=== PATIENT | female | born 1940 | race Caucasian/White ===

== ENCOUNTER → 2020-09-21 06:42 | Outpatient (CLI) | payer MEDICARE, SELFPAY ==
[2020-09-21 17:52] LABS: SARS-CoV-2 RNA PCR Negative
== END ==
PROVIDERS: PCP Family Medicine; Visit Provider Family Medicine
DX: Z20.822 Contact with and (suspected) exposure to COVID-19 (principal); R05 Cough; R50.9 Fever, unspecified
CPT/HCPCS: C9803; U0003; U0005

== ENCOUNTER 2020-10-12 09:11 | Outpatient (CLI) | payer MEDICARE, SELFPAY ==
--- NOTE | ~2020-10-12 | CT_ITS ---
EXAMINATION: CT sinus wo con DATE: 10/12/2020 09:31 INDICATION: Chronic sinusitis TECHNIQUE: Computed tomography (CT) of the paranasal sinuses was performed without contrast. Iterativ e reconstruction technique was employed. Exam dose: 276.23 mGy-cm total exam DLP. COMPARISON: None FINDINGS: There is rightward deviation of the nasal septum. There is prominent interlamellar cell of the middle nasal turbinates, left greater than right. The ostiomeatal units are patent bilaterally. There is mild diffuse mucoperiosteal thickening of the left maxillary sinus. The right maxillary sinu s is clear. The ethmoid air cells are unremarkable. The right frontal sinus is normal. Is mild mucope riosteal thickening of the left frontal sinus. There is mild mucoperiosteal thickening of the right sphenoid sinus and minimal posterior soft tissue thickening of the left sphenoid sinus. The mastoid air cells are normally developed and aerated bilaterally. Middle and inner ear apparatus appear normal bilaterally. IMPRESSION: Rightward deviation of nasal septum Bilateral interlamellar cell of the middle nasal turbinates, particularly prominent on the left Patent ostiomeatal units. Diffuse mild mucosal periosteal thickening of the left maxillary sinus Mild mucosal periosteal thickening of left frontal and right sphenoid sinus, minimal posterior mucope riosteal thickening of the left sphenoid sinus Reviewed, dictated and finalized at [facility]. Reviewed, dictated and finalized at location A. IMPRESSION: Rightward deviation of nasal septum Bilateral interlamellar cell of the middle nasal turbinates, particularly promi nent on the left Patent ostiomeatal units. Diffuse mild mucosal periosteal thickening of the left maxillary sinus Mild mucosal periosteal thickening of left frontal and right sphenoid sinus, mi nimal posterior mucoperiosteal thickening of the left sphenoid sinus
== END 2020-10-12 09:12 | disposition home or self-care (01) ==
PROVIDERS: PCP Family Medicine; Visit Provider Family Medicine
DX: J32.9 Chronic sinusitis, unspecified (principal); J34.2 Deviated nasal septum
CPT/HCPCS: 70486

== ENCOUNTER 2020-12-03 09:47 | Observation (INO) | payer MEDICARE, SELFPAY ==
[2020-12-03] VITALS (16 sets, daily range): BP systolic 117–149; BP diastolic 64–86; PULSE 72–87; RESP 18–27; TEMP 36.3–36.9; O2SAT 95–100; BMI 24.8
--- NOTE | ~2020-12-03 | CT_ITS ---
EXAMINATION: CT brain wo con EXAM DATE: 12/04/2020 18:34 INDICATION: Syncope. TECHNIQUE: Spiral CT of the head was performed without contrast. Axial, coronal and sagittal images were reviewed. The dose-length product (DLP) for this examination was 605.33 mGy-cm. The exposure w as tailored according to patient size, and iterative reconstruction (ASIR) was used as additional dos e reduction technique. There is no prior study for comparison. FINDINGS: There is no acute intraparenchymal hemorrhage. No evidence of intraparenchymal brain mass lesion. No evidence of acute infarction. Please note that initial head CT has limited sensitivity f or small or acute infarctions. There is mild periventricular and subcortical hypodensity, nonspecific but probably related to small vessel ischemic disease. There is mild prominence of the sulci and v entricles related to cerebral atrophy. There is intracranial carotid arteriosclerosis. There are n o extra-axial collections. There is no mass effect or midline shift. Patient has had bilateral ocul ar lens surgery. Soft tissue is unremarkable. Mild to moderate left maxillary sinus and left ethmoi d mucoperiosteal thickening. IMPRESSION: 1. No acute intracranial findings. 2. Chronic age related findings. Reviewed, dictated and finalized at location A.
--- NOTE | ~2020-12-03 | XR_ITS ---
XR chest 2V DATE: 12/03/2020 11:01 INDICATION: Shortness of breath, weakness, lightheadedness. History of asthma. TECHNIQUE: AP and lateral views COMPARISON: 08/18/2018 PA and lateral chest FINDINGS: Normal heart size. There is aortic calcification and mild tortuosity. No hilar or mediastin al enlargement. There is bilateral moderate hyperinflation. No pulmonary infiltrate or consolidation, pleural effusio n or pulmonary vascular congestion or pneumothorax is detected. Diffuse osteopenia. IMPRESSION: Moderate bilateral hyperinflation; no active cardiopulmonary disease Reviewed, dictated and finalized at location A. IMPRESSION: Moderate bilateral hyperinflation; no active cardiopulmonary diseas e
--- NOTE | ~2020-12-03 | CT_ITS ---
EXAMINATION: CTA chest PE protocol DATE: 12/03/2020 13:14 INDICATION: Shortness of breath. TECHNIQUE: Computed tomography angiography (CTA) of the chest was performed with 100 mL Omnipaque-350 intravenous contrast timed to evaluate the pulmonary arteries. Coronal maximum intensity projection 3D-reconstructions were created by the technologist. Automated exposure control and iterative reconst ruction technique were employed. The dose-length product was 260.10 mGy-cm. COMPARISON: Chest CT 02/10/2018 FINDINGS: There is mild scarring at the lung apices. There is mild atelectasis bilaterally. There are bilateral small posterior diaphragmatic hernias containing fat. No pleural effusion. There are acute pulmonary emboli in right lung upper, middle, and lower lobes. The heart size is normal. No pericard ial effusion. There are changes of cholecystectomy. There is a 10 mm cyst in left kidney. Calcificati ons in the spleen are consistent with old granulomatous disease. There is severe thoracic spondylosis . IMPRESSION: 1. Acute right-sided pulmonary emboli. I called this result to Dr. Suárez. Reviewed, dictated and finalized at location A.
--- NOTE | ~2020-12-03 | US_ITS ---
EXAMINATION: US venous doppler [facility] DATE: 12/03/2020 15:59 INDICATION: Acute pulmonary emboli. TECHNIQUE: Grayscale ultrasound images without and with compression and Doppler ultrasound images of the bilateral lower extremity veins were obtained. COMPARISON: None. FINDINGS: The visualized portions of right common femoral vein, profunda (deep) femoral vein, femoral vein, pop liteal vein, peroneal veins, posterior tibial veins, and greater saphenous vein outflow are patent. T here is thrombus in right soleus vein. The visualized portions of left common femoral vein, profunda femoral vein, femoral vein, popliteal v ein, peroneal veins, posterior tibial veins, and greater saphenous vein outflow are patent. IMPRESSION: 1. Acute deep vein thrombosis involving right soleus vein. Reviewed, dictated and finalized at location A.
--- NOTE | ~2020-12-03 | US_ITS ---
EXAMINATION: US carotid duplex BI EXAM DATE: 12/04/2020 18:10 INDICATION: Syncope. TECHNIQUE: Grayscale, color and pulsed Doppler images of the cervical carotid arteries were obtained . The degree of vessel stenosis is placed in one of the following categories: normal, <50% stenosis, 50-69% stenosis, >=70% stenosis but less than near-occlusion, near-occlusion, or occlusion. Note that percent stenosis relative to normal distal artery lumen diameter is indirectly measured from velocit y measurements as described by Ramone, et al. Radiology 2003; 229:340-346. There is no prior study fo r comparison. FINDINGS: RIGHT SIDE: Right common carotid artery peak systolic velocity (PSV in cm/s): 48 Right bulb/internal carotid artery peak systolic velocity (PSV in cm/s): 73 Right internal carotid artery end diastolic velocity (EDV in cm/s): 29 Right ICA/CCA peak systolic ratio: 1.5 Right external carotid artery peak systolic velocity (PSV in cm/s): 47 Right vertebral artery antegrade flow: yes There is minimal carotid bulb plaque. Velocity and Doppler waveforms in the common and internal carotid arteries is normal. LEFT SIDE: Left common carotid artery peak systolic velocity (PSV in cm/s): 74 Left bulb/internal carotid artery peak systolic velocity (PSV in cm/s): 79 Left internal carotid artery end diastolic velocity (EDV in cm/s): 34 Left ICA/CCA peak systolic ratio: 1.1 Left external carotid artery peak systolic velocity (PSV in cm/s): 48 Left vertebral artery antegrade flow: yes There is minimal carotid bulb plaque. Velocity and Doppler waveforms in the common and internal carotid arteries is normal. IMPRESSION: 1. Less than 50 percent stenosis in the right internal carotid artery. 2. Less than 50 percent stenosis in the left internal carotid artery. Reviewed, dictated and finalized at location A.
--- NOTE | 2020-12-03 09:53 | ECG_ITS ---
Measurements Intervals [place] Rate: 81 P: 56 GA: 165 QRS: -9 QRSD: 85 T: 21 QT: 378 QTc: 439 Interpretive Statements SINUS RHYTHM INCOMPLETE RIGHT BUNDLE BRANCH BLOCK BORDERLINE T WAVE ABNORMALITY- INFERIOR LEADS BASELINE ARTIFACT- I, II, III, AVR, AVL, AVF, V5-V6 BORDERLINE ECG Electronically Signed On 12-03-2020 16:33:03 CDT by Jim Padilla D.O.
[2020-12-03 10:28] LABS: Add Urine Microscopic? NO; Appearance Urine Clear (Clear); Bilirubin Urine Negative (Negative); Blood Urine Negative (Negative); Color Urine Yellow (Yellow); Glucose Urine UA Negative (Negative); Ketones Urine Negative (Negative); Leukocyte Esterase Ur Negative LEU/UL (Negative); Nitrate Urine Negative (Negative); Protein Urine Negative (Negative); Specific Grav Ur 1.008 (1.001-1.035); Urobilinogen Urine Negative mg/dL (<2.0)
[2020-12-03 10:38] LABS: Alanine Aminotransferase 38 U/L (4-35); Albumin Level 4.1 g/dL (3.5-5.1); Alkaline Phosphatase 92 U/L (38-126); Anion Gap 8 mmol/L (8-16); Aspartate Amino Transferase 38 U/L (14-36); Bilirubin,Total 0.8 mg/dL (0.2-1.3); Blood Urea Nitrogen 18 mg/dL (7-17); Calcium 9.4 mg/dL (8.4-10.2); Carbon Dioxide 27 mmol/L (22-30); Chloride 103 mmol/L (98-107); Estimated CRCL calculation 48 ml/min; Estimated Glomerular Filt Rate > 60; Glucose 114 mg/dL (65-110); Sodium 138 mmol/L (137-145)
[2020-12-03 10:52] LABS: Basophils Percent Auto 0.5 % (0.2-1.2); Eosinophils Absolute Auto 0.3 K/mm3 (0-0.3); Eosinophils Percent Auto 4.3 % (0-4.4); Hematocrit 38.9 % (37.0-47.0); Hemoglobin 13.1 g/dL (12.0-15.0); Immature Granulocyte Absolute 0.01 K/mm3 (0.00-0.031); Immature Granulocyte Percent A 0.1 % (0-0.5); Lymphocytes Absolute Auto 2.21 K/mm3 (0.9-3.2); Lymphocytes Percent Auto 29.7 % (18.3-44.2); Mean Corpuscular HGB Conc 33.7 g/dl (32-36); Mean Platelet Volume 9.7 fl (7.4-10.4); Monocytes Absolute Auto 0.6 K/mm3 (0.1-0.6); Monocytes Percent Auto 7.4 % (2.6-8.5); Neutrophils Absolute Auto 4.3 K/mm3 (1.3-6.7); Platelet Count Result 223 k/mm3 (150-375); Red Blood Count 4.23 M/mm3 (4.2-5.4); Red Cell Distribution Width 13.2 % (11.5-14.5); White Blood Count 7.4 K/mm3 (4.5-10.0)
[2020-12-03 12:11] LABS: D Dimer 3.41 ug/mL (<0.48)
--- NOTE | 2020-12-03 14:13 | ED.GENADULT ---
HPI - General Adult General Chief complaint: Weakness Stated complaint: weakness Time Seen by Provider: 12/03/20 11:04 Source: patient and family Mode of arrival: ambulatory Limitations: no limitations History of Present Illness HPI narrative: 80-year-old with a history of asthma here with complaints of shortness of breath, weakness for past 3 days. Patient states that she has been using her inhalers with no relief. She denies any chest pain . No history of fever or chills. Onset (ago): day(s) (3) Severity: moderate Pain Consistency: constant Relieving factors: none Exacerbating factors: none Associated symptoms: denies other symptoms Related Data Home Medications Medication Instructions Recorded Confirmed atorvastatin 12/03/20 12/03/20 fluticasone furoate-vilanterol INHALATION 12/03/20 [Breo Ellipta] indapamide mg 12/03/20 ipratropium-albuterol ml INHALATION 12/03/20 levothyroxine 12/03/20 omeprazole 12/03/20 Allergies Allergy/AdvReac Type Severity Reaction Status Date / Time fluticasone Allergy Unknown Other Verified 12/03/20 11:22 salmeterol Allergy Unknown Other Verified 12/03/20 11:22 Review of Systems Constitutional: Constitutional: Reports no additional constitutional complaints Eyes: Eyes: Reports no additional eye complaints ENT: Reports system reviewed and no additional complaints, except as documented Cardiovascular: Cardiovascular: Reports no additional cardiovascular complaints Respiratory: Respiratory: Reports as per HPI Gastrointestinal: Gastrointestinal: Reports no additional gastrointestinal complaints Musculoskeletal: Musculoskeletal: Reports no additional musculoskeletal complaints Integumentary/Breasts: Skin/Breast: Reports system reviewed and no additional complaints, except as docu Neurologic: Reports system reviewed and no additional complaints, except as documented PMFSH Family History Family History Mother Family history of chronic obstructive pulmonary disease Social History Social History Smoking status: Never smoker Exam Narrative: GENERAL: Well-appearing, well-nourished, and in no acute distress. HEAD: Normocephalic, atraumatic. EYES: PERRLA and EOMI. ENT: Nares clear, no rhinorrhea or epistaxis. Mucous membranes moist. NECK: Supple. CHEST: Clear to auscultation. No respiratory distress. HEART: Regular rate and rhythm. No murmur heard. Normal peripheral pulses. ABDOMEN: Soft, nontender, nondistended, normal active bowel sounds. EXTREMITIES: Normal range of motion. No edema. SKIN: Warm, dry, no rash. NEURO: No focal deficits. Alert and oriented x3. PSYCH: Normal mood and affect. Course Course Emergency Course: Patient still saturating 98 200% on room air. Informed her about her lab work, CT findings. Discussed with Shanel agreed to admit the patient in observation. Vital Signs Vital signs: Vital Signs Temperature 36.4 C L 12/03/20 09:50 Pulse Rate 87 12/03/20 09:50 Respiratory Rate 20 12/03/20 09:50 Blood Pressure 149/85 H 12/03/20 09:50 Pulse Oximetry 100 12/03/20 09:50 Temperature 36.8 C 12/03/20 11:05 Pulse Rate 87 12/03/20 09:50 Respiratory Rate 20 12/03/20 09:50 Blood Pressure 149/85 H 12/03/20 09:50 Pulse Oximetry 100 12/03/20 09:50 Medical Decision Making Vital Signs Vital Signs: Vital Signs Temperature 36.4 C L 12/03/20 09:50 Pulse Rate 87 12/03/20 09:50 Respiratory Rate 20 12/03/20 09:50 Blood Pressure 149/85 H 12/03/20 09:50 Pulse Oximetry 100 12/03/20 09:50 Temperature 36.8 C 12/03/20 11:05 Pulse Rate 87 12/03/20 09:50 Respiratory Rate 20 12/03/20 09:50 Blood Pressure 149/85 H 12/03/20 09:50 Pulse Oximetry 100 12/03/20 09:50 Lab Data Result diagrams: 12/03/20 10:00 12/03/20 10:00 Labs: Lab Results 12/03/20 1
[2020-12-03] MEDS: ENOXAPARIN 80 MG/0.8 ML SYRINGE 70 MG SUB-Q (14:18)
--- NOTE | 2020-12-03 19:00 | ADMGEN ---
This patient, Carmel Sampson, was admitted to Medical Room 347-. Patient/family oriented to hospital policies and general routines including ID bracelet, bed and alarms, visiting hours, pain management, procedures, bathroom and other care routines, personal items, smoking policy, room service/diet, and visiting hours. Information on how to activate the Rapid Response Team has been discussed. Patient/Family are encouraged to report perceived risks to care and to ask questions if they do not understand what they are told or what they should do.
--- NOTE | 2020-12-03 19:00 | PM.IMHP ---
H&P: HPI History of Present Illness Date/Time: 12/03/20 19:00 Chief Complaint: Near syncope, shortness of breath. Narrative: This is a very pleasant 80-year-old female with asthma, hypertension, hyperlipidemia, and GERD who presented to the emergency department earlier today from home for evaluation of a near syncopal episode and shortness of breath. She has not felt in her usual state of health for several months with generalized weakness and increasing shortness of breath from her baseline though it seems to have gotten worse over the past 3 days. Initially she thought her symptoms were due to sinus issues and allergies, and in fact she had a sinus surgery done couple of weeks ago at [facility]. This morning she suddenly felt lightheaded and nearly had a syncopal episode but luckily she was able to sit down and her symptoms improved. Since that time her shortness of breath has been worse and her rescue inhaler has not helped much. On arrival to the emergency department her SpO2 was 100% on room air and her chest x-ray showed moderate bilateral hyperinflation but no acute disease. Her D-dimer was elevated which prompted a chest CTA that showed acute right-sided pulmonary emboli and a subsequent venous Doppler ultrasound showed an acute DVT involving the right soleus vein. With further questioning she does admit to being a bit more sedentary than normal the last several months, though not necessarily more so after her surgery. She endorses intermittent lower extremity edema since August for which she was started on indapamide with benefit though she has noticed that her right leg tends to be more swollen than the left. Her legs have not been painful, however. She has no history of venous thromboembolism. She has not had exertional chest pain or pleuritic pain. No palpitations. Weight has remained stable. No history of malignancy. She is not on hormones. No recent travel. Review of Systems Review of Systems: Twelve systems were reviewed with pertinent positives and negatives as per HPI. Weight has remained stable. No history of malignancy. She had normal colonoscopies and mammograms within the past 3 to 4 years. She has never had an abnormal mammogram. No nausea or vomiting. Except as documented, all other systems were reviewed and are negative. [facility] Past Medical History Medical History (Updated 12/03/20 @ 23:20 by Mary Jane Nelson PA-C) Asthma Diverticulitis Gastroesophageal reflux disease Hyperlipidemia Hypertension Hypothyroidism Obstructive sleep apnea Patient does not use a CPAP. Surgical History Surgical History (Updated 12/03/20 @ 23:16 by Mary Jane Nelson PA-C) History of cardiac catheterization (2016) Normal coronary arteries. History of excision of epidermal inclusion cyst (06/23/02) Right chest wall. History of laparoscopic cholecystectomy (05/03/07) History of sinus surgery (10/2020) History of tubal ligation (1975) Family History Family History Mother Family history of chronic obstructive pulmonary disease Diabetes mellitus Father Social History Social History (Updated 12/03/20 @ 23:17 by Mary Jane Nelson PA-C) Social History: Surrogate decision maker: Douglas Acostan, . Code status: Full code. Smoking status: Never smoker Alcohol intake: current Drinks per week: 1 Substance use: never Living arrangements: with family Additional living arrangements comments: The patient lives in [place] with her . Occupation/Education: retired [employer] Home Medications and Allergies Home Medications Medication Instructions Recorded Confirmed Type fluticasone furoate 200 1 inhalation INHALATION DAILY #60 02/24/19 12/03/20 Rx mcg-vilanterol 25 mcg/dose each inhalation powder atorvastatin 20 mg PO DAILY 12/03/20 12/03/20 History indapamide 1.25 mg PO DAILY 12/03/20 12/03/20 History ipratropium-
[2020-12-04] VITALS (17 sets, daily range): BP systolic 105–143; BP diastolic 61–86; PULSE 62–89; RESP 16–19; TEMP 36.1–37.1; O2SAT 93–98
[2020-12-04] MEDS: ENOXAPARIN 80 MG/0.8 ML SYRINGE 72 MG SUB-Q (02:00)
[2020-12-04] MEDS: LEVOTHYROXINE SODIUM 100 MCG TABLET PO (05:33)
[2020-12-04 05:58] LABS: Basophils Percent Auto 0.6 % (0.2-1.2); Eosinophils Absolute Auto 0.3 K/mm3 (0-0.3); Eosinophils Percent Auto 6.3 % (0-4.4); Hematocrit 36.9 % (37.0-47.0); Hemoglobin 12.1 g/dL (12.0-15.0); Immature Granulocyte Absolute 0.02 K/mm3 (0.00-0.031); Immature Granulocyte Percent A 0.4 % (0-0.5); Lymphocytes Absolute Auto 1.71 K/mm3 (0.9-3.2); Lymphocytes Percent Auto 33.6 % (18.3-44.2); Mean Corpuscular HGB Conc 32.8 g/dl (32-36); Mean Corpuscular Hemoglobin 30.4 pg (26-34); Mean Corpuscular Volume 92.7 fl (80-100); Mean Platelet Volume 9.3 fl (7.4-10.4); Monocytes Absolute Auto 0.5 K/mm3 (0.1-0.6); Monocytes Percent Auto 9.6 % (2.6-8.5); Neutrophils Absolute Auto 2.5 K/mm3 (1.3-6.7); Neutrophils Percent Auto 49.5 % (45.5-73.1); Platelet Count Result 195 k/mm3 (150-375); Red Blood Count 3.98 M/mm3 (4.2-5.4); Red Cell Distribution Width 13.2 % (11.5-14.5); White Blood Count 5.1 K/mm3 (4.5-10.0)
[2020-12-04 06:12] LABS: Alanine Aminotransferase 35 U/L (4-35); Albumin Level 3.6 g/dL (3.5-5.1); Alkaline Phosphatase 81 U/L (38-126); Anion Gap 4 mmol/L (8-16); Aspartate Amino Transferase 31 U/L (14-36); Bilirubin,Total 0.9 mg/dL (0.2-1.3); Blood Urea Nitrogen 15 mg/dL (7-17); Calcium 9.2 mg/dL (8.4-10.2); Carbon Dioxide 30 mmol/L (22-30); Chloride 103 mmol/L (98-107); Estimated CRCL calculation 48 ml/min; Estimated Glomerular Filt Rate > 60; Glucose 100 mg/dL (65-110); Potassium 3.8 mmol/L (3.4-5.0); Sodium 137 mmol/L (137-145)
[2020-12-04 06:23] LABS: NT Pro B Type Natriuretic Pept 339 pg/mL (5-100); Troponin I < 0.012 ng/mL (0.000-0.034)
[2020-12-04 07:16] LABS: Thyroid Stimulating Hormone Reflex 0.827 uIU/mL (0.465-4.68)
[2020-12-04] MEDS: INDAPAMIDE 1.25 MG TABLET PO (09:26)
[2020-12-04] MEDS: PANTOPRAZOLE 40 MG TABLET PO ×2 (09:27→17:53)
[2020-12-04] MEDS: ATORVASTATIN 20 MG TABLET PO (09:27)
[2020-12-04] MEDS: IPRATROPIUM BR 0.02% INH SOLN 0.5 MG/2.5 ML VIAL INHALATION ×3 (10:37→20:03)
[2020-12-04] MEDS: ALBUTEROL SULFATE NEB 2.5 MG/0.5 ML INH INHALATION ×3 (10:37→20:03)
--- NOTE | 2020-12-04 15:43 | PM.IMPN ---
Progress Note: A&P Assessment and Plan (1) Pulmonary embolism on right: Code(s): I26.99 - Other pulmonary embolism without acute cor pulmonale Status: Acute Assessment and Plan: Pulmonary emboli in the right upper middle and lower lobes as well as a DVT in the right soleus vein. Lovenox 1 milligram/kilogram b.i.d. Echo did not show any heart strain with an EF of 60-65 Eliquis was going to be $104 per month Was told that Xarelto should be cheaper will order through pharmacy to euceda check tele monitor (2) Deep vein thrombosis of right lower limb: Code(s): I82.401 - Acute embolism and thrombosis of unspecified deep veins of right lower extremity Status: Acute Assessment and Plan: Venous doppler: acute deep vein thrombosis in right soleus vein Lovenox Transition to either Eliquis or Xarelto Bedrest for now (3) Hypertension: Code(s): I10 - Essential (primary) hypertension Status: Acute Assessment and Plan: Current blood pressure 112/61 Continue indapamide 1.25 PO daily trend BP adjust medications as needed (4) Hyperlipidemia: Code(s): E78.5 - Hyperlipidemia, unspecified Status: Acute Assessment and Plan: Continue omeprazole (5) Hypothyroidism: Code(s): E03.9 - Hypothyroidism, unspecified Status: Acute Assessment and Plan: Continue home levothyroxine 100mcg PO daily TSH 0.827 (6) Asthma: Code(s): J45.909 - Unspecified asthma, uncomplicated Status: Acute Assessment and Plan: albuterol and Atrovent neb treatments (7) Near syncope: Code(s): R55 - Syncope and collapse Status: Acute Assessment and Plan: Stood up and had to quickly sit down Everything went black Will get carotid Doppler just to make sure Head ct as well Time Spent With Patient Time with patient: Greater than 35 minutes Subjective Date/time seen: 12/04/20 10:30 Interval history: Patient is a 80-year-old female who is here for pulmonary embolism and DVT. Patient states that she feels better and that she does not have the shortness of breath with just lying there however she has not been able to get up or put any exertion to her routine. She denies chest pain and palpitations at this time. Patient did state that she has been having symptoms on or off the past 3-4 years however over the past 3 days it has gotten worse. Patient does have a good appetite and is able to eat. She said her biggest fears when she stood up to go to the kitchen to eat dinner she was weak and fatigue and started to black out. She did complain of a little swelling in the bilateral legs. She denies every having a syncopal episode before. She did deny chest pain, shortness of breath, nausea, vomiting, abdominal pain, or weakness. Review of Systems Review of Systems: All systems reviewed & are unremarkable except as noted in HPI and below Exam Const: General: cooperative, healthy appearing, no acute distress, well developed, alert and awake Nutritional Appearance: well nourished Orientation/consciousness: patient oriented x3 Limitations: no limitations HENMT: Head: normal to inspection Ears: hearing grossly normal bilaterally General nose exam: Normal external nose present Mouth: Yes Normal oral and palatal mucosa present, Yes lip normal and Yes tongue normal Teeth and gingiva: abnormal tooth and associated gingiva and poor dentition Eyes: General: appearance normal, both eyes and all related structures Neck: Neck: normal visual inspection, full ROM, trachea midline and supple Chest: Chest palpation & inspection: normal inspection of the chest Resp: Effort & Inspection: normal respiratory effort and able to speak in complete sentences Auscultation: clear to auscultation bilaterally Cardio: Jugular venous distension: no JVD Rate: regular rate Rhythm: regular r
[2020-12-04] MEDS: ENOXAPARIN 80 MG/0.8 ML SYRINGE 70 MG SUB-Q (20:31)
--- NOTE | 2020-12-04 23:23 | ECHO_ITS ---
Patient Info Name: Carmel Sampson Age: 80 years : 1940 Gender: Female Ht: 67 in Wt: 158 lbs BSA: 1.85 m2 HR: 70 bpm BP: 143 / 86 mmHg Heart Rhythm: Sinus Rhythm Technical Quality: Good Exam Date: 12/04/2020 8:12 AM Exam Location: [facility] Patient Status: Inpatient Admit Date: 12/03/2020 Staff Ordering Physician: Mary Jane Nelson PA-C District Scout Executive: uRma Antony RDCS Attending Provider: Keyon Vasquez MD Referring Physician: Leslie FLORENTINO; Exam Type: CA echo doppler color flow Study Info Indications I10 - Essential (primary) hypertension - PULMONART EMBOLISM Complete two-dimensional, color flow and Doppler transthoracic echocardiogram is performed. Strain analysis performed. Summary 1. Complete two-dimensional, color flow and Doppler transthoracic echocardiogram is performed. 2. Strain analysis performed. 3. Left ventricular chamber dimension is mildly enlarged. 4. Left ventricular systolic function is normal, estimated at 60-65%. 5. There is no increased left ventricular wall thickness. 6. The left ventricular diastolic function is grade I diastolic dysfunction. 7. Global longitudinal strain is normal at -21 %. 8. Right ventricular chamber dimension is mildly enlarged. 9. Left atrial chamber dimension is moderately enlarged. 10. Right atrial chamber dimension is mildly enlarged. 11. There is mild aortic valve regurgitation. 12. The mitral valve annulus is mildly calcified. 13. There is mild mitral valve regurgitation. 14. There is mild tricuspid valve regurgitation. 15. Mild pulmonary hypertension, estimated pulmonary arterial systolic pressure is 44 mmHg. 16. There is mild pulmonic regurgitation. Left Ventricle Left ventricular chamber dimension is mildly enlarged. Left ventricular systolic function is normal, estimated at 60-65%. There is no increased left ventricular wall thickness. The left ventricular diastolic function is grade I diastolic dysfunction. Global longitudinal strain is normal at -21 %. Right Ventricle Right ventricular chamber dimension is mildly enlarged. Right ventricular systolic function is normal. Left Atria Left atrial chamber dimension is moderately enlarged. Right Atria Right atrial chamber dimension is mildly enlarged. Atrial Septum Aneurysmal interatrial septum without evidence of shunting by color-flow Doppler. Aortic Valve The aortic valve is trileaflet. There is mild aortic valve sclerosis. There is no aortic valve stenosis. There is mild aortic valve regurgitation. Pulmonic Valve The pulmonic valve is normal. There is no pulmonic valve stenosis. There is mild pulmonic regurgitation. Mitral Valve The mitral valve has normal leaflets. There is no mitral valve stenosis. There is mild mitral valve regurgitation. The mitral valve annulus is mildly calcified. Tricuspid Valve The tricuspid valve leaflets are normal. There is no significant tricuspid valve stenosis. There is mild tricuspid valve regurgitation. Mild pulmonary hypertension, estimated pulmonary arterial systolic pressure is 44 mmHg. Pericardium/Pleural The pericardium appears normal. There is no pericardial effusion. Inferior Vena Cava Normal inferior vena cava with >50% collapse upon inspiration consistent with normal right atrial pressure, 10 mmHg. Aorta The aortic root size at the sinus of Valsalva is normal. Left Ventricular Outflow Tract
[2020-12-05] VITALS (7 sets, daily range): BP systolic 127; BP diastolic 75; PULSE 64–106; RESP 16; TEMP 36.3; O2SAT 94–97
[2020-12-05] MEDS: LEVOTHYROXINE SODIUM 100 MCG TABLET PO (05:40)
[2020-12-05 05:54] LABS: Basophils Percent Auto 0.6 % (0.2-1.2); Eosinophils Absolute Auto 0.3 K/mm3 (0-0.3); Eosinophils Percent Auto 5.3 % (0-4.4); Hematocrit 37.1 % (37.0-47.0); Hemoglobin 12.1 g/dL (12.0-15.0); Immature Granulocyte Absolute 0.02 K/mm3 (0.00-0.031); Immature Granulocyte Percent A 0.4 % (0-0.5); Lymphocytes Absolute Auto 1.66 K/mm3 (0.9-3.2); Lymphocytes Percent Auto 30.5 % (18.3-44.2); Mean Corpuscular HGB Conc 32.6 g/dl (32-36); Mean Corpuscular Hemoglobin 30.3 pg (26-34); Mean Corpuscular Volume 92.8 fl (80-100); Mean Platelet Volume 9.3 fl (7.4-10.4); Monocytes Absolute Auto 0.4 K/mm3 (0.1-0.6); Monocytes Percent Auto 7.5 % (2.6-8.5); Neutrophils Percent Auto 55.7 % (45.5-73.1); Platelet Count Result 215 k/mm3 (150-375); Red Cell Distribution Width 13.1 % (11.5-14.5); White Blood Count 5.4 K/mm3 (4.5-10.0)
[2020-12-05 06:13] LABS: Alanine Aminotransferase 33 U/L (4-35); Albumin Level 3.5 g/dL (3.5-5.1); Alkaline Phosphatase 74 U/L (38-126); Anion Gap 4 mmol/L (8-16); Aspartate Amino Transferase 29 U/L (14-36); Bilirubin,Total 0.6 mg/dL (0.2-1.3); Blood Urea Nitrogen 14 mg/dL (7-17); Calcium 9.1 mg/dL (8.4-10.2); Carbon Dioxide 32 mmol/L (22-30); Chloride 103 mmol/L (98-107); Estimated CRCL calculation 48 ml/min; Estimated Glomerular Filt Rate > 60; Glucose 114 mg/dL (65-110); Sodium 139 mmol/L (137-145)
[2020-12-05 07:50] LABS: Glucose Point of Care 113 mg/dl (65-105)
[2020-12-05] MEDS: IPRATROPIUM BR 0.02% INH SOLN 0.5 MG/2.5 ML VIAL INHALATION (08:17)
[2020-12-05] MEDS: ALBUTEROL SULFATE NEB 2.5 MG/0.5 ML INH INHALATION (08:18)
[2020-12-05] MEDS: INDAPAMIDE 1.25 MG TABLET PO (08:46)
[2020-12-05] MEDS: PANTOPRAZOLE 40 MG TABLET PO (08:46)
[2020-12-05] MEDS: ENOXAPARIN 80 MG/0.8 ML SYRINGE 70 MG SUB-Q (08:46)
[2020-12-05] MEDS: ATORVASTATIN 20 MG TABLET PO (08:46)
--- NOTE | 2020-12-05 12:34 | PM.DS ---
DS: Admitting Diagnosis Discharge Date Date of service 12/05/20 11:45 Admitting Diagnosis PE and DVT with near syncope DS: Discharge Diagnosis Discharge Diagnosis (1) Pulmonary embolism on right: Code(s): I26.99 - Other pulmonary embolism without acute cor pulmonale Status: Acute Assessment and Plan: Pulmonary emboli in the right upper middle and lower lobes as well as a DVT in the right soleus vein. Lovenox 1 milligram/kilogram b.i.d. Echo did not show any heart strain with an EF of 60-65 Eliquis is going to be $104 per month Xarelto is 162.32 a month tele monitor Pt will DC on eliquis (2) Deep vein thrombosis of right lower limb: Code(s): I82.401 - Acute embolism and thrombosis of unspecified deep veins of right lower extremity Status: Acute Assessment and Plan: Venous doppler: acute deep vein thrombosis in right soleus vein Lovenox Transition to either Eliquis or Xarelto Bedrest for now (3) Hypertension: Code(s): I10 - Essential (primary) hypertension Status: Acute Assessment and Plan: Current blood pressure 127/75 Continue indapamide 1.25 PO daily trend BP adjust medications as needed (4) Hyperlipidemia: Code(s): E78.5 - Hyperlipidemia, unspecified Status: Acute Assessment and Plan: Continue omeprazole (5) Hypothyroidism: Code(s): E03.9 - Hypothyroidism, unspecified Status: Acute Assessment and Plan: Continue home levothyroxine 100mcg PO daily TSH 0.827 (6) Asthma: Code(s): J45.909 - Unspecified asthma, uncomplicated Status: Acute Assessment and Plan: albuterol and Atrovent neb treatments (7) Near syncope: Code(s): R55 - Syncope and collapse Status: Acute Assessment and Plan: Stood up and had to quickly sit down Everything went black carotid Doppler <50% stenosed Head ct no acute finding age related findings DS: Summary Hospital Course Hospital Course: Patient is a 80-year-old female with a past medical history of hyperlipidemia, asthma, GERD who presented the ED for evaluation near syncopal episode and shortness of breath. It was found that patient had a PE in the right upper middle and lower lobes. She also was found have a DVT in the right Flick is pain. Patient was treated with Lovenox 1 milligram/kilogram b.i.d.. Echo did not show any signs of heart strain in her EF was 60-65%. It was noted to check for it DVT and PE due to patient's elevated D-dimer. Patient was also worked up for near syncopal episode. Head CT showed chronic findings and carotid Doppler showed less than 50% stenosis bilaterally. Patient was out of bed and was able to walk the hallways with no troubles. Patient had no complaints of chest pain, palpitations, weakness, fatigue, abdominal pain nausea, vomiting, sweats, fevers, chills. Status at Discharge Functional status at discharge: independent ambulation Overall status at discharge: patient is back to baseline Time Spent with Patient Time attestation: Total time spent providing and/or coordinating discharge services: 48 minutes Time spent: Greater than 30 minutes Specific discharge activities: Chart review, lab review, diagnostic testing, documentation, and physical exam Exam Const: General: cooperative, healthy appearing, no acute distress, well developed, alert and awake Nutritional Appearance: well nourished Orientation/consciousness: patient oriented x3 Limitations: no limitations HENMT: Head: normal to inspection Ears: hearing grossly normal bilaterally General nose exam: Normal external nose present Mouth: Yes Normal oral and palatal mucosa present, Yes lip normal and Yes tongue normal Teeth and gingiva: abnormal tooth and associated gingiva and poor dentition Eyes: General: appearance normal, both eyes and all related structures Neck: Neck: normal visua
== END 2020-12-05 15:00 | disposition home or self-care (01) ==
LOC: ANHED 14:21 → ANH3MEDSUR 16:55 → ANH3MED 17:38
PROVIDERS: Emergency Medicine; Physician Assistant; Admitting Provider Internal Medicine; Emergency Provider Family Medicine; PCP Family Medicine; Visit Provider Nurse Practitioner
DX: I26.99 Other pulmonary embolism without acute cor pulmonale (principal); I82.461 Acute embolism and thrombosis of right calf muscular vein; R06.02 Shortness of breath; R55 Syncope and collapse; E78.5 Hyperlipidemia, unspecified; E03.9 Hypothyroidism, unspecified; G47.33 Obstructive sleep apnea (adult) (pediatric); I10 Essential (primary) hypertension; J45.909 Unspecified asthma, uncomplicated; K21.9 Gastro-esophageal reflux disease without esophagitis
CPT/HCPCS: 36415; 70450; 71046; 71275; 80048; 80053; 80076; 81003; 82948; 83735; 83880; 84443; 84484; 85025; 85380; 93005; 93306; 93880; 93970; 94640; 94762; 96372; 99285; A9270; G0378; J1650; Q9967

== ENCOUNTER → 2021-08-07 13:45 | Outpatient (CLI) | payer MEDICARE, SELFPAY ==
--- NOTE | ~2021-08-07 | XR_ITS ---
XR chest 2V DATE: 08/07/2021 14:07 INDICATION: Cough TECHNIQUE: 2 views COMPARISON: 12/03/2020 CT pulmonary scan 12/03/2020 2 view chest FINDINGS: Bilateral hyperinflation relative flattening the diaphragm consistent with obstructive airw ays disease. No pulmonary infiltrate or consolidation, pleural effusion or pulmonary vascular congest ion or pneumothorax is detected. Chronic minimal blunting of the costophrenic angles. Heart size is within normal range. There is aortic calcification and minimal tortuosity. No hilar or mediastinal enlargement. Osteopenia. IMPRESSION: Bilateral hyperinflation consistent with obstructive airways disease No active cardiac pulmonary disease Aortic atherosclerosis No significant change since 11/2020 Reviewed, dictated and finalized at location A. IMPRESSION: Bilateral hyperinflation consistent with obstructive airways diseas e No active cardiac pulmonary disease Aortic atherosclerosis No significant change since 11/2020
== END ==
PROVIDERS: PCP Family Medicine; Visit Provider Family Medicine
DX: J45.991 Cough variant asthma (principal); I70.0 Atherosclerosis of aorta
CPT/HCPCS: 71046

== ENCOUNTER → 2022-03-13 14:18 | Outpatient (CLI) | payer MEDICARE, SELFPAY ==
--- NOTE | ~2022-03-13 | XR_ITS ---
EXAMINATION: XR thoracic spine 2V DATE: 03/13/2022 14:34 INDICATION: Thoracic spine pain TECHNIQUE: AP, lateral and lateral swimmer's views of the thoracic spine were obtained. COMPARISON: None. FINDINGS: Bone alignment is normal. There is no fracture. There is mild anterior wedging of vertebral bodies in the midthoracic spine. There is mild to moderate loss of intervertebral disc space height at multiple levels. Small degenerative osteophytes project from the anterior endplates of multiple ve rtebral bodies. IMPRESSION: 1. Moderate thoracic spondylosis without acute findings. Reviewed, dictated and finalized at location L. PAPER PHOTOGRAPHER
== END ==
PROVIDERS: PCP Family Medicine; Visit Provider Family Medicine
DX: M47.814 Spondylosis without myelopathy or radiculopathy, thoracic region (principal)
CPT/HCPCS: 72070

== ENCOUNTER 2023-05-14 10:44 | Outpatient (CLI) | payer MEDICARE, SELFPAY ==
--- NOTE | ~2023-05-14 | US_ITS ---
EXAMINATION: US renal BI DATE: 05/14/2023 11:06 INDICATION: Acute renal failure TECHNIQUE: Multiple ultrasound grayscale images of the kidneys were obtained. COMPARISON: None. FINDINGS: The right kidney measures 10.3 x 4.6 x 5.1 cm. The left kidney measures 11.6 x 5.5 x 4.1 cm cm. The k idneys demonstrate normal echogenicity. Bilateral anechoic renal cysts measuring 1.2 cm on the right and 1.1 cm on the left. There is no hydronephrosis in either kidney. No stones identified. The bladd er is normal. IMPRESSION: 1. Small bilateral renal cysts. Otherwise normal kidneys with no hydronephrosis. Reviewed, dictated and finalized at location L. IMPRESSION: 1. Small bilateral renal cysts. Otherwise normal kidneys with no hydronephrosi s.
== END 2023-05-14 10:45 ==
PROVIDERS: PCP Family Medicine; Visit Provider Internal Medicine Nephrology
DX: N17.9 Acute kidney failure, unspecified (principal); N28.1 Cyst of kidney, acquired
CPT/HCPCS: 76775

== ENCOUNTER 2023-05-21 19:58 | Inpatient (IN) | payer MEDICARE, SELFPAY ==
--- NOTE | ~2023-05-21 | XR_ITS ---
XR chest 1V portable 05/24/2023 06:29 Indication: Right rib pain Procedure: AP portable chest Comparison: Comparison to multiple prior studies sequentially, with oldest reviewed study dated 01/02. Findings: Heart size normal. No focal air space disease, pulmonary edema, pleural effusion or suspect ed pneumothorax. Chronic mild blunting of the costophrenic recess. Impression: 1: No acute cardiopulmonary disease. Reviewed, dictated and finalized at location A. Impression: 1: No acute cardiopulmonary disease.
--- NOTE | ~2023-05-21 | US_ITS ---
EXAMINATION: US biopsy renal DATE: 05/22/2023 12:58 INDICATION: Acute renal failure TECHNIQUE: The procedure including the risks, benefits, and alternatives was discussed with the patie nt. Risks discussed included bleeding and infection. The patient understood the risks and agreed to p roceed. A timeout was performed to verify the patient's name, date of , and procedure to be p erformed. The skin overlying the left kidney was prepped and draped in usual sterile fashion. Anest hetic was administered with 1% lidocaine subcutaneously. An 18 gauge core biopsy needle was then use d to obtain 4 core biopsy specimens under continuous sonographic guidance. The entry site was cleaned and dressed. There were no immediate complications. FINDINGS: Ultrasound images demonstrate the needle in the kidney. IMPRESSION: 1. Ultrasound-guided random left kidney core needle biopsy. Reviewed, dictated and finalized at location A.
--- NOTE | 2023-05-21 19:10 | ADMGEN ---
This patient, Carmel Sampson, was admitted to [facility] Surg Room 328-01. Patient/family oriented to hospital policies and general routines including ID bracelet, bed and alarms, visiting hours, pain management, procedures, bathroom and other care routines, personal items, smoking policy, room service/diet, and visiting hours. Information on how to activate the Rapid Response Team has been discussed. Patient/Family are encouraged to report perceived risks to care and to ask questions if they do not understand what they are told or what they should do.
[2023-05-21 20:00] VITALS: BP 167/91; PULSE 81; RESP 22; TEMP 36.9; O2SAT 97
[2023-05-21 20:02] VITALS: BMI 24.7
[2023-05-21 20:49] LABS: Hematocrit 28.4 % (37.0-47.0); Hemoglobin 9.1 g/dL (12.0-15.0); Immature Granulocyte Absolute 0.02 K/mm3 (0.00-0.031); Immature Granulocyte Percent A 0.3 % (0-0.5); Lymphocytes Absolute Auto 1.26 K/mm3 (0.9-3.2); Lymphocytes Percent Auto 18.4 % (18.3-44.2); Mean Corpuscular Hemoglobin 30.6 pg (26-34); Mean Corpuscular Volume 95.6 fl (80-100); Mean Platelet Volume 9.6 fl (7.4-10.4); Monocytes Absolute Auto 0.5 K/mm3 (0.1-0.6); Monocytes Percent Auto 7.2 % (2.6-8.5); Neutrophils Absolute Auto 5.1 K/mm3 (1.3-6.7); Neutrophils Percent Auto 74.1 % (45.5-73.1); Platelet Count Result 189 k/mm3 (150-375); Red Blood Count 2.97 M/mm3 (4.2-5.4); Red Cell Distribution Width 13.6 % (11.5-14.5); White Blood Count 6.8 K/mm3 (4.5-10.0)
--- NOTE | 2023-05-21 21:04 | PM.IMHP ---
H&P: HPI History of Present Illness Date/Time: 05/21/23 21:04 Chief Complaint: Abnormal Labs Narrative: 83 y/o F presents here with abnormal labs with PMH of diverticulitis, GERD, DVT, PE, HTN, hypothyroidism, KYLIE (not on CPAP), pulmonary hypertension, hypercholesteremia, inga neck pulmonary disease, and asthma. Patient here for further evaluation of acute renal failure. Recently established with Nephrology on 05/12/2023. Was referred to them through her PCP, Dr. Ontiveros. Patient routinely sees her PCP every 6-12 months. Visits have been follow-ups or routine yearly exams. Kidney dysfunction was noted in March of 2023, GFR reduced from 62 -> 23 -> 14 (Aug -> Mar -> Apr). Patient denies nausea, vomiting, diarrhea, fever, chills, flu-like illness, bloody urine, foamy urine, history of kidney stones, dysuria, frequent bladder infections. Reported increased swelling to her lower extremities for the past year and has been having some peripheral neuropathy like symptoms that have also been worsening over a similar timeline. Started on indapamide in May of 2022 which partially resolved the aforementioned swelling but was discontinued in Mar when kidney dysfunction was discovered. No other new medications or new OTC medications. Infrequent NSAID use - estimates once per month. BP has been historically controlled, however recently has increased with systolics ranging from 130s to 150s. Not currently on antihypertensives. Initial VS at presentation: 98.5? F, age are 82, RR 22, 167/91, and 97% on RA. Review of Systems Review of Systems: All systems reviewed & are unremarkable except as noted in HPI and below PMFSH Past Medical History Medical History Atherosclerosis of aorta Diverticulitis Gastro-esophageal reflux disease without esophagitis Gastroesophageal reflux disease History of DVT (deep vein thrombosis) History of pulmonary embolus (PE) Hypertension Hypothyroidism Nasal congestion Near syncope Obstructive sleep apnea Patient does not use a CPAP. Occlusion and stenosis of bilateral carotid arteries Pulmonary hypertension due to lung diseases and hypoxia Pure hypercholesterolemia, unspecified Severe persistent extrinsic asthma without complication Surgical History Surgical History History of cardiac catheterization (2016) Normal coronary arteries. History of excision of epidermal inclusion cyst (06/23/02) Right chest wall. History of laparoscopic cholecystectomy (05/03/07) History of sinus surgery (10/2020) History of tubal ligation (1975) Family History Family History Mother Family history of chronic obstructive pulmonary disease Diabetes mellitus Father Social History Social History Social History: Surrogate decision maker: Douglas Sampson, . Code status: Full code. Smoking status: Never smoker Alcohol intake: current Drinks per week: 0 Substance use: never Do You Feel Safe in your Home?: Yes Lack of Transportation: No Lack of Food: Never True Current Housing: I Have Housing Concerned About Future Housing: No Difficulty Paying Gas/Electric Bills: No Difficulty Paying for Meds: No Currently Unemployed: No Education: Trade/Vocational Certificate Difficulty w/ Childcare or Family Care: No Living arrangements: with family Additional living arrangements comments: The patient lives in [place] with her . Occupation/Education: retired Gender identity (if verbalized by the patient): Female Sexual Orientation (if Verbalized by the Patient): Straight or Heterosexual Spiritual care concerns: No Meds Home Medications and Allergies Home Medications Medication Instructions Recorded Confirmed Type omeprazole 40 mg
[2023-05-21 21:10] LABS: Alanine Aminotransferase 13 U/L (6-35); Albumin Level 3.7 g/dL (3.5-5.1); Alkaline Phosphatase 51 U/L (38-126); Anion Gap 4 mmol/L (8-16); Aspartate Amino Transferase 22 U/L (14-36); Bilirubin,Total 0.5 mg/dL (0.2-1.3); Blood Urea Nitrogen 43 mg/dL (7-17); Calcium 9.1 mg/dL (8.4-10.2); Carbon Dioxide 25 mmol/L (22-30); Chloride 109 mmol/L (98-107); Estimated CRCL calculation 15 ml/min; Estimated Glomerular Filt Rate 18; Glucose 100 mg/dL (65-110); Potassium 4.1 mmol/L (3.4-5.0); Sodium 138 mmol/L (137-145)
[2023-05-22] VITALS (8 sets, daily range): BP systolic 132–180; BP diastolic 65–90; PULSE 72–83; RESP 14–18; TEMP 36.3–37.2; O2SAT 96–99
--- NOTE | 2023-05-22 | ECHO_ITS ---
Patient Info Name: Carmel Sampson Age: 83 years : 1940 Gender: Female Ht: 67 in Wt: 158 lbs BSA: 1.85 m2 HR: 74 bpm BP: 180 / 90 mmHg Heart Rhythm: Sinus Rhythm Technical Quality: Good Exam Date: 05/22/2023 10:42 AM Exam Location: Echo Lab Patient Status: Outpatient Admit Date: 05/21/2023 Staff Ordering Physician: Sinai Hernandez APRN Meat Molder: Miguel Angel Bazzi RDCS Attending Provider: Anna To MD Referring Physician: David CRESPO; Exam Type: CA echo doppler color flow Study Info Indications - LE SWELLING Complete two-dimensional, color flow and Doppler transthoracic echocardiogram is performed. Summary 1. Complete two-dimensional, color flow and Doppler transthoracic echocardiogram is performed. 2. Mild left ventricular hypertrophy with hyperdynamic systolic function and grade 1 diastolic noncompliance. 3. Calcified mitral valve annulus. 4. Mild aortic regurgitation. 5. Mild tricuspid regurgitation velocity analysis estimates RV systolic pressure 52 mmHg. Left Ventricle Left ventricular chamber dimension is normal. Left ventricular systolic function is hyperdynamic, estimated at >70%. There is mild concentric increased left ventricular wall thickness. The left ventricular diastolic function is grade I diastolic dysfunction. Right Ventricle Right ventricular chamber dimension is normal. Left Atria Left atrial chamber dimension is normal. Right Atria Right atrial chamber dimension is normal. Aortic Valve The aortic valve is normal. There is mild aortic valve regurgitation. Pulmonic Valve The pulmonic valve is normal. Mitral Valve The mitral valve has normal leaflets. The mitral valve annulus is mildly calcified. Tricuspid Valve The tricuspid valve leaflets are normal. There is mild tricuspid valve regurgitation. Moderate pulmonary hypertension, estimated pulmonary arterial systolic pressure is 60 mmHg. Pericardium/Pleural The pericardium appears normal. Aorta The aortic root size at the sinus of Valsalva is normal. Left Ventricular Outflow Tract Name Value Normal LVOT 2D LVOT Diameter 2.2 cm LVOT Doppler LVOT Peak Gradient 7 mmHg LVOT Mean Gradient 3 mmHg LVOT VTI 30 cm LVOT VTI/AV VTI Ratio 1.0 LVOT Stroke Volume 112 ml LVOT CO 8.1 l/min LVOT CI 4.4 l/min/m2 Pulmonic Valve Name Value Normal RVOT Doppler RVOT Peak Gradient 5 mmHg PV Doppler PV Peak Gradient 5 mmHg Mitral Valve Name Value Normal
[2023-05-22] MEDS: methylPREDNISolone SOD SUCC 1,000 MG in DEXTROSE 5% 100 ML 200 MG IVPB ×2 (00:19→09:03)
[2023-05-22] MEDS: ACETAMINOPHEN 325 MG TABLET 650 MG PO ×2 (00:37→20:26)
[2023-05-22 00:45] LABS: Appearance Urine Clear (Clear); Bacteria Urine None Seen /hpf; Bilirubin Urine Negative (Negative); Blood Urine 2+ (Negative); Color Urine Yellow (Yellow); Glucose Urine UA Negative (Negative); Ketones Urine Negative (Negative); Leukocyte Esterase Ur Trace LEU/UL (Negative); Nitrate Urine Negative (Negative); Non Pathogenic Casts 0-2; Protein Urine 2+ mg/dL (Negative); Specific Grav Ur 1.008 (1.001-1.035); Squamous Epithelial Cell Urine None Seen /hpf (Few); Urobilinogen Urine 0.2 mg/dL (<2.0); pH Urine 6.5 (5.0-9.0)
[2023-05-22 00:47] LABS: Add Urine Microscopic? YES
[2023-05-22 00:48] LABS: Creatinine Urine 21.6 mg/dL; Total Protein Urine Random 79 mg/dL; Ur Ttl Prot Creatinine Ratio 3.66 mg/mg (0-0.20)
[2023-05-22 06:35] LABS: Basophils Percent Auto 0.1 % (0.2-1.2); Hematocrit 33.9 % (37.0-47.0); Hemoglobin 10.3 g/dL (12.0-15.0); Immature Granulocyte Absolute 0.02 K/mm3 (0.00-0.031); Immature Granulocyte Percent A 0.3 % (0-0.5); Lymphocytes Absolute Auto 1.24 K/mm3 (0.9-3.2); Lymphocytes Percent Auto 17.3 % (18.3-44.2); Mean Corpuscular HGB Conc 30.4 g/dl (32-36); Mean Corpuscular Hemoglobin 29.9 pg (26-34); Mean Corpuscular Volume 98.5 fl (80-100); Mean Platelet Volume 9.9 fl (7.4-10.4); Monocytes Absolute Auto 0.1 K/mm3 (0.1-0.6); Monocytes Percent Auto 1.1 % (2.6-8.5); Neutrophils Absolute Auto 5.8 K/mm3 (1.3-6.7); Neutrophils Percent Auto 81.2 % (45.5-73.1); Platelet Count Result 235 k/mm3 (150-375); Red Blood Count 3.44 M/mm3 (4.2-5.4); Red Cell Distribution Width 13.3 % (11.5-14.5); White Blood Count 7.2 K/mm3 (4.5-10.0)
[2023-05-22 06:46] LABS: Prothrombin Time 13.6 Seconds (11.1-14.7)
[2023-05-22 06:47] LABS: Partial Thromboplastin Time 29.1 Seconds (22.3-36.8)
[2023-05-22 07:33] LABS: Erythrocyte Sedimentation Rate 48 mm/hr (0-20)
[2023-05-22 07:36] LABS: Alanine Aminotransferase 15 U/L (6-35); Alkaline Phosphatase 56 U/L (38-126); Anion Gap 10 mmol/L (8-16); Aspartate Amino Transferase 23 U/L (14-36); Bilirubin,Total 0.7 mg/dL (0.2-1.3); Blood Urea Nitrogen 41 mg/dL (7-17); Calcium 9.5 mg/dL (8.4-10.2); Carbon Dioxide 20 mmol/L (22-30); Chloride 108 mmol/L (98-107); Estimated CRCL calculation 16 ml/min; Estimated Glomerular Filt Rate 19; Glucose 145 mg/dL (65-110); Magnesium 2.1 mg/dL (1.6-2.3); Phosphorus 4.4 mg/dL (2.5-4.5); Sodium 138 mmol/L (137-145)
[2023-05-22 08:07] LABS: Hepatitis B Surface Antigen Negative (Negative)
[2023-05-22 08:12] LABS: Hepatitis B Core IgM Result Negative (Negative)
[2023-05-22 08:25] LABS: Hepatitis B Surface Anti Res Negative; Hepatitis C Virus Antibody Negative (Negative)
[2023-05-22 08:31] LABS: Hemoglobin A1C 5.4 % (<5.7)
[2023-05-22] MEDS: hydrALAZINE HCL 25 MG TABLET PO ×2 (09:02→16:51)
[2023-05-22] MEDS: ATORVASTATIN 20 MG TABLET PO (09:02)
[2023-05-22] MEDS: MONTELUKAST SODIUM 10 MG TABLET PO (09:03)
[2023-05-22] MEDS: PANTOPRAZOLE 40 MG TABLET PO ×2 (09:03→20:26)
--- NOTE | 2023-05-22 09:20 | PM.CNNEP ---
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 cytoxan) along with steroids follow renal function and UOP (2) Nephrotic range proteinuria: Code(s): R80.9 - Proteinuria, unspecified Status: Acute Assessment and Plan: noted on outpatient evaluation likely a contributing component to LE edema re-assess following current interventions (3) Hematuria: Code(s): R31.9 - Hematuria, unspecified Status: Acute Assessment and Plan: as noted on outpatient evaluation see #1 (4) Hypertension: Qualifiers: Hypertension type: primary hypertension Qualified Code(s): I10 - Essential (primary) hypertension Code(s): I10 - Essential (primary) hypertension Status: Acute Assessment and Plan: relatively new issue and suspect related to #1 on PRN IV hydralazine start oral hydralazine for now likely to benefit from LILA-I/ARB therapy but hold off until treatment for #1 finalized and trend of renal function noted (5) Bilateral lower extremity edema: Code(s): R60.0 - Localized edema Status: Acute Assessment and Plan: suspect related to proteinuria Echo ordered for further evaluation Long extensive discussion (greater than 20 minutes) with the patient as well as her at bedside regarding treatment plan as well as further testing (i.e. the renal biopsy) for definitive diagnosis for her acute kidney injury/acute renal failure as well as the necessity of IV steroids and likely further immunosuppressive medications once the results of her renal biopsy are available. I answered their questions to the best of my abilities with regard to these issues and voiced their understanding. I will continue follow patient with you while she remains hospitalized and make further recommendations as deemed necessary. Thank you for allowing me to participate in the care of this patient. History of Present Illness Reason for Consult Consult date: 05/22/23 Reason for consult: acute renal failure Chief Complaint Chief complaint: Renal Failure History of Present Illness Narrative: The patient is an 83-year-old female with a past medical history as outlined below who was directly admitted to the hospital for further evaluation of her acute kidney injury/acute renal failure. Since the beginning of this year, the patient had blood tests that demonstrated a significant decline in her renal function when in 2022 her kidney function was well within normal limits. She was subsequently referred to Dr. Villavicencio for further evaluation of her abrupt decline in her kidney function. Subsequent outpatient workup and evaluation demonstrated evidence of hematuria and proteinuria with quantification of her proteinuria noted being in the nephrotic range. Her renal ultrasound was normal and her subsequent serological evaluation was significant for positive C-ANCA. furthermore, she has had on and off issues with lower extremity swelling / edema in conjunction with higher blood pressure readings when her blood pressure was under reasonable control without any speci
--- NOTE | 2023-05-22 09:20 | P.CONNP_ITS ---
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 cytoxan) along with steroids * follow renal function and UOP (2) Nephrotic range proteinuria: Code(s): R80.9 - Proteinuria, unspecified Status: Acute Assessment and Plan: * noted on outpatient evaluation * likely a contributing component to LE edema * re-assess following current interventions (3) Hematuria: Code(s): R31.9 - Hematuria, unspecified Status: Acute Assessment and Plan: * as noted on outpatient evaluation * see #1 (4) Hypertension: Qualifiers: Hypertension type: primary hypertension Qualified Code(s): I10 - Essential (primary) hypertension Code(s): I10 - Essential (primary) hypertension Status: Acute Assessment and Plan: * relatively new issue and suspect related to #1 * on PRN IV hydralazine * start oral hydralazine for now * likely to benefit from LILA-I/ARB therapy but hold off until treatment for #1 finalized and trend of renal function noted (5) Bilateral lower extremity edema: Code(s): R60.0 - Localized edema Status: Acute Assessment and Plan: * suspect related to proteinuria * Echo ordered for further evaluation Long extensive discussion (greater than 20 minutes) with the patient as well as her at bedside regarding treatment plan as well as further testing (i.e. the renal biopsy) for definitive diagnosis for her acute kidney injury/acute renal failure as well as the necessity of IV steroids and likely further immunosuppressive medications once the results of her renal biopsy are available. I answered their questions to the best of my abilities with regard to these issues and voiced their understanding. I will continue follow patient with you while she remains hospitalized and make further recommendations as deemed necessary. Thank you for allowing me to participate in the care of this patient. History of Present Illness Reason for Consult Consult date: 05/22/23 Reason for consult: acute renal failure Chief Complaint Chief complaint: Renal Failure History of Present Illness Narrative: The patient is an 83-year-old female with a past medical history as outlined below who was directly admitted to the hospital for further evaluation of her acute kidney injury/acute renal failure. Since the beginning of this year, the patient had blood tests that demonstrated a significant decline in her renal function when in 2022 her kidney function was well within normal limits. She was subsequently referred to Dr. Villavicencio for further evaluation of her abrupt decline in her kidney function. Subsequent outpatient workup and evaluation demonstrated e
[2023-05-22 09:28] LABS: Creatine Kinase 67 U/L (30-135)
--- NOTE | 2023-05-22 10:55 | PM.IMPN ---
Progress Note: A&P Assessment and Plan (1) Acute kidney failure, unspecified: Code(s): N17.9 - Acute kidney failure, unspecified Status: Acute Assessment and Plan: 05/21/2023: - creatinine 2.5 - initial abnormality noted on lab work done in Mar, creatinine 0.93 -> 2.11 - GFR 62 (08/2022) -> 23 (03/2023) -> 18 (05/21/23) - nephrology consulted. Discussed case prior to direct admission with Dr. Villavicencio who recommended: 1G of Solu-Medrol x3 days 70 mg p.o. of prednisone daily after sudden Medrol dose is completed renal biopsy stat - trend renal function - add CK, urine creatinine, urine osmolality, total protein creatinine random, UA with reflex, hepatitis panel, ESR, CK, Mag, phos, and coag studies - reported lower extremity swelling, adding echo 05/22/2023: Renal biopsy today with Nephrology Continue Solu-Medrol 1 g taper Echocardiogram showing left ventricular systolic function normal with an estimated EF of greater than 70%, grade 1 diastolic dysfunction, mood moderate pulmonary hypertension with estimated pulmonary artery systolic pressure of 60 Will hold atorvastatin until results of biopsy (2) Hypertension: Qualifiers: Hypertension type: primary hypertension Qualified Code(s): I10 - Essential (primary) hypertension Code(s): I10 - Essential (primary) hypertension Status: Acute Assessment and Plan: 05/21/2023 - per bhargav review, has been previously diagnosed. currently 167/91. - no current home medications - hydralazine 10 mg IVP PRN for BP greater than 170/90 - monitor 05/22/2023: Blood pressure ranging 132/65 to 155/71 Hydralazine 25 mg p.o. b.i.d. ordered Continue to monitor Time Spent With Patient Time with patient: Greater than 35 minutes Subjective Date/time seen: 05/22/23 10:55 Interval history: This is an 83-year-old female came in on 05/21/2023 with abnormal labs. Workup in the hospital included a renal ultrasound showing small bilateral renal otherwise normal kidneys with no hydronephrosis. Initial labs revealed a normal white blood cell count is 6.8, hemoglobin 9.1, BUN 43, creatinine 2.5, EGFR 18, liver enzymes are normal. UA was performed which shows 2+ protein, 2+ blood, trace leukocytes, 11-20 urine rbc's, to 10 urine WBCs. Hep B panel was negative. Urine culture was obtained and is pending. Patient was given Tylenol, Zofran, Colace albuterol neb treatment, and hydralazine while in the ED. nephrology consult and is giving 1 g of Solu-Medrol for the 1st 3 days which will taper down to 70 mg p.o. of prednisone daily. Patient had renal biopsy today. We will finish 1 g of Solu-Medrol tomorrow and start prednisone taper discharge. Nephrology will call her with the biopsy results once they are back. She denies any fever, chills, nausea, vomiting, diarrhea, abdominal pain, chest pain, shortness a breath, headache, vision changes. Echo today showing normal LV systolic function with an estimated EF of greater than 70%, grade 1 diastolic dysfunction, moderate pulmonary hypertension. Review of Systems Review of Systems: All systems reviewed & are unremarkable except as noted in HPI and below Constitutional: Constitutional: Reports as per HPI and Reports no additional constitutional complaints Eyes: Eyes: Reports as per HPI and Reports no additional eye complaints ENT: Reports system reviewed and no additional complaints, except as documented and Reports as per HPI Cardiovascular: Cardiovascular: Reports as per HPI and Reports no additional cardiovascular complaints Respiratory: Respiratory: Reports as per HPI and Reports no additional respiratory complaints Gastrointestinal: Gastrointestinal: Reports as per HPI and Reports no additional gastrointestinal complaints Genitourinary: Genitourinary: Reports no additional female genitourinary complaints and Reports as per HPI Musculoskeletal: Musculoskeletal: Reports no additional musculoskeletal complain
[2023-05-23] VITALS (9 sets, daily range): BP systolic 120–160; BP diastolic 67–82; PULSE 68–80; RESP 12–20; TEMP 36.2–36.9; O2SAT 95–99
[2023-05-23] MEDS: LEVOTHYROXINE SODIUM 88 MCG TABLET PO (05:18)
[2023-05-23 07:50] LABS: Alanine Aminotransferase 16 U/L (6-35); Albumin Level 3.8 g/dL (3.5-5.1); Alkaline Phosphatase 46 U/L (38-126); Anion Gap 5 mmol/L (8-16); Aspartate Amino Transferase 22 U/L (14-36); Bilirubin,Total 0.4 mg/dL (0.2-1.3); Blood Urea Nitrogen 48 mg/dL (7-17); Calcium 9.5 mg/dL (8.4-10.2); Carbon Dioxide 25 mmol/L (22-30); Chloride 107 mmol/L (98-107); Estimated CRCL calculation 14 ml/min; Estimated Glomerular Filt Rate 17; Glucose 145 mg/dL (65-110); Potassium 4.2 mmol/L (3.4-5.0); Sodium 137 mmol/L (137-145)
[2023-05-23 07:51] LABS: Basophils Percent Auto 0.1 % (0.2-1.2); Hematocrit 30.1 % (37.0-47.0); Hemoglobin 9.6 g/dL (12.0-15.0); Immature Granulocyte Absolute 0.07 K/mm3 (0.00-0.031); Immature Granulocyte Percent A 0.6 % (0-0.5); Lymphocytes Percent Auto 6.7 % (18.3-44.2); Mean Corpuscular HGB Conc 31.9 g/dl (32-36); Mean Corpuscular Hemoglobin 30.9 pg (26-34); Mean Corpuscular Volume 96.8 fl (80-100); Mean Platelet Volume 10.1 fl (7.4-10.4); Monocytes Absolute Auto 0.4 K/mm3 (0.1-0.6); Monocytes Percent Auto 3.1 % (2.6-8.5); Neutrophils Absolute Auto 10.8 K/mm3 (1.3-6.7); Neutrophils Percent Auto 89.5 % (45.5-73.1); Platelet Count Result 231 k/mm3 (150-375); Red Blood Count 3.11 M/mm3 (4.2-5.4); Red Cell Distribution Width 13.8 % (11.5-14.5)
[2023-05-23] MEDS: IPRATROPIUM NASAL SPRAY 0.03% 15 ML BOTTLE 2 SPRAY NASAL ×2 (08:32→16:37)
[2023-05-23] MEDS: PANTOPRAZOLE 40 MG TABLET PO ×2 (08:35→20:45)
[2023-05-23] MEDS: hydrALAZINE HCL 25 MG TABLET PO ×2 (08:35→16:37)
[2023-05-23] MEDS: MONTELUKAST SODIUM 10 MG TABLET PO (08:35)
[2023-05-23] MEDS: methylPREDNISolone SOD SUCC 1,000 MG in DEXTROSE 5% 100 ML 200 MG IVPB (08:36)
--- NOTE | 2023-05-23 13:25 | P.PNNP_ITS ---
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 cytoxan) along with steroids * follow renal function and UOP (2) Nephrotic range proteinuria: Code(s): R80.9 - Proteinuria, unspecified Status: Acute Assessment and Plan: * noted on outpatient evaluation * likely a contributing component to LE edema * re-assess following current interventions (3) Hematuria: Code(s): R31.9 - Hematuria, unspecified Status: Acute Assessment and Plan: * as noted on outpatient evaluation * see #1 (4) Hypertension: Qualifiers: Hypertension type: primary hypertension Qualified Code(s): I10 - Essential (primary) hypertension Code(s): I10 - Essential (primary) hypertension Status: Acute Assessment and Plan: * relatively new issue and suspect related to #1 * on PRN IV hydralazine * on oral hydralazine for now * likely to benefit from LILA-I/ARB therapy but hold off until treatment for #1 finalized and trend of renal function noted (5) Bilateral lower extremity edema: Code(s): R60.0 - Localized edema Status: Acute Assessment and Plan: * suspect related to proteinuria * Echo ordered for further evaluation Will continue to follow. Subjective Date/time seen: 05/23/23 13:25 Interval history: Follow-up for acute kidney injury/acute renal failure. Tolerated renal biopsy yesterday without any issues or problems; no apparent distress voiced at the time of my visit; at bedside and we discussed the situation; received last dose of solumedrol earlier today; no other issues/events overnight or earlier this morning. Exam Narrative: General: elderly but WD/WN female in NAD Heart: normal S1 and S2; no rub Lungs: clear to auscultation Abdomen: soft, nontender, nondistended, positive bowel sounds Extremities: no cyanosis or clubbing; trace - 1+ edema Skin: warm and dry Objective Data Vital Signs Vital Signs: Vital Signs Temp Pulse Resp BP Pulse Ox O2 Del Method 05/23/23 11:28 98.5 F 69 16 120/67 97 05/23/23 08:38 79 126/70 05/23/23 07:57 98.1 F 71 12 133/68 97 05/23/23 05:47 97.7 F 75 18 130/81 99 05/23/23 04:00 97.7 F 75 18 130/81 99 05/23/23 00:00 98.2 F 70 20 151/81 H 99 05/22/23 20:00 98.1 F 83 18 137/74 97 05/22/23 20:00 97 Room Air Intake/Output Intake/Output:
--- NOTE | 2023-05-23 13:25 | PM.PNNEP ---
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 cytoxan) along with steroids follow renal function and UOP (2) Nephrotic range proteinuria: Code(s): R80.9 - Proteinuria, unspecified Status: Acute Assessment and Plan: noted on outpatient evaluation likely a contributing component to LE edema re-assess following current interventions (3) Hematuria: Code(s): R31.9 - Hematuria, unspecified Status: Acute Assessment and Plan: as noted on outpatient evaluation see #1 (4) Hypertension: Qualifiers: Hypertension type: primary hypertension Qualified Code(s): I10 - Essential (primary) hypertension Code(s): I10 - Essential (primary) hypertension Status: Acute Assessment and Plan: relatively new issue and suspect related to #1 on PRN IV hydralazine on oral hydralazine for now likely to benefit from LILA-I/ARB therapy but hold off until treatment for #1 finalized and trend of renal function noted (5) Bilateral lower extremity edema: Code(s): R60.0 - Localized edema Status: Acute Assessment and Plan: suspect related to proteinuria Echo ordered for further evaluation Will continue to follow. Subjective Date/time seen: 05/23/23 13:25 Interval history: Follow-up for acute kidney injury/acute renal failure. Tolerated renal biopsy yesterday without any issues or problems; no apparent distress voiced at the time of my visit; at bedside and we discussed the situation; received last dose of solumedrol earlier today; no other issues/events overnight or earlier this morning. Exam Narrative: General: elderly but WD/WN female in NAD Heart: normal S1 and S2; no rub Lungs: clear to auscultation Abdomen: soft, nontender, nondistended, positive bowel sounds Extremities: no cyanosis or clubbing; trace - 1+ edema Skin: warm and dry Objective Data Vital Signs Vital Signs: Vital Signs Temp Pulse Resp BP Pulse Ox O2 Del Method 05/23/23 11:28 98.5 F 69 16 120/67 97 05/23/23 08:38 79 126/70 05/23/23 07:57 98.1 F 71 12 133/68 97 05/23/23 05:47 97.7 F 75 18 130/81 99 05/23/23 04:00 97.7 F 75 18 130/81 99 05/23/23 00:00 98.2 F 70 20 151/81 H 99 05/22/23 20:00 98.1 F 83 18 137/74 97 05/22/23 20:00 97 Room Air Intake/Output Intake/Output: Intake & Output 05/20/23 05/21/23 05/22/23 05/23/23 23:59 23:59 23:59 23:59 Intake Total 232 1086 Output Total 1625 1250 Balance -1393 -164 Meds/Results Medications: Active Medications Generic Name Dose Route Start Last Admin Trade Name Freq PRN Reason Stop Dose Admin Acetaminophen 650 mg 05/21/23 19:58 05/22/23 20:26 Acetaminophen 325 Mg Tablet PO 650 mg Q4H PRN Administration Mild Pain (1-3) or Fever Albuterol 2.5 mg 05/21/23 22:55 Albuterol Sulfate Neb 2.5 Mg/3 Ml Inh INHALATION Q6H PRN shortness of breath or wheezing Atorvastatin Calcium 20 mg 05/22/23 09:00 05/22/23 09:02 Atorvastatin 20 Mg Ta
--- NOTE | 2023-05-23 16:37 | PM.IMPN ---
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 Awaiting results from the renal biopsy performed. Use steroids. Continue to appreciate Nephrology recommendations. Continue to treat hypertension per Nephrology as well. FEN: Saline lock IV, heart healthy diet GI prophylaxis: Not indicated DVT prophylaxis: SCDs Lines: Peripheral IV Code Status: Full code Dispo: Stable on medical floor Subjective Date/time seen: 05/23/23 16:37 Interval history: No acute overnight events. Patient has no complaints whatsoever. Review of Systems Review of Systems: All systems reviewed & are unremarkable except as noted in HPI and below (Subjective) Exam Const: General: comfortable and no acute distress Other: A&O x3 Eyes: Pupils: Equal, round and reactive pupils present Neck: Neck: supple Resp: Effort & Inspection: normal respiratory effort Auscultation: clear to auscultation bilaterally Cardio: Rate: regular rate Rhythm: regular rhythm GI: GI Palp: Yes Soft to palpation and No Tenderness to palpation present (GI) Extrem: General: edema (1+ pitting edema bilateral lower extremities) Objective Data Vital Signs Vital Signs: Vital Signs - 24 hr 05/22/23 20:00 05/22/23 20:00 05/23/23 00:00 Temperature 98.1 F 98.2 F Pulse Rate 83 70 Respiratory Rate 18 20 Blood Pressure 137/74 151/81 H Pulse Oximetry 97 97 99 Oxygen Delivery Room Air 05/23/23 04:00 05/23/23 05:47 05/23/23 07:57 Temperature 97.7 F 97.7 F 98.1 F Pulse Rate 75 75 71 Respiratory Rate 18 18 12 Blood Pressure 130/81 130/81 133/68 Pulse Oximetry 99 99 97 Oxygen Delivery 05/23/23 08:38 05/23/23 11:28 05/23/23 15:25 Temperature 98.5 F 97.3 F L Pulse Rate 79 69 68 Respiratory Rate 16 12 Blood Pressure 126/70 120/67 160/82 H Pulse Oximetry 97 98 Oxygen Delivery Intake/Output Intake/Output: Intake & Output 05/20/23 05/21/23 05/22/23 05/23/23 23:59 23:59 23:59 23:59 Intake Total 232 1086 Output Total 1623 6160 Balance -6523 -164 Meds/Results Medications: Active Medications Generic Name Dose Route Start Last Admin Trade Name Freq PRN Reason Stop Dose Admin Acetaminophen 650 mg 05/21/23 19:58 05/22/23 20:26 Acetaminophen 325 Mg Tablet PO 650 mg Q4H PRN Administration Mild Pain (1-3) or Fever Albuterol 2.5 mg 05/21/23 22:55 Albuterol Sulfate Neb 2.5 Mg/3 Ml Inh INHALATION Q6H PRN shortness of breath or wheezing Atorvastatin Calcium 20 mg 05/22/23 09:00 05/22/23 09:02 Atorvastatin 20 Mg Tablet PO 20 mg DAILY SHAQUILLE Administration Docusate Sodium 100 mg 05/21/23 19:58 Docusate Sodium 100 Mg Capsule PO BID PRN Constipation Hydralazine HCl 10 mg 05/21/23 22:58 Hydralazine Hcl 20 Mg/Ml Vial IV PUSH Q8H PRN Blood Pressure - High Hydralazine HCl 25 mg 05/22/23 09:00 05/23/23 08:35 Hydralazine Hcl 25 Mg Tablet PO 25 mg BID SHAQUILLE Administration Ipratropium [place] 2 spray 05/22/23 09:00 05/23/23 08:32 Ipratropium Nasal [place] 0.03% 15 Ml Bottle NASAL 2 spray BID SHAQUILLE Administration Levothyroxine Sodium 88 mcg 05/22/23 06:30 05/23/23
[2023-05-24] VITALS (7 sets, daily range): BP systolic 123–155; BP diastolic 59–93; PULSE 62–85; RESP 16–20; TEMP 36–36.8; O2SAT 95–100
[2023-05-24] MEDS: LEVOTHYROXINE SODIUM 88 MCG TABLET PO (05:20)
[2023-05-24] MEDS: ACETAMINOPHEN 325 MG TABLET 650 MG PO ×4 (05:21→23:08)
--- NOTE | 2023-05-24 06:11 | PC.NURSE ---
Patient c/o pain to right upper back. Patient states that she took a drink of water and it went down the wrong way and she started coughing. She said she felt a pop in her right upper back/side and the pain is unbearable. Relayed to Dr. Li. New order received for a chest x-ray.
[2023-05-24 07:28] LABS: Basophils Percent Auto 0.1 % (0.2-1.2); Hemoglobin 9.6 g/dL (12.0-15.0); Immature Granulocyte Absolute 0.13 K/mm3 (0.00-0.031); Immature Granulocyte Percent A 0.8 % (0-0.5); Lymphocytes Absolute Auto 0.81 K/mm3 (0.9-3.2); Lymphocytes Percent Auto 4.9 % (18.3-44.2); Mean Corpuscular Hemoglobin 30.2 pg (26-34); Mean Corpuscular Volume 97.5 fl (80-100); Mean Platelet Volume 10.3 fl (7.4-10.4); Monocytes Absolute Auto 0.7 K/mm3 (0.1-0.6); Monocytes Percent Auto 4.2 % (2.6-8.5); Neutrophils Absolute Auto 14.7 K/mm3 (1.3-6.7); Platelet Count Result 280 k/mm3 (150-375); Red Blood Count 3.18 M/mm3 (4.2-5.4); Red Cell Distribution Width 13.9 % (11.5-14.5); White Blood Count 16.4 K/mm3 (4.5-10.0)
[2023-05-24 08:02] LABS: Anion Gap 10 mmol/L (8-16); Blood Urea Nitrogen 64 mg/dL (7-17); Calcium 9.9 mg/dL (8.4-10.2); Carbon Dioxide 23 mmol/L (22-30); Chloride 105 mmol/L (98-107); Estimated CRCL calculation 13 ml/min; Estimated Glomerular Filt Rate 16; Glucose 131 mg/dL (65-110); Phosphorus 4.5 mg/dL (2.5-4.5); Potassium 4.2 mmol/L (3.4-5.0); Sodium 138 mmol/L (137-145)
[2023-05-24 08:18] LABS: Platelet Estimate Adequate (Adequate)
[2023-05-24 08:20] LABS: Ovalocytes 1+; Poikilocytosis 1+; Schistocytes None Seen
[2023-05-24 08:21] LABS: Burr Cells 1+
[2023-05-24] MEDS: predniSONE 10 MG TABLET 70 MG PO (09:26)
[2023-05-24] MEDS: DOCUSATE SODIUM 100 MG CAPSULE PO (09:28)
[2023-05-24] MEDS: MONTELUKAST SODIUM 10 MG TABLET PO (09:28)
[2023-05-24] MEDS: PANTOPRAZOLE 40 MG TABLET PO ×2 (09:29→21:02)
[2023-05-24] MEDS: IPRATROPIUM NASAL SPRAY 0.03% 15 ML BOTTLE 2 SPRAY NASAL ×2 (09:31→16:11)
[2023-05-24] MEDS: hydrALAZINE HCL 25 MG TABLET PO ×2 (09:31→16:12)
--- NOTE | 2023-05-24 09:43 | PM.IMPN ---
Progress Note: A&P Assessment and Plan (1) Acute kidney failure, unspecified: Code(s): N17.9 - Acute kidney failure, unspecified Status: Acute Assessment and Plan: 05/21/2023: - creatinine 2.5 - initial abnormality noted on lab work done in Mar, creatinine 0.93 -> 2.11 - GFR 62 (08/2022) -> 23 (03/2023) -> 18 (05/21/23) - nephrology consulted. Discussed case prior to direct admission with Dr. Villavicencio who recommended: 1G of Solu-Medrol x3 days 70 mg p.o. of prednisone daily after sudden Medrol dose is completed renal biopsy stat - trend renal function - add CK, urine creatinine, urine osmolality, total protein creatinine random, UA with reflex, hepatitis panel, ESR, CK, Mag, phos, and coag studies - reported lower extremity swelling, adding echo 05/22/2023: Renal biopsy today with Nephrology Continue Solu-Medrol 1 g taper Echocardiogram showing left ventricular systolic function normal with an estimated EF of greater than 70%, grade 1 diastolic dysfunction, mood moderate pulmonary hypertension with estimated pulmonary artery systolic pressure of 60 Will hold atorvastatin until results of biopsy 05/24/23: renal biopsy still pending patient to remain inpatient until biopsy results per nephrology nephrology is following continue prednisone 70 mg daily continue to hold atorvastatin (2) Hypertension: Qualifiers: Hypertension type: primary hypertension Qualified Code(s): I10 - Essential (primary) hypertension Code(s): I10 - Essential (primary) hypertension Status: Acute Assessment and Plan: 05/21/2023 - per bhargav review, has been previously diagnosed. currently 167/91. - no current home medications - hydralazine 10 mg IVP PRN for BP greater than 170/90 - monitor 05/22/2023: Blood pressure ranging 132/65 to 155/71 Hydralazine 25 mg p.o. b.i.d. ordered Continue to monitor 05/24/2023: no change to previous treatment plan (3) Bilateral lower extremity edema: Code(s): R60.0 - Localized edema Status: Acute Assessment and Plan: 05/24/2023: Likely related to renal function Time Spent With Patient Time with patient: 25 - 35 minutes Subjective Date/time seen: 05/24/23 09:43 Interval history: 05/22/23: This is an 83-year-old female came in on 05/21/2023 with abnormal labs. Workup in the hospital included a renal ultrasound showing small bilateral renal otherwise normal kidneys with no hydronephrosis. Initial labs revealed a normal white blood cell count is 6.8, hemoglobin 9.1, BUN 43, creatinine 2.5, EGFR 18, liver enzymes are normal. UA was performed which shows 2+ protein, 2+ blood, trace leukocytes, 11-20 urine rbc's, to 10 urine WBCs. Hep B panel was negative. Urine culture was obtained and is pending. Patient was given Tylenol, Zofran, Colace albuterol neb treatment, and hydralazine while in the ED. nephrology consult and is giving 1 g of Solu-Medrol for the 1st 3 days which will taper down to 70 mg p.o. of prednisone daily. Patient had renal biopsy today. We will finish 1 g of Solu-Medrol tomorrow and start prednisone taper discharge. Nephrology will call her with the biopsy results once they are back. She denies any fever, chills, nausea, vomiting, diarrhea, abdominal pain, chest pain, shortness a breath, headache, vision changes. Echo today showing normal LV systolic function with an estimated EF of greater than 70%, grade 1 diastolic dysfunction, moderate pulmonary hypertension. 05/24/23: Examination today patient is alert oriented x3, lying in the bed. She states that she had a coughing fit last night that caused her back to spasm and now feels like there is a knot there. Otherwise she has no new complaints today. Labs today reveal a white blood cell count of 16.4 which is likely raised because of steroids, BUN 64, creatinine 2.9, EGFR 16. Renal biopsy is still pending. Plan is to keep her here in the hospital setting until we get t
[2023-05-24 11:35] LABS: Erythrocyte Sedimentation Rate 24 mm/hr (0-20)
--- NOTE | 2023-05-24 12:09 | PM.PNNEP ---
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 cytoxan) along with steroids follow renal function and UOP (2) Nephrotic range proteinuria: Code(s): R80.9 - Proteinuria, unspecified Status: Acute Assessment and Plan: noted on outpatient evaluation likely a contributing component to LE edema re-assess following current interventions (3) Hematuria: Code(s): R31.9 - Hematuria, unspecified Status: Acute Assessment and Plan: as noted on outpatient evaluation see #1 (4) Hypertension: Qualifiers: Hypertension type: primary hypertension Qualified Code(s): I10 - Essential (primary) hypertension Code(s): I10 - Essential (primary) hypertension Status: Acute Assessment and Plan: relatively new issue and suspect related to #1 on PRN IV hydralazine on oral hydralazine for now likely to benefit from LILA-I/ARB therapy but hold off until treatment for #1 finalized and trend of renal function noted (5) Bilateral lower extremity edema: Code(s): R60.0 - Localized edema Status: Acute Assessment and Plan: suspect related to proteinuria repeat Echo results noted Will continue to follow. Subjective Date/time seen: 05/24/23 12:09 Interval history: Follow-up for acute kidney injury/acute renal failure. Reports coughing spell last night that resulting in some back spasm which is giving her some discomfort at the time of my visit; no other acute complaints voiced at this time; resting in bed currently; case discussed with at bedside. Exam Narrative: General: elderly but WD/WN female in NAD Heart: normal S1 and S2; no rub Lungs: clear to auscultation Abdomen: soft, nontender, nondistended, positive bowel sounds Extremities: no cyanosis or clubbing; trace - 1+ edema Skin: warm and intact Objective Data Vital Signs Vital Signs: Vital Signs Temp Pulse Resp BP Pulse Ox O2 Del Method 05/24/23 12:00 97.4 F L 72 16 123/59 L 97 05/24/23 08:00 96.8 F L 85 20 147/93 H 100 05/24/23 04:00 97.9 F 76 18 155/70 H 99 05/23/23 20:00 95 Room Air 05/24/23 00:00 98.2 F 67 20 145/82 H 95 05/23/23 20:00 97.8 F 78 18 140/76 97 Intake/Output Intake/Output: Intake & Output 05/21/23 05/22/23 05/23/23 05/24/23 23:59 23:59 23:59 23:59 Intake Total 232 1566 866 Output Total 1625 1850 900 [facility] -[id number] [id number] [phone] Meds/Results Medications: Active Medications Generic Name Dose Route Start Last Admin Trade Name Freq PRN Reason Stop Dose Admin Acetaminophen 650 mg 05/21/23 19:58 05/24/23 09:29 Acetaminophen 325 Mg Tablet PO 650 mg Q4H PRN Administration Mild Pain (1-3) or Fever Albuterol 2.5 mg 05/21/23 22:55 Albuterol Sulfate Neb 2.5 Mg/3 Ml Inh INHALATION Q6H PRN shortness of breath or wheezing Atorvastatin Calcium 20 mg 05/22/23 09:00 05/22/23 09:02 Atorvastatin 20 Mg Tablet PO 20 mg DAILY SHAQUILLE Administration Docusate Sodium 100 mg 05/21/23 19:58 05/23
--- NOTE | 2023-05-24 12:09 | P.PNNP_ITS ---
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 cytoxan) along with steroids * follow renal function and UOP (2) Nephrotic range proteinuria: Code(s): R80.9 - Proteinuria, unspecified Status: Acute Assessment and Plan: * noted on outpatient evaluation * likely a contributing component to LE edema * re-assess following current interventions (3) Hematuria: Code(s): R31.9 - Hematuria, unspecified Status: Acute Assessment and Plan: * as noted on outpatient evaluation * see #1 (4) Hypertension: Qualifiers: Hypertension type: primary hypertension Qualified Code(s): I10 - Essential (primary) hypertension Code(s): I10 - Essential (primary) hypertension Status: Acute Assessment and Plan: * relatively new issue and suspect related to #1 * on PRN IV hydralazine * on oral hydralazine for now * likely to benefit from LILA-I/ARB therapy but hold off until treatment for #1 finalized and trend of renal function noted (5) Bilateral lower extremity edema: Code(s): R60.0 - Localized edema Status: Acute Assessment and Plan: * suspect related to proteinuria * repeat Echo results noted Will continue to follow. Subjective Date/time seen: 05/24/23 12:09 Interval history: Follow-up for acute kidney injury/acute renal failure. Reports coughing spell last night that resulting in some back spasm which is giving her some discomfort at the time of my visit; no other acute complaints voiced at this time; resting in bed currently; case discussed with at bedside. Exam Narrative: General: elderly but WD/WN female in NAD Heart: normal S1 and S2; no rub Lungs: clear to auscultation Abdomen: soft, nontender, nondistended, positive bowel sounds Extremities: no cyanosis or clubbing; trace - 1+ edema Skin: warm and intact Objective Data Vital Signs Vital Signs: Vital Signs Temp Pulse Resp BP Pulse Ox O2 Del Method 05/24/23 12:00 97.4 F L 72 16 123/59 L 97 05/24/23 08:00 96.8 F L 85 20 147/93 H 100 05/24/23 04:00 97.9 F 76 18 155/70 H 99 05/23/23 20:00 95 Room Air 05/24/23 00:00 98.2 F 67 20 145/82 H 95 05/23/23 20:00 97.8 F 78 18 140/76 97 Intake/Output Intake/Output: Intake & Output 05/21/23 05/22/23 05/23/23 05/24/23 23:59 23:59 23:59 2
[2023-05-24 19:41] LABS: Osmolality, Urine 316 mOsm/kg (50-1200)
[2023-05-25 03:27] VITALS: BP 153/75; PULSE 63; RESP 16; TEMP 36.4; O2SAT 98
[2023-05-25] MEDS: LEVOTHYROXINE SODIUM 88 MCG TABLET PO (05:15)
[2023-05-25 06:31] LABS: Hematocrit 27.8 % (37.0-47.0); Hemoglobin 8.8 g/dL (12.0-15.0); Immature Granulocyte Absolute 0.19 K/mm3 (0.00-0.031); Immature Granulocyte Percent A 1.9 % (0-0.5); Lymphocytes Absolute Auto 1.06 K/mm3 (0.9-3.2); Lymphocytes Percent Auto 10.6 % (18.3-44.2); Mean Corpuscular HGB Conc 31.7 g/dl (32-36); Mean Corpuscular Hemoglobin 30.7 pg (26-34); Mean Corpuscular Volume 96.9 fl (80-100); Mean Platelet Volume 10.2 fl (7.4-10.4); Monocytes Absolute Auto 0.7 K/mm3 (0.1-0.6); Monocytes Percent Auto 7.2 % (2.6-8.5); Neutrophils Percent Auto 80.3 % (45.5-73.1); Platelet Count Result 208 k/mm3 (150-375); Red Blood Count 2.87 M/mm3 (4.2-5.4)
[2023-05-25 06:47] LABS: Albumin Level 3.3 g/dL (3.5-5.1); Blood Urea Nitrogen 67 mg/dL (7-17); Carbon Dioxide 26 mmol/L (22-30); Estimated CRCL calculation 14 ml/min; Estimated Glomerular Filt Rate 17; Glucose 104 mg/dL (65-110)
[2023-05-25 07:08] LABS: Anion Gap 4 mmol/L (8-16); Calcium 9.3 mg/dL (8.4-10.2); Chloride 107 mmol/L (98-107); Phosphorus 3.9 mg/dL (2.5-4.5); Potassium 4.3 mmol/L (3.4-5.0); Sodium 137 mmol/L (137-145)
[2023-05-25 08:00] VITALS: BP 174/89; PULSE 64; RESP 18; TEMP 36.5; O2SAT 98
[2023-05-25] MEDS: ACETAMINOPHEN 325 MG TABLET 650 MG PO (08:23)
[2023-05-25] MEDS: hydrALAZINE HCL 25 MG TABLET PO ×2 (08:23→16:34)
[2023-05-25] MEDS: PANTOPRAZOLE 40 MG TABLET PO (08:24)
[2023-05-25] MEDS: MONTELUKAST SODIUM 10 MG TABLET PO (08:24)
[2023-05-25] MEDS: predniSONE 10 MG TABLET 70 MG PO (08:24)
[2023-05-25] MEDS: IPRATROPIUM NASAL SPRAY 0.03% 15 ML BOTTLE 2 SPRAY NASAL ×2 (08:24→16:34)
--- NOTE | 2023-05-25 10:28 | PM.PNNEP ---
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 cytoxan) along with steroids follow renal function and UOP (2) Nephrotic range proteinuria: Code(s): R80.9 - Proteinuria, unspecified Status: Acute Assessment and Plan: noted on outpatient evaluation likely a contributing component to LE edema re-assess following current interventions (3) Hematuria: Code(s): R31.9 - Hematuria, unspecified Status: Acute Assessment and Plan: as noted on outpatient evaluation see #1 (4) Hypertension: Qualifiers: Hypertension type: primary hypertension Qualified Code(s): I10 - Essential (primary) hypertension Code(s): I10 - Essential (primary) hypertension Status: Acute Assessment and Plan: relatively new issue and suspect related to #1 on PRN IV hydralazine on oral hydralazine for now likely to benefit from LILA-I/ARB therapy but hold off until treatment for #1 finalized and trend of renal function noted (5) Bilateral lower extremity edema: Code(s): R60.0 - Localized edema Status: Acute Assessment and Plan: suspect related to proteinuria repeat Echo results noted Will continue to follow. Subjective Date/time seen: 05/25/23 10:28 Interval history: Follow-up for acute kidney injury/acute renal failure. Back spasms/pain seems to be doing better at the time of my visit; no apparent distress voiced currently; no issues/events overnight or earlier this AM. Exam Narrative: General: elderly but WD/WN female in NAD Heart: normal S1 and S2; no rub Lungs: clear to auscultation Abdomen: soft, nontender, nondistended, positive bowel sounds Extremities: no cyanosis or clubbing; trace - 1+ edema Skin: no nodules or rash Objective Data Vital Signs Vital Signs: Vital Signs Temp Pulse Resp BP Pulse Ox O2 Del Method 05/25/23 10:18 97.8 F 77 18 134/77 97 05/25/23 08:00 Room Air 05/25/23 08:00 97.7 F 64 18 174/89 H 98 05/25/23 03:27 97.6 F 63 16 153/75 H 98 05/24/23 23:14 97.6 F 62 16 140/72 98 05/24/23 20:00 98 Room Air 05/24/23 20:00 97.2 F L 72 16 133/65 98 05/24/23 16:00 97.9 F 82 20 133/62 100 Intake/Output Intake/Output: Intake & Output 05/22/23 05/23/23 05/24/23 05/25/23 23:59 23:59 23:59 23:59 Intake Total 232 1566 2106 480 Output Total 1625 1850 1900 700 Balance -1393 -284 206 -220 Meds/Results Medications: Active Medications Generic Name Dose Route Start Last Admin Trade Name Freq PRN Reason Stop Dose Admin Acetaminophen 650 mg 05/21/23 19:58 05/25/23 08:23 Acetaminophen 325 Mg Tablet PO 650 mg Q4H PRN Administration Mild Pain (1-3) or Fever Albuterol 2.5 mg 05/21/23 22:55 Albuterol Sulfate Neb 2.5 Mg/3 Ml Inh INHALATION Q6H PRN shortness of breath or wheezing Atorvastatin Calcium 20 mg 05/22/23 09:00 05/22/23 09:02 Atorvastatin 20 Mg Tablet PO 20 mg DAILY SHAQUILLE Administration Docusate Sodium 100 mg 05/21/23 19:58 05/24/23 0
--- NOTE | 2023-05-25 10:28 | P.PNNP_ITS ---
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 cytoxan) along with steroids * follow renal function and UOP (2) Nephrotic range proteinuria: Code(s): R80.9 - Proteinuria, unspecified Status: Acute Assessment and Plan: * noted on outpatient evaluation * likely a contributing component to LE edema * re-assess following current interventions (3) Hematuria: Code(s): R31.9 - Hematuria, unspecified Status: Acute Assessment and Plan: * as noted on outpatient evaluation * see #1 (4) Hypertension: Qualifiers: Hypertension type: primary hypertension Qualified Code(s): I10 - Essential (primary) hypertension Code(s): I10 - Essential (primary) hypertension Status: Acute Assessment and Plan: * relatively new issue and suspect related to #1 * on PRN IV hydralazine * on oral hydralazine for now * likely to benefit from LILA-I/ARB therapy but hold off until treatment for #1 finalized and trend of renal function noted (5) Bilateral lower extremity edema: Code(s): R60.0 - Localized edema Status: Acute Assessment and Plan: * suspect related to proteinuria * repeat Echo results noted Will continue to follow. Subjective Date/time seen: 05/25/23 10:28 Interval history: Follow-up for acute kidney injury/acute renal failure. Back spasms/pain seems to be doing better at the time of my visit; no apparent distress voiced currently; no issues/events overnight or earlier this AM. Exam Narrative: General: elderly but WD/WN female in NAD Heart: normal S1 and S2; no rub Lungs: clear to auscultation Abdomen: soft, nontender, nondistended, positive bowel sounds Extremities: no cyanosis or clubbing; trace - 1+ edema Skin: no nodules or rash Objective Data Vital Signs Vital Signs: Vital Signs Temp Pulse Resp BP Pulse Ox O2 Del Method 05/25/23 10:18 97.8 F 77 18 134/77 97 05/25/23 08:00 Room Air 05/25/23 08:00 97.7 F 64 18 174/89 H 98 05/25/23 03:27 97.6 F 63 16 153/75 H 98 05/24/23 23:14 97.6 F 62 16 140/72 98 05/24/23 20:00 98 Room Air 05/24/23 20:00 97.2 F L 72 16 133/65 98 05/24/23 16:00 97.9 F 82 20 133/62 100 Intake/Output Intake/Output: Intake & Output 05/22/23 05/23/23 05/24/23 05/25/23 23:59 23:59 23:59 23:5
--- NOTE | 2023-05-25 11:23 | PM.IMPN ---
Progress Note: A&P Assessment and Plan (1) Acute kidney failure, unspecified: Code(s): N17.9 - Acute kidney failure, unspecified Status: Acute Assessment and Plan: 05/21/2023: - creatinine 2.5 - initial abnormality noted on lab work done in Mar, creatinine 0.93 -> 2.11 - GFR 62 (08/2022) -> 23 (03/2023) -> 18 (05/21/23) - nephrology consulted. Discussed case prior to direct admission with Dr. Villavicencio who recommended: 1G of Solu-Medrol x3 days 70 mg p.o. of prednisone daily after sudden Medrol dose is completed renal biopsy stat - trend renal function - add CK, urine creatinine, urine osmolality, total protein creatinine random, UA with reflex, hepatitis panel, ESR, CK, Mag, phos, and coag studies - reported lower extremity swelling, adding echo 05/22/2023: Renal biopsy today with Nephrology Continue Solu-Medrol 1 g taper Echocardiogram showing left ventricular systolic function normal with an estimated EF of greater than 70%, grade 1 diastolic dysfunction, mood moderate pulmonary hypertension with estimated pulmonary artery systolic pressure of 60 Will hold atorvastatin until results of biopsy 05/24/23: renal biopsy still pending patient to remain inpatient until biopsy results per nephrology nephrology is following continue prednisone 70 mg daily continue to hold atorvastatin 05/25/2023: renal biopsy is still pending continue prednisone Nephrology following (2) Hypertension: Qualifiers: Hypertension type: primary hypertension Qualified Code(s): I10 - Essential (primary) hypertension Code(s): I10 - Essential (primary) hypertension Status: Acute Assessment and Plan: 05/21/2023 - per bhargav review, has been previously diagnosed. currently 167/91. - no current home medications - hydralazine 10 mg IVP PRN for BP greater than 170/90 - monitor 05/22/2023: Blood pressure ranging 132/65 to 155/71 Hydralazine 25 mg p.o. b.i.d. ordered Continue to monitor 05/24/2023: no change to previous treatment plan (3) Bilateral lower extremity edema: Code(s): R60.0 - Localized edema Status: Acute Assessment and Plan: 05/24/2023: Likely related to renal function 05/25/2023: continue to monitor Time Spent With Patient Time with patient: 25 - 35 minutes Subjective Date/time seen: 05/25/23 11:23 Interval history: 05/22/23: This is an 83-year-old female came in on 05/21/2023 with abnormal labs. Workup in the hospital included a renal ultrasound showing small bilateral renal otherwise normal kidneys with no hydronephrosis. Initial labs revealed a normal white blood cell count is 6.8, hemoglobin 9.1, BUN 43, creatinine 2.5, EGFR 18, liver enzymes are normal. UA was performed which shows 2+ protein, 2+ blood, trace leukocytes, 11-20 urine rbc's, to 10 urine WBCs. Hep B panel was negative. Urine culture was obtained and is pending. Patient was given Tylenol, Zofran, Colace albuterol neb treatment, and hydralazine while in the ED. nephrology consult and is giving 1 g of Solu-Medrol for the 1st 3 days which will taper down to 70 mg p.o. of prednisone daily. Patient had renal biopsy today. We will finish 1 g of Solu-Medrol tomorrow and start prednisone taper discharge. Nephrology will call her with the biopsy results once they are back. She denies any fever, chills, nausea, vomiting, diarrhea, abdominal pain, chest pain, shortness a breath, headache, vision changes. Echo today showing normal LV systolic function with an estimated EF of greater than 70%, grade 1 diastolic dysfunction, moderate pulmonary hypertension. 05/24/23: Examination today patient is alert oriented x3, lying in the bed. She states that she had a coughing fit last night that caused her back to spasm and now feels like there is a knot there. Otherwise she has no new complaints today. Labs today reveal a white blood cell count of 16.4 which is likely raised because of ster
[2023-05-25 11:48] VITALS: BP 134/77; PULSE 77; RESP 18; TEMP 36.6; O2SAT 97
--- NOTE | 2023-05-25 14:45 | P.PNCROSS_ITS ---
Event Note Event Note Event Note: Preliminary renal biopsy results: * findings consistent with ANCA vasculitis * however, changes seen in glomeruli (sclerotic lesions) look like burnt out disease but some inflammation is still present * ~ 60% interstitial fibrosis noted Discussed results with patient and . Suspect she will likely has some degree of CKD. Would continue steroids as if for now with weaning every 2 weeks; will start cellcept 1gm bid as well Will arrange follow-up with Dr. Villavicencio in 2 weeks for further adjustment of these medications and ongoing management of her kidney disease. Discussed renal biopsy results and above plan with Dr. Villavicencio as well as Kaylyn Mann APRN.
[2023-05-25 16:00] VITALS: BP 135/74; PULSE 70; RESP 20; TEMP 36.6; O2SAT 97
--- NOTE | 2023-05-25 18:14 | PM.DS ---
DS: Admitting Diagnosis Discharge Date 05/25/23 Admitting Diagnosis acute kidney failure hypertension DS: Discharge Diagnosis Discharge Diagnosis (1) Acute kidney failure, unspecified: Code(s): N17.9 - Acute kidney failure, unspecified Status: Acute (2) Hypertension: Qualifiers: Hypertension type: primary hypertension Qualified Code(s): I10 - Essential (primary) hypertension Code(s): I10 - Essential (primary) hypertension Status: Acute (3) Bilateral lower extremity edema: Code(s): R60.0 - Localized edema Status: Acute DS: Summary Hospital Course Reason for hospitalization: acute kidney failure hypertension Hospital Course: 05/22/23: This is an 83-year-old female came in on 05/21/2023 with abnormal labs.? Workup in the hospital included a renal ultrasound showing small bilateral renal otherwise normal kidneys with no hydronephrosis.? Initial labs revealed a normal white blood cell count is 6.8, hemoglobin 9.1, BUN 43, creatinine 2.5, EGFR 18, liver enzymes are normal.? UA was performed which shows 2+ protein, 2+ blood, trace leukocytes, 11-20 urine rbc's, to 10 urine WBCs.? Hep B panel was negative.? Urine culture was obtained and is pending.? Patient was given Tylenol, Zofran, Colace albuterol neb treatment, and hydralazine while in the ED. nephrology consult and is giving 1 g of Solu-Medrol for the 1st 3 days which will taper down to 70 mg p.o. of prednisone daily.? Patient had renal biopsy today.? We will finish 1 g of Solu-Medrol tomorrow and start prednisone taper discharge.? Nephrology will call her with the biopsy results once they are back.? She denies any fever, chills, nausea, vomiting, diarrhea, abdominal pain, chest pain, shortness a breath, headache, vision changes.? Echo today showing normal LV systolic function with an estimated EF of greater than 70%, grade 1 diastolic dysfunction, moderate pulmonary hypertension. 05/24/23: Examination today patient is alert oriented x3, lying in the bed.? She states that she had a coughing fit last night that caused her? back to spasm and now feels like there is a knot there.? Otherwise she has no new complaints today.? Labs today reveal a white blood cell count of 16.4 which is likely? raised because of steroids, BUN 64, creatinine 2.9, EGFR 16.? Renal biopsy is still pending.? Plan is to keep her here in the hospital setting until we get those results back per Nephrology.? Nephrology is following. ?05/25/2023: She denies any new complaints. Labs today showing a white blood cell count of 10.0, hemoglobin 8.8, creatinine 2.7, EGFR 17.? renal biopsy showing severe arterial sclerosis, focal necrotizing glomerular nephritis. Patient was started on Cytotec and will continue on a prednisone taper. She will follow up with her primary care in 1 week. She will also follow up with Nephrology in 2 weeks. Patient is stable for discharge at this time. 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, hypertension Status at Discharge Cognitive/behavioral status at discharge: alert oriented x4 Functional status at discharge: independent ambulation Overall status at discharge: patient is progressing back to baseline Time Spent with Patient Time attestation: Total time spent providing and/or coordinating discharge services: Time spent: Greater than 30 minutes Exam Narrative: General: In no acute distress, well nourished Head: atraumatic, no encephalopathy Eyes: EOMI, PERRLA, sclera clear ENT: moist mucous membranes, nasal passages clear Neck: supple, no JVD, no adenopathy, trachea midline Cardiac: Normal S1 and S2. RRR. No murmur, gallops or friction rubs, peripheral pulses intact. Respiratory: Lungs clear to auscultation, no adventitious lung sounds, on room air Gastrointestinal: soft, non-distended, non-tender, normoactive bowel sounds. : voiding without difficulty. Extremities: moves all extremities we
== END 2023-05-25 18:35 | disposition home or self-care (01) | DRG 300 ==
PROVIDERS: Internal Medicine Nephrology; Student in an Organized Health Care Education/Training Program; Admitting Provider Family Medicine; PCP Family Medicine; Visit Provider Nurse Practitioner Acute Care
DX: I77.82 Antineutrophilic cytoplasmic antibody [ANCA] vasculitis (principal); N17.8 Other acute kidney failure; I12.9 Hypertensive chronic kidney disease with stage 1 through stage 4 chronic kidney disease, or unspecified chronic kidney disease; N18.9 Chronic kidney disease, unspecified; R60.0 Localized edema; K21.9 Gastro-esophageal reflux disease without esophagitis; G47.33 Obstructive sleep apnea (adult) (pediatric); E03.9 Hypothyroidism, unspecified; I70.0 Atherosclerosis of aorta; E78.00 Pure hypercholesterolemia, unspecified; I65.23 Occlusion and stenosis of bilateral carotid arteries; J45.50 Severe persistent asthma, uncomplicated; Z86.718 Personal history of other venous thrombosis and embolism; Z86.711 Personal history of pulmonary embolism; Z90.49 Acquired absence of other specified parts of digestive tract
CPT/HCPCS: 36415; 50200; 71045; 76942; 80053; 80069; 80076; 82550; 82570; 83036; 83735; 83935; 84100; 84156; 85025; 85610; 85652; 85730; 86705; 86706; 86803; 87086; 87340; 88300; 88305; 88313; 88329; 88346; 88348; 88350; 93306; A9270; G0378; J2930; J7512

== ENCOUNTER 2023-06-03 11:25 | Outpatient (CLI) | payer MEDICARE, SELFPAY ==
[2023-06-05 20:43] LABS: SM Antibody <1.0; SM/RNP Antibody <1.0
[2023-06-09 18:39] LABS: Cryoglobulin, QL Negative (Negative)
== END 2023-06-03 11:26 | disposition home or self-care (01) ==
LOC: ANHLAB 11:26
PROVIDERS: PCP Family Medicine; Visit Provider Internal Medicine Nephrology
DX: M35.9 Systemic involvement of connective tissue, unspecified (principal); N17.9 Acute kidney failure, unspecified
CPT/HCPCS: 36415; 82595; 86235

== ENCOUNTER 2023-06-05 08:53 | Outpatient (NON) | payer MEDICARE, SELFPAY ==
[2023-06-15 08:38] LABS: Pro/Creat Ratio 1304; Protein,total, 24 Hr Ur 30 mg/24h
[2023-06-15 08:39] LABS: Albumin 74
== END 2023-06-05 08:54 | disposition home or self-care (01) ==
LOC: ANHLAB 08:54
PROVIDERS: PCP Family Medicine; Visit Provider Internal Medicine Nephrology
DX: M35.9 Systemic involvement of connective tissue, unspecified (principal); M17.9 Osteoarthritis of knee, unspecified
CPT/HCPCS: 86335

== ENCOUNTER 2023-07-31 12:53 | Outpatient (CLI) | payer MEDICARE, SELFPAY ==
--- NOTE | ~2023-07-31 | CT_ITS ---
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 TECHNIQUE: Computed tomography (CT) of the chest was performed without intravenous contrast. Automate d exposure control and iterative reconstruction technique were employed. The dose-length product (DLP ) was 78.95 mGy-cm. COMPARISON: Chest CT 12/03/2020 FINDINGS: There is mild scarring at the lung apices. There is mild atelectasis bilaterally. Calcified left lung nodules are consistent with old granulomatous disease. There is a 1.8 cm nodule in right l ower lobe. There is a 7 mm nodule in left upper lobe. There are small bilateral posterior diaphragmat ic hernias containing fat. No pleural effusion. The heart size is normal. No pericardial effusion. Th ere is mild chronic anterior wedging of multiple vertebral bodies. There is severe cervical lordosis IMPRESSION: 1. 1.8 cm pulmonary nodule suspicious for primary bronchogenic carcinoma. PET/CT or 3-month noncontra st low-dose chest CT is recommended. Reviewed, dictated and finalized at location E. IMPRESSION: 1. 1.8 cm pulmonary nodule suspicious for primary bronchogenic carcinoma. PET/C T or 3-month noncontrast low-dose chest CT is recommended.
== END 2023-07-31 12:54 | disposition home or self-care (01) ==
LOC: ANHIMG 12:56
PROVIDERS: PCP Family Medicine; Visit Provider Internal Medicine Pulmonary Disease
DX: J45.50 Severe persistent asthma, uncomplicated (principal)
CPT/HCPCS: 71250

== ENCOUNTER 2023-08-13 12:52 | Outpatient (CLI) | payer MEDICARE, SELFPAY ==
--- NOTE | ~2023-08-13 | XR_ITS ---
XR chest 2V 08/13/2023 13:08 Indication: Increased shortness of breath Procedure: 2 view chest Comparison: Comparison to multiple prior studies sequentially, with oldest reviewed study dated 08/18. Findings: Heart size normal. No focal air space disease, pulmonary edema, pleural effusion or suspect ed pneumothorax. The lungs are hyperinflated which is consistent with, but not diagnostic of chronic obstructive pulmonary disease. Impression: 1: No acute cardiopulmonary disease. Reviewed, dictated and finalized at location B. Impression: 1: No acute cardiopulmonary disease.
== END 2023-08-13 12:53 | disposition home or self-care (01) ==
LOC: ANHIMG 12:54
PROVIDERS: PCP Family Medicine; Visit Provider Internal Medicine Nephrology
DX: R91.1 Solitary pulmonary nodule (principal); N18.4 Chronic kidney disease, stage 4 (severe)
CPT/HCPCS: 71046

== ENCOUNTER 2023-08-14 10:57 | Outpatient (CLI) | payer MEDICARE, SELFPAY ==
--- NOTE | ~2023-08-14 | US_ITS ---
EXAMINATION:US venous doppler LE BI INDICATION:Leg edema TECHNIQUE: Multiple grayscale, color flow and Doppler images of the right and left lower extremity de ep venous systems were obtained and reviewed. COMPARISON:12/03/2020 FINDINGS: The common femoral, superficial femoral and popliteal veins demonstrate normal respiratory variation, augmentation and compressibility. Color flow is also seen within the posterior tibial, pe roneal, greater saphenous and profunda veins. IMPRESSION: 1: No lower extremity deep venous thrombosis. Reviewed, dictated and finalized at location B.
== END 2023-08-14 10:58 | disposition home or self-care (01) ==
PROVIDERS: PCP Family Medicine; Visit Provider Internal Medicine Nephrology
DX: M79.89 Other specified soft tissue disorders (principal); Z86.711 Personal history of pulmonary embolism; N18.4 Chronic kidney disease, stage 4 (severe)
CPT/HCPCS: 93970

== ENCOUNTER 2023-11-10 09:00 | Inpatient (IN) | payer MEDICARE, SELFPAY ==
[2023-11-10] VITALS (13 sets, daily range): BP systolic 103–116; BP diastolic 52–72; PULSE 74–102; RESP 14–22; TEMP 36.8; O2SAT 94–100
--- NOTE | ~2023-11-10 | XR_ITS ---
EXAMINATION: XR chest 2V DATE: 11/10/2023 09:48 INDICATION: Shortness of breath on exertion. Weakness. TECHNIQUE: Frontal and lateral views of the chest were obtained. COMPARISON: Chest 2 views 08/13/2023 FINDINGS: There is mild scarring at the lung apices. No pleural effusion or pneumothorax. The heart s ize is normal. There is mild chronic anterior wedging of a midthoracic vertebral body. IMPRESSION: 1. Stable mild scarring at the lung apices. Reviewed, dictated and finalized at location A.
--- NOTE | 2023-11-10 09:14 | ECG_ITS ---
Test Date: 2023-11-10 09:27:40 Measurements Intervals [place] Rate: 94 P: 59 MN: 154 QRS: 1 QRSD: 94 T: 31 QT: 345 QTc: 433 Interpretive Statements SINUS RHYTHM BORDERLINE ST -T WAVE ABNORMALITY- ANT/INF LEADS BORDERLINE ECG No previous ECG available for comparison Electronically Signed On 11-10-2023 10:00:29 CDT by Jim Padilla D.O.
[2023-11-10 09:57] LABS: Alanine Aminotransferase 12 U/L (6-35); Albumin Level 3.1 g/dL (3.5-5.1); Alkaline Phosphatase 61 U/L (38-126); Anion Gap 11 mmol/L (4-12); Aspartate Amino Transferase 21 U/L (14-36); Bilirubin,Total 0.5 mg/dL (0.2-1.3); Blood Urea Nitrogen 25 mg/dL (7-17); Calcium 8.7 mg/dL (8.4-10.2); Carbon Dioxide 21 mmol/L (22-30); Chloride 99 mmol/L (98-107); Estimated CRCL calculation 21 ml/min; Estimated Glomerular Filt Rate 27; Glucose 150 mg/dL (65-110); Potassium 3.8 mmol/L (3.4-5.0); Sodium 131 mmol/L (137-145)
[2023-11-10 10:44] LABS: Basophils Percent Auto 0.2 % (0.2-1.2); Hematocrit 25.7 % (37.0-47.0); Hemoglobin 8.1 g/dL (12.0-15.0); Immature Granulocyte Absolute 0.04 K/mm3 (0.00-0.031); Immature Granulocyte Percent A 0.8 % (0-0.5); Lymphocytes Absolute Auto 0.24 K/mm3 (0.9-3.2); Lymphocytes Percent Auto 4.9 % (18.3-44.2); Mean Corpuscular HGB Conc 31.5 g/dl (32-36); Mean Corpuscular Hemoglobin 30.1 pg (26-34); Mean Corpuscular Volume 95.5 fl (80-100); Mean Platelet Volume 9.7 fl (7.4-10.4); Monocytes Absolute Auto 0.2 K/mm3 (0.1-0.6); Monocytes Percent Auto 3.7 % (2.6-8.5); Neutrophils Absolute Auto 4.4 K/mm3 (1.3-6.7); Neutrophils Percent Auto 90.4 % (45.5-73.1); Platelet Count Result 156 k/mm3 (150-375); Red Blood Count 2.69 M/mm3 (4.2-5.4); Red Cell Distribution Width 14.5 % (11.5-14.5); White Blood Count 4.9 K/mm3 (4.5-10.0)
[2023-11-10] MEDS: SODIUM CHLORIDE 0.9% IV 1,000 ML 999 ML IV CONT (12:27)
[2023-11-10 12:36] LABS: Magnesium 2.1 mg/dL (1.6-2.3)
[2023-11-10 12:42] LABS: Add Urine Microscopic? YES; Appearance Urine Clear (Clear); Bacteria Urine None Seen /hpf; Bilirubin Urine Negative (Negative); Blood Urine Negative (Negative); Color Urine Yellow (Yellow); Glucose Urine UA Negative (Negative); Ketones Urine Negative (Negative); Leukocyte Esterase Ur Negative LEU/UL (Negative); Nitrate Urine Negative (Negative); Non Pathogenic Casts 0-2; Protein Urine Trace mg/dL (Negative); RBC Urine 0-2 /hpf (0-2); Specific Grav Ur 1.005 (1.001-1.035); Squamous Epithelial Cell Urine None Seen /hpf (Few); Urobilinogen Urine 0.2 mg/dL (<2.0); WBC Urine 0-5 /hpf (0-3); pH Urine 5.5 (5.0-9.0)
[2023-11-10 12:49] LABS: Troponin I 0.012 ng/mL (0.000-0.034)
[2023-11-10 12:50] LABS: NT Pro B Type Natriuretic Pept 1020 pg/mL (19.9-100)
[2023-11-10 12:53] LABS: Procalcitonin 0.2 ng/mL
[2023-11-10] MEDS: ALBUTEROL SULFATE NEB 2.5 MG/3 ML INH INHALATION ×2 (13:04→20:24)
--- NOTE | 2023-11-10 13:48 | ED.GENADULT ---
HPI - General Adult General Chief complaint: Weakness Stated complaint: Weakness & SOB Time Seen by Provider: 11/10/23 12:05 History of Present Illness HPI narrative: Patient is emergency department with chief complaint of increasing weakness and shortness of breath. The patient has history of an autoimmune type disorder and reports that she has had chronic renal insufficiency has been progressive. Patient reports that she can barely walk without getting short of breath. Patient reports no chest pain does report that she has tightness Related Data Home Medications Medication Instructions Recorded Confirmed albuterol sulfate 2.5 mg/3 mL 2.5 mg inhalation Q6H PRN 02/03/23 10/19/23 (0.083 %) solution for nebulization shortness of breath or wheezing magnesium oxide 500 mg capsule 500 mg PO DAILY 05/12/23 10/19/23 calcium carbonate (Tums Ultra) 400 mg PO DAILY 06/30/23 10/19/23 Allergies Allergy/AdvReac Type Severity Reaction Status Date / Time fluticasone Allergy Unknown Other Verified 10/19/23 11:11 salmeterol Allergy Unknown Other Verified 10/19/23 11:11 Review of Systems Review of Systems: A 10 system review of systems was completed on the patient and is negative except for what is stated in the HPI. Nursing and ancillary documentation was reviewed. ON LICENSE OF [facility] Past Medical History Medical History Acute kidney failure, unspecified Anemia in chronic kidney disease Atherosclerosis of aorta Diverticulitis Gastro-esophageal reflux disease without esophagitis Gastroesophageal reflux disease History of DVT (deep vein thrombosis) History of pulmonary embolus (PE) Hypertension Hypothyroidism Nasal congestion Near syncope Obstructive sleep apnea Patient does not use a CPAP. Occlusion and stenosis of bilateral carotid arteries Pulmonary hypertension due to lung diseases and hypoxia Pure hypercholesterolemia, unspecified Severe persistent extrinsic asthma without complication Surgical History Surgical History History of cardiac catheterization (2016) Normal coronary arteries. History of excision of epidermal inclusion cyst (06/23/02) Right chest wall. History of laparoscopic cholecystectomy (05/03/07) History of sinus surgery (10/2020) History of tubal ligation (1975) Family History Family History Mother Family history of chronic obstructive pulmonary disease Diabetes mellitus Father Social History Social History Social History: Surrogate decision maker: Douglas Sampson, . Code status: Full code. Smoking status: Never smoker Alcohol intake: current Drinks per week: 0 Substance use: never Substance use type: does not use Do You Feel Safe in your Home?: Yes Lack of Transportation: No Lack of Food: Never True Current Housing: I Have Housing Concerned About Future Housing: No Difficulty Paying Gas/Electric Bills: No Difficulty Paying for Meds: No Currently Unemployed: No Education: Trade/Vocational Certificate Difficulty w/ Childcare or Family Care: No Living arrangements: with family Additional living arrangements comments: The patient lives in [place] with her . Occupation/Education: retired Gender identity (if verbalized by the patient): Female Sexual Orientation (if Verbalized by the Patient): Straight or Heterosexual Spiritual care concerns: No Exam Narrative: GENERAL: Well-appearing, well-nourished, and in no acute distress. HEAD: Normocephalic, atraumatic. EYES: PERRLA and EOMI. ENT: Nares clear, no rhinorrhea or epistaxis. Mucous membranes moist. NECK: Supple. CHEST: Clear to auscultation. No respiratory distress. HEART: Regular rate and rhythm. No murmur heard. Normal per
--- NOTE | 2023-11-10 14:20 | PM.IMHP ---
H&P: HPI History of Present Illness Date/Time: 11/10/23 14:20 Chief Complaint: Weakness and shortness of breath. 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 The patient provides the following history as well as a review of her electronic medical records including the most recent visit notes from Dr. Villavicencio and Dr. Alarcon (the patient's videographer). She was started on mycophenolate mofetil and steroids following her kidney biopsy this spring. Creatinine and GFR have improved and her most recent ANCA was reportedly negative. She has thus far been treated as adult onset steroid dependent asthma and remains on prednisone 10 mg a day. She has trialed multiple other modalities for her asthma including different inhalers and biologics Xolair, Dupixent, and Fasenra which were not of much benefit. Se has become increasingly weak which she attributes to the fact that she is nearly always short of breath with minimal activity. She has not been started on any new medication recently and the only recent change was a decrease in prednisone dose from 12.5 mg to 10 mg. She had some swelling a couple of months ago with negative venous Doppler ultrasounds and she was started on furosemide. She has not had any significant issues with swelling since that time. Appetite has been pretty good and weight has remained stable. She denies fever, chills, sweats, sinus congestion, sore throat, pleuritic pain, orthopnea, paroxysmal nocturnal dyspnea, nausea, vomiting, diarrhea, dysuria, and calf pain. She also denies focal weakness, paresthesias, syncope, near syncope, and muscle cramps. In the ED: Vital signs were stable on arrival with an SpO2 in the mid 90s on room air. Labs were significant for WBC count 4.9, hemoglobin 8.1, sodium 131, carbon dioxide 21, BUN 25, creatinine 1.80, glucose 150, troponin 0.012, proBNP 1020, total protein 6.0, albumin 3.1. Urinalysis was unremarkable. Chest x-ray showed stable mild scarring at the lung apices. ED physician requests admission to the hospital given her continued decline with increasing weakness and shortness of breath with minimal exertion. Pulmonology and nephrology consulted. Review of Systems Review of Systems: 12 systems were reviewed and are negative except for as per HPI. [facility] Past Medical History Medical History (Updated 11/10/23 @ 14:38 by Mary Jane Nelson PA-C) Anemia in chronic kidney disease Asthma Atherosclerosis of aorta Deep venous thrombosis (11/2020) Diverticulitis Gastroesophageal reflux disease Granulomatosis with polyangiitis Hypercholesterolemia Hypertension Hypothyroidism Obstructive sleep apnea Patient does not use a CPAP. 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 History of excision of epidermal inclusion cyst (06/23/02) Right chest wall. History of laparoscopic cholecystectomy (05/03/07) History of sinus surgery (10/2020) History of tubal ligation (1975) Family History Family History Mother Family history of chronic obstructive pulmonary disease Diabetes mellitus Father Social History Social History Social History: Surrogate decision maker: Douglas Parkeranan, . Code status: Full code. Smoking status:
[2023-11-10] MEDS: SODIUM CHLORIDE 0.9% IV 1,000 ML 125 ML IV CONT (14:48)
--- NOTE | 2023-11-10 15:56 | ADMGEN ---
This patient, Carmel Sampson, was admitted to Medical Room 252-01. Patient/family oriented to hospital policies and general routines including ID bracelet, bed and alarms, visiting hours, pain management, procedures, bathroom and other care routines, personal items, smoking policy, room service/diet, and visiting hours. Information on how to activate the Rapid Response Team has been discussed. Patient/Family are encouraged to report perceived risks to care and to ask questions if they do not understand what they are told or what they should do.
[2023-11-10 16:44] LABS: Influenza A QL RT-PCR Negative (Negative); Influenza B QL RT-PCR Negative (Negative); RSV RNA, RT-PCR Negative (Negative); SARS-CoV-2 RNA PCR Negative (Negative)
[2023-11-10 17:31] LABS: NT Pro B Type Natriuretic Pept 1290 pg/mL (19.9-100)
[2023-11-10 17:54] LABS: Cortisol Random 5.76 ug/dL
[2023-11-10] MEDS: mycophenolate mofetiL 250 MG CAPSULE 500 MG PO (20:03)
[2023-11-10] MEDS: FLUTICASONE/SALMETEROL 230-21 MCG INHALER 1 PUFF 2 PUFF INHALATION (20:24)
[2023-11-11] VITALS (18 sets, daily range): BP systolic 105–132; BP diastolic 48–62; PULSE 80–108; RESP 16–20; TEMP 36.4–36.9; O2SAT 93–97
[2023-11-11] MEDS: ALBUTEROL SULFATE NEB 2.5 MG/3 ML INH INHALATION ×4 (02:29→20:21)
[2023-11-11 05:15] LABS: Hematocrit 22.8 % (37.0-47.0); Immature Granulocyte Absolute 0.02 K/mm3 (0.00-0.031); Immature Granulocyte Percent A 0.5 % (0-0.5); Lymphocytes Percent Auto 13.7 % (18.3-44.2); Mean Corpuscular HGB Conc 30.7 g/dl (32-36); Mean Corpuscular Hemoglobin 29.8 pg (26-34); Mean Platelet Volume 9.9 fl (7.4-10.4); Monocytes Absolute Auto 0.3 K/mm3 (0.1-0.6); Monocytes Percent Auto 8.8 % (2.6-8.5); Neutrophils Absolute Auto 2.8 K/mm3 (1.3-6.7); Platelet Count Result 140 k/mm3 (150-375); Red Blood Count 2.35 M/mm3 (4.2-5.4); Red Cell Distribution Width 14.5 % (11.5-14.5); White Blood Count 3.7 K/mm3 (4.5-10.0)
[2023-11-11 05:25] LABS: Anion Gap 7 mmol/L (4-12); Blood Urea Nitrogen 23 mg/dL (7-17); Calcium 7.8 mg/dL (8.4-10.2); Carbon Dioxide 22 mmol/L (22-30); Chloride 104 mmol/L (98-107); Creatine Kinase 32 U/L (30-135); Estimated CRCL calculation 24 ml/min; Estimated Glomerular Filt Rate 31; Glucose 99 mg/dL (65-110); Potassium 3.7 mmol/L (3.4-5.0); Sodium 133 mmol/L (137-145)
[2023-11-11] MEDS: LEVOTHYROXINE SODIUM 100 MCG TABLET PO (05:50)
[2023-11-11 06:26] LABS: Free T4 Free Thyroxine Reflex 0.96 ng/dL (0.78-2.19)
[2023-11-11 07:26] LABS: Total Triiodothyronine (T3) 0.62 NG/ML (0.97-1.69)
[2023-11-11] MEDS: CALCIUM CARBONATE (TUMS) 500 MG (200 MG ELEMENTAL) 400 MG BY MOUTH (08:35)
[2023-11-11] MEDS: ATORVASTATIN 20 MG TABLET PO (08:35)
[2023-11-11] MEDS: MONTELUKAST SODIUM 10 MG TABLET PO (08:35)
[2023-11-11] MEDS: PANTOPRAZOLE 40 MG TABLET PO (08:36)
[2023-11-11] MEDS: MAGNESIUM OXIDE 400 MG TABLET PO (08:36)
[2023-11-11] MEDS: predniSONE 10 MG TABLET PO (08:36)
[2023-11-11] MEDS: ENOXAPARIN 30 MG/0.3 ML SYRINGE SUB-Q (08:36)
[2023-11-11] MEDS: mycophenolate mofetiL 250 MG CAPSULE 500 MG PO ×2 (08:36→20:03)
--- NOTE | 2023-11-11 09:01 | PM.IMPN ---
Progress Note: A&P Assessment and Plan (1) Shortness of breath: Code(s): R06.02 - Shortness of breath Status: Acute Assessment and Plan: -Given her history of DVT and PE these need to be considered however seem less likely by her description and physical exam findings. She does not have lower extremity edema - so will not do a chest CTA at this time due to her kidney issues Lung sounds are diminished throughout with mild right upper lobe expiratory wheezing thus will continue with scheduled bronchodilators. Prednisone dose was decreased by 2.5 mg daily in the last month or so and we will hold on making any changes at this time pending pulmonology consultation (2) Granulomatosis with polyangiitis: Code(s): M31.30 - Will's granulomatosis without renal involvement Status: Acute (3) Asthma: Code(s): J45.909 - Unspecified asthma, uncomplicated Status: Acute Assessment and Plan: - continue bronchodialators (4) Primary pauci-immune necrotizing and crescentic glomerulonephritis: Code(s): N05.8 - Unspecified nephritic syndrome with other morphologic changes; N05.7 - Unspecified nephritic syndrome with diffuse crescentic glomerulonephritis Status: Acute (5) Pulmonary hypertension: Code(s): I27.20 - Pulmonary hypertension, unspecified Status: Acute (6) Hypertension: Qualifiers: Hypertension type: primary hypertension Qualified Code(s): I10 - Essential (primary) hypertension Code(s): I10 - Essential (primary) hypertension Status: Acute Assessment and Plan: contine (7) Hypothyroidism: Qualifiers: Hypothyroidism type: acquired Qualified Code(s): E03.9 - Hypothyroidism, unspecified Code(s): E03.9 - Hypothyroidism, unspecified Status: Acute Assessment and Plan: - levothyroxine 100 mcg - tsh is 11.2- but hg dropped to 7 today - will correct hg/hct and re assess (8) Generalized weakness: Code(s): R53.1 - Weakness Status: Acute Assessment and Plan: - likely due to anemia - MCV 97.0 - will order iron studies (9) Hypercholesterolemia: Code(s): E78.00 - Pure hypercholesterolemia, unspecified Status: Acute Assessment and Plan: -continue home meds (10) ALICIA (iron deficiency anemia): Code(s): D50.9 - Iron deficiency anemia, unspecified Status: Acute Assessment and Plan: iron studies ordered stool ocult ordered to r/u GI bleed (11) Anemia: Code(s): D64.9 - Anemia, unspecified Status: Acute Assessment and Plan: -repeated Hg 7.4 - will hold on with blood transfusion - replace iron -repeat cbc 11/11 Time Spent With Patient Time with patient: Greater than 35 minutes Subjective Date/time seen: 11/11/23 09:01 Interval history: Weakness and shortness of breath. 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 The patient provides the following history as well as a review of her electronic medical records including the most recent visit notes from Dr. Villavicencio and Dr. Alarcon (the patient's flow match sofa cutter). She was started on mycophenolate mofetil and steroids following her kidney biopsy this spring. Creatinine and GFR have improved and her most recent ANCA was reportedly negative. She has thus far been treated as adult onset steroid dependent asthma and remains on prednisone 10 mg a day. She has trialed multiple other modalities for her asthma including different inhalers and biologics Xolair, Dupixent, and Fasenra which were not of much benefit. Se has become increasingly we
[2023-11-11] MEDS: FLUTICASONE/SALMETEROL 230-21 MCG INHALER 1 PUFF 2 PUFF INHALATION ×2 (09:17→20:22)
[2023-11-11 09:43] LABS: Hematocrit 23.8 % (37.0-47.0); Hemoglobin 7.4 g/dL (12.0-15.0)
[2023-11-11 10:18] LABS: Iron 32 ug/dL (37-170)
[2023-11-11 10:28] LABS: Percent Iron Saturation 15 % (20-50)
--- NOTE | 2023-11-11 13:02 | PM.CNNEP ---
Assessment and Plan Assessment and plan (1) Chronic kidney disease, stage 4 (severe): Code(s): N18.4 - Chronic kidney disease, stage 4 (severe) Status: Chronic Assessment and Plan: creatinine had been running ~ 2.2 - 2.7mg/dl in the last 6 months this is secondary to biopsy proven pauci immune glomerulonephritis (Will's granulomatosis/Granulomatosis with polyangiitis) creatinine is better than baseline currently this is likely due to decreased muscle mass due to decreased mobility and bed-bound status on treatment with cellcept and prednisone consider further weaning of these medications... however, without steroids, her respiratory status usually clinically worsens... 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: Code(s): M31.31 - Will's granulomatosis with renal involvement Status: Chronic Assessment and Plan: renal biopsy proven on cellcept and prednisone recent ANCA serologies negative stable renal function as noted (3) SOB (shortness of breath): Code(s): R06.02 - Shortness of breath Status: Acute Assessment and Plan: clinical deterioration in the last several days if not weeks complicated by lung disease/issues Pulmonary consulted for further recommendations (4) Generalized weakness: Code(s): R53.1 - Weakness Status: Acute Assessment and Plan: etiology? related to medications? relative anemia playing a role secondary to pulmonary issues? evaluation in progress (5) Anemia: Code(s): D64.9 - Anemia, unspecified Status: Chronic Assessment and Plan: partly related to known CKD possible GI loss? follow trend of H/H consider empiric JUDIT and/or iron therapy I will continue to follow the patient with you while she remains hospitalized and make further recommendations as deemed necessary. Thank you for allowing me to participate in the care of this patient. History of Present Illness Reason for Consult Consult date: 11/11/23 Reason for consult: chronic renal failure Chief Complaint Chief complaint: Shortness of Breath/ CARMELLA History of Present Illness Narrative: The patient is an 83-year-old female with a past medical history as outlined below who presented to [facility] Emergency room due to generalized weakness/fatigue and shortness of breath. The patient reports that she has become increasingly weak which she attributes to her breathing / respiratory issues which has become more of a problem even with minimal activity. She is on immunosuppressive therapy in the form of CellCept for her known Passy immune glomerulonephritis / Mary Ann's and her steroids have been slowly been weaned as well and she is currently only on 10 mg once a day. There was a tentative plan to completely wean her off the steroids but apparently, when she is not on steroids, her respiratory issues and problems become even more flared up so decision was to maintain her on 10 mg of prednisone. She reports that her appetite is okay and she has not had any significant change in her weight. She denies any fevers, chills, diaphoresis, sore throat, orthopnea, PND, nausea, vomiting, diarrhea, or dysuria. No reported issues with paresthesias, syncope, or muscle cramps. Given her ongoing weakness that has become quite significant, she presented to the ER for further assessment. Workup and evaluation in the emergency room demonstrated the patient to be hemodynamically stable with adequate oxygen saturations on room air. Routine blood test demonstrated normal white blood cell count, relative anemia with the hemoglobin of 8.1, and labs consistent with her known history of chronic kidney disease although her creatinine was somewhat better than baseline. Her urinalysis was unremarkable and her chest x-ray was only significant for mild scarring at the lung apices. Given her o
--- NOTE | 2023-11-11 15:51 | PM.CNPUL ---
Assessment and Plan Assessment and plan (1) Primary pauci-immune necrotizing and crescentic glomerulonephritis: Code(s): N05.8 - Unspecified nephritic syndrome with other morphologic changes; N05.7 - Unspecified nephritic syndrome with diffuse crescentic glomerulonephritis Status: Acute (2) Granulomatosis with polyangiitis: Code(s): M31.30 - Will's granulomatosis without renal involvement Status: Acute (3) Shortness of breath: Code(s): R06.02 - Shortness of breath Status: Acute Assessment and Plan: This 83-year-old female presented with shortness of breath. Her respiratory condition has significantly improved. The patient has a long history of obstructive airway disease with evidence of lung hyperinflation and previous eosinophilia, for which she has been treated for asthma. Despite treatment with biological agents, the patient?s respiratory status has not improved. She has received at least three different biologicals and has been chronically on maintenance bronchodilators without any improvement in her respiratory status. Given her biopsy-proven pauci-immune glomerulonephritis with C-ANCA and history of sinus disease, granulomatosis with polyangiitis is the most likely diagnosis. Eosinophilic granulomatosis with polyangiitis (formerly known as Churg-Kassie syndrome) is less likely, as her eosinophilia was not very elevated, usually less than 10% on all tests. The question remains whether the patient?s respiratory disease is related to eosinophilic asthma or her autoimmune disease. Obstructive airway disease has been described in patients with granulomatosis with polyangiitis, although it is more common in patients with EGPA. Given the history of lack of response to several biologicals, one may conclude that this obstructive airway disease is more consistent with the type seen in patients with GPA. The patient?s history is very complicated, and she will need further workup, including repeating pulmonary function testing. In addition, the patient has pulmonary hypertension, the cause of which is unclear at this point. Given history of previous DVT we need to exclude chronic thromboembolic pulmonary hypertension by doing more testing on an outpatient basis. Plan: I had a lengthy discussion with the patient and her regarding the above diagnostic possibilities. The patient will return to the Pulmonary Clinic to see her manager respiratory care, Dr. Coreas. She will continue with her current regimen of short-acting bronchodilators and other maintenance bronchodilators. We will continue to follow the patient along with you. (4) Pulmonary hypertension: Code(s): I27.20 - Pulmonary hypertension, unspecified Status: Acute History of Present Illness History of Present Illness Consult date: 11/11/23 Chief complaint: Shortness of Breath/ CARMELLA Narrative: This is a pleasant 83-year-old female with biopsy-proven pauci-immune glomerulonephritis, likely secondary to granulomatosis with polyangiitis, diagnosed in June 2023. Her past medical history is significant for asthma, deep venous thrombosis, pulmonary embolism, pulmonary hypertension, hypercholesterolemia, hypothyroidism, and gastroesophageal reflux disease. The patient presented to the emergency room complaining of shortness of breath and weakness. She has no chest pain, fever, chills, hemoptysis, or orthopnea. This report is based on information obtained from the patient's records and discussions with the patient and her . A previous pulmonary consultation at the [facility] at [facility] was also reviewed. The patient has had respiratory issues consisting primarily of shortness of breath and occasional wheezing. In the past, she was diagnosed with adult-onset steroid-dependent asthma and received treatment with biological agents and steroids. Reportedly, the patient failed Xolair, Dupixent, and Fasenra. She had eosinophilia in the range of 5 to 8%.
[2023-11-11] MEDS: IRON SUCROSE COMPLEX 100 MG in SODIUM CHLORIDE 0.9% IV 50 ML 220 MG IVPB (16:34)
[2023-11-12] VITALS (21 sets, daily range): BP systolic 103–125; BP diastolic 48–67; PULSE 77–95; RESP 16–18; TEMP 36.2–36.9; O2SAT 91–98
[2023-11-12] MEDS: ALBUTEROL SULFATE NEB 2.5 MG/3 ML INH INHALATION ×4 (02:34→21:24)
[2023-11-12] MEDS: LEVOTHYROXINE SODIUM 100 MCG TABLET PO (05:41)
[2023-11-12 06:37] LABS: Hematocrit 22.5 % (37.0-47.0); Immature Granulocyte Absolute 0.03 K/mm3 (0.00-0.031); Lymphocytes Absolute Auto 0.44 K/mm3 (0.9-3.2); Lymphocytes Percent Auto 14.1 % (18.3-44.2); Mean Corpuscular HGB Conc 30.7 g/dl (32-36); Mean Corpuscular Hemoglobin 29.7 pg (26-34); Mean Platelet Volume 9.5 fl (7.4-10.4); Monocytes Absolute Auto 0.3 K/mm3 (0.1-0.6); Neutrophils Absolute Auto 2.4 K/mm3 (1.3-6.7); Neutrophils Percent Auto 75.9 % (45.5-73.1); Platelet Count Result 155 k/mm3 (150-375); Red Blood Count 2.32 M/mm3 (4.2-5.4); Red Cell Distribution Width 14.5 % (11.5-14.5); White Blood Count 3.1 K/mm3 (4.5-10.0)
[2023-11-12 06:47] LABS: Alanine Aminotransferase 10 U/L (6-35); Albumin Level 2.3 g/dL (3.5-5.1); Alkaline Phosphatase 42 U/L (38-126); Anion Gap 6 mmol/L (4-12); Aspartate Amino Transferase 16 U/L (14-36); Bilirubin,Total 0.2 mg/dL (0.2-1.3); Blood Urea Nitrogen 21 mg/dL (7-17); Calcium 8.1 mg/dL (8.4-10.2); Carbon Dioxide 22 mmol/L (22-30); Chloride 103 mmol/L (98-107); Estimated CRCL calculation 21 ml/min; Estimated Glomerular Filt Rate 27; Glucose 101 mg/dL (65-110); Potassium 3.4 mmol/L (3.4-5.0); Sodium 131 mmol/L (137-145)
[2023-11-12 06:58] LABS: Hemoglobin 6.9 g/dL (12.0-15.0)
[2023-11-12] MEDS: FLUTICASONE/SALMETEROL 230-21 MCG INHALER 1 PUFF 2 PUFF INHALATION ×2 (07:22→21:24)
[2023-11-12] MEDS: FERROUS SULFATE DRIED 142 MG TABCR PO (08:29)
[2023-11-12] MEDS: CALCIUM CARBONATE (TUMS) 500 MG (200 MG ELEMENTAL) 400 MG BY MOUTH (08:29)
[2023-11-12] MEDS: ATORVASTATIN 20 MG TABLET PO (08:29)
[2023-11-12] MEDS: ENOXAPARIN 30 MG/0.3 ML SYRINGE SUB-Q (08:30)
[2023-11-12] MEDS: MAGNESIUM OXIDE 400 MG TABLET PO (08:30)
[2023-11-12] MEDS: PANTOPRAZOLE 40 MG TABLET PO (08:30)
[2023-11-12] MEDS: predniSONE 10 MG TABLET PO (08:30)
[2023-11-12] MEDS: MONTELUKAST SODIUM 10 MG TABLET PO (08:30)
[2023-11-12] MEDS: mycophenolate mofetiL 250 MG CAPSULE 500 MG PO ×2 (08:30→20:11)
[2023-11-12] MEDS: polyethylene glycoL 3350 17 GM POWD.PACK PO (08:31)
[2023-11-12] MEDS: EPOETIN ALFA-EPBX 20,000 UNITS/ML VIAL 20000 UNITS SUB-Q (08:35)
--- NOTE | 2023-11-12 08:39 | PM.IMPN ---
Progress Note: A&P Assessment and Plan (1) Shortness of breath: Code(s): R06.02 - Shortness of breath Status: Acute Assessment and Plan: -Given her history of DVT and PE these need to be considered however seem less likely by her description and physical exam findings. She does not have lower extremity edema - so will not do a chest CTA at this time due to her kidney issues Lung sounds are diminished throughout with mild right upper lobe expiratory wheezing thus will continue with scheduled bronchodilators. Prednisone dose was decreased by 2.5 mg daily in the last month or so and we will hold on making any changes at this time pending pulmonology consultation: The patient will return to the Pulmonary Clinic to see her bone char puller, Dr. Coreas. She will continue with her current regimen of short-acting bronchodilators and other maintenance bronchodilators. (2) Granulomatosis with polyangiitis: Code(s): M31.30 - Will's granulomatosis without renal involvement Status: Acute (3) Asthma: Code(s): J45.909 - Unspecified asthma, uncomplicated Status: Acute Assessment and Plan: - continue bronchodialators (4) Primary pauci-immune necrotizing and crescentic glomerulonephritis: Code(s): N05.8 - Unspecified nephritic syndrome with other morphologic changes; N05.7 - Unspecified nephritic syndrome with diffuse crescentic glomerulonephritis Status: Acute (5) Pulmonary hypertension: Code(s): I27.20 - Pulmonary hypertension, unspecified Status: Acute (6) Hypertension: Qualifiers: Hypertension type: primary hypertension Qualified Code(s): I10 - Essential (primary) hypertension Code(s): I10 - Essential (primary) hypertension Status: Acute Assessment and Plan: contine (7) Hypothyroidism: Qualifiers: Hypothyroidism type: acquired Qualified Code(s): E03.9 - Hypothyroidism, unspecified Code(s): E03.9 - Hypothyroidism, unspecified Status: Acute Assessment and Plan: - levothyroxine 100 mcg - tsh is 11.2- but hg dropped to 7 today - will correct hg/hct and re assess (8) Generalized weakness: Code(s): R53.1 - Weakness Status: Acute Assessment and Plan: - likely due to anemia - MCV 97.0 - will order iron studies (9) Hypercholesterolemia: Code(s): E78.00 - Pure hypercholesterolemia, unspecified Status: Acute Assessment and Plan: -continue home meds (10) ALICIA (iron deficiency anemia): Code(s): D50.9 - Iron deficiency anemia, unspecified Status: Acute Assessment and Plan: iron studies ordered stool ocult ordered to r/u GI bleed (11) Anemia: Code(s): D64.9 - Anemia, unspecified Status: Acute Assessment and Plan: -repeated Hg 7.4 - will hold on with blood transfusion - replace iron -repeat cbc 11/11 11/11- 1 unit RBC ordered - recheck Hg once infused - occult stool is positive- will order GI consult (12) Acute kidney injury: Code(s): N17.9 - Acute kidney failure, unspecified Status: Acute Assessment and Plan: - cr- 1.8/bun21 CR 2.9 on 05/23/23 - nephrology is consulted and following-appreciate recommendations Plan DVT prophylaxis: SCD continue to work with pT/OT Time Spent With Patient Time with patient: Greater than 35 minutes Subjective Date/time seen: 11/12/23 08:39 Interval history: Weakness and shortness of breath. 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 The patient provides the following history as well as a review of her electr
[2023-11-12] MEDS: SODIUM CHLORIDE 0.9% IV 250 ML 30 ML IV CONT (09:28)
[2023-11-12] MEDS: TUBING, BLOOD PLUM PUMP TUBING 1 EACH XX (09:29)
--- NOTE | 2023-11-12 09:33 | PM.PNPUL ---
Progress Note: A&P Assessment and Plan (1) Granulomatosis with polyangiitis: Code(s): M31.30 - Will's granulomatosis without renal involvement Status: Acute (2) Primary pauci-immune necrotizing and crescentic glomerulonephritis: Code(s): N05.8 - Unspecified nephritic syndrome with other morphologic changes; N05.7 - Unspecified nephritic syndrome with diffuse crescentic glomerulonephritis Status: Acute (3) Asthma: Code(s): J45.909 - Unspecified asthma, uncomplicated Status: Acute Assessment and Plan: The patient's respiratory condition has significantly improved. She has a long-standing history of obstructive airway disease characterized by lung hyperinflation and previous eosinophilia, for which she has been treated for asthma. Despite the use of various biological agents, her respiratory status has not shown improvement. She has been treated with at least three different biologicals and has been on chronic maintenance bronchodilators without any notable benefit. Diagnosis Consideration: Given her biopsy-proven pauci-immune glomerulonephritis with C-ANCA and a history of sinus disease, granulomatosis with polyangiitis (GPA) is the most likely diagnosis. Eosinophilic granulomatosis with polyangiitis (EGPA, formerly known as Churg-Kassie syndrome) is considered less likely, as her eosinophil levels have consistently been below 10%. Discussion: The patient and her reported a history of asthma with frequent exacerbations responsive to oral steroids for 7-8 years prior to the diagnosis of her kidney disease. This interval suggests no direct connection between the obstructive airway disease and her kidney disease. Due to her eosinophilia, she received treatment with Xolair and other biologicals targeting eosinophils. She has reportedly failed Xolair, Dupixent, and Fasenra. It is unclear if she has been tried on Tezepelumab, a newer monoclonal antibody with a different mechanism of action. Current Status: On today's physical exam, the patient has no wheezing and is on room air. She has anemia and may be considered for a transfusion. Plan: The patient expressed a desire to continue with Pulmonary Services at [facility] and to see her gas station service attendant, Dr. Coreas. She will likely need further evaluation of her obstructive airway disease, including repeat pulmonary function testing and a chest CT. The patient will continue her current regimen of maintenance and short-acting bronchodilators. She is also on immunosuppressive treatment for her kidney disease, including low-dose prednisone. Follow-Up: Will sign off. Please call with any questions. (4) Pulmonary hypertension: Code(s): I27.20 - Pulmonary hypertension, unspecified Status: Acute Subjective Date/time seen: 11/12/23 09:33 Interval history: Patient stated her breathing is better. She has no wheezing cough or chest pain. As far as respiratory status she thinks is back at baseline. She was found to have anemia Review of Systems Review of Systems: All systems reviewed & are unremarkable except as noted in HPI and below (HPI and below) Exam Narrative: GENERAL APPEARANCE: Well developed, well nourished, alert and cooperative, and appears to be in no acute distress SKIN: Inspection of the skin reveals no rashes, ulcerations or petechiae. HEENT: Sclerae anicteric and conjunctivae pink and moist. Extraocular movements were intact and pupils were equal, round, and reactive to light. The oral mucosa, hard and soft palate, tongue and posterior pharynx were normal. NECK: Supple. There was no thyroid enlargement, and no tenderness, or masses were felt. CHEST: Normal AP diameter and normal contour without any kyphoscoliosis. LUNGS: Clear breath sounds bilaterally no wheezing. CARDIAC: There was a regular rate and rhythm without any murmurs, gallops, rubs. ABDOMEN: Soft and nontender with normal bowel sounds. There was no organomegaly. LYMPH
[2023-11-12 10:12] LABS: IFOB Positive Control Positive; Immunochemical Fecal Occult Bl Positive (N)
--- NOTE | 2023-11-12 14:02 | PM.PNNEP ---
Progress Note: A&P Assessment and Plan (1) Chronic kidney disease, stage 4 (severe): Code(s): N18.4 - Chronic kidney disease, stage 4 (severe) Status: Chronic Assessment and Plan: creatinine had been running ~ 2.2 - 2.7mg/dl in the last 6 months this is secondary to biopsy proven pauci immune glomerulonephritis (Will's granulomatosis/Granulomatosis with polyangiitis) creatinine is better than baseline currently this is likely due to decreased muscle mass due to decreased mobility and bed-bound status on treatment with cellcept and prednisone consider further weaning of these medications... however, without steroids, her respiratory status usually clinically worsens... 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: Code(s): M31.31 - Will's granulomatosis with renal involvement Status: Chronic Assessment and Plan: renal biopsy proven on cellcept and prednisone recent ANCA serologies negative stable renal function as noted (3) Anemia: Code(s): D64.9 - Anemia, unspecified Status: Chronic Assessment and Plan: partly related to known CKD possible GI loss - hemoccult positive GI consultation PRBC transfusion per protocol follow trend of H/H empiric JUDIT along with IV iron therapy (4) SOB (shortness of breath): Code(s): R06.02 - Shortness of breath Status: Acute Assessment and Plan: clinical deterioration in the last several days if not weeks complicated by lung disease/issues Pulmonary following with recommendations noted (5) Generalized weakness: Code(s): R53.1 - Weakness Status: Acute Assessment and Plan: etiology? related to medications? anemia playing a role secondary to pulmonary issues? evaluation in progress Will continue to follow. Subjective Date/time seen: 11/12/23 14:02 Interval history: Follow-up for chronic kidney disease due to biopsy proven pauci immune glomerulonephritis/Will's granulomatosis. Still feels weak along with ongoing shortness of breath but no worse in comparison to admission; low H/H by AM labs so PRBC transfusion yesterday; hemoccult positive stools noted so GI consulted; no acute distress voiced at the time of my visit. Exam Narrative: General: elderly but WD/WN female in NAD Heart: normal S1 and S2; no rub Lungs: clear to auscultation Abdomen: soft, nontender, nondistended, positive bowel sounds Extremities: no cyanosis or clubbing; no edema Skin: warm and dry Objective Data Vital Signs Vital Signs: Vital Signs Temp Pulse Resp BP Pulse Ox O2 Del Method FiO2 11/12/23 14:00 97.8 F 85 16 105/54 L 98 11/12/23 14:20 79 18 11/12/23 14:13 83 18 11/12/23 13:10 97.2 F L 90 18 118/52 L 97 11/12/23 12:50 97.8 F 85 16 125/60 96 11/12/23 11:50 98.5 F 84 16 112/54 L 97 11/12/23 10:50 98.4 F 80 16 103/48 L 94 11/12/23 08:00 Room Air 11/12/23 09:50 97.6 F 89 16 105/50 L 98 11/12/23 09:35 97.5 F L 95 16 105/52 L 98 11/12/23 08:41 Room Air 11/12/23 07:33 77 18 11/12/23 07:19 81 18 11/12/23 07:19 94 Room Air 21 11/12/23 06:00 98.0 F 84 18 112/59 L 91 11/12/23 02:41 84 18 11/12/23 02:34 86 18 11/11/23 22:00 98.5 F 83 18 113/59 L 95 11/11/23 20:00 Room Air 11/11/23 20:30 82 18 11/11/23 20:22 84 18 11/11/23 20:22 94 Room Air 11/11/23 20:00 98.1 F 97 18 117/60 96 11/11/23 20:00 98.0 F 100 18 132/62 95 11/11/23 19:59 98.5 F 83 18 113/59 L 95 Intake/Output Intake/Output: Intake & Output 11/09/23 11/10/23 11/11/23 11/12/23 23:59 23:59 23:59 23:59 Intake Total 1240 2800 1070 Output Total 0 Balance 1240 2800 1070 Meds/Results Medications: Active Medications Generic Name
--- NOTE | 2023-11-12 14:02 | P.PNNP_ITS ---
Progress Note: A&P Assessment and Plan (1) Chronic kidney disease, stage 4 (severe): Code(s): N18.4 - Chronic kidney disease, stage 4 (severe) Status: Chronic Assessment and Plan: * creatinine had been running ~ 2.2 - 2.7mg/dl in the last 6 months * this is secondary to biopsy proven pauci immune glomerulonephritis (Will's granulomatosis/Granulomatosis with polyangiitis) * creatinine is better than baseline currently * this is likely due to decreased muscle mass due to decreased mobility and bed-bound status * on treatment with cellcept and prednisone * consider further weaning of these medications... * however, without steroids, her respiratory status usually clinically worsens... * 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: Code(s): M31.31 - Will's granulomatosis with renal involvement Status: Chronic Assessment and Plan: * renal biopsy proven * on cellcept and prednisone * recent ANCA serologies negative * stable renal function as noted (3) Anemia: Code(s): D64.9 - Anemia, unspecified Status: Chronic Assessment and Plan: * partly related to known CKD * possible GI loss - hemoccult positive * GI consultation * PRBC transfusion per protocol * follow trend of H/H * empiric JUDIT along with IV iron therapy (4) SOB (shortness of breath): Code(s): R06.02 - Shortness of breath Status: Acute Assessment and Plan: * clinical deterioration in the last several days if not weeks * complicated by lung disease/issues * Pulmonary following with recommendations noted (5) Generalized weakness: Code(s): R53.1 - Weakness Status: Acute Assessment and Plan: * etiology? * related to medications? * anemia playing a role * secondary to pulmonary issues? * evaluation in progress Will continue to follow. Subjective Date/time seen: 11/12/23 14:02 Interval history: Follow-up for chronic kidney disease due to biopsy proven pauci immune glomerulonephritis/Will's granulomatosis. Still feels weak along with ongoing shortness of breath but no worse in comparison to admission; low H/H by AM labs so PRBC transfusion yesterday; hemoccult positive stools noted so GI consulted; no acute distress voiced at the time of my visit. Exam Narrative: General: elderly but WD/WN female in NAD Heart: normal S1 and S2; no rub Lungs: clear to auscultation Abdomen: soft, nontender, nondistended, positive bowel sounds Extremities: no cyanosis or clubbing; no edema Skin: warm and dry Objective Data Vital Signs Vital Signs: Vital Signs Temp Pulse Resp BP Pulse Ox O2 Del Method FiO2 11/12/23 14:00 97.8 F 85 16 105/54 L 98 11/12/23 14:20 79 18 11/12/23 14:13 83 18 11/12/23 13:10 97.2 F L 90 18 118/52 L 97 11/12/23 12:50 97.8 F 85 16 125/60 96 11/12/23 11:50 98.5 F 84 16 112/54 L 97 11/12/23 10:50 98.4 F 80 16 103/48 L 94 11/12/23 08:00 Room Air 11/12/23 09:50 97.6 F 89 16 105/50 L 98 11/12/23 09:35 97.5 F L 95 16 105/52 L 98 11/12/23 08:41 Room Air 11/12/23 07:33 77 18 11/12/23 07:19 81 18 11/12/23 07:19 94 Room Air 21
[2023-11-12 14:18] LABS: Hemoglobin 8.6 g/dL (12.0-15.0)
--- NOTE | 2023-11-12 16:37 | WPDGICN ---
Assessment and Plan Assessment and plan (1) Acute on chronic anemia: Code(s): D64.9 - Anemia, unspecified Status: Acute Assessment and Plan: wonder if anemia due to advanced kidney disease but also noted occult blood in stool with last colonoscopy over 10 years ago also h/o gerd but no dysphagia or other symptoms will do egdg and colonoscopy tomorrow (will be careful, she says that years ago unable to complete) (2) Granulomatosis with polyangiitis: Code(s): M31.30 - Will's granulomatosis without renal involvement Status: Acute Assessment and Plan: on cellcept by ground crew chief (3) Gastro-esophageal reflux disease without esophagitis: Code(s): K21.9 - Gastro-esophageal reflux disease without esophagitis Status: Acute (4) Chronic kidney disease, stage 4 (severe): Code(s): N18.4 - Chronic kidney disease, stage 4 (severe) Status: Acute (5) Asthma: Code(s): J45.909 - Unspecified asthma, uncomplicated Status: Acute (6) Occult blood in stools: Code(s): R19.5 - Other fecal abnormalities Status: Acute Assessment and Plan: colonoscopy GI Consult Note Consult date/time: 11/12/23 16:37 Reason for consult: anemia, FOBT + HPI: Carmel Sampson is a 83 year old female pauci immune glomerulonephritis diagnosed in June 2023 with likely granulomatosis with polyangiitis on cellcept, asthma, deep venous thrombosis, pulmonary embolism, hypertension, who presented to the emergency department via private vehicle for evaluation of weakness and shortness of breath. She was found to have renal failure after had + ANCA and abnormal pathology, started on mycophenolate mofetil and steroids which improved her creatinine and repeat ANCA was negative. Also treated as adult onset steroid dependent asthma and remains on prednisone, treated by pulmonary with multiple other modalities for her asthma including different inhalers and biologics Xolair, Dupixent, and Fasenra which were not of much benefit. She has progressively became more fatigue with generalized weakness and finally admitted to hospital. Labs were significant for WBC count 4.9, hemoglobin 8.1, sodium 131, carbon dioxide 21, BUN 25, creatinine 1.80. Repeat Hgb down to 6.9, no overt gib but + occult blood in stool. Had colonoscopy but more than 10 years ago, says that unable to complete it because kink and used barium enema. Review of Systems Constitutional: Constitutional: Reports fatigue Eyes: Eyes: Denies blurry vision ENT: Reports Normal hearing present Cardiovascular: Cardiovascular: Denies chest pain Respiratory: Respiratory: Denies hemoptysis Gastrointestinal: Gastrointestinal: Denies abdominal pain Genitourinary: Genitourinary: Denies dysuria Musculoskeletal: Musculoskeletal: Denies neck pain Integumentary/Breasts: Skin/Breast: Denies rash Neurologic: Denies Abnormal speech present Psychiatric: Psychiatric: Denies behavioral changes [facility] Past Medical History Medical History (Updated 11/12/23 @ 16:46 by Brady Dash MD) Acute on chronic anemia Anemia in chronic kidney disease Asthma Atherosclerosis of aorta Deep venous thrombosis (11/2020) Diverticulitis Gastroesophageal reflux disease Granulomatosis with polyangiitis Hypercholesterolemia Hypertension Hypothyroidism Obstructive sleep apnea Patient does not use a CPAP. Occlusion and stenosis of bilateral carotid arteries Occult blood in stools Primary pauci-immune necrotizing and crescentic glomerulonephritis Pulmonary embolism (11/2020) Pulmonary hypertension Surgical History Surgical History History of cardiac catheterization (2016) Normal coronary arteries. History of excision of epidermal inclusion cyst (06/23/02) Right chest wall. History of laparoscopic cholecystectomy (05/03/07) History of sinus surgery (10/2020) History
[2023-11-12] MEDS: BISACODYL 5 MG TABLET EC 20 MG PO (17:47)
[2023-11-12] MEDS: polyethylene glycoL 3350 238 GM BOTTLE PO (17:47)
[2023-11-13] VITALS (22 sets, daily range): BP systolic 102–127; BP diastolic 42–69; PULSE 76–113; RESP 14–22; TEMP 36.6–38.8; O2SAT 91–100
[2023-11-13] MEDS: MAGNESIUM CITRATE 300 ML BTL PO (01:27)
[2023-11-13 06:24] LABS: Hematocrit 29.8 % (37.0-47.0); Hemoglobin 9.3 g/dL (12.0-15.0); Immature Granulocyte Absolute 0.06 K/mm3 (0.00-0.031); Immature Granulocyte Percent A 1.2 % (0-0.5); Lymphocytes Absolute Auto 0.57 K/mm3 (0.9-3.2); Lymphocytes Percent Auto 11.3 % (18.3-44.2); Mean Corpuscular HGB Conc 31.2 g/dl (32-36); Mean Corpuscular Hemoglobin 30.1 pg (26-34); Mean Corpuscular Volume 96.4 fl (80-100); Mean Platelet Volume 9.6 fl (7.4-10.4); Monocytes Absolute Auto 0.4 K/mm3 (0.1-0.6); Monocytes Percent Auto 8.7 % (2.6-8.5); Neutrophils Percent Auto 78.8 % (45.5-73.1); Platelet Count Result 181 k/mm3 (150-375); Red Blood Count 3.09 M/mm3 (4.2-5.4); Red Cell Distribution Width 14.7 % (11.5-14.5)
[2023-11-13 06:49] LABS: Alanine Aminotransferase 13 U/L (6-35); Alkaline Phosphatase 47 U/L (38-126); Anion Gap 10 mmol/L (4-12); Aspartate Amino Transferase 21 U/L (14-36); Bilirubin,Total 0.4 mg/dL (0.2-1.3); Blood Urea Nitrogen 24 mg/dL (7-17); Calcium 8.8 mg/dL (8.4-10.2); Carbon Dioxide 23 mmol/L (22-30); Chloride 98 mmol/L (98-107); Estimated CRCL calculation 22 ml/min; Estimated Glomerular Filt Rate 29; Glucose 80 mg/dL (65-110); Potassium 3.5 mmol/L (3.4-5.0); Sodium 131 mmol/L (137-145)
--- NOTE | 2023-11-13 08:37 | PM.IMPN ---
Progress Note: A&P Assessment and Plan (1) Shortness of breath: Code(s): R06.02 - Shortness of breath Status: Acute Assessment and Plan: -Given her history of DVT and PE these need to be considered however seem less likely by her description and physical exam findings. She does not have lower extremity edema - so will not do a chest CTA at this time due to her kidney issues Lung sounds are diminished throughout with mild right upper lobe expiratory wheezing thus will continue with scheduled bronchodilators. Prednisone dose was decreased by 2.5 mg daily in the last month or so and we will hold on making any changes at this time pending pulmonology consultation: The patient will return to the [facility]monary [facility] to see her grinder set up operator jig, Dr. Coreas. She will continue with her current regimen of short-acting bronchodilators and other maintenance bronchodilators. 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 - Will's granulomatosis without renal involvement Status: Acute Assessment and Plan: - on cellcept - nephrology is following (3) Asthma: Code(s): J45.909 - Unspecified asthma, uncomplicated Status: Acute Assessment and Plan: - continue bronchodialators (4) Primary pauci-immune necrotizing and crescentic glomerulonephritis: Code(s): N05.8 - Unspecified nephritic syndrome with other morphologic changes; N05.7 - Unspecified nephritic syndrome with diffuse crescentic glomerulonephritis Status: Acute (5) Pulmonary hypertension: Code(s): I27.20 - Pulmonary hypertension, unspecified Status: Acute (6) Hypertension: Qualifiers: Hypertension type: primary hypertension Qualified Code(s): I10 - Essential (primary) hypertension Code(s): I10 - Essential (primary) hypertension Status: Acute Assessment and Plan: continue home meds -monitor (7) Hypothyroidism: Qualifiers: Hypothyroidism type: acquired Qualified Code(s): E03.9 - Hypothyroidism, unspecified Code(s): E03.9 - Hypothyroidism, unspecified Status: Acute Assessment and Plan: - levothyroxine 100 mcg - tsh is 11.2- but hg dropped to 7 today - will correct hg/hct and re assess (8) Generalized weakness: Code(s): R53.1 - Weakness Status: Acute Assessment and Plan: - likely due to anemia - MCV 97.0 - will order iron studies (9) Hypercholesterolemia: Code(s): E78.00 - Pure hypercholesterolemia, unspecified Status: Acute Assessment and Plan: -continue home meds (10) ALICIA (iron deficiency anemia): Code(s): D50.9 - Iron deficiency anemia, unspecified Status: Acute Assessment and Plan: iron studies ordered stool ocult ordered to r/u GI bleed (11) Anemia: Code(s): D64.9 - Anemia, unspecified Status: Acute Assessment and Plan: -repeated Hg 7.4 - will hold on with blood transfusion - replace iron -repeat cbc 11/11 11/11- 1 unit RBC ordered - recheck Hg once infused - occult stool is positive- will order GI consult 11/12- repeat hg yesterday after transfusion- 8.6 9.3 today. colonoscopy scheduled with Dr urbina (12) Acute kidney injury: Code(s): N17.9 - Acute kidney failure, unspecified Status: Acute Assessment and Plan: - cr- 1.8/bun21 CR 2.9 on 05/23/23 - nephrology is consulted and following-appreciate recommendations Plan DVT prophylaxis: SCD continue to work with pT/OT Time Spent With Patient Time with patient: Greater than 35 minutes Subjective Date/time seen: 11/13/23 08:37 Interval history: Weakness and shortness of breath. 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
[2023-11-13] MEDS: ALBUTEROL SULFATE NEB 2.5 MG/3 ML INH INHALATION ×2 (10:26→21:18)
[2023-11-13] MEDS: FLUTICASONE/SALMETEROL 230-21 MCG INHALER 1 PUFF 2 PUFF INHALATION ×2 (10:26→21:18)
--- NOTE | 2023-11-13 10:40 | P.PNNP_ITS ---
Progress Note: A&P Assessment and Plan (1) Chronic kidney disease, stage 4 (severe): Code(s): N18.4 - Chronic kidney disease, stage 4 (severe) Status: Chronic Assessment and Plan: * creatinine had been running ~ 2.2 - 2.7mg/dl in the last 6 months * this is secondary to biopsy proven pauci immune glomerulonephritis (Will's granulomatosis/Granulomatosis with polyangiitis) * creatinine is better than baseline currently * this is likely due to decreased muscle mass due to decreased mobility and bed-bound status * on treatment with cellcept and prednisone * consider further weaning of these medications... * however, without steroids, her respiratory status usually clinically worsens... * 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: Code(s): M31.31 - Will's granulomatosis with renal involvement Status: Chronic Assessment and Plan: * renal biopsy proven * on cellcept and prednisone * recent ANCA serologies negative * stable renal function as noted (3) Anemia: Code(s): D64.9 - Anemia, unspecified Status: Chronic Assessment and Plan: * partly related to known CKD * possible GI loss - hemoccult positive * GI following * EGD/colonoscopy later today * PRBC transfusion per protocol * follow trend of H/H * empiric JUDIT along with IV iron therapy (4) SOB (shortness of breath): Code(s): R06.02 - Shortness of breath Status: Acute Assessment and Plan: * clinical deterioration in the last several days if not weeks * complicated by lung disease/issues * Pulmonary following with recommendations noted (5) Generalized weakness: Code(s): R53.1 - Weakness Status: Acute Assessment and Plan: * etiology? * related to medications? * anemia playing a role * secondary to pulmonary issues? * evaluation in progress Will continue to follow. Subjective Date/time seen: 11/13/23 10:40 Interval history: Follow-up for chronic kidney disease due to biopsy proven pauci immune glomerulonephritis/Will's granulomatosis. No apparent distress noted at time but continues to have generalized weakness and fatigue; tentatively on schedule for EGD and colonoscopy this afternoon; H/H stable if not better by AM labs; dosed with Retacrit yesterday as well and started on oral iron Exam Narrative: General: elderly but WD/WN female in NAD Heart: normal S1 and S2; no rub Lungs: clear to auscultation Abdomen: soft, nontender, nondistended, positive bowel sounds Extremities: no cyanosis or clubbing; no edema Skin: warm and intact Objective Data Vital Signs Vital Signs: Vital Signs Temp Pulse Resp BP Pulse Ox O2 Del Method O2 Flow Rate 11/13/23 10:30 98 18 96 Room Air 11/13/23 10:26 98 18 11/13/23 08:32 Room Air 11/13/23 09:37 96 14 102/61 96 11/13/23 09:37 84 14 111/61 96 11/13/23 08:00 83 14 109/62 96 11/13/23 05:05 98.2 F 87 18 103/63 97 11/12/23 20:00 Room Air 11/12/23 21:36 88 18 11/12/23 21:27 94 11/12/23 21:26 84 18 11/12/23 21:02 97.9 F 90 18 112/64 97 11/12/23 21:00 97.9 F 80 18 121/67 97 11/12/23 21:03 97.9 F 80 18 120/63
--- NOTE | 2023-11-13 10:40 | PM.PNNEP ---
Progress Note: A&P Assessment and Plan (1) Chronic kidney disease, stage 4 (severe): Code(s): N18.4 - Chronic kidney disease, stage 4 (severe) Status: Chronic Assessment and Plan: creatinine had been running ~ 2.2 - 2.7mg/dl in the last 6 months this is secondary to biopsy proven pauci immune glomerulonephritis (Will's granulomatosis/Granulomatosis with polyangiitis) creatinine is better than baseline currently this is likely due to decreased muscle mass due to decreased mobility and bed-bound status on treatment with cellcept and prednisone consider further weaning of these medications... however, without steroids, her respiratory status usually clinically worsens... 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: Code(s): M31.31 - Will's granulomatosis with renal involvement Status: Chronic Assessment and Plan: renal biopsy proven on cellcept and prednisone recent ANCA serologies negative stable renal function as noted (3) Anemia: Code(s): D64.9 - Anemia, unspecified Status: Chronic Assessment and Plan: partly related to known CKD possible GI loss - hemoccult positive GI following EGD/colonoscopy later today PRBC transfusion per protocol follow trend of H/H empiric JUDIT along with IV iron therapy (4) SOB (shortness of breath): Code(s): R06.02 - Shortness of breath Status: Acute Assessment and Plan: clinical deterioration in the last several days if not weeks complicated by lung disease/issues Pulmonary following with recommendations noted (5) Generalized weakness: Code(s): R53.1 - Weakness Status: Acute Assessment and Plan: etiology? related to medications? anemia playing a role secondary to pulmonary issues? evaluation in progress Will continue to follow. Subjective Date/time seen: 11/13/23 10:40 Interval history: Follow-up for chronic kidney disease due to biopsy proven pauci immune glomerulonephritis/Will's granulomatosis. No apparent distress noted at time but continues to have generalized weakness and fatigue; tentatively on schedule for EGD and colonoscopy this afternoon; H/H stable if not better by AM labs; dosed with Retacrit yesterday as well and started on oral iron Exam Narrative: General: elderly but WD/WN female in NAD Heart: normal S1 and S2; no rub Lungs: clear to auscultation Abdomen: soft, nontender, nondistended, positive bowel sounds Extremities: no cyanosis or clubbing; no edema Skin: warm and intact Objective Data Vital Signs Vital Signs: Vital Signs Temp Pulse Resp BP Pulse Ox O2 Del Method O2 Flow Rate 11/13/23 10:30 98 18 96 Room Air 11/13/23 10:26 98 18 11/13/23 08:32 Room Air 11/13/23 09:37 96 14 102/61 96 11/13/23 09:37 84 14 111/61 96 11/13/23 08:00 83 14 109/62 96 11/13/23 05:05 98.2 F 87 18 103/63 97 11/12/23 20:00 Room Air 11/12/23 21:36 88 18 11/12/23 21:27 94 11/12/23 21:26 84 18 11/12/23 21:02 97.9 F 90 18 112/64 97 11/12/23 21:00 97.9 F 80 18 121/67 97 11/12/23 21:03 97.9 F 80 18 120/63 97 11/12/23 20:00 97.9 F 80 18 120/63 97 Intake/Output Intake/Output: Intake & Output 11/10/23 11/11/23 11/12/23 11/13/23 23:59 23:59 23:59 23:59 Intake Total 1240 2800 2960 100 Output Total 0 Balance 1240 2800 2960 100 Meds/Results Medications: Active Medications Generic Name Dose Route Start Last Admin Trade Name Freq PRN Reason Stop Dose Admin Acetaminophen 650 mg 11/10/23 15:34 Acetaminophen 325 Mg Tablet PO Q6H PRN Mild Pain (1-3) or Fever Albuterol 2.5 mg 11/10/23 14:00 11/13/23 16:01 Albuterol Sulfate Neb 2.5 Mg/3 Ml Inh INHALATION Not Given Q6HRT SHAQUILLE Albuterol 2.5 mg 11/10/23 17:42
[2023-11-13] MEDS: LACTATED RINGERS 1,000 ML 150 ML IV CONT (14:18)
--- NOTE | 2023-11-13 14:32 | WPDANESEPPF ---
Anes - Initial Pre Proc Eval Procedure: Operation Date: 11/13/23 14:00 Proposed Procedures p Esophagogastroduodenoscopy & Colonoscopy - Brady Dash MD Date/Time: 11/13/23 14:32 Surgeon: Omkar Patricia MD Pre Op Diagnosis: Shortness of Breath/ CARMELLA Patient Data Age: 83 Gender: F Height: 1.7 m Weight: 71.9 kg Last Vital Signs Temp 98 F 11/13/23 14:13 Pulse 90 11/13/23 14:13 Resp 20 11/13/23 14:13 BP 127/69 11/13/23 14:13 Pulse Ox 98 11/13/23 14:13 O2 Del Method Room Air 11/13/23 14:13 FiO2 21 11/12/23 07:19 Allergies Allergy/AdvReac Type Severity Reaction Status Date / Time fluticasone Allergy Unknown Other Verified 11/13/23 14:08 salmeterol Allergy Unknown Other Verified 11/13/23 14:08 Home Medications Medication Instructions Recorded Confirmed Type albuterol sulfate 2.5 mg/3 mL 2.5 mg inhalation Q6H PRN 02/03/23 11/13/23 History (0.083 %) solution for nebulization shortness of breath or wheezing magnesium oxide 500 mg capsule 500 mg PO DAILY 05/12/23 11/13/23 History prednisone 10 mg tablet 10 mg PO DIRECTED Kidney 05/25/23 11/13/23 Rx failure #392 tabs atorvastatin 20 mg tablet 20 mg PO DAILY #90 tabs 06/30/23 11/13/23 Rx calcium carbonate (Tums Ultra) 1,000 mg PO DAILY 06/30/23 11/13/23 History montelukast 10 mg tablet 10 mg PO DAILY #90 tabs 06/30/23 11/13/23 Rx omeprazole 40 mg capsule,delayed 40 mg PO DAILY #90 caps 06/30/23 11/13/23 Rx release furosemide 20 mg tablet 20 mg PO QAM #30 tabs 08/15/23 11/13/23 Rx levothyroxine 100 mcg tablet 100 mcg PO DAILY #90 tabs 10/02/23 11/13/23 Rx Breo Ellipta 200 mcg-25 mcg/dose 1 inh inhalation DAILY #60 ea 11/08/23 11/13/23 Rx powder for inhalation (fluticasone furoate-vilanterol) mycophenolate mofetil 500 mg tablet 500 mg PO Q12H 11/10/23 11/13/23 History Laboratory Tests 11/13/23 05:58 WBC 5.0 K/mm3 (4.5-10.0) RBC 3.09 L M/mm3 (4.2-5.4) Hgb 9.3 L g/dL (12.0-15.0) Hct 29.8 L % (37.0-47.0) MCV 96.4 fl (80-100) MCH 30.1 pg (26-34) MCHC 31.2 L g/dl (32-36) RDW 14.7 H % (11.5-14.5) Plt Count 181 k/mm3 (150-375) MPV 9.6 fl (7.4-10.4) Immature Gran % (Auto) 1.2 H % (0-0.5) Neut % (Auto) 78.8 H % (45.5-73.1) Lymph % (Auto) 11.3 L % (18.3-44.2) [place] % (Auto) 8.7 H % (2.6-8.5) Eos % (Auto) 0.0 % (0-4.4) Baso % (Auto) 0.0 L % (0.2-1.2) Lymph # (Auto) 0.57 L K/mm3 (0.9-3.2) [place]cock # (Auto) 0.4 K/mm3 (0.1-0.6) Eos # (Auto) 0.0 K/mm3 (0-0.3) Baso # (Auto) 0.0 K/mm3 (0.0-0.1) Abs Immat Gran (auto) 0.06 H K/mm3 (0.00-0.031) Absolute Neuts (auto) 4.0 K/mm3 (1.3-6.7) Absolute Nucleated RBC 0.000 K/mm3 (0.0-0.012) Nucleated RBC % 0.0 % (0.0-0.2) Sodium 131 L mmol/L (137-145) Potassium 3.5 mmol/L (3.4-5.0) Chloride 98 mmol/L (98-107) Carbon Dioxide 23 mmol/L (22-30) Anion Gap 10 mmol/L (4-12) BUN 24 H mg/dL (7-17) Creatinine 1.70 H mg/dL (0.7-1.0) Estim Creat Clear Calc 22 ml/min Estimated GFR 29 L (59 - ) Glucose 80 mg/dL (65-110) Calcium 8.8 mg/dL (8.4-10.2) Total Bilirubin 0.4 mg/dL (0.2-1.3) AST 21 U/L (14-36) ALT 13 U/L (6-35) Alkaline Phosphatase 47 U/L (38-126) Total Protein 5.0 L g/dL (6.3-8.2) Albumin 3.0 L g/dL (3.5-5.1) Patient hx anesthesia problems: none Family hx anesthesia problems: none Results Review: All pre-operative results and documents have been reviewed as part of the pre-operative evaluation. [facility] Past Medical History Medical History (Updated 11/12/23 @ 16:46 by Brady Dash MD) Acute on chronic anemia Anemia in chronic kidney disease Asthma Atherosclerosis of aorta Deep venous thrombosis (11/2020) Diverticulitis Gastroesophageal reflux disease Granulomatosis with polyangiitis Hypercholesterolemia Hyp
--- NOTE | 2023-11-13 15:37 | SUR.OPER ---
EGD COMPLETED AT 1533 COLONOSCOPY STARTED 153
--- NOTE | 2023-11-13 16:03 | PCRCNOTE ---
Window of time for administration has passed. See next scheduled administration.
[2023-11-13] MEDS: IRON SUCROSE COMPLEX 200 MG in SODIUM CHLORIDE 0.9% IV 100 ML 220 MG IVPB (18:24)
[2023-11-13] MEDS: ACETAMINOPHEN 500 MG TABLET 1000 MG PO (19:49)
[2023-11-13] MEDS: mycophenolate mofetiL 250 MG CAPSULE 500 MG PO (20:23)
[2023-11-13 20:34] LABS: Glucose Point of Care 99 mg/dl (65-105)
[2023-11-13] MEDS: ACETAMINOPHEN 325 MG TABLET 650 MG PO (20:54)
[2023-11-14] VITALS (16 sets, daily range): BP systolic 109–123; BP diastolic 57–80; PULSE 78–99; RESP 16–20; TEMP 36.6–36.8; O2SAT 91–96
[2023-11-14 05:35] LABS: Hematocrit 27.3 % (37.0-47.0); Hemoglobin 8.4 g/dL (12.0-15.0); Immature Granulocyte Absolute 0.04 K/mm3 (0.00-0.031); Immature Granulocyte Percent A 0.8 % (0-0.5); Immature Platelet Fraction Pct 2.3 % (0.9-11.2); Lymphocytes Absolute Auto 0.49 K/mm3 (0.9-3.2); Mean Corpuscular HGB Conc 30.8 g/dl (32-36); Mean Corpuscular Hemoglobin 30.4 pg (26-34); Mean Corpuscular Volume 98.9 fl (80-100); Mean Platelet Volume 9.4 fl (7.4-10.4); Monocytes Absolute Auto 0.4 K/mm3 (0.1-0.6); Monocytes Percent Auto 7.1 % (2.6-8.5); Neutrophils Percent Auto 82.1 % (45.5-73.1); Platelet Count Result 148 k/mm3 (150-375); Red Blood Count 2.76 M/mm3 (4.2-5.4); White Blood Count 4.9 K/mm3 (4.5-10.0)
[2023-11-14] MEDS: LEVOTHYROXINE SODIUM 100 MCG TABLET PO (05:36)
[2023-11-14 05:48] LABS: Alanine Aminotransferase 14 U/L (6-35); Albumin Level 2.3 g/dL (3.5-5.1); Alkaline Phosphatase 45 U/L (38-126); Anion Gap 6 mmol/L (4-12); Aspartate Amino Transferase 23 U/L (14-36); Bilirubin,Total 0.6 mg/dL (0.2-1.3); Blood Urea Nitrogen 21 mg/dL (7-17); Calcium 8.5 mg/dL (8.4-10.2); Carbon Dioxide 22 mmol/L (22-30); Chloride 101 mmol/L (98-107); Estimated CRCL calculation 24 ml/min; Estimated Glomerular Filt Rate 31; Glucose 94 mg/dL (65-110); Potassium 3.2 mmol/L (3.4-5.0); Sodium 129 mmol/L (137-145)
[2023-11-14 05:56] LABS: Platelet Estimate Adequate (Adequate); Poikilocytosis 1+
[2023-11-14 05:57] LABS: Anisocytosis 1+; Ovalocytes 1+; Schistocytes None Seen
--- NOTE | 2023-11-14 07:47 | PM.IMPN ---
Progress Note: A&P Assessment and Plan (1) Shortness of breath: Code(s): R06.02 - Shortness of breath Status: Acute Assessment and Plan: -Given her history of DVT and PE these need to be considered however seem less likely by her description and physical exam findings. She does not have lower extremity edema - so will not do a chest CTA at this time due to her kidney issues Lung sounds are diminished throughout with mild right upper lobe expiratory wheezing thus will continue with scheduled bronchodilators. Prednisone dose was decreased by 2.5 mg daily in the last month or so and we will hold on making any changes at this time pending pulmonology consultation: The patient will return to the Pulmonary Clinic to see her manager intelligence, Dr. Coreas. She will continue with her current regimen of short-acting bronchodilators and other maintenance bronchodilators. 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: Code(s): N05.8 - Unspecified nephritic syndrome with other morphologic changes; N05.7 - Unspecified nephritic syndrome with diffuse crescentic glomerulonephritis Status: Acute (5) Pulmonary hypertension: Code(s): I27.20 - Pulmonary hypertension, unspecified Status: Acute (6) Hypertension: Qualifiers: Hypertension type: primary hypertension Qualified Code(s): I10 - Essential (primary) hypertension Code(s): I10 - Essential (primary) hypertension Status: Acute Assessment and Plan: continue home meds -monitor (7) Hypothyroidism: Qualifiers: Hypothyroidism type: acquired Qualified Code(s): E03.9 - Hypothyroidism, unspecified Code(s): E03.9 - Hypothyroidism, unspecified Status: Acute Assessment and Plan: - levothyroxine 100 mcg - tsh is 11.2- but hg dropped to 7 today - will correct hg/hct and re assess (outpt) (8) Generalized weakness: Code(s): R53.1 - Weakness Status: Acute Assessment and Plan: - likely due to anemia - MCV 97.0 - will order iron studies - decreased appetite today- no energy after procedure - will give 1 l NS at 100ml/h to ensure hydration replace K and recheck in am labs (9) Hypercholesterolemia: Code(s): E78.00 - Pure hypercholesterolemia, unspecified Status: Acute Assessment and Plan: -continue home meds (10) Anemia: Code(s): D64.9 - Anemia, unspecified Status: Chronic Assessment and Plan: -repeated Hg 7.4 - will hold on with blood transfusion - replace iron -repeat cbc 11/11 11/11- 1 unit RBC ordered - recheck Hg once infused - occult stool is positive- will order GI consult 11/12- repeat hg yesterday after transfusion- 8.6 9.3 today. colonoscopy scheduled with Dr urbina 11/13 colonoscopy/EGD completed colonoscopy: 4 polyps were removed, internal hemorrhoids, diverticulosis- no active bleeding EGD: mild gastritis with erythenatous, edematous and erosive changes- biopsies were obtained (11) Acute kidney injury: Code(s): N17.9 - Acute kidney failure, unspecified Status: Acute Assessment and Plan: - cr- 1.8/bun21 CR 2.9 on 05/23/23 - nephrology is consulted and following-appreciate recommendations Plan DVT prophylaxis: SCD continue to work with pT/OT Time Spent With Patient Time with patient: Greater than 35 minutes Subjective Date/time seen: 11/14/23 07:47 Interval history: Narrative: This is a pleasant 83-year-old female with pauci immune glomerulonephritis tarik
[2023-11-14] MEDS: ALBUTEROL SULFATE NEB 2.5 MG/3 ML INH INHALATION ×3 (08:04→20:53)
[2023-11-14] MEDS: FLUTICASONE/SALMETEROL 230-21 MCG INHALER 1 PUFF 2 PUFF INHALATION ×2 (08:12→20:53)
[2023-11-14] MEDS: mycophenolate mofetiL 250 MG CAPSULE 500 MG PO ×2 (08:56→21:03)
[2023-11-14] MEDS: ATORVASTATIN 20 MG TABLET PO (08:57)
[2023-11-14] MEDS: CALCIUM CARBONATE (TUMS) 500 MG (200 MG ELEMENTAL) 400 MG BY MOUTH (08:57)
[2023-11-14] MEDS: MONTELUKAST SODIUM 10 MG TABLET PO (08:57)
[2023-11-14] MEDS: MAGNESIUM OXIDE 400 MG TABLET PO (08:57)
[2023-11-14] MEDS: FERROUS SULFATE DRIED 142 MG TABCR PO (08:58)
[2023-11-14] MEDS: predniSONE 10 MG TABLET PO (08:58)
[2023-11-14] MEDS: PANTOPRAZOLE 40 MG TABLET PO (08:58)
[2023-11-14] MEDS: ENOXAPARIN 30 MG/0.3 ML SYRINGE SUB-Q (08:59)
[2023-11-14] MEDS: IRON SUCROSE COMPLEX 200 MG in SODIUM CHLORIDE 0.9% IV 100 ML 220 MG IVPB (09:00)
[2023-11-14] MEDS: EPOETIN ALFA-EPBX 10,000 UNITS/ML VIAL 10000 UNITS SUB-Q (11:25)
--- NOTE | 2023-11-14 12:07 | P.PNNP_ITS ---
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 Very little protein in the urine. And the creatinine had been stable so I think this is in remission as far as the acute process goes. Unfortunate she only she was left with severe scarring as well so the kidneys are not can to get much better than they are. * creatinine is better than baseline currently, however, most likely due to poor intake and sedentary situation recently because of her weakness. * on treatment with cellcept and prednisone * CellCept was just decreased from a 1000 twice a day to 500 twice a day. * Prednisone can be weaned from the kidney standpoint. * Dr. Alarcon at [facility] said that she did not seem to have pulmonary involvement of her Will's. He was task to with the weaning of the steroids. The only thing that would slow this down is her steroid responsive reversible airways disease which often kicks in when the steroids are weaned. Since I talked with him the last time, however, the patient decided to change pulmonary doctors. * At this point will continue CellCept 500 twice a day and follow the ANCA and decide if we can wean more. 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 * possible GI loss - hemoccult positive * GI following * EGD/colonoscopy apparently negative for a bleeding source. * PRBC transfusion per protocol * follow trend of H/H * empiric JUDIT along with IV iron therapy * She would need JUDIT going forward. Will send to Dr. Portillo to monitor this as an outpatient. (4) SOB (shortness of breath): Code(s): R06.02 - Shortness of breath Status: Acute Assessment and Plan: * clinical deterioration in the last several days if not weeks * complicated by lung disease/issues * Pulmonary following with recommendations noted (5) Generalized weakness: Code(s): R53.1 - Weakness Status: Acute Assessment and Plan: * etiology? * related to medications? * anemia playing a role * secondary to pulmonary issues? * evaluation in progress Will continue to follow. Subjective Date/time seen: 11/14/23 12:07 Interval history: [place] is still weak. She had a colonoscopy yesterday and so did not sleep the night before last nor last night. She tried some physical therapy yesterday but because of the colonoscopy she was so weak she did not do much. She is not eating. She has a very poor taste in her mouth. Exam Narrative: General: elderly but WD/WN female in NAD Heart: normal S1 and S2; no rub or gallop Lungs: clear to auscultation Abdomen: soft, nontender, nondistended, positive bowel sounds Extremities: no cyanosis or clubbing; no edema Skin: No rash O
--- NOTE | 2023-11-14 12:07 | PM.PNNEP ---
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 Very little protein in the urine. And the creatinine had been stable so I think this is in remission as far as the acute process goes. Unfortunate she only she was left with severe scarring as well so the kidneys are not can to get much better than they are. creatinine is better than baseline currently, however, most likely due to poor intake and sedentary situation recently because of her weakness. on treatment with cellcept and prednisone CellCept was just decreased from a 1000 twice a day to 500 twice a day. Prednisone can be weaned from the kidney standpoint. Dr. Alarcon at [facility] said that she did not seem to have pulmonary involvement of her Will's. He was task to with the weaning of the steroids. The only thing that would slow this down is her steroid responsive reversible airways disease which often kicks in when the steroids are weaned. Since I talked with him the last time, however, the patient decided to change pulmonary doctors. At this point will continue CellCept 500 twice a day and follow the ANCA and decide if we can wean more. 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 possible GI loss - hemoccult positive GI following EGD/colonoscopy apparently negative for a bleeding source. PRBC transfusion per protocol follow trend of H/H empiric JUDIT along with IV iron therapy She would need JUDIT going forward. Will send to Dr. Portillo to monitor this as an outpatient. (4) SOB (shortness of breath): Code(s): R06.02 - Shortness of breath Status: Acute Assessment and Plan: clinical deterioration in the last several days if not weeks complicated by lung disease/issues Pulmonary following with recommendations noted (5) Generalized weakness: Code(s): R53.1 - Weakness Status: Acute Assessment and Plan: etiology? related to medications? anemia playing a role secondary to pulmonary issues? evaluation in progress Will continue to follow. Subjective Date/time seen: 11/14/23 12:07 Interval history: [place] is still weak. She had a colonoscopy yesterday and so did not sleep the night before last nor last night. She tried some physical therapy yesterday but because of the colonoscopy she was so weak she did not do much. She is not eating. She has a very poor taste in her mouth. Exam Narrative: General: elderly but WD/WN female in NAD Heart: normal S1 and S2; no rub or gallop Lungs: clear to auscultation Abdomen: soft, nontender, nondistended, positive bowel sounds Extremities: no cyanosis or clubbing; no edema Skin: No rash Objective Data Vital Signs Vital Signs: Vital Signs - 24 hr 11/13/23 13:56 11/13/23 14:13 11/13/23 16:31 Temperature 98 F Pulse Rate 87 90 85 Respiratory Rate 14 20 22 H Blood Pressure 103/62 127/69 106/42 L Pulse Oximetry 97 98 98 Oxygen Delivery Room Air Nasal Cannula Oxygen Flow Rate 2 Fraction of Inspired Oxygen 11/13/23 16:41 11/13/23 16:51 11/13/23 16:30 Temperature Pulse Rate 85 80 81 Respiratory Rate 20 22 H 14 Blood Pressure 105/59 L 112/55 L 1
[2023-11-14] MEDS: POTASSIUM CHLORIDE 20 MEQ PACKET (FOR LIQUID) PO (13:18)
[2023-11-14] MEDS: SODIUM CHLORIDE 0.9% IV 1,000 ML 100 ML IV CONT (13:18)
--- NOTE | 2023-11-14 14:38 | WPDGIPROGNO ---
Progress Note: A&P Assessment and Plan (1) Gastritis: Code(s): K29.70 - Gastritis, unspecified, without bleeding Status: Acute Assessment and Plan: no overt gib ppi daily tolerating diet will follow as needed (2) ALICIA (iron deficiency anemia): Code(s): D50.9 - Iron deficiency anemia, unspecified Status: Acute Assessment and Plan: anemia mostly related to underlying kidney disease by nephrology (3) Occult blood in stools: Code(s): R19.5 - Other fecal abnormalities Status: Acute Assessment and Plan: probably also perianal no signs of overt gib colonoscopy with large polyp but that won't explain anemia, removed in piece-meal- recommend colonoscopy in 6-8 months (4) Granulomatosis with polyangiitis with renal involvement: Code(s): M31.31 - 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 granulomatosis with renal involvement Status: Chronic (5) Anemia in chronic kidney disease: Qualifiers: Chronic kidney disease stage: stage 4 (severe) Qualified Code(s): N18.4 - Chronic kidney disease, stage 4 (severe); D63.1 - Anemia in chronic kidney disease Code(s): N18.9 - Chronic kidney disease, unspecified; D63.1 - Anemia in chronic kidney disease Status: Acute Assessment and Plan: h/h low but stable (6) Acute on chronic anemia: Code(s): D64.9 - Anemia, unspecified Status: Acute (7) Chronic kidney disease, stage 4 (severe): Code(s): N18.4 - Chronic kidney disease, stage 4 (severe) Status: Chronic Subjective Date/time seen: 11/14/23 14:38 Interval history: she just feels bloated after scopes, no other events at bedside Review of Systems Review of Systems: All systems reviewed & are unremarkable except as noted in HPI and below Exam Const: General: comfortable and no acute distress HENMT: Face/Nose/Sinus: Normal nares present Eyes: General: appearance normal, both eyes and all related structures Neck: Neck: supple Resp: Auscultation: clear to auscultation bilaterally Cardio: Rate: regular rate Rhythm: regular rhythm GI: Inspection: non-distended GI Palp: Yes Soft to palpation and No Tenderness to palpation present (GI) Auscultation: normal bowel sounds Skin: General skin exam: normal color Neuro: Speech: normal speech Motor exam (neuro): 5/5 motor strength present throughout Extrem: General: normal to inspection Psych: Mental Status: mental status grossly normal Objective Data Vital Signs Vital Signs: Vital Signs - 24 hr 11/13/23 16:31 11/13/23 16:41 11/13/23 16:51 Temperature Pulse Rate 85 85 80 Respiratory Rate 22 H 20 22 H Blood Pressure 106/42 L 105/59 L 112/55 L Pulse Oximetry 98 96 97 Oxygen Delivery Nasal Cannula Nasal Cannula Room Air Oxygen Flow Rate 2 2 Fraction of Inspired Oxygen 11/13/23 16:30 11/13/23 19:27 11/13/23 19:37 Temperature 101.4 F H 101.4 F H Pulse Rate 81 98 97 Respiratory Rate 14 18 18 Blood Pressure 104/46 L 114/49 L 114/49 L Pulse Oximetry 92 91 91 Oxygen Delivery Oxygen Flow Rate Fraction of Inspired Oxygen 11/13/23 19:37 11/13/23 19:38 11/13/23 19:49 Temperature 101.4 F H 101.4 F H 101.4 F H Pulse Rate 101 H 113 H Respiratory Rate 18 18 Blood Pressure 124/55 L 122/53 L Pulse Oximetry 100 100 Oxygen Delivery Oxygen Flow Rate Fraction of Inspired Oxygen 11/13/23 20:49 11/13/23 20:54 11/13/23 20:15 Temperature 101.9 F H 101.9 F H Pulse Rate Respiratory Rate Blood Pressure Pulse Oximetry Oxygen Delivery Room Air Oxygen Flow Rate Fraction of Inspired Oxygen 11/13/23 21:19 11/13/23 21:22 11/13/23 21:34 Temperature 99.1 F Pulse Rate 78 76 Respiratory Rate 18 18 Blood Pressure Pulse Oximetry Oxygen Delivery Oxygen Flow Rate Fraction of Inspired Oxygen 11/13/23 21:54 11/14/23 04:06 11/14/23 08:04 Temperature 99.1 F 98.3 F Pulse Rate 78 Respiratory Rate
[2023-11-15] VITALS (18 sets, daily range): BP systolic 104–127; BP diastolic 47–66; PULSE 70–91; RESP 16–20; TEMP 36.3–36.8; O2SAT 96–100
[2023-11-15] MEDS: ALBUTEROL SULFATE NEB 2.5 MG/3 ML INH INHALATION ×4 (02:20→21:04)
[2023-11-15 05:27] LABS: Hematocrit 24.7 % (37.0-47.0); Hemoglobin 7.5 g/dL (12.0-15.0); Immature Granulocyte Absolute 0.05 K/mm3 (0.00-0.031); Immature Granulocyte Percent A 1.3 % (0-0.5); Lymphocytes Absolute Auto 0.47 K/mm3 (0.9-3.2); Lymphocytes Percent Auto 12.5 % (18.3-44.2); Mean Corpuscular HGB Conc 30.4 g/dl (32-36); Mean Corpuscular Hemoglobin 29.6 pg (26-34); Mean Corpuscular Volume 97.6 fl (80-100); Mean Platelet Volume 9.6 fl (7.4-10.4); Monocytes Absolute Auto 0.3 K/mm3 (0.1-0.6); Monocytes Percent Auto 8.5 % (2.6-8.5); Neutrophils Absolute Auto 2.9 K/mm3 (1.3-6.7); Neutrophils Percent Auto 77.7 % (45.5-73.1); Platelet Count Result 145 k/mm3 (150-375); Red Blood Count 2.53 M/mm3 (4.2-5.4); White Blood Count 3.8 K/mm3 (4.5-10.0)
[2023-11-15 05:40] LABS: Alanine Aminotransferase 14 U/L (6-35); Albumin Level 2.1 g/dL (3.5-5.1); Alkaline Phosphatase 42 U/L (38-126); Anion Gap 6 mmol/L (4-12); Aspartate Amino Transferase 24 U/L (14-36); Bilirubin,Total 0.3 mg/dL (0.2-1.3); Blood Urea Nitrogen 21 mg/dL (7-17); Calcium 8.1 mg/dL (8.4-10.2); Carbon Dioxide 22 mmol/L (22-30); Chloride 102 mmol/L (98-107); Estimated CRCL calculation 25 ml/min; Estimated Glomerular Filt Rate 33; Glucose 109 mg/dL (65-110); Potassium 3.6 mmol/L (3.4-5.0); Sodium 130 mmol/L (137-145)
[2023-11-15] MEDS: LEVOTHYROXINE SODIUM 100 MCG TABLET PO (06:01)
[2023-11-15] MEDS: FLUTICASONE/SALMETEROL 230-21 MCG INHALER 1 PUFF 2 PUFF INHALATION ×2 (08:06→21:04)
--- NOTE | 2023-11-15 08:44 | PM.IMPN ---
Progress Note: A&P Assessment and Plan (1) Shortness of breath: Code(s): R06.02 - Shortness of breath Status: Acute Assessment and Plan: -Given her history of DVT and PE these need to be considered however seem less likely by her description and physical exam findings. She does not have lower extremity edema - so will not do a chest CTA at this time due to her kidney issues Lung sounds are diminished throughout with mild right upper lobe expiratory wheezing thus will continue with scheduled bronchodilators. Prednisone dose was decreased by 2.5 mg daily in the last month or so and we will hold on making any changes at this time pending pulmonology consultation: The patient will return to the [facility] to see her data integration analyst, Dr. Coreas. She will continue with her current regimen of short-acting bronchodilators and other maintenance bronchodilators. - no acute events- continue to monitor - she will f/u with Pulm as an outpt - will titrate prednisone down slowly (2) Granulomatosis with polyangiitis: Code(s): M31.30 - Will's granulomatosis without renal involvement Status: Chronic Assessment and Plan: - on cellcept - nephrology is following (3) Asthma: Code(s): J45.909 - Unspecified asthma, uncomplicated Status: Acute Assessment and Plan: - continue bronchodialators (4) Primary pauci-immune necrotizing and crescentic glomerulonephritis: Code(s): N05.8 - Unspecified nephritic syndrome with other morphologic changes; N05.7 - Unspecified nephritic syndrome with diffuse crescentic glomerulonephritis Status: Acute Assessment and Plan: nephrology following notes reviewed: renal biopsy proven on cellcept and prednisone recent ANCA serologies negative stable renal function as noted (5) Pulmonary hypertension: Code(s): I27.20 - Pulmonary hypertension, unspecified Status: Acute (6) Hypertension: Qualifiers: Hypertension type: primary hypertension Qualified Code(s): I10 - Essential (primary) hypertension Code(s): I10 - Essential (primary) hypertension Status: Acute Assessment and Plan: continue home meds -monitor (7) Hypothyroidism: Qualifiers: Hypothyroidism type: acquired Qualified Code(s): E03.9 - Hypothyroidism, unspecified Code(s): E03.9 - Hypothyroidism, unspecified Status: Acute Assessment and Plan: - levothyroxine 100 mcg - tsh is 11.2- but hg dropped to 7 today - will correct hg/hct and re assess (outpt) (8) Generalized weakness: Code(s): R53.1 - Weakness Status: Acute Assessment and Plan: - likely due to anemia - MCV 97.0 - will order iron studies - decreased appetite today- no energy after procedure - will give 1 l NS at 100ml/h to ensure hydration replace K and recheck in am labs (9) Hypercholesterolemia: Code(s): E78.00 - Pure hypercholesterolemia, unspecified Status: Acute Assessment and Plan: -continue home meds (10) Anemia: Code(s): D64.9 - Anemia, unspecified Status: Chronic Assessment and Plan: -repeated Hg 7.4 - will hold on with blood transfusion - replace iron -repeat cbc 11/11 11/11- 1 unit RBC ordered - recheck Hg once infused - occult stool is positive- will order GI consult 11/12- repeat hg yesterday after transfusion- 8.6 9.3 today. colonoscopy scheduled with Dr urbina 11/13 colonoscopy/EGD completed colonoscopy: 4 polyps were removed, internal hemorrhoids, diverticulosis- no active bleeding EGD: mild gastritis with erythenatous, edematous and erosive changes- biopsies were obtained 11/14- PRBC transfusion per protocol - will consult hem/onc as may need EPA in addition to iron infusions in the future (11) Acute kidney injury: Code(s): N17.9 - Acute kidney failure, unspecified Status: Acute Assessment and Plan: - cr- 1.8/bun21 CR 2.9 on 05/23/23 - nep
--- NOTE | 2023-11-15 08:59 | P.PNNP_ITS ---
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 Very little protein in the urine. And the creatinine had been stable so I think this is in remission as far as the acute process goes. Unfortunate she only she was left with severe scarring as well so the kidneys are not can to get much better than they are. * creatinine is better than baseline currently, however, most likely due to poor intake and sedentary situation recently because of her weakness. * on treatment with cellcept and prednisone * CellCept was just decreased from a 1000 twice a day to 500 twice a day. * Prednisone can be weaned from the kidney standpoint. * Dr. Alarcon at [facility] said that she did not seem to have pulmonary involvement of her Will's. It would be nice to decrease the prednisone dose if okay with Pulmonary. * At this point will continue CellCept 500 twice a day and follow the ANCA and decide if we can wean prednisone more. (2) Granulomatosis with polyangiitis with renal involvement: Code(s): M31.31 - Will's granulomatosis with renal involvement Status: Chronic Assessment and Plan: * renal biopsy proven * on cellcept and prednisone * recent ANCA serologies negative * stable renal function and small amount of proteinuria (3) Anemia: Code(s): D64.9 - Anemia, unspecified Status: Chronic Assessment and Plan: * partly related to known CKD and partly due to CellCept, but also due to GI bleeding. * possible GI loss - hemoccult positive * GI following * EGD/colonoscopy apparently negative for a bleeding source. * PRBC transfusion per protocol * She is getting JUDIT and iron to help the bone marrow. * Scopes by GI showed no sign of GI bleeding. Probably some intermittent bleeding from her hemorrhoids. (4) SOB (shortness of breath): Code(s): R06.02 - Shortness of breath Status: Acute Assessment and Plan: * clinical deterioration in the last several days if not weeks * complicated by lung disease/issues * Pulmonary following with recommendations noted * Hopefully we can wean the steroids (5) Generalized weakness: Code(s): R53.1 - Weakness Status: Acute Assessment and Plan: * etiology? * related to medications? Steroids or CellCept could be contributing. * anemia playing a role * secondary to pulmonary issues? * evaluation in progress Will continue to follow. Subjective Date/time seen: 11/15/23 08:59 Interval history: Patient feels better. She is eating better. She has a little bit of swelling Exam Narrative: General: elderly but WD/WN female in NAD Heart: normal S1 and S2; no rub or gallop Lungs: clear to auscultation Abdomen: soft, nontender, nondistended, positive bowel sounds Extremities: no cyanosis or clubbing; 1+ bilateral edema Skin: No rash Objective Data Vital Signs Vital Signs: Vital Signs - 24 hr 11/14/23 14:04 11/14/23 14:04 11/14/23 14:09 Temperature Pulse Rate 85 81 Respiratory Rate 20 20 Blood Pressu
--- NOTE | 2023-11-15 08:59 | PM.PNNEP ---
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 Very little protein in the urine. And the creatinine had been stable so I think this is in remission as far as the acute process goes. Unfortunate she only she was left with severe scarring as well so the kidneys are not can to get much better than they are. creatinine is better than baseline currently, however, most likely due to poor intake and sedentary situation recently because of her weakness. on treatment with cellcept and prednisone CellCept was just decreased from a 1000 twice a day to 500 twice a day. Prednisone can be weaned from the kidney standpoint. Dr. Alarcon at [facility] said that she did not seem to have pulmonary involvement of her Will's. It would be nice to decrease the prednisone dose if okay with Pulmonary. At this point will continue CellCept 500 twice a day and follow the ANCA and decide if we can wean prednisone more. 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 possible GI loss - hemoccult positive GI following EGD/colonoscopy apparently negative for a bleeding source. PRBC transfusion per protocol She is getting JUDIT and iron to help the bone marrow. Scopes by GI showed no sign of GI bleeding. Probably some intermittent bleeding from her hemorrhoids. (4) SOB (shortness of breath): Code(s): R06.02 - Shortness of breath Status: Acute Assessment and Plan: clinical deterioration in the last several days if not weeks complicated by lung disease/issues Pulmonary following with recommendations noted Hopefully we can wean the steroids (5) Generalized weakness: Code(s): R53.1 - Weakness Status: Acute Assessment and Plan: etiology? related to medications? Steroids or CellCept could be contributing. anemia playing a role secondary to pulmonary issues? evaluation in progress Will continue to follow. Subjective Date/time seen: 11/15/23 08:59 Interval history: Patient feels better. She is eating better. She has a little bit of swelling Exam Narrative: General: elderly but WD/WN female in NAD Heart: normal S1 and S2; no rub or gallop Lungs: clear to auscultation Abdomen: soft, nontender, nondistended, positive bowel sounds Extremities: no cyanosis or clubbing; 1+ bilateral edema Skin: No rash Objective Data Vital Signs Vital Signs: Vital Signs - 24 hr 11/14/23 14:04 11/14/23 14:04 11/14/23 14:09 Temperature Pulse Rate 85 81 Respiratory Rate 20 20 Blood Pressure Pulse Oximetry 94 Oxygen Delivery Room Air Fraction of Inspired Oxygen 21 11/14/23 14:00 11/14/23 14:00 11/14/23 14:29 Temperature 98.0 F 98.0 F Pulse Rate 88 88 99 Respiratory Rate 16 16 Blood Pressure 121/62 121/68 119/80 Pulse Oximetry 91 91 95 Oxygen Delivery Fraction of Inspired Oxygen 11/14/23 14:30 11/14/23 20:00 11/14/23 20:42 Temperature 97.9 F 97.9 F Pulse Rate 96 Respiratory Rate Blood Pressure 113/63 Pulse Oximetry Oxygen Delivery Fraction of Inspired Oxygen 11/14/23 20:42 11/14/23 20:42
[2023-11-15] MEDS: predniSONE 10 MG TABLET PO (09:43)
[2023-11-15] MEDS: ATORVASTATIN 20 MG TABLET PO (09:44)
[2023-11-15] MEDS: mycophenolate mofetiL 250 MG CAPSULE 500 MG PO ×2 (09:44→20:51)
[2023-11-15] MEDS: FERROUS SULFATE DRIED 142 MG TABCR PO (09:44)
[2023-11-15] MEDS: MAGNESIUM OXIDE 400 MG TABLET PO (09:44)
[2023-11-15] MEDS: PANTOPRAZOLE 40 MG TABLET PO (09:44)
[2023-11-15] MEDS: POTASSIUM CHLORIDE 20 MEQ PACKET (FOR LIQUID) PO (09:45)
[2023-11-15] MEDS: polyethylene glycoL 3350 17 GM POWD.PACK PO (09:45)
[2023-11-15] MEDS: CALCIUM CARBONATE (TUMS) 500 MG (200 MG ELEMENTAL) 400 MG BY MOUTH (09:45)
[2023-11-15] MEDS: MONTELUKAST SODIUM 10 MG TABLET PO (09:45)
[2023-11-15] MEDS: ENOXAPARIN 30 MG/0.3 ML SYRINGE SUB-Q (12:36)
[2023-11-15 18:38] LABS: Hematocrit 27.6 % (37.0-47.0); Hemoglobin 8.4 g/dL (12.0-15.0)
[2023-11-16] VITALS (9 sets, daily range): BP systolic 110–118; BP diastolic 59–74; PULSE 64–87; RESP 16–20; TEMP 36.5–36.6; O2SAT 97–99
[2023-11-16] MEDS: ALBUTEROL SULFATE NEB 2.5 MG/3 ML INH INHALATION ×3 (03:09→14:23)
[2023-11-16] MEDS: LEVOTHYROXINE SODIUM 100 MCG TABLET PO (06:02)
[2023-11-16 06:08] LABS: Hematocrit 24.5 % (37.0-47.0); Hemoglobin 7.6 g/dL (12.0-15.0); Mean Corpuscular Volume 96.8 fl (80-100); Mean Platelet Volume 9.9 fl (7.4-10.4); Platelet Count Result 166 k/mm3 (150-375); Red Blood Count 2.53 M/mm3 (4.2-5.4); Red Cell Distribution Width 15.1 % (11.5-14.5); White Blood Count 4.5 K/mm3 (4.5-10.0)
[2023-11-16 06:23] LABS: Albumin Level 2.2 g/dL (3.5-5.1); Anion Gap 3 mmol/L (4-12); Blood Urea Nitrogen 23 mg/dL (7-17); Calcium 8.6 mg/dL (8.4-10.2); Carbon Dioxide 23 mmol/L (22-30); Chloride 104 mmol/L (98-107); Estimated CRCL calculation 27 ml/min; Estimated Glomerular Filt Rate 36; Glucose 118 mg/dL (65-110); Phosphorus 3.3 mg/dL (2.5-4.5); Potassium 4.6 mmol/L (3.4-5.0); Sodium 130 mmol/L (137-145)
[2023-11-16] MEDS: FERROUS SULFATE DRIED 142 MG TABCR PO (08:18)
[2023-11-16] MEDS: mycophenolate mofetiL 250 MG CAPSULE 500 MG PO (08:18)
[2023-11-16] MEDS: MONTELUKAST SODIUM 10 MG TABLET PO (08:19)
[2023-11-16] MEDS: PANTOPRAZOLE 40 MG TABLET PO (08:19)
[2023-11-16] MEDS: predniSONE 2.5 MG TABLET 7.5 MG PO (08:19)
[2023-11-16] MEDS: MAGNESIUM OXIDE 400 MG TABLET PO (08:19)
[2023-11-16] MEDS: ATORVASTATIN 20 MG TABLET PO (08:19)
[2023-11-16] MEDS: CALCIUM CARBONATE (TUMS) 500 MG (200 MG ELEMENTAL) 400 MG BY MOUTH (08:20)
[2023-11-16] MEDS: ENOXAPARIN 30 MG/0.3 ML SYRINGE SUB-Q (08:22)
[2023-11-16] MEDS: POTASSIUM CHLORIDE 20 MEQ PACKET (FOR LIQUID) PO (08:22)
[2023-11-16] MEDS: polyethylene glycoL 3350 17 GM POWD.PACK PO (08:22)
[2023-11-16] MEDS: FLUTICASONE/SALMETEROL 230-21 MCG INHALER 1 PUFF 2 PUFF INHALATION (09:28)
--- NOTE | 2023-11-16 10:45 | PM.PNNEP ---
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 on treatment with cellcept and prednisone CellCept was just decreased from a 1000 twice a day to 500 twice a day. prednisone can be weaned from the kidney standpoint. Dr. Alarcon at [facility] said that she did not seem to have pulmonary involvement of her Will's. It would be nice to decrease the prednisone dose if okay with Pulmonary. follow repeat labs and UOP (2) Granulomatosis with polyangiitis with renal involvement: Code(s): M31.31 - Will's granulomatosis with renal involvement Status: Chronic Assessment and Plan: renal biopsy proven on cellcept and prednisone recent ANCA serologies negative stable renal function and small amount of proteinuria (3) Anemia: Code(s): D64.9 - Anemia, unspecified Status: Chronic Assessment and Plan: partly related to known CKD and partly due to CellCept, but also due to GI bleeding. possible GI loss - hemoccult positive GI following EGD/colonoscopy apparently negative for a bleeding source. PRBC transfusion per protocol on JUDIT and iron to help the bone marrow she can follow-up with Dr. Portillo for further JUDIT and IV iron (4) SOB (shortness of breath): Code(s): R06.02 - Shortness of breath Status: Acute Assessment and Plan: clinical deterioration in the last several days if not weeks complicated by lung disease/issues Pulmonary following with recommendations noted hopefully we can wean the steroids (5) Generalized weakness: Code(s): R53.1 - Weakness Status: Acute Assessment and Plan: clinically better etiology? related to medications? Steroids or CellCept could be contributing. anemia playing a role secondary to pulmonary issues? Will continue to follow. Subjective Date/time seen: 11/16/23 10:45 Interval history: Follow-up for chronic kidney disease due to biopsy proven pauci immune glomerulonephritis/Will's granulomatosis. Feeling reasonably well at the time of my visit; no apparent distress noted; H/H continue to fluctuate; no issues overnight or earlier this morning; at bedside as always and we discussed the situation. Exam Narrative: General: elderly but WD/WN female in NAD Heart: normal S1 and S2; no rub Lungs: clear to auscultation Abdomen: soft, nontender, nondistended, positive bowel sounds Extremities: no cyanosis or clubbing; trace - 1+ bilateral edema Skin: No nodules Objective Data Vital Signs Vital Signs: Vital Signs Temp Pulse Resp BP Pulse Ox O2 Del Method 11/16/23 09:34 82 20 11/16/23 09:26 74 20 11/16/23 09:26 97 Room Air 11/16/23 06:00 97.7 F 64 16 118/74 98 11/16/23 03:20 72 18 11/16/23 03:10 70 18 11/16/23 00:02 98 F 72 18 111/59 L 99 11/16/23 00:00 98 F 16 110/59 L 97 11/15/23 23:58 98 F 74 16 120/60 98 11/15/23 20:51 Room Air 11/15/23 22:00 97.7 F 70 18 104/47 L 100 11/15/23 20:00 97.9 F 70 18 104/47 L 100 11/15/23 21:14 74 18 11/15/23 21:07 75 18 11/15/23 17:49 98.2 F 82 16 127/66 97 11/15/23 14:56 91 106/58 L 11/15/23 14:54 90 121/56 L 96 11/15/23 14:00 98.3 F 87 16 109/59 L 97 11/15/23 14
--- NOTE | 2023-11-16 10:45 | P.PNNP_ITS ---
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 * on treatment with cellcept and prednisone * CellCept was just decreased from a 1000 twice a day to 500 twice a day. * prednisone can be weaned from the kidney standpoint. * Dr. Alarcon at [facility] said that she did not seem to have pulmonary involvement of her Will's. It would be nice to decrease the prednisone dose if okay with Pulmonary. 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 * possible GI loss - hemoccult positive * GI following * EGD/colonoscopy apparently negative for a bleeding source. * PRBC transfusion per protocol * on JUDIT and iron to help the bone marrow * she can follow-up with Dr. Portillo for further JUDIT and IV iron (4) SOB (shortness of breath): Code(s): R06.02 - Shortness of breath Status: Acute Assessment and Plan: * clinical deterioration in the last several days if not weeks * complicated by lung disease/issues * Pulmonary following with recommendations noted * hopefully we can wean the steroids (5) Generalized weakness: Code(s): R53.1 - Weakness Status: Acute Assessment and Plan: * clinically better * etiology? * related to medications? Steroids or CellCept could be contributing. * anemia playing a role * secondary to pulmonary issues? Will continue to follow. Subjective Date/time seen: 11/16/23 10:45 Interval history: Follow-up for chronic kidney disease due to biopsy proven pauci immune glomerul onephritis/Will's granulomatosis. Feeling reasonably well at the time of my visit; no apparent distress noted; H/H continue to fluctuate; no issues overnight or earlier this morning; at bedside as always and we discussed the situation. Exam Narrative: General: elderly but WD/WN female in NAD Heart: normal S1 and S2; no rub Lungs: clear to auscultation Abdomen: soft, nontender, nondistended, positive bowel sounds Extremities: no cyanosis or clubbing; trace - 1+ bilateral edema Skin: No nodules Objective Data Vital Signs Vital Signs: Vital Signs Temp Pulse Resp BP Pulse Ox O2 Del Method 11/16/23 09:34 82 20 11/16/23 09:26 74 20 11/16/23 09:26 97 Room Air
--- NOTE | 2023-11-16 12:28 | PM.DS ---
DS: Admitting Diagnosis Discharge Date 11/15 Admitting Diagnosis weakness, sob DS: Discharge Diagnosis Discharge Diagnosis (1) Shortness of breath: Code(s): R06.02 - Shortness of breath Status: Acute Assessment and Plan: -Given her history of DVT and PE these need to be considered however seem less likely by her description and physical exam findings. She does not have lower extremity edema - so will not do a chest CTA at this time due to her kidney issues Lung sounds are diminished throughout with mild right upper lobe expiratory wheezing thus will continue with scheduled bronchodilators. Prednisone dose was decreased by 2.5 mg daily in the last month or so and we will hold on making any changes at this time pending pulmonology consultation: The patient will return to the Pulmonary Clinic to see her silver steward, Dr. Coreas. She will continue with her current regimen of short-acting bronchodilators and other maintenance bronchodilators. - no acute events- continue to monitor - she will f/u with Pulm as an outpt - will titrate prednisone down slowly (2) Granulomatosis with polyangiitis: Code(s): M31.30 - Will's granulomatosis without renal involvement Status: Chronic Assessment and Plan: - on cellcept - nephrology is following (3) Asthma: Code(s): J45.909 - Unspecified asthma, uncomplicated Status: Acute Assessment and Plan: - continue bronchodialators (4) Primary pauci-immune necrotizing and crescentic glomerulonephritis: Code(s): N05.8 - Unspecified nephritic syndrome with other morphologic changes; N05.7 - Unspecified nephritic syndrome with diffuse crescentic glomerulonephritis Status: Acute Assessment and Plan: nephrology following notes reviewed: renal biopsy proven on cellcept and prednisone recent ANCA serologies negative stable renal function as noted (5) Pulmonary hypertension: Code(s): I27.20 - Pulmonary hypertension, unspecified Status: Acute (6) Hypertension: Qualifiers: Hypertension type: primary hypertension Qualified Code(s): I10 - Essential (primary) hypertension Code(s): I10 - Essential (primary) hypertension Status: Acute Assessment and Plan: continue home meds -monitor (7) Hypothyroidism: Qualifiers: Hypothyroidism type: acquired Qualified Code(s): E03.9 - Hypothyroidism, unspecified Code(s): E03.9 - Hypothyroidism, unspecified Status: Acute Assessment and Plan: - levothyroxine 100 mcg - tsh is 11.2- but hg dropped to 7 today - will correct hg/hct and re assess (outpt) (8) Generalized weakness: Code(s): R53.1 - Weakness Status: Acute Assessment and Plan: - likely due to anemia - MCV 97.0 - will order iron studies - decreased appetite today- no energy after procedure - will give 1 l NS at 100ml/h to ensure hydration replace K and recheck in am labs (9) Hypercholesterolemia: Code(s): E78.00 - Pure hypercholesterolemia, unspecified Status: Acute Assessment and Plan: -continue home meds (10) Anemia: Code(s): D64.9 - Anemia, unspecified Status: Chronic Assessment and Plan: -repeated Hg 7.4 - will hold on with blood transfusion - replace iron -repeat cbc 11/11 11/11- 1 unit RBC ordered - recheck Hg once infused - occult stool is positive- will order GI consult 11/12- repeat hg yesterday after transfusion- 8.6 9.3 today. colonoscopy scheduled with Dr urbina 11/13 colonoscopy/EGD completed colonoscopy: 4 polyps were removed, internal hemorrhoids, diverticulosis- no active bleeding EGD: mild gastritis with erythenatous, edematous and erosive changes- biopsies were obtained 11/14- PRBC transfusion per protocol - will consult hem/onc as may need EPA in addition to iron infusions in the future (11) Acute kidney injury: Code(s): N17.9 - Acute kidney failure, unspecified
--- NOTE | 2023-11-17 18:06 | PDONCCN ---
HPI - Date of Consult Date/Time: 11/17/23 18:06 Requesting Physician: Kaila Meier APRN Primary Care Provider: Rao Ontiveros MD - Consult Narrative Reason for consult: Anemia of chronic kidney disease Narrative: Carmel Sampson is a 83 year old female with history of immune glomerulonephritis, asthma DVT and pulmonary embolism along with hypertension and hyperlipidemia came into the hospital with worsening of shortness of breath along with tiredness and fatigue. Patient labs showed hemoglobin of 6.9. She received 1 unit of packed red blood cell. Other labs showed iron saturation of 15%. And serum iron of 32. She received iron infusion. She denies any melena hematochezia. Patient had colonoscopy done on November 12 that showed diverticulosis and internal hemorrhoids without any bleeding. EGD showed gastritis and gastric retention. She is now feeling better and ready to be discharged. Review of Systems - Review of Systems All systems reviewed & are unremarkable except as noted in HPI and bel - Neurologic Reports hearing normal, Denies abnormal speech, Denies behavioral changes [facility] Medical History: Medical History (Last Updated 11/14/23 @ 14:40 by Brady Dash MD) Acute on chronic anemia Anemia in chronic kidney disease Asthma Atherosclerosis of aorta Deep venous thrombosis Onset Date: 11/2020 Diverticulitis Gastritis Gastroesophageal reflux disease Granulomatosis with polyangiitis Hypercholesterolemia Hypertension Hypothyroidism Obstructive sleep apnea Patient does not use a CPAP. Occlusion and stenosis of bilateral carotid arteries Occult blood in stools Primary pauci-immune necrotizing and crescentic glomerulonephritis Pulmonary embolism Onset Date: 11/2020 Pulmonary hypertension Surgical History: Surgical History (Last Reviewed 11/10/23 @ 14:37 by Mary Jane Nelson PA-C) History of cardiac catheterization Onset Date: 2016 Normal coronary arteries. History of excision of epidermal inclusion cyst Onset Date: 06/23/02 Right chest wall. History of laparoscopic cholecystectomy Onset Date: 05/03/07 History of sinus surgery Onset Date: 10/2020 History of tubal ligation Onset Date: 1975 Family History: Family History (Last Reviewed 11/10/23 @ 21:30 by Mary Jane Nelson PA-C) Mother Family history of chronic obstructive pulmonary disease Diabetes mellitus Father - Social History Social History: Social History (Last Reviewed 11/10/23 @ 21:31 by Mary Jane Nelson PA-C) Alcohol Use: Alcohol intake: never Drinks per week: 0 Substance Use: Substance use: never Substance use type: does not use Others: Spiritual care concerns: No Living Arrangements: Living arrangements: with family Oppucation/Education: Occupation/Education: retired Smoking Status: Smoking status: Never smoker Social Determinants of Health: Do You Feel Safe in your Home?: Yes Has the Lack of Transportation Kept You From Medical Appointments or From Getting Medications?: No Within the Past 12 Months, Were You Worried Whether Your Food Would Run Out Before You Got Money to Buy More?: Never True What is Your Housing Situation Today?: I Have Housing Are You Worried That in the Next 2 Months, You May Not Have Your Own Housing to Live In?: No Do You Have Trouble Paying Your Heating Or Electricity Bill?: No Do You Have Trouble Paying For Medicines?: No Are You Currently Unemployed and Looking for Work?: No Highest Level of Education Completed: High School Diploma/GED Do You Have Trouble With Childcare or the Care of a Family Member?: No Exam - Exam HEENT: EOMI, PERRLA, mucous membranes moist and pink Neck: supple Lungs: clear to auscultation, normal air movement Heart: no murmurs, gallops, or rubs, regular rhythm, regular rate Abdomen: abdomen soft, non-distended, normal bowel sounds
== END 2023-11-16 17:55 | disposition home or self-care (01) | DRG 543 ==
LOC: ANHED 14:01 → ANH2MED 15:33
PROVIDERS: Internal Medicine Gastroenterology; Internal Medicine Nephrology; Physician Assistant; Student in an Organized Health Care Education/Training Program; Admitting Provider General Practice; Emergency Provider Emergency Medicine; PCP Family Medicine; Visit Provider Nurse Practitioner
PROC: 0DJ08ZZ Inspection of Upper Intestinal Tract, Via Natural or Artificial Opening Endoscopic (ICD-10-PCS; CPT 43235; principal; 2023-11-13 14:00)
DX: M31.31 Wegener's granulomatosis with renal involvement (principal); N17.9 Acute kidney failure, unspecified; N18.4 Chronic kidney disease, stage 4 (severe); N05.7 Unspecified nephritic syndrome with diffuse crescentic glomerulonephritis; I10 Essential (primary) hypertension; I70.0 Atherosclerosis of aorta; I65.23 Occlusion and stenosis of bilateral carotid arteries; I27.20 Pulmonary hypertension, unspecified; E78.00 Pure hypercholesterolemia, unspecified; D50.9 Iron deficiency anemia, unspecified; D63.1 Anemia in chronic kidney disease; E03.9 Hypothyroidism, unspecified; J45.909 Unspecified asthma, uncomplicated; K21.9 Gastro-esophageal reflux disease without esophagitis; K64.8 Other hemorrhoids; K63.5 Polyp of colon; K29.70 Gastritis, unspecified, without bleeding; K31.84 Gastroparesis; K57.30 Diverticulosis of large intestine without perforation or abscess without bleeding; G47.33 Obstructive sleep apnea (adult) (pediatric); Z20.822 Contact with and (suspected) exposure to COVID-19; Z86.711 Personal history of pulmonary embolism; Z86.718 Personal history of other venous thrombosis and embolism
CPT/HCPCS: 36415; 36430; 71046; 80048; 80053; 80069; 81001; 82274; 82533; 82550; 82948; 83540; 83550; 83735; 83880; 84145; 84439; 84443; 84480; 84484; 85014; 85018; 85025; 85027; 85055; 86850; 86900; 86901; 86920; 87637; 88305; 93005; 94640; 96360; 96361; 97161; 97165; 97530; 99285; A9270; G0378; J1650; J1756; J2704; J7030; J7050; J7120; J7512; J7517; P9016; Q5105

== ENCOUNTER 2023-12-08 15:36 | Outpatient (CLI) | payer MEDICARE, SELFPAY ==
[2023-12-08 17:29] LABS: Iron 52 ug/dL (37-170)
[2023-12-08 17:38] LABS: Percent Iron Saturation 21 % (20-50)
== END 2023-12-08 15:37 | disposition home or self-care (01) ==
LOC: ANHLAB 15:38
PROVIDERS: PCP Family Medicine; Visit Provider Internal Medicine Hematology & Oncology
DX: D64.9 Anemia, unspecified (principal)
CPT/HCPCS: 36415; 82607; 82728; 83540; 83550

== ENCOUNTER 2024-02-08 11:01 | Outpatient (CLI) | payer MEDICARE, SELFPAY ==
--- NOTE | ~2024-02-08 | CT_ITS ---
CT Scan of the Chest without Contrast: Clinical Indication: Lung nodule Technique: Contiguous sections were acquired throughout the chest without intravenous contrast. Dose reduction technique was used on this scan by utilizing automated exposure control and iterative recon struction technique. The dose-length product (DLP) was 72.34 mGy-cm. COMPARISON: 07/31/2023 Findings: There is no evidence of any significant mediastinal, hilar or axillary lymphadenopathy. The mediastin al soft tissues appear normal. There is no evidence of pleural or pericardial effusion. Stable somewhat bilobed right lower lobe pulmonary nodule (axial images 80-85). Stable minimal biapic al scarring. Images through the upper abdomen reveal no abnormalities. Impression: Stable somewhat bilobed right lower lobe pulmonary nodule measuring approximately 1.8 cm in maximum l ength. This lesion remains indeterminate, though stability is somewhat reassuring. Continued imaging follow-up advised at a minimum. Reviewed, dictated and finalized at [facility]. [employer] TABLE [employer]EDER Impression: Stable somewhat bilobed right lower lobe pulmonary nodule measuring approximate ly 1.8 cm in maximum length. This lesion remains indeterminate, though stabilit y is somewhat reassuring. Continued imaging follow-up advised at a minimum.
== END 2024-02-08 11:02 | disposition home or self-care (01) ==
PROVIDERS: PCP Family Medicine; Visit Provider Internal Medicine Pulmonary Disease
DX: R91.1 Solitary pulmonary nodule (principal)
CPT/HCPCS: 71250

== ENCOUNTER 2024-03-14 08:56 | Emergency (ER) | payer MEDICARE, SELFPAY ==
--- NOTE | ~2024-03-14 | XR_ITS ---
EXAMINATION: XR chest 2V DATE: 03/14/2024 09:50 INDICATION: Shortness of breath. TECHNIQUE: Frontal and lateral views of the chest were obtained. COMPARISON: Chest 2 views 11/10/2023, chest CT 02/08/2024, 07/31/2023 FINDINGS: The lungs are hyperexpanded. There is mild scarring at the lung apices. No pleural effusion or pneumothorax. The heart size is normal. There is mild chronic anterior wedging of a midthoracic v ertebral body. IMPRESSION: 1. Stable mild scarring at the lung apices. Reviewed, dictated and finalized at location A. [facility]
[2024-03-14 09:01] VITALS: BP 147/84; PULSE 85; RESP 20; TEMP 36.4; O2SAT 98
[2024-03-14 09:13] VITALS: BP 171/96; PULSE 78; RESP 16; TEMP 36.4; O2SAT 99
--- NOTE | 2024-03-14 09:15 | ECG_ITS ---
Test Date: 2024-03-14 09:14:22 Measurements Intervals [place] Rate: 76 P: 59 KS: 166 QRS: -19 QRSD: 88 T: 33 QT: 390 QTc: 441 Interpretive Statements SINUS RHYTHM Compared to ECG 11/10/2023 09:27:40 No significant changes Electronically Signed On 03-14-2024 21:51:12 [employer] by Dawson Horowitz M.D.
[2024-03-14 09:28] LABS: Basophils Percent Auto 0.3 % (0.2-1.2); Eosinophils Percent Auto 0.3 % (0-4.4); Hematocrit 40.6 % (37.0-47.0); Hemoglobin 12.7 g/dL (12.0-15.0); Immature Granulocyte Absolute 0.08 K/mm3 (0.00-0.031); Immature Granulocyte Percent A 0.8 % (0-0.5); Lymphocytes Absolute Auto 0.93 K/mm3 (0.9-3.2); Lymphocytes Percent Auto 8.9 % (18.3-44.2); Mean Corpuscular HGB Conc 31.3 g/dl (32-36); Mean Corpuscular Hemoglobin 28.9 pg (26-34); Mean Corpuscular Volume 92.3 fl (80-100); Mean Platelet Volume 9.9 fl (7.4-10.4); Monocytes Absolute Auto 0.5 K/mm3 (0.1-0.6); Monocytes Percent Auto 4.8 % (2.6-8.5); Neutrophils Absolute Auto 8.9 K/mm3 (1.3-6.7); Neutrophils Percent Auto 84.9 % (45.5-73.1); Platelet Count Result 173 k/mm3 (150-375); Red Cell Distribution Width 13.2 % (11.5-14.5); White Blood Count 10.4 K/mm3 (4.5-10.0)
[2024-03-14 09:42] LABS: Alanine Aminotransferase 12 U/L (6-35); Alkaline Phosphatase 54 U/L (38-126); Anion Gap 11 mmol/L (4-12); Aspartate Amino Transferase 26 U/L (14-36); Bilirubin,Total 0.9 mg/dL (0.2-1.3); Blood Urea Nitrogen 52 mg/dL (7-17); Calcium 9.6 mg/dL (8.4-10.2); Carbon Dioxide 20 mmol/L (22-30); Chloride 104 mmol/L (98-107); Estimated CRCL calculation 22 ml/min; Estimated Glomerular Filt Rate 29; Glucose 107 mg/dL (65-110); Potassium 4.5 mmol/L (3.4-5.0); Sodium 135 mmol/L (137-145)
[2024-03-14 09:43] LABS: Add Urine Microscopic? YES; Appearance Urine Clear (Clear); Bacteria Urine None Seen /hpf; Bilirubin Urine Negative (Negative); Blood Urine Trace (Negative); Color Urine Yellow (Yellow); Glucose Urine UA Negative (Negative); Ketones Urine Negative (Negative); Leukocyte Esterase Ur Negative LEU/UL (Negative); Nitrate Urine Negative (Negative); Non Pathogenic Casts 0-2; Protein Urine Trace mg/dL (Negative); RBC Urine 0-2 /hpf (0-2); Specific Grav Ur 1.005 (1.001-1.035); Squamous Epithelial Cell Urine None Seen /hpf (Few); Urobilinogen Urine 0.2 mg/dL (<2.0); WBC Urine 0-5 /hpf (0-3)
--- NOTE | 2024-03-14 10:21 | ED_ITS ---
HPI - General Adult General Chief complaint: Weakness Stated complaint: weakness/ GERD Time Seen by Provider: 03/14/24 10:15 Source: patient and family Mode of arrival: ambulatory Limitations: no limitations History of Present Illness HPI narrative: 84 years old white female came to the ED with her from home by private car complaining of general weakness over 1 week, intermittent chills, intermittent hot spells. Patient report constipation because of taking iron supplement lately. But she is able to manage to have a bowel movement at least once a day. Yesterday had a large amount of bowel movement. She denies any fever, coughing, chest pain, shortness of breath, abdominal pain or upper respiratory symptoms Related Data Home Medications ?Medication ?Instructions ?Recorded ?Confirmed ?Last Taken ?Type magnesium oxide 500 mg capsule 500 mg PO DAILY 05/12/23 02/22/24 11/12/23 History calcium carbonate (Tums Ultra) 1,000 mg PO DAILY 06/30/23 02/22/24 11/12/23 History mycophenolate mofetil 500 mg tablet 500 mg PO Q12H 11/10/23 02/22/24 11/12/23 History ferrous sulfate 325 mg (65 mg 325 mg PO BID 02/02/24 02/22/24 Unknown History iron) tablet (Feosol) mecobalamin (vitamin B12) 500 mcg 500 mcg PO DAILY 02/02/24 02/22/24 Unknown History chewable tablet famotidine 20 mg tablet 20 mg PO BID PRN acid reflux 02/22/24 02/22/24 Unknown History Allergies Allergy/AdvReac Type Severity Reaction Status Date / Time fluticasone Allergy Unknown Other Verified 03/14/24 09:16 salmeterol Allergy Unknown Other Verified 03/14/24 09:16 Review of Systems 2 Review of Systems: All systems reviewed & are unremarkable except as noted in HPI and below PMFSH Past Medical History Medical History Gastritis Occult blood in stools Acute on chronic anemia 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 Surgical History Surgical History History of cardiac catheterization (2016) Normal coronary arteries. History of excision of epidermal inclusion cyst (06/23/02) Right chest wall. History of sinus surgery (10/2020) History of tubal ligation (1975) History of laparoscopic cholecystectomy (05/03/07) Family History Family History Mother Family history of chronic obstructive pulmonary disease Diabetes mellitus Father Social History Social History Social History: Surrogate decision maker: Douglas Sampson, . Code status: Full code. Smoking status: Never smoker Alcohol intake: never Drinks per week: 0 Substance use: never Substance use type: does not use Do You Feel Safe in your Home?: Yes Lack of Transportation: No Lack of Food: Never True Current Housing: I Have Housing Concerned About Future Housing: No Difficulty Paying Gas/Electric Bills: No Difficulty Paying for Meds: No Currently Unemployed: No Education: High School Diploma/GED Difficulty w/ Childcare or Family Care: No Living arrangements: with family Additional living arrangements comments: The patient lives in [place] with her . Occupation/Education: retired Spiritual care concerns: No Exam 2 Narrative: General appearance: Well-developed, well-nourished Skin: Normal color Head: Normocephalic, nontraumatic Eyes: Clear conjunctiva ENT: Oropharynx normal, ears normal, nose normal Neck: Supple, nontender Chest and respiratory: Airway patent, no respiratory distress, no accessory muscle use Heart: Regular rate/rhythm Abdomen: Soft, nontender, no organomegaly, quiet bowel sounds Vascular: Normal peripheral pulses, normal capillary refill. Musculoskeletal: Normal range of motion, nontender back Neurologic: Alert and oriented ?3, CHILD ABUSE WORKER is normal as tested, no gross motor deficit Course Vital Signs Vital signs: Vital Signs Temperature 36.4 C 03/14/24 09:01 Pulse Rate 85 03/14/24 09:01 Respiratory Rate 20 03/14/24 09:01 Blood Pressure 147/84 H 03/14/24 09:01 Pulse Oximetry 98 03/14/24 09:01 Oxygen Delivery Room Air 03/14/24 09:01 Temperature 36.4 C 03/14/24 09:13 Pulse Rate 78 03/14/24 09:13 Respiratory Rate 16 03/14/24 09:13 Blood Pressure 171/96 H 03/14/24 09:13 Pulse Oximetry 99 03/14/24 09:13 Oxygen Delivery Room Air 03/14/24 09:01 Medical Decision Making MDM Narrative Medical decision making narrative: Patient came to the ED with general weakness over 1 week Vital signs are stable Physical examination is insignificant Differential diagnosis include depression, lack of physical activities, electrolyte imbalance, urinary tract infection, viral infection, dehydration Blood workup today includes CBC, CMP, showed 10.4, BUN 52, creatinine 1.7 consistent with previous readings Urinalysis showed no significant evidence of infection Chest x-ray showed no acute abnormalities EKG showed normal sinus rhythm at 76 beats per minute no new changes compared to the previous EKG Diagnosis at the time of discharge is weakness which could be multifactorial The pt was discharged to home.the pt,s condition upon discharge was fair,education was provided to the pt in reference to the final impression,discharge study results,treatment,prognosis and need for follow up . Vital Signs Vital Signs: Vital Signs Temperature 36.4 C 03/14/24 09:01 Pulse Rate 85 03/14/24 09:01 Respiratory Rate 20 03/14/24 09:01 Blood Pressure 147/84 H 03/14/24 09:01 Pulse Oximetry 98 03/14/24 09:01 Oxygen Delivery Room Air 03/14/24 09:01 Temperature 36.4 C 03/14/24 09:13 Pulse Rate 78 03/14/24 09:13 Respiratory Rate 16 03/14/24 09:13 Blood Pressure 171/96 H 03/14/24 09:13 Pulse Oximetry 99 03/14/24 09:13 Oxygen Delivery Room Air 03/14/24 09:01 Lab Data 03/14/24 09:20 03/14/24 09:20 Labs: Lab Results 03/14/24 03/14/24 Range/Units 09:20 09:32 WBC 10.4 H (4.5-10.0) K/mm3 RBC 4.40 (4.2-5.4) M/mm3 Hgb 12.7 D (12.0-15.0) g/dL Hct 40.6 (37.0-47.0) % MCV 92.3 (80-100) fl MCH 28.9 (26-34) pg MCHC 31.3 L (32-36) g/dl RDW 13.2 (11.5-14.5) % Plt Count 173 (150-375) k/mm3 MPV 9.9 (7.4-10.4) fl Immature Gran % (Auto) 0.8 H (0-0.5) % Neut % (Auto) 84.9 H (45.5-73.1) % Lymph % (Auto) 8.9 L (18.3-44.2) % [place] % (Auto) 4.8 (2.6-8.5) % Eos % (Auto) 0.3 (0-4.4) % Baso % (Auto) 0.3 (0.2-1.2) % Lymph # (Auto) 0.93 (0.9-3.2) K/mm3 [place] # (Auto) 0.5 (0.1-0.6) K/mm3 Eos # (Auto) 0.0 (0-0.3) K/mm3 Baso # (Auto) 0.0 (0.0-0.1) K/mm3 Abs Immat Gran (auto) 0.08 H (0.00-0.031) K/mm3 Absolute Neuts (auto) 8.9 H (1.3-6.7) K/mm3 Absolute Nucleated RBC 0.000 (0.0-0.012) K/mm3 Nucleated RBC % 0.0 (0.0-0.2) % Sodium 135 L (137-145) mmol/L Potassium 4.5 (3.4-5.0) mmol/L Chloride 104 (98-107) mmol/L Carbon Dioxide 20 L (22-30) mmol/L Anion Gap 11 (4-12) mmol/L BUN 52 H D (7-17) mg/dL Creatinine 1.70 H (0.7-1.0) mg/dL Estim Creat Clear Calc 22 ml/min Estimated GFR 29 L (59 - ) Glucose 107 (65-110) mg/dL Calcium 9.6 (8.4-10.2) mg/dL Total Bilirubin 0.9 (0.2-1.3) mg/dL AST 26 (14-36) U/L ALT 12 (6-35) U/L Alkaline Phosphatase 54 (38-126) U/L Total Protein 7.0 (6.3-8.2) g/dL Albumin 4.0 (3.5-5.1) g/dL Urine Color Yellow (Yellow) Urine Appearance Clear (Clear) Urine pH 5.0 (5.0-9.0) Ur Specific [place] 1.005 (1.001-1.035) Urine Protein Trace (Negative) mg/dL Urine Glucose (UA) Negative (Negative) mg/dL Urine Ketones Negative (Negative) mg/dL Ur Blood (Man) Trace (Negative) Urine Nitrate Negative (Negative) Urine Bilirubin Negative (Negative) Urine Urobilinogen 0.2 (<2.0) mg/dL Leukocyte Esterase Rfl Negative (Negative) ANUP/UL Urine RBC 0-2 (0-2) /hpf Urine WBC 0-5 (0-3) /hpf Ur Squamous Epith Cells None seen (Few) /hpf Urine Bacteria None seen /hpf Urine Casts 0-2 Discharge Plan Discharge Clinical Impression: Weakness Patient Disposition: Home, Self-Care Condition: Stable Instructions: Weakness (ED) Additional Instructions: Return if symptoms are worsening , call your family physician for appointment, take Tylenol as as needed for aches and pain, continue home medications. Increase omeprazole to 40 mg twice a day Patient Language: Tajik Prescriptions: No Action calcium carbonate [Tums Ultra] 400 mg calcium (1,000 mg) tablet,chewable 1,000 mg PO DAILY ferrous sulfate [Feosol] 325 mg (65 mg iron) tablet 325 mg PO BID mecobalamin (vitamin B12) 500 mcg tablet,chewable 500 mcg PO DAILY furosemide 20 mg tablet 20 mg PO QAM Qty: 30 5RF magnesium oxide 500 mg capsule 500 mg PO DAILY atorvastatin 20 mg tablet 20 mg PO DAILY Qty: 90 1RF prednisone 1 mg tablet 4 mg PO DAILY Qty: 200 1RF prednisone 10 mg tablet 5 mg PO DAILY Qty: 100 0RF famotidine 20 mg tablet 20 mg PO BID PRN (Reason: acid reflux) mycophenolate mofetil 500 mg tablet 500 mg PO Q12H levothyroxine 100 mcg tablet 100 mcg PO DAILY Qty: 90 1RF omeprazole 40 mg capsule,delayed release(DR/EC) 40 mg PO DAILY Qty: 90 1RF albuterol sulfate 2.5 mg /3 mL (0.083 %) solution for nebulization 2.5 mg inhalation Q6H PRN (Reason: shortness of breath or wheezing) Qty: 180 0RF fluticasone furoate-vilanterol [Breo Ellipta] 200-25 mcg/dose blister with device 1 inh inhalation DAILY Qty: 60 1RF Follow-up/Referrals: Rao Ontiveros MD [Primary Care Provider] -
[2024-03-14 10:56] VITALS: BP 156/87; PULSE 77; RESP 12; O2SAT 98
== END 2024-03-14 11:07 | disposition home or self-care (01) ==
PROVIDERS: Emergency Provider Emergency Medicine; PCP Family Medicine
DX: R53.1 Weakness (principal); E78.00 Pure hypercholesterolemia, unspecified; Z86.711 Personal history of pulmonary embolism; K21.9 Gastro-esophageal reflux disease without esophagitis; J45.909 Unspecified asthma, uncomplicated; D63.1 Anemia in chronic kidney disease; N18.9 Chronic kidney disease, unspecified; E03.9 Hypothyroidism, unspecified; I12.9 Hypertensive chronic kidney disease with stage 1 through stage 4 chronic kidney disease, or unspecified chronic kidney disease; G47.33 Obstructive sleep apnea (adult) (pediatric)
CPT/HCPCS: 36415; 71046; 80053; 81001; 85025; 93005; 99283

== ENCOUNTER 2024-04-26 14:13 | Outpatient (CLI) | payer MEDICARE, SELFPAY ==
[2024-04-26 14:28] LABS: Mean Corpuscular HGB Conc 31.4 g/dl (32-36); Mean Corpuscular Hemoglobin 29.1 pg (26-34); Mean Corpuscular Volume 92.6 fl (80-100); Mean Platelet Volume 9.3 fl (7.4-10.4); Platelet Count Result 187 k/mm3 (150-375); Red Blood Count 3.78 M/mm3 (4.2-5.4); Red Cell Distribution Width 13.4 % (11.5-14.5); White Blood Count 6.5 K/mm3 (4.5-10.0)
--- OUTSIDE RECORDS SUMMARY | 2024-04-26 16:28 | XMS_ITS | Clinical Summary ---
Author Organization [facility] Marcello Sorto Address [address] [place] [address] Care Team Providers Care Film Sound Engineer Name Role Phone Unavailable Primary Care Provider Unavailabl e Allergies No known active allergies Medications albuterol (PROVENTIL,VENTOL IN) 2.5 mg /3 mL (0.083 %) Solution for Nebulization Take 2.5 mg by inhalation every 6 hours as needed. 3 Active furosemide (LASIX) 20 mg tablet 4 Active levothyroxine 100 mcg tablet 1 tab(s) orally once a day for 30 day(s) Active mycophenolate mofetil (CELLCEPT) 500 mg tablet Take 2 Tablets by mouth 2 times daily. 4 Active omeprazole (PriLOSEC) 40 mg Capsule, Delayed Release(E.C.) Take 40 mg by mouth daily. Active predniSONE (DELTASONE) 10 mg tablet 4 Active montelukast (SINGULAIR) 10 mg tablet Take 10 mg by mouth daily at bedtime. Active magnesium oxide 500 mg magnesium Tablet Take by mouth. Activ e fluticasone furoate-vilantero L (Breo Ellipta) 200-25 mcg/dose Disk with Device Take 1 Puff by inhalation daily. Active lisinopriL (PRINIVIL) 10 mg tablet Take 1 Tablet by mouth daily. 5 Active Active Problems No known active problems Encounters Date Type Department Care Team Description 04/26/2024 2:45 PM BONE PROCESS OPERATOR Office Visit [facility] Oncology and Hematology - Ankit [address] [place] [address] Enrique Portillo MD Chronic anemia (Primary Dx) 04/19/2024 External Device Data STL ABSTRACTION Provider, Abstract 03/24/2024 External Device Data STL ABSTRACTION Provider, Abstract 03/22/2024 External Device Data STL ABSTRACTION Provider, Abstract 03/15/2024 External Device Data STL ABSTRACTION Provider, Abstract from Last 3 Months Family History Medical History Relation Name Comments No Known Problems Brother No Known Problems Child 1 No Known Problems Child 2 No Known Problems Daughter jumana No Known Problems Father Heart Disease Mother No Known Problems Sister Diabetes Son kalina Relation Name Status Comments Brother Alive Child 1 Alive Child 2 Alive Daughter jumana Father Mother Sister Alive Son kalina Alive Social History Tobacco Use Types Packs/Day Years Used Date Smoking Tobacco: Never Tobacco Cessation:Counseling Given: Not Answered Alcohol Use Standard Drinks/Week Comments Never 0 (1 standard drink = 0.6 oz pur e alcohol) Comments Unknown Sex and Gender Information Value Date Recorded Sex Assigned at Not on file Legal Sex Female 7:24 AM CDT Gender Identity Not on file Sexual Orientation Not on file Last Filed Vital Signs Vital Sign Reading Time Taken Comments Blood Pressure 120/74 04/26/2024 3:03 PM BONE PROCESS OPERATOR Pulse 84 04/26/2024 3:03 PM BONE PROCESS OPERATOR Temperature 36.9 C (98.4 F) 04/26/2024 3:03 PM BONE PROCESS OPERATOR Respiratory Rate 15 04/26/2024 3:03 PM BONE PROCESS OPERATOR Oxygen Saturation 96% 04/26/2024 3:03 PM BONE PROCESS OPERATOR Inhaled Oxygen Concentration - - Weight 68.9 kg (151 lb 12.8 oz) 04/26/2024 3:03 PM BONE PROCESS OPERATOR Height 170.2 cm (5' 7 ) 12/08/2023 3:04 PM CDT Body Mass Index 23.78 12/08/2023 3:04 PM CDT Plan of Treatment Upcoming Encounters Date Type Department Care Team (Late st Contact Info) Description 10/24/2024 11:30 AM CDT Office Visit [facility] Oncology and Hematology - Ankit [address] [facility] [address] [place] [address] Enrique Portillo MD [address] [facility] [address] [place] [phone] Health Maintenance Due Date Last Done Comments DTAP/TDAP/TD VACCINES (1 - Tdap) 1959 PNEUMOCOCCAL VACCINE 65+ YEARS (1 of 1 - PCV) 03/06/18 92 ZOSTER VACCINE (1 of 2) 1991 OSTEOPOROSIS SCREENING 2006 RSV VACCINE (60+ or ) (1 - 1-dose 75+ series) 2016 INFLUENZA VACCINE (#1) 2023 Medicare Advant[place]) Prev entative Visit/Annual Wellness Visit 03/02/2024 Procedures Procedure Name Priority Date/Time Associated Diagnosis Comments VITAMIN B12 AND FOLATE Routine 04/06/2024 8:35 AM BONE PROCESS OPERATOR Chronic anemia IRON, TIBC, AND PERCENT SATURATION Routine 04/06/2024 8:35 AM BONE PROCESS OPERATOR Chronic anemia FERRITIN Routine 04/06/2024 8:35 AM BONE PROCESS OPERATOR Chronic anemia from Last 3 Months Results * VITAMIN B12 AND FOLATE (04/06/2024 8:35 AM BONE PROCESS OPERATOR) VITAMIN B12 965 200 - 1100 pg/mL [facility] FOLATE, SERUM 10.9 ng/mL [facility] Comment: Reference Range Low: <3.4 Borderline: 3.4-5.4 Normal: >5.4 FASTING:NO FASTING: NO Test Performed at: [facility] [address] [place] [address] James Gutierrez MD Blood 04/06/2024 8:35 AM BONE PROCESS OPERATOR 04/06/2024 8:37 AM BONE PROCESS OPERATOR us Enrique Portillo MD CHEMISTRY ORDERABLES Final Resu lt [facility] [phone] [facility] [address] [place] [phone] * IRON, TIBC, AND PERCENT SATURATION (04/06/2024 8:35 AM BONE PROCESS OPERATOR) IRON 84 45 - 160 mcg/dL [facility] TIBC 264 250 - 450 mcg/dL (calc) [facility] IRON % SATURATION 32 16 - 45 % (calc) [facility] Comment: FASTING:NO FASTING: NO Test Performed at: [facility] [address] [place] [address] James Gutierrez MD Blood 04/06/2024 8:35 AM BONE PROCESS OPERATOR 04/06/2024 8:37 AM BONE PROCESS OPERATOR us Enrique Portillo MD CHEMISTRY ORDERABLES Final Resu lt [facility] [phone] [facility] [address] [place] [address] * FERRITIN (04/06/2024 8:35 AM BONE PROCESS OPERATOR) FERRITIN 120 16 - 288 ng/mL [facility] Comment: Test Performed at: [facility] [address] [place] [address] James Gutierrez MD Blood 04/06/2024 8:35 AM BONE PROCESS OPERATOR 04/06/2024 8:37 AM BONE PROCESS OPERATOR us Enrique Portillo MD CHEMISTRY ORDERABLES Final Resu lt [facility] [phone] [facility] [address] [place] [phone] from Last 3 Months Insurance [employer] [id number] [facility]
--- OUTSIDE RECORDS SUMMARY | 2024-04-26 16:28 | XMS_ITS | Encounter Summary ---
Author Organization [facility] Address [address] [place] [address] Care Team Providers Care Production Broaching Machine Operator Name Role Phone Unavailable Primary Care Provider Unavailabl e Reason for Visit * Reason Comments Follow Up Encounter Details Date Type Department Care Team (Late st Contact Info) Description 04/26/2024 2:45 PM OIL AND GAS LEASE PUMPER Office Visit [facility] Oncology and Hematology - Ankit [address] [place] [address] [facility] [address] [place] [address] Enrique Portillo MD [address] [facility] [address] [place] [address] Chronic anemia (Primary Dx) Social History Tobacco Use Types Packs/Day Years [...] on file Sexual Orientation Not on file documented as of this encounter Last Filed Vital Signs Vital Sign Reading Time Taken Comments Blood Pressure 120/74 04/26/2024 3:03 PM OIL AND GAS LEASE PUMPER Pulse 84 04/26/2024 3:03 PM OIL AND GAS LEASE PUMPER Temperature 36.9 C (98.4 F) 04/26/2024 3:03 PM OIL AND GAS LEASE PUMPER Respiratory Rate 15 04/26/2024 3:03 PM OIL AND GAS LEASE PUMPER Oxygen Saturation 96% 04/26/2024 3:03 PM OIL AND GAS LEASE PUMPER Inhaled Oxygen Concentration - - Weight 68.9 kg (151 lb 12.8 oz) 04/26/2024 3:03 PM OIL AND GAS LEASE PUMPER Height - - Body Mass Index 23.78 12/08/2023 3:04 PM CDT documented in this encounter Progress Notes * Enrique Portillo MD - 04/26/2024 3:15 PM CST HEMATOLOGY / ONCOLOGY PROGRESS NOTE Patient Identification: Name: Carmel Sampson Age: 84 y.o. Sex: female : 1940 DIAGNOSIS Multifactorial anemia CURRENT TREATMENT Iron 65 mg twice a day with vitamin B12 500 mcg daily TREATMENT HISTORY SUBJECTIVE Patient came into the office for follow-up visit. She denies any excessive tiredness and fatigue. She was not able to tolerate oral iron and discontinued in March 2024. Denies any bleeding including melena hematochezia. No other new complaints. Review of system Constitutional: Patient did not mention fevers, sweats, weight and appetite stable, denies any tiredness and fatigue HEENT: Patient did not mention sinus congestion, hearing or vision problems Respiratory: Patient did not mention cough, dyspnea, wheeze Cardiovascular: Patient did not mention chest pain, exertional chest pressure/discomfort, nausea, syncope, shortness of breath GI: Patient did not mention constipation, diarrhea, dsyphagia, reflux symptoms, vomiting, melena : Patient did not mention dysuria, frequency, incontinence, urgency Integumentary system: no lymphadenopathy, sweats, flushing Musculoskeletal: Patient not mention: myalgia, arthralgia Neurological: Patient did not mention blurry or disturbed vision, numbness/weakness, dizziness Skin: No lumps, bumps or rashes. 12 point review of system was reviewed Objective 12: Vital signs in last 24 hours: As per nursing note Exam: HEENT: Atraumatic, external ears normal, nose normal, oropharynx moist, no pharyngeal exudates. no sinus tenderness Neck- normal range of motion, no tenderness, supple Respiratory: No respiratory distress, normal breath sounds, no rales, no wheezing Cardiovascular: Normal rate, normal rhythm, no murmurs, no gallops, no rubs GI: Soft, nondistended, normal bowel sounds, nontender, no splenomegaly, no hepatomegaly, no mass, no rebound, no guarding : No costovertebral angle tenderness Musculoskeletal: No edema, no tenderness, no deformities. Back- no tenderness Integument: Well hydrated, no rash, Digits and nails inspection normal Lymphatic: No lymphadenopathy noted Neurologic: Alert & oriented x 3, CN 2-12 normal, normal motor function, normal sensory function, no focal deficits noted Exam as above PATH LABS Labs from December 07 showed iron 52 saturation 21 ferritin 236 B12 407 Labs from April 07 showed ferritin 120 iron 84 saturation 32 B12 965. Labs from April 26 showed hemoglobin 11 Assessment: Plan: There are no active problems to display for this patient. Multifactorial anemia with anemia of chronic kidney disease and iron deficiency. Labs showed stable hemoglobin. Patient is not able to tolerate oral iron and discontinued. She will be back in 6 months with repeat labs. She will contact me if you become more symptomatic with anemia. No need for Procrit injection at this time. Chronic kidney stage IV disease. Patient has biopsy-proven glomerulonephritis. She is on CellCept and prednisone and will follow-up with Dr. Villavicencio. Hypothyroidism. Stable on levothyroxine. Follow-up in 6 months. 04/26/2024 Enrique Portillo MD AND GAS LEASE PUMPER documented in this encounter Plan of Treatment Upcoming Encounters Date Type Department Care Team (Late st Contact Info) Description 10/24/2024 11:30 AM CDT Office Visit [facility] Oncology and Hematology - Ankit [address] [facility] [address] [place] [address] Enrique Portillo MD [address] [facility] [address] [place] [address] Scheduled Orders Name Type Priority Associated Diagnoses Orde r Schedule BASIC METABOLIC PANEL Lab Stat Chronic anemia Expected: 10/24/2024, Expires: 04/26/2025 CBC WITHOUT DIFFERENTIAL Lab Stat Chronic anemia Expected: 10/24/2024, Expires: 04/26/2025 FERRITIN Lab Routine Chronic anemia Expected: 10/24/2024, Expires: 04/26/2025 IRON, TIBC, AND PERCENT SATURATION Lab Routine Chronic anemia Expected: 10/24/2024, Expires: 04/26/2025 VITAMIN B12 AND FOLATE Lab Routine Chronic anemia Expected: 10/24/2024, Expires: 04/26/2025 documented as of this encounter Visit Diagnoses Diagnosis Chronic anemia- Primary Anemia, unspecified documented in this encounter
--- OUTSIDE RECORDS SUMMARY | 2024-04-26 16:28 | XMS_ITS | Encounter Summary ---
Author Organization [facility] Address [address] [facility] [address] [place] [address] Care Team Providers Care Nonprofit Fundraiser Name Role Phone Rao Ontiveros MD Primary Care Provider [phone] Fco SULTANA MD, Robby Hannah Unavailable [phone] Encounter Details Date Type Department Care Team (Late st Contact Info) Description 03/12/2016 Orders Only [facility] ProviderQuan MD [address] [place] [address] Social History Tobacco Use Types Packs/Day Years Used Date Smoking Tobacco: Never Assessed Comments Unknown Sex and Gender Information Value Date Recorded Sex Assigned at Not on file Legal Sex Female 4:21 AM SPRING TESTER Gender Identity Female 10/17/2020 6:40 PM CDT Sexual Orientation Straight 10/17/2020 6: 40 PM CDT documented as of this encounter Plan of Treatment Not on file documented as of this encounter Procedures Procedure Name Priority Date/Time Associated Diagnosis Comments CARDIOLOGY REPORT 03/12/2016 documented in this encounter Results * CARDIOLOGY REPORT (03/12/2016) Anatomical Region Laterality Modality Other Narrative 03/12/2016 Ordered by an unspecified provider. Historical Provider [facility] KIARRA HUERTAS Final Result documented in this encounter Visit Diagnoses Not on filedocumented in this encounter Care Teams Nonprofit Fundraiser Relationship Specialty Start Date End Date Rao Ontiveros MD [address] [place] [address] PCP - General 03/21/16 Robby Eagle II, MD [address] [place] [address] STEVEN THURMAN [id number] Consulting Physician Otolaryngology 11/21/20 documented as of this encounter
--- OUTSIDE RECORDS SUMMARY | 2024-04-26 16:28 | XMS_ITS | Clinical Summary ---
Author Organization [facility] Address [address] [place] [address] Care Team Providers Care Director Of Cath Lab Name Role Phone Rao Ontiveros MD Primary Care Provider [phone] Medications atorvastatin (LIPITOR) 20 MG tablet Take 1 tablet (20 mg total) by mouth daily. 3 Active indapamide (LOZOL) 1.25 MG tablet Take 1 tablet (1.25 mg total) by mouth daily. 3 Active nitroglycerin (NITROSTAT) 0.[address] 1 tablet (0.4 mg total) under the tongue as needed. FOR CHEST PAIN 2 Active levothyroxine (SYNTHROID) 88 MCG tablet Take 1 tablet (88 mcg total) by mouth daily. 3 Active omeprazole (PRILOSEC) 40 MG capsule Take 1 capsule (40 mg total) by mouth daily. 3 Active BREO ELLIPTA 200-25 MCG/ACT inhaler Inhale 1 puff into the lungs daily. 3 Active montelukast (SINGULAIR) 10 MG tablet Take 1 tablet (10 mg total) by mouth daily. 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 360 mL 6 3 Active ipratropium (ATROVENT) 0.03 % nasal spray USE 2 SPRAY(S) IN EACH NOSTRIL TWICE DAILY 4 Active predniSONE (DELTASONE) 10 mg tablet Take 1 tablet (10 mg total) by mouth daily. 3 Active azithromycin (ZITHROMAX) 250 MG tablet Take 1 tablet (250 mg total) by mouth daily. 3 Active Family History Medical History Relation Comments COPD Mother Relation Status Comments Father Mother Alive Social History Tobacco Use Types Packs/Day Years Used Date Smoking Tobacco: Never Smokeless Tobacco: Never Tobacco Cessation:Counseling Given: Yes Alcohol Use Standard Drinks/Week Comments Not Currently 0 (1 standard drink = 0.6 oz pur e alcohol) PHQ-2 Answer Date Recorded Patient Health Questionnaire-2 Score 0 04/21/2023 Comments No Sex and Gender Information Value Date Recorded Sex Assigned at Not on file Legal Sex Female 4:45 PM CDT Gender Identity Not on file Sexual Orientation Not on file Last Filed Vital Signs Vital Sign Reading Time Taken Comments Blood Pressure 143/83 08/25/2023 11:57 AM CDT Pulse 81 08/25/2023 11:26 AM CDT Temperature 36.2 C (97.2 F) 08/25/2023 11:26 AM CDT Respiratory Rate 16 08/25/2023 11:26 AM CDT Oxygen Saturation 94% 08/25/2023 11:26 AM CDT ra Inhaled Oxygen Concentration - - Weight 67.6 kg (149 lb) 08/25/2023 11:26 AM CDT Height 170.2 cm (5' 7 ) 08/25/2023 11:26 AM CDT Body Mass Index 23.34 08/25/2023 11:26 AM CDT Plan of Treatment Health Maintenance Due Date Last Done Comments DTaP, Tdap and Td Vaccines (1 - Tdap) 1959 Annual Medicare Wellness Visit 2006 Dexa Scan (General) 2006 Pneumococcal Vaccine: 65+ Years (2 of 2 - PPSV23 or PCV20) 03/04/2016 01/08/2016 RSV Immunization or 60+ Years (1 - 1-dose 75+ series) 2016 COVID-19 Vaccine ( - season) 2023 11/15/2021, 08/08/2021, 12/25/2020, Additional history exists Influenza Adult (#1) 2023 12/13/2021, 12/19/2020, 11/21/2019, Additional history exists PHQ-2 (Physician [place]) 03/02/2024 04/21/2023 PHQ-2 (Physician [place]) 04/21/2024 04/21/2023 Zoster Vaccines Completed 04/18/2021, 02/15/2021 Meningococcal B Vaccine Aged Out No l onger eligible based on patient's age to complete this topic Meningococcal Vaccine Aged Out No chris edmar eligible based on patient's age to complete this topic RSV Immunizations Under 20 Months Aged Out No longer eligible based on patient's age to complete this topic [place] [address] [employer] Care Teams Director Of Cath Lab Relationship Specialty Start Date End Date Rao Ontiveros MD [address] [place] [address] PCP - General FAMILY PRACTICE 04/23/22
--- OUTSIDE RECORDS SUMMARY | 2024-04-26 16:28 | XMS_ITS ---
Author Organization [facility] Address [address] [place] [address] Care Team Providers Care Tire Spotter Name Role Phone Weston MONTALVO, Rao Primary Care Provider Unavailab le Kassy Pete Unavailable [phone] ZZ-Migration, Provider Unavailable Unavailab le REASON FOR VISIT Multum To Medispan Conversion Encounter Medications Medication SIG (Take, Route, Frequency, Duration) Notes Start Date End Date Status Breo Ellipta 200 MCG-25 MCG/INH 1 PUFF(S) INHALED ONCE A DAY for 30 DAY(S) *Please review and pick correct strength-formula tion from [employer]ster options. If intended option is not shown, discontinue and re-order from Quick Search* Active predniSONE 10 MG 1 tab(s) 40 mg x3 days, 30 mg x3 days, 20 mg x3 days, 10 mg x3 days once a day for 12 day(s) 11/20/2021 Not-Taking AEROCHAMBER MDI SPACER N/A USER WITH MDI INHALERS BY MOUTH Q4-6 HOURS PRN for 30 DAY(S) *Please review for potential replacement for e-prescription and drug interaction check* Active predniSONE 20 MG 40 mg x3 day, 30 mg x3 day, 20 mg x3 days, 10 mg x3 days orally once a day for 12 day(s) 11/20/2021 Not-Taking PROAIR HFA 90 MCG/INH 2 PUFF(S) INHALED Q4-6 HOURS, PRN AND PER THE ASTHMA ACTION PLAN for 30 DAY(S) *Please review for potential replacement for e-prescription and drug interaction check* Active SIT (TRADITIONAL) VARIABLE PER SCHEDULE SC PER SCHEDULE for TO BE DETERMINED *Please review for potential replacement for e-prescription and drug interaction check* Active Singulair 10 MG 1 tab(s) orally once a day for 90 days Active Dupixent 300 MG/2 ML DIRECTED SUBCUTANEOUSLY EVERY 2 WEEKS *Please review and pick correct strength-formula tion from [employer] options. If intended option is not shown, discontinue and re-order from Quick Search* 05/09/2021 Active ZyrTEC Allergy 10 MG 1 tablet PO QD Active NASAL WASHES N/A DIRECTED INTRANASALLY NEEDED for 30 *Please review for potential replacement for e-prescription and drug interaction check* Active Levothyroxine Sodium 100 MCG 1 tab(s) orally once a day for 30 day(s) Active Ipratropium Delano 0.02 % 2.5 mL by nebulizer 4 times a day for 30 day(s) Active EPINEPHRINE AUTO-INJECTOR 0.3 MG 0.3 MG INTRAMUSCULARLY ONCE for 1 DOSE(S) *Please review for potential replacement for e-prescription and drug interaction check* Active Indapamide 1.25 MG 1 tab(s) orally once a day (in the morning) for 30 day(s) Active Atorvastatin Calcium 20 MG 1 tab(s) orally once a day for 30 day(s) Active Breo Ellipta 200 MCG-25 MCG/INH 1 PUFF(S) INHALED ONCE A DAY for 90 DAYS *Please review and pick correct strength-formula tion from [employer]edster options. If intended option is not shown, discontinue and re-order from Quick Search* Active Encounters Encounter [facility] Date [facility] [address] 08/15/2023 Provider Jesus Severe persistent asthma, uncomplicated J45.50 ; Allergic [...] MCG-25 MCG/INH 1 PUFF(S) INHALED ONCE A DAY for 30 DAY(S) *Please review and pick correct strength-formulation from Medispan options. If intended option is not shown, discontinue and re-order from Quick Search* AEROCHAMBER MDI SPACER N/A USER WITH MDI INHALERS BY MOUTH Q4-6 HOURS PRN for 30 DAY(S) *Please review for potential replacement for e-prescription and drug interaction check* PROAIR HFA 90 MCG/INH 2 PUFF(S) INHALED Q4-6 HOURS, PRN AND PER THE ASTHMA ACTION PLAN for 30 DAY(S) *Please review for potential replacement for e-prescription and drug interaction check* Singulair 10 MG 1 tab(s) orally once a day for 90 days ZyrTEC Allergy 10 MG 1 tablet PO QD NASAL WASHES N/A DIRECTED INTRANAS ALLY NEEDED for 30 *Please review for potential replacement for e-prescription and drug interaction check* EPINEPHRINE AUTO-INJECTOR 0.3 MG 0.3 MG INTRAMUSCULARLY ONCE for 1 DOSE(S) *Please review for potential replacement for e-prescription and drug interaction check* Progress Notes * Carmel HELLERDOB: 2 (84 yo F)Acc No.[id number]:08/15/2023 Patient: Rosa REYEZgy Provider: Carisa Pederson :1940 A ge:83 Y S ex:Female Date:08/15/2023 Address:[address] [place], [place] [id number] Pcp:Rao Ontiveros MD Subjective: * Chief Complaints: * 1 . [facility] * Medical History: * Medications: [...] day (in the morning) , Taking Ipratropium [place]ano 0.02 % Solution 2.5 mL by nebulizer 4 times a day , Taking Levothyroxine Sodium 100 MCG Tablet 1 tab(s) orally once a day , Taking Dupixent 300 MG/2 ML SOLUTION DIRECTED SUBCUTANEOUSLY EVERY 2 WEEKS , Notes to Pharmacist: *Please review and pick correct strength-formulation from [employer]edster options. If intended option is not shown, [...] * Procedure Codes: * Electronic signature of Marc CHAN-Bg on 04/26/2024 at 02:11 PM SHADOW GRAPH WEIGHT OPERATOR Sign off status: Pending * Provider: Carisa bhandari Migration Date: 0 08/15/2023 Generated for Jose M witt/[place]ad[place]/Aime on: 0 04/26/2024 02:11 PM SHADOW GRAPH WEIGHT OPERATOR
--- OUTSIDE RECORDS SUMMARY | 2024-04-26 16:28 | XMS_ITS | Encounter Summary ---
Author Organization [facility] Address [facility] [place] [address] Care Team Providers Care Browning Processor Name Role Phone Rao Ontiveros MD Primary Care Provider [phone] Encounter Details Date Type Department Care Team (Late st Contact Info) Description 08/27/2022 MyChart Message Enc [facility] Medical [facility] - [facility] [address] [place], [place] [address] [employer], [facility] Provider Air Quality Message Social History Tobacco Use Types Packs/Day Years Used Date Smoking Tobacco: Never Smokeless Tobacco: Never Alcohol Use Standard Drinks/Week Comments Not Currently 0 (1 standard drink = 0.6 oz pur e alcohol) Comments No Sex and Gender Information Value Date Recorded Sex Assigned at Not on file Legal Sex Female 4:45 PM CDT Gender Identity Not on file Sexual Orientation Not on file documented as of this encounter Plan of Treatment Not on file documented as of this encounter Visit Diagnoses Not on filedocumented in this encounter Care Teams Browning Processor Relationship Specialty Start Date End Date Rao Ontiveros MD [address] [place] [address] PCP - General FAMILY PRACTICE 04/23/22 documented as of this encounter
--- OUTSIDE RECORDS SUMMARY | 2024-04-26 16:28 | XMS_ITS | Clinical Summary ---
Author Organization [facility] [employer] Address [address] [place] [address] Care Team Providers Care Medical Care Administrator Name Role Phone Rao Ontiveros MD Primary Care Provider [phone] Fco SULTANA MD, Robby Camden Unavailable [phone] Allergies No known active allergies Medications levothyroxine (SYNTHROID, LEVOTHROID) 100 mcg tablet take 1 tablet by oral route every day 0 0 7 Active Additional Information Patient taking differently:100 mcgoral Daily (early AM), Reported on 05/09/2021 cetirizine 10 mg tablet,disinteg rating Take 10 mg by mouth daily 9 Active fluticasone furoate-vilante roL (Breo Ellipta) 200-25 mcg/dose diskus inhaler Inhale 1 puff daily 8 Active atorvastatin (LIPITOR) 20 mg tablet Take 20 mg by mouth daily 1 Active ipratropium-alb uteroL (DUO-NEB) 0.5-2.5 mg/3 mL nebulizer solution Take by nebulization every 6 (six) hours 1 Active montelukast (SINGULAIR) 10 mg tablet Take 10 mg by mouth daily 1 Active omeprazole (PriLOSEC) 40 mg capsule Take 40 mg by mouth daily 1 Active indapamide (LOZOL) 1.25 mg tablet Take 1.25 mg by mouth daily 1 Active Eliquis 5 mg tablet Take 5 mg by mouth 2 (two) times a day 1 Active Active Problems Problem Noted Date Diagnosed Date Dysfunction of both eustachian tubes 01/09/2021 Chronic frontal sinusitis 10/26/2020 Overview (10/26/2020): Added automatically from request for surgery [id number] Chronic ethmoidal sinusitis 10/26/2020 Overview (10/26/2020): Added automatically from request for surgery [id number] Chronic maxillary sinusitis 10/26/2020 Overview (10/26/2020): Added automatically from request for surgery [id number] Chronic sphenoidal sinusitis 10/26/2020 Overview (10/26/2020): Added automatically from request for surgery [id number] Chronic pansinusitis 10/24/2020 Hypertrophy of both inferior nasal turbinates Deviated nasal septum 10/24/2020 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 Chest pain 03/21/2016 Overview (06/05/2016): Chest pain in adult Abnormal cardiovascular stress test 03/21/2016 Overview (06/07/2016): Abnormal stress test Essential hypertension 03/21/2016 Overview (06/07/2016): Essential hypertension Surgical History Surgery Date Site/Laterality Comments CHOLECYSTECTOMY Cholecystectomy TONSILLECTOMY Medical History Medical History Date Comments Hx Other Medical Osteoarthritis, chronic back pain; Comments: ELU 03/21/2016 - HL (hearing loss) Asthma GERD (gastroesophageal reflux disease) Controlled with meds Hypothyroidism Bilateral lower extremity edema Denies CHF, states has occasionally. Takes lozol for. SOB (shortness of breath) States is R/T asthma Last menstrual period (LMP) > 10 days ago 1991 Chronic sinusitis Vaginal delivery X4 Deviated septum 11/09/2020 Family History Medical History Relation Name Comments Other Father Killed in WWII; Cause of : Killed in WWII Diabetes type II Mother Diabetes me llitus type 2; Other Other No family histo ry of Cardiovascular disease; Relation Name Status Comments Father Mother Other Social History Tobacco Use Types Packs/Day Years Used Date Smoking Tobacco: Never Smokeless Tobacco: Never Alcohol Use Standard Drinks/Week Comments Yes 0 (1 standard drink = 0.6 oz pur e alcohol) AUDIT-C Answer Date Recorded Q1: How often do you have a drink containing alc ohol? Monthly or less 11/09/2020 Q2: How many drinks containi ng alcohol do you have on a typical day when you are drinking? 1 or 2 11/09/2020 Q3: How often do you have si x or more drinks on one occasion? Never 11/09/2020 Comments No Sex and Gender Information Value Date Recorded Sex Assigned at Not on file Legal Sex Female 4:21 AM PAROLE AGENT Gender Identity Female 10/17/2020 6:40 PM CDT Sexual Orientation Straight 10/17/2020 6 :40 PM CDT Obstetrics History Last Filed Vital Signs Vital Sign Reading Time Taken Comments Blood Pressure 126/69 11/21/2020 3:50 PM CDT Pulse 70 11/21/2020 3:50 PM CDT Temperature 36.7 C (98 F) 11/21/2020 3:05 PM CDT Respiratory Rate 17 05/09/2021 9:18 AM PAROLE AGENT Oxygen Saturation 93% 11/21/2020 3:50 PM CDT Inhaled Oxygen Concentration - - Weight 69.4 kg (153 lb) 05/09/2021 9:18 AM PAROLE AGENT Height 170.2 cm (5' 7 ) 05/09/2021 9:18 AM PAROLE AGENT Body Mass Index 23.96 05/09/2021 9:18 AM PAROLE AGENT Plan of Treatment Health Maintenance Due Date Last Done Comments Depression Screening 1941 Osteoporosis Screening-Bone Density Scan 1941 DTaP/Tdap/Td Vaccine (1 - Tdap) 1952 Hepatitis B Screening 1959 Zoster Vaccine (1 of 2) 1991 Well Visit 65+ 2006 Pneumococcal vaccine 65+ (2 of 2 - PPSV23) 01/07/2017 01/08/2016 Fall Risk Assessment 11/09/2021 11/09/2020 Covid-19 Vaccine (3 - 2023-2 5 season) 2023 04/30/2020, 04/02/2020 Influenza Vaccine (#1) 2023 , 12/31/2018, 12/16/2017, Additional history exists Insurance [facility] GOLD REF AETNA MEDICARE [facility] ADV REF Advance Directives For more information, please contact: [phone] Documents on File Type Date Recorded Patient Carpet Mechanic Expl anation ADVANCE DIRECTIVE 11/22/2020 10:09 AM Ruthie miryam Will ADVANCE DIRECTIVE 11/22/2020 10:09 AM Sami r of Railroad Worker-Medical * Full Code (Latest Code Status on File) Date Activated Date Inactivated Comments 11/21/2020 1:25 PM 11/21/2020 8:02 PM Care Teams Medical Care Administrator Relationship Specialty Start Date End Date Rao Ontiveros MD [address] [place] [address] PCP - General 03/21/16 Robby Eagle II, MD [address] [place] [address] Consulting Physician Otolaryngology 11/21/20
--- OUTSIDE RECORDS SUMMARY | 2024-04-26 16:28 | XMS_ITS | Encounter Summary ---
Author Organization [facility] Address [facility] [place] [address] Care Team Providers Care Hay Rake Operator Name Role Phone Rao Ontiveros MD Primary Care Provider [phone] Reason for Visit * Reason Onset Date Comments Question 10/20/2022 Encounter Details Date Type Department Care Team (Late st Contact Info) Description 10/20/2022 Cinema[employer]t Message Enc [facility] Medical [facility] [address] [address] Son Alarcon DO [address] [place] [address] issue Social History Tobacco Use Types Packs/Day Years [...] on filedocumented in this encounter Care Teams Hay Rake Operator Relationship Specialty Start Date End Date Rao Ontiveros MD [address] [place] [id number] PCP - General FAMILY PRACTICE 04/23/22 documented as of this encounter
--- OUTSIDE RECORDS SUMMARY | 2024-04-26 16:28 | XMS_ITS | Referral Summary ---
Author Organization [facility] [employer] Address [address] [place] [address] Care Team Providers Care Human Resource Officer Name Role Phone Rao Ontiveros MD Primary Care Provider [phone] Fco SULTANA MD, Robby Camden Unavailable [phone] Allergies No known active allergies Medications levothyroxine [...] (10/26/2020): Added automatically from request for surgery [id number] Chronic ethmoidal sinusitis 10/26/2020 Overview (10/26/2020): Added automatically from request for surgery [id number] Chronic maxillary sinusitis 10/26/2020 Overview (10/26/2020): Added automatically from request for surgery [id number] Chronic sphenoidal sinusitis 10/26/2020 Overview (10/26/2020): Added automatically from request for surgery [id number] Chronic pansinusitis 10/24/2020 Hypertrophy of both inferior nasal turbinates Deviated nasal septum 10/24/2020 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 Chest pain 03/21/2016 Overview (06/05/2016): Chest pain in adult Abnormal cardiovascular stress test 03/21/2016 Overview (06/07/2016): Abnormal stress test Essential hypertension 03/21/2016 Overview (06/07/2016): Essential hypertension Social History Tobacco Use Types Packs/Day Years [...] on file Legal Sex Female 4:21 AM LABORATORY OPERATIONS COORDINATOR Gender Identity Female 10/17/2020 6:40 PM CDT Sexual Orientation Straight 10/17/2020 6: 40 PM CDT Last Filed Vital Signs Vital Sign Reading Time Taken Comments Blood Pressure 126/69 11/21/2020 3:50 PM CDT Pulse 70 11/21/2020 3:50 PM CDT Temperature 36.7 C (98 F) 11/21/2020 3:05 PM CDT Respiratory Rate 17 05/09/2021 9:18 AM LABORATORY OPERATIONS COORDINATOR Oxygen Saturation 93% 11/21/2020 3:50 PM CDT Inhaled Oxygen Concentration - - Weight 69.4 kg (153 lb) 05/09/2021 9:18 AM LABORATORY OPERATIONS COORDINATOR Height 170.2 cm (5' 7 ) 05/09/2021 9:18 AM LABORATORY OPERATIONS COORDINATOR Body Mass Index 23.96 05/09/2021 9:18 AM LABORATORY OPERATIONS COORDINATOR Plan of Treatment Not on file Insurance [facility] AETNA MEDICARE GOLD AETNA MCR ADV REF Advance Directives For more information, please contact: [phone] Documents on File Type Date Recorded Patient Carpenter'S Assistant Expl anation ADVANCE DIRECTIVE 11/22/2020 10:09 AM Ruthie miryam Will ADVANCE DIRECTIVE 11/22/2020 10:09 AM Sami r of City Alderman-Medical * Full Code (Latest Code Status on File) Date Activated Date Inactivated Comments 11/21/2020 1:25 PM 11/21/2020 8:02 PM Care Teams Human Resource Officer Relationship Specialty Start Date End Date Rao Ontiveros MD [address] [place] [address] PCP - General 03/21/16 Robby Eagle II, MD [address] [place] [address] Consulting Physician Otolaryngology 11/21/20
--- OUTSIDE RECORDS SUMMARY | 2024-04-26 16:28 | XMS_ITS | Encounter Summary ---
Author Organization [facility] Address [facility] [place] [address] Care Team Providers Care Factory Laborer Name Role Phone Rao Ontiveros MD Primary Care Provider Encounter Details Date Type Department Care Team (Latest Contact Info) Description 01/07/2023 410 Labs Message Enc [facility] Medical Group Multispecialty Care - [facility] [address] [place] [address] Son Alarcon DO [address] [place] [address] PRESCRIPTION SAVINGS PROGRAM ENROLLMENT Social History Tobacco Use Types Packs/Day Years [...] on filedocumented in this encounter Care Teams Factory Laborer Relationship Specialty Start Date End Date Rao Ontiveros MD [address] [place] [address] PCP - General FAMILY PRACTICE 04/23/22 documented as of this encounter
--- OUTSIDE RECORDS SUMMARY | 2024-04-26 16:29 | XMS_ITS | Encounter Summary ---
Author Organization [facility] Address [address] [place] [address] Care Team Providers Care Emergency Room Doctor Name Role Phone Rao Ontiveros MD Primary Care Provider [phone] Fco SULTANA MD, Robby Hannah Unavailable [phone] Encounter Details Date Type Department Care Team (Late st Contact Info) Description 03/21/2016 Orders Only [facility] ProviderQuan MD [address] [place] [address] Social History Tobacco Use Types Packs/Day Years Used Date Smoking Tobacco: Never Alcohol Use Standard Drinks/Week Comments Yes 0 (1 standard drink = 0.6 oz pur e alcohol) Comments Unknown Sex and Gender Information Value Date Recorded Sex Assigned at Not on file Legal Sex Female 4:21 AM WELL SITE DRILLING ENGINEER Gender Identity Female 10/17/2020 6:40 PM CDT Sexual Orientation Straight 10/17/2020 6: 40 PM CDT documented as of this encounter Plan of Treatment Not on file documented as of this encounter Procedures Procedure Name Priority Date/Time Associated Diagnosis Comments CARDIOLOGY REPORT 03/21/2016 documented in this encounter Results * CARDIOLOGY REPORT (03/21/2016) Anatomical Region Laterality Modality Other Narrative 03/21/2016 Ordered by an unspecified provider. Historical Provider [facility] KIARRA HUERTAS Final Result documented in this encounter Visit Diagnoses Not on filedocumented in this encounter Care Teams Emergency Room Doctor Relationship Specialty Start Date End Date Rao Ontiveros MD [address] [place] [address] PCP - General 03/21/16 Robby Eagle II, MD [address] [place] [address] Consulting Physician Otolaryngology 11/21/20 documented as of this encounter
== END 2024-04-26 14:14 | disposition home or self-care (01) ==
LOC: ANHLAB 14:14
PROVIDERS: PCP Family Medicine; Visit Provider Internal Medicine Hematology & Oncology
DX: D64.9 Anemia, unspecified (principal)
CPT/HCPCS: 36415; 85027

== ENCOUNTER 2024-06-09 14:12 | Outpatient (CLI) | payer MEDICARE, SELFPAY ==
--- NOTE | ~2024-06-09 | XR_ITS ---
EXAMINATION: XR chest 2V 06/09/2024 14:34 INDICATION: History of nodule. Shortness of breath with exertion. PROCEDURE: 2 view chest COMPARISON: Comparison to multiple prior studies sequentially, with oldest reviewed study dated 11/09. FINDINGS: The lungs are clear. The lungs are hyperinflated which is consistent with, but not diagnost ic of chronic obstructive pulmonary disease nodule seen on prior CT dated 02/08/2024 is not seen on c hest x-ray.. The cardiomediastinal silhouette is within normal limits. There are no pleural effusion s. There is no pneumothorax suspected. IMPRESSION: 1: NO ACUTE CARDIOPULMONARY DISEASE. Reviewed, dictated and finalized at location A.
--- OUTSIDE RECORDS SUMMARY | 2024-06-09 14:43 | XMS_ITS | Encounter Summary ---
Author Organization [facility] Address [facility] [place] [address] Care Team Providers Care Instructor Kindergarten Name Role Phone Rao Ontiveros MD Primary Care Provider [phone] Reason for Visit * Reason Onset Date Comments Question 10/20/2022 Encounter Details Date Type Department Care Team (Late st Contact Info) Description 10/20/2022 Edgewaret Message Enc [facility] Medical Group [facility] [address] [address] Son Alarcon DO [address] [place] [address] issue Social History Tobacco Use [...] on filedocumented in this encounter Care Teams Instructor Kindergarten Relationship Specialty Start Date End Date Rao Ontiveros MD [address] [place] [address] PCP - General FAMILY PRACTICE 04/23/22 documented as of this encounter
--- OUTSIDE RECORDS SUMMARY | 2024-06-09 14:43 | XMS_ITS | Encounter Summary ---
Author Organization [facility] Address [facility] [place] [address] Care Team Providers Care Copy Machine Operator Name Role Phone Rao Ontiveros MD Primary Care Provider [phone] Encounter Details Date Type Department Care Team (Late st Contact Info) Description 08/27/2022 MyChart Message Enc [facility] Medical [facility] - [facility] [address] [place], [place] [address] [employer], [facility] Provider Air Quality Message Social History Tobacco [...] on filedocumented in this encounter Care Teams Copy Machine Operator Relationship Specialty Start Date End Date Rao Ontiveros MD [address] [place] [address] PCP - General FAMILY PRACTICE 04/23/22 documented as of this encounter
--- OUTSIDE RECORDS SUMMARY | 2024-06-09 14:43 | XMS_ITS | Referral Summary ---
Author Organization [facility] [employer] Address [address] [place] [address] Care Team Providers Care Production Statistical Clerk Name Role Phone Rao Ontiveros MD Primary Care Provider [phone] Fco SULTANA MD, Robby Camden Unavailable Allergies No known active allergies Medications levothyroxine [...] (10/26/2020): Added automatically from request for surgery [id number] Chronic ethmoidal sinusitis 10/26/2020 Overview (10/26/2020): Added automatically from request for surgery [id number] Chronic maxillary sinusitis 10/26/2020 Overview (10/26/2020): Added automatically from request for surgery [id number] Chronic sphenoidal sinusitis 10/26/2020 Overview (10/26/2020): Added automatically from request for surgery [id number] Chronic pansinusitis 10/24/2020 Hypertrophy of both inferior [...] on file Legal Sex Female 4:21 AM MANDREL CLEANER Gender Identity Female 10/17/2020 6:40 PM CDT Sexual Orientation Straight 10/17/2020 6: 40 PM CDT Last Filed Vital Signs Vital Sign Reading Time Taken Comments Blood Pressure 126/69 11/21/2020 3:50 PM CDT Pulse 70 11/21/2020 3:50 PM CDT Temperature 36.7 C (98 F) 11/21/2020 3:05 PM CDT Respiratory Rate 17 05/09/2021 9:18 AM MANDREL CLEANER Oxygen Saturation 93% 11/21/2020 3:50 PM CDT Inhaled Oxygen Concentration - - Weight 69.4 kg (153 lb) 05/09/2021 9:18 AM MANDREL CLEANER Height 170.2 cm (5' 7 ) 05/09/2021 9:18 AM MANDREL CLEANER Body Mass Index 23.96 05/09/2021 9:18 AM MANDREL CLEANER Plan of Treatment Not on file Insurance [facility] AETNA MEDICARE GOLD AETNA MCR ADV REF Advance Directives For more information, please contact: [phone] Documents on File Type Date Recorded Patient Fire Protection Designer Expl anation ADVANCE DIRECTIVE 11/22/2020 10:09 AM Ruthie miryam Will ADVANCE DIRECTIVE 11/22/2020 10:09 AM Sami r of Math And Science Division Chair-Medical * Full Code (Latest Code Status on File) Date Activated Date Inactivated Comments 11/21/2020 1:25 PM 11/21/2020 8:02 PM Care Teams Production Statistical Clerk Relationship Specialty Start Date End Date Rao Ontiveros MD [address] [place] [address] PCP - General 03/21/16 Robby Eagle II, MD [address] [place] [address] Consulting Physician Otolaryngology 11/21/20
--- OUTSIDE RECORDS SUMMARY | 2024-06-09 14:43 | XMS_ITS | Clinical Summary ---
Author Organization 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 3 Active Encounters Date Type Department Care Team Description 05/31/2024 Telephone [facility] Medical Group Pulmonology Specialty Clinic [address] [address] Son Alarcon DO Question from Last 3 Months Family History Medical History Relation Comments COPD [...] 2023 11/15/2021, 08/08/2021, 12/25/2020, Additional history exists PHQ-2 (Physician [place]) 03/02/2024 04/21/2023 Zoster Vaccines Completed 04/18/2021, 02/15/2021 Meningococcal B Vaccine Aged Out No l onger eligible based on patient's age to complete this topic Meningococcal Vaccine Aged Out No chris edmar eligible based on patient's age to complete this topic RSV Immunizations Under 20 Months Aged Out No longer eligible based on patient's age to complete this topic Insurance AETNA Care Teams Unit Support Representative Relationship Specialty Start Date End Date Rao Ontiveros MD [address] [place] [address] PCP - General FAMILY PRACTICE 04/23/22
--- OUTSIDE RECORDS SUMMARY | 2024-06-09 14:43 | XMS_ITS | Clinical Summary ---
Author Organization [facility] [employer] Address [address] [place] [address] Care Team Providers Care Employee Adviser Name Role Phone Rao Ontiveros MD Primary Care Provider [phone] Iesha SULTANA MD, Robby Camden Unavailable [phone] Allergies No known active allergies Medications levothyroxine [...] (10/26/2020): Added automatically from request for surgery [id number] Chronic ethmoidal sinusitis 10/26/2020 Overview (10/26/2020): Added automatically from request for surgery [id number] Chronic maxillary sinusitis 10/26/2020 Overview (10/26/2020): Added automatically from request for surgery [id number] Chronic sphenoidal sinusitis 10/26/2020 Overview (10/26/2020): Added automatically from request for surgery [id number] Chronic pansinusitis 10/24/2020 Hypertrophy of both inferior [...] on file Legal Sex Female 4:21 AM CASTING CLEANER Gender Identity Female 10/17/2020 6:40 PM CDT Sexual Orientation Straight 10/17/2020 6 :40 PM CDT Obstetrics History Last Filed Vital Signs Vital Sign Reading Time Taken Comments Blood Pressure 126/69 11/21/2020 3:50 PM CDT Pulse 70 11/21/2020 3:50 PM CDT Temperature 36.7 C (98 F) 11/21/2020 3:05 PM CDT Respiratory Rate 17 05/09/2021 9:18 AM CASTING CLEANER Oxygen Saturation 93% 11/21/2020 3:50 PM CDT Inhaled Oxygen Concentration - - Weight 69.4 kg (153 lb) 05/09/2021 9:18 AM CASTING CLEANER Height 170.2 cm (5' 7 ) 05/09/2021 9:18 AM CASTING CLEANER Body Mass Index 23.96 05/09/2021 9:18 AM CASTING CLEANER Plan of Treatment Not on file Insurance [facility] [place] REF AETNA MEDICARE GOLD [facility] REF Advance Directives For more information, please contact: [phone] Documents on File Type Date Recorded Patient Electrician Yard Expl anation ADVANCE DIRECTIVE 11/22/2020 10:09 AM Ruthie witt Will ADVANCE DIRECTIVE 11/22/2020 10:09 AM Sami r of Unit Receptionist-Medical * Full Code (Latest Code Status on File) Date Activated Date Inactivated Comments 11/21/2020 1:25 PM 11/21/2020 8:02 PM Care Teams Employee Adviser Relationship Specialty Start Date End Date Rao Ontiveros MD [address] [place] [address] PCP - General 03/21/16 Robby Eagle II, MD [address] [place] [address] Consulting Physician Otolaryngology 11/21/20
--- OUTSIDE RECORDS SUMMARY | 2024-06-09 14:43 | XMS_ITS | Clinical Summary ---
Author Organization [facility] Marcello Sorto Address [address] [place] [address] Care Team Providers Care Jute Bag Clipper Name Role Phone Unavailable Primary Care Provider [...] Encounters Date Type Department Care Team Description 05/10/2024 Orders Only [facility] Oncology and Hematology - Ankit [address] [place] [address] Enrique Portillo MD 04/26/2024 2:45 PM COURTESY BUS DRIVER Office Visit [facility] Oncology and Hematology - Ankit [address] [place] [address] Enrique Portillo MD Chronic anemia (Primary Dx) [...] Comments Blood Pressure 120/74 04/26/2024 3:03 PM COURTESY BUS DRIVER Pulse 84 04/26/2024 3:03 PM COURTESY BUS DRIVER Temperature 36.9 C (98.4 F) 04/26/2024 3:03 PM COURTESY BUS DRIVER Respiratory Rate 15 04/26/2024 3:03 PM COURTESY BUS DRIVER Oxygen Saturation 96% 04/26/2024 3:03 PM COURTESY BUS DRIVER Inhaled Oxygen Concentration - - Weight 68.9 kg (151 lb 12.8 oz) 04/26/2024 3:03 PM COURTESY BUS DRIVER Height 170.2 cm (5' 7 ) 12/08/2023 3:04 PM CDT Body Mass Index 23.78 12/08/2023 3:04 PM CDT Plan of Treatment Upcoming Encounters Date Type Department Care Team (Late st Contact Info) Description 10/24/2024 11:30 AM CDT Office Visit [facility] Oncology and Hematology - Ankit [address] [facility] [address] [place] [address] Enrique Portillo MD [address] [facility] [address] [place] [address] Health Maintenance Due Date Last Done Comments DTAP/TDAP/TD VACCINES (1 - Tdap) 1960 PNEUMOCOCCAL VACCINE 50+ YEARS (1 of 1 - PCV) 03/06/18 92 ZOSTER VACCINE (1 of 2) 1991 OSTEOPOROSIS SCREENING 2006 RSV VACCINE (60+ or ) (1 - 1-dose 75+ series) 2016 INFLUENZA VACCINE (#1) 2023 Procedures Procedure Name Priority Date/Time Associated Diagnosis Comments CBC WITH DIFFERENTIAL Routine 04/26/2024 4:02 PM COURTESY BUS DRIVER VITAMIN B12 AND FOLATE Routine 04/06/2024 8:35 AM COURTESY BUS DRIVER Chronic anemia IRON, TIBC, AND PERCENT SATURATION Routine 04/06/2024 8:35 AM COURTESY BUS DRIVER Chronic anemia FERRITIN Routine 04/06/2024 8:35 AM COURTESY BUS DRIVER Chronic anemia from Last 3 Months Results * CBC WITH DIFFERENTIAL (04/26/2024 4:02 PM COURTESY BUS DRIVER) Blood us Enrique Portillo MD HEMATOLOGY ORDERABLES Final Res ult * VITAMIN B12 AND FOLATE (04/06/2024 8:35 AM COURTESY BUS DRIVER) VITAMIN B12 965 200 - 1100 pg/mL [facility] FOLATE, SERUM 10.9 ng/mL [facility] Comment: Reference Range Low: <3.4 Borderline: 3.4-5.4 Normal: >5.4 FASTING:NO FASTING: NO Test Performed at: [facility] [address] [place] [address] James Gutierrez MD Blood 04/06/2024 8:35 AM COURTESY BUS DRIVER 04/06/2024 8:37 AM COURTESY BUS DRIVER Enrique Portillo MD CHEMISTRY ORDERABLES Final Resu lt Performing Organization Address [facility] Co de Phone Number [facility] [phone] [facility] [address] [place] [phone] * IRON, TIBC, AND PERCENT SATURATION (04/06/2024 8:35 AM COURTESY BUS DRIVER) IRON 84 45 - 160 mcg/dL [facility] TIBC 264 250 - 450 mcg/dL (calc) [facility] IRON % SATURATION 32 16 - 45 % (calc) [facility] Comment: FASTING:NO FASTING: NO Test Performed at: [facility] [address] James Gutierrez MD Blood 04/06/2024 8:35 AM COURTESY BUS DRIVER 04/06/2024 8:37 AM COURTESY BUS DRIVER Enrique Portillo MD CHEMISTRY ORDERABLES Final Resu lt Performing Organization Address [facility] de Phone Number [facility] [phone] [facility] [address] [place] [phone] * FERRITIN (04/06/2024 8:35 AM COURTESY BUS DRIVER) FERRITIN 120 16 - 288 ng/mL [facility] Comment: Test Performed at: [facility] [address] [place] [address] James Gutierrez MD Blood 04/06/2024 8:35 AM COURTESY BUS DRIVER 04/06/2024 8:37 AM COURTESY BUS DRIVER Enrique Portillo MD CHEMISTRY ORDERABLES Final Resu lt Performing Organization Address City/[facility]/ZIP Co de Phone Number [facility] [phone] [facility] [address] [place] [address], [place] [address] from Last 3 Months Insurance [facility] Address: [facility] [address] [address]
--- OUTSIDE RECORDS SUMMARY | 2024-06-09 14:43 | XMS_ITS | Encounter Summary ---
Author Organization [facility] Address [address] [place] [address] Care Team Providers Care Hand Packer/Packager Name Role Phone Rao Ontiveros MD Primary Care Provider [phone] Fco SULTANA MD, Robby Hannah Unavailable [phone] Encounter Details Date Type Department Care Team (Late st Contact Info) Description 03/12/2016 Orders Only [facility] ProviderQuan MD [address] [place] [address] Social History Tobacco Use Types Packs/Day Years Used Date Smoking Tobacco: Never Assessed Comments Unknown Sex and Gender Information Value Date Recorded Sex Assigned at Not on file Legal Sex Female 4:21 AM STUDENT OUTREACH COORDINATOR Gender Identity Female 10/17/2020 6:40 PM [...] on filedocumented in this encounter Care Teams Hand Packer/Packager Relationship Specialty Start Date End Date Rao Ontiveros MD [address] [place] [address] PCP - General 03/21/16 Robby Eagle II, MD [address] [place] [address] STEVEN THURMAN [address] Consulting Physician Otolaryngology 11/21/20 documented as of this encounter
--- OUTSIDE RECORDS SUMMARY | 2024-06-09 14:43 | XMS_ITS | Encounter Summary ---
Author Organization [facility] Address [facility] [place] [address] Care Team Providers Care Optometry Professor Name Role Phone Rao Ontiveros MD Primary Care Provider [phone] Encounter Details Date Type Department Care Team (Latest Contact Info) Description 01/07/2023 [employer] Message Enc [facility] Multispecialty Care - [facility] [address] [place] [address] Son Alarcon DO [address] [place] [address] PRESCRIPTION SAVINGS PROGRAM ENROLLMENT Social History Tobacco [...] on filedocumented in this encounter Care Teams Optometry Professor Relationship Specialty Start Date End Date Rao Ontiveros MD [address] [place] [address] PCP - General FAMILY PRACTICE 04/23/22 documented as of this encounter
--- OUTSIDE RECORDS SUMMARY | 2024-06-09 14:44 | XMS_ITS | Encounter Summary ---
Author Organization [facility] Address [address] [place] [address] Care Team Providers Care Applicator Sprayer Name Role Phone Rao Ontiveros MD Primary Care Provider [phone] Fco SULTANA MD, Robby Hannah Unavailable Encounter Details Date Type Department Care Team (Late st Contact Info) Description 03/21/2016 Orders Only [facility] ProviderQuan MD [address] [place] [address] Social History Tobacco Use Types Packs/Day Years Used Date Smoking Tobacco: Never Alcohol Use Standard Drinks/Week Comments Yes 0 (1 standard drink = 0.6 oz pur e alcohol) Comments Unknown Sex and Gender Information Value Date Recorded Sex Assigned at Not on file Legal Sex Female 4:21 AM PARTY HOST Gender Identity Female 10/17/2020 6:40 PM CDT [...] on filedocumented in this encounter Care Teams Applicator Sprayer Relationship Specialty Start Date End Date Rao Ontiveros MD [address] [place] [address] PCP - General 03/21/16 Robby Eagle II, MD [address] [place] [address] Consulting Physician Otolaryngology 11/21/20 documented as of this encounter
== END 2024-06-09 14:13 | disposition home or self-care (01) ==
PROVIDERS: PCP Family Medicine; Visit Provider Internal Medicine Pulmonary Disease
DX: R91.1 Solitary pulmonary nodule (principal); J45.909 Unspecified asthma, uncomplicated; N01.9 Rapidly progressive nephritic syndrome with unspecified morphologic changes
CPT/HCPCS: 71046

== ENCOUNTER 2024-06-30 12:33 | Outpatient (CLI) | payer MEDICARE, SELFPAY ==
--- NOTE | 2024-07-01 15:14 | WPDSIXMINUTE ---
Six Minute Walk Procedure Procedure Performed Pulmonary Stress Test (6 min walk) Six Minute Walk Six Minute Walk: This is a 6 minute walk test. The test was performed and interpreted in accordance with the 2014 ERS/ATS task force guidelines. Findings: The patient's resting room air oxygen saturation measured by pulse oximetry was 96%, the heart rate was 88 bpm, and the modified Evita dyspnea score was 0.5. Patient ambulated for 305 meters and oxygen saturation remained 96 to 97%. At the end of the study the heart rate was 118 bpm and the modified Evita dyspnea score was 9. The patient did not qualify for supplemental oxygen at rest or with ambulation. There are no prior studies for comparison.
--- NOTE | 2024-07-01 15:16 | WPDPFTINT ---
PFT Procedure Performed PFT Procedure Performed Spirometry with Pre/Post Bronchodilator Plethysmography (Lung Vol) Diffusing Cap (DLCO) Flow Vol Loop PFT Interpretation This is a pulmonary function test with pre and post-bronchodilator spirometry, plethysmography and diffusing capacity. The test was performed and results interpreted in accordance with the 2019 and 2005 ATS/ERS Task Force guidelines respectively using the Global Lung Function Initiative-2012 reference equations. Patient demonstrated good effort and cooperation. Reproducibility criteria were met. The quality of the pre bronchodilator spirometry maneuver was Grade A and post bronchodilator spirometry maneuver was Grade A. Findings: Spirometry: There is decreased maximal expiratory airflow at all lung volumes with concave expiratory flow tracing. The contour the inspiratory flow tracing is normal. The pre bronchodilator FVC is 1.99 L, 75% predicted. The pre bronchodilator FEV1 is 1.04 L, 52% predicted. The pre bronchodilator FEV1: FVC ratio is 52%. The post bronchodilator FVC is 2.52 L, representing a 27% increase. The post bronchodilator FEV1 is 1.21 L, representing a 16% increase. The post bronchodilator FEV1: FVC ratio is 48%. Plethysmography: The total lung capacity is 5.71 L, 106% predicted. The functional residual capacity is 3.73 L, 119% predicted. The residual volume is 3.08 L, 120% predicted. Diffusing capacity: The diffusing capacity unadjusted for hemoglobin and carboxyhemoglobin is 10.8, 55% predicted. The diffusing capacity adjusted for alveolar volume is 3.23, 81% predicted. In comparison to previous pulmonary function testing on 07/28/2017 in which only a pre bronchodilator spirometry was performed, the pre bronchodilator FVC is decreased from 2.52 L to 1.99 L. The pre bronchodilator FEV1 is decreased from 1.28 L to 1.04 L. The total lung capacity is unchanged from 6.52 L to 5.71 L. the functional residual capacity sick is unchanged from 4.32 L to 3.73 L. The residual volume is decreased from 3.83 L to 3.05 L. The diffusing capacity unadjusted for hemoglobin and carboxyhemoglobin is decreased from 15.7 to 10.8. The diffusing capacity adjusted for alveolar volume is unchanged from 3.55 to 3.23. Impression: There is a moderately severe obstructive abnormality. There is significant improvement after inhaling a single dose of albuterol. The lung volumes are normal. The diffusing capacity unadjusted for hemoglobin and carboxyhemoglobin is moderately decreased and normalizes when adjusted for alveolar volume. In comparison to previous pulmonary function testing on 07/28/2017 there has been a greater than anticipated time dependent decrease in the FVC, FEV1, residual volume and diffusing capacity unadjusted for hemoglobin and carboxyhemoglobin. There has been no significant change in the total lung capacity, functional residual capacity and diffusing capacity adjusted for alveolar volume. Clinical correlation is recommended.
== END 2024-06-30 12:34 | disposition home or self-care (01) ==
PROVIDERS: PCP Family Medicine; Visit Provider Internal Medicine Pulmonary Disease
DX: R91.1 Solitary pulmonary nodule (principal); J45.909 Unspecified asthma, uncomplicated; N01.9 Rapidly progressive nephritic syndrome with unspecified morphologic changes
CPT/HCPCS: 94060; 94618; 94726; 94729

== ENCOUNTER 2024-07-04 00:42 | Day surgery (SDC) | payer MEDICARE, SELFPAY ==
[2024-06-29 15:49] VITALS: BMI 24.3
--- OUTSIDE RECORDS SUMMARY | 2024-07-04 00:46 | XMS_ITS | Encounter Summary ---
Author Organization [facility] Address [facility] [place] [address] Care Team Providers Care Transmission Builder Name Role Phone Rao Ontiveros MD Primary Care Provider [phone] Encounter Details Date Type Department Care Team (Late st Contact Info) Description 08/27/2022 MyChart Message Enc [facility] - [facility] [address] [place], [place] [address] [place], [facility] Provider Air Quality Message Social History [...] on filedocumented in this encounter Care Teams Transmission Builder Relationship Specialty Start Date End Date Rao Ontiveros MD [address] [place] [address] PCP - General FAMILY PRACTICE 04/23/22 documented as of this encounter
--- OUTSIDE RECORDS SUMMARY | 2024-07-04 00:46 | XMS_ITS ---
Author Organization [facility] [place] ([address]) Address [address] [place] [address] Care Team Providers Care Wind Instrument Repairer Name Role Phone Weston MONTALVO, Rao Primary Care Provider Unavailab le Kassy Pete Unavailable [phone] ZZ-Migration, Provider Unavailable Unavailab le REASON FOR VISIT Multum To Medispan Conversion Encounter Medications Medication SIG (Take, Route, Frequency, Duration) Notes Start Date End Date Status Breo Ellipta 200 MCG-25 MCG/INH 1 PUFF(S) INHALED ONCE A DAY for 30 DAY(S) *Please review and pick correct strength-formula tion from Field Dailiesan options. If intended option is not shown, [...] review and pick correct strength-formula tion from Field Dailiesan options. If intended option is not shown, discontinue and re-order from Quick Search* 05/09/2021 Active ZyrTEC Allergy 10 MG 1 tablet PO QD Active NASAL WASHES N/A DIRECTED INTRANASALLY NEEDED for 30 *Please review for potential replacement for e-prescription and drug interaction check* Active Levothyroxine Sodium 100 MCG 1 tab(s) orally once a day for 30 day(s) Active Ipratropium C[place]ton 0.02 % 2.5 mL by nebulizer 4 [...] review and pick correct strength-formula tion from Field Dailiesan options. If intended option is not shown, discontinue and re-order from Quick Search* Active Encounters Encounter Location Date Provider Diagnosis [address] [address] 08/15/2023 Provider DUSTIN-Migration Severe persistent asthma, uncomplicated J45.50 ; Allergic [...] * Carmel HELLERDOB: 2 (84 yo F)Acc No.[id number]:08/15/2023 Patient: Carmel REYEZ Provider: Carisa Pederson :1940 A ge:83 Y S ex:Female Date:08/15/2023 Address:[address] [place], [place] [id number] Pcp:Rao Ontiveros MD Subjective: * Chief Complaints: [...] day (in the morning) , Taking Ipratropium [place] 0.02 % Solution 2.5 mL by nebulizer 4 times a day , Taking Levothyroxine Sodium 100 MCG Tablet 1 tab(s) orally once a day , Taking Dupixent 300 MG/2 ML SOLUTION DIRECTED SUBCUTANEOUSLY EVERY 2 WEEKS , Notes to Pharmacist: *Please review and pick correct strength-formulation from Field Dailiesan options. If intended option is not shown, [...] * Electronic signature of Marc CHAN-Bg on 07/04/2024 at 12:46 AM CDT Sign off status: Pending * Provider: Carisa bhandari Migration Date: 0 08/15/2023 Generated for Jose M witt/[place]/Aime on: 0 07/04/2024 12:46 AM CDT
--- OUTSIDE RECORDS SUMMARY | 2024-07-04 00:46 | XMS_ITS | Clinical Summary ---
Author Organization [facility] [address] Address [address] [place] [address] Care Team Providers Care Electronics Utility Worker Name Role Phone Rao Ontiveros MD Primary Care Provider [phone] Iesha SULTANA MD, Robby [place] Unavailable [phone] Allergies No known active allergies Medications levothyroxine [...] (10/26/2020): Added automatically from request for surgery [id number] Chronic ethmoidal sinusitis 10/26/2020 Overview (10/26/2020): Added automatically from request for surgery [id number] Chronic maxillary sinusitis 10/26/2020 Overview (10/26/2020): Added automatically from request for surgery [id number] Chronic sphenoidal sinusitis 10/26/2020 Overview (10/26/2020): Added automatically from request for surgery [id number] Chronic pansinusitis 10/24/2020 Hypertrophy of both inferior [...] on file Legal Sex Female 4:21 AM MASK INSPECTOR Gender Identity Female 10/17/2020 6:40 PM CDT Sexual Orientation Straight 10/17/2020 6 :40 PM CDT Obstetrics History Last Filed Vital Signs Vital Sign Reading Time Taken Comments Blood Pressure 126/69 11/21/2020 3:50 PM CDT Pulse 70 11/21/2020 3:50 PM CDT Temperature 36.7 C (98 F) 11/21/2020 3:05 PM CDT Respiratory Rate 17 05/09/2021 9:18 AM MASK INSPECTOR Oxygen Saturation 93% 11/21/2020 3:50 PM CDT Inhaled Oxygen Concentration - - Weight 69.4 kg (153 lb) 05/09/2021 9:18 AM MASK INSPECTOR Height 170.2 cm (5' 7 ) 05/09/2021 9:18 AM MASK INSPECTOR Body Mass Index 23.96 05/09/2021 9:18 AM MASK INSPECTOR Plan of Treatment Not on file Insurance [facility] [place] REF AETNA MEDICARE GOLD [facility] REF Advance Directives For more information, please contact: [phone] Documents on File Type Date Recorded Patient Certified Detention Deputy Expl anation ADVANCE DIRECTIVE 11/22/2020 10:09 AM Ruthie witt Will ADVANCE DIRECTIVE 11/22/2020 10:09 AM Sami r of Stain Dipper-Medical * Full Code (Latest Code Status on File) Date Activated Date Inactivated Comments 11/21/2020 1:25 PM 11/21/2020 8:02 PM Care Teams Electronics Utility Worker Relationship Specialty Start Date End Date Rao Ontiveros MD [address] [place] [address] PCP - General 03/21/16 Robby Eagle II, MD [address] [place] [address] Consulting Physician Otolaryngology 11/21/20
--- OUTSIDE RECORDS SUMMARY | 2024-07-04 00:46 | XMS_ITS | Referral Summary ---
Author Organization [facility] [employer] Address [address] [place] [address] Care Team Providers Care Strategy Analyst Name Role Phone Rao Ontiveros MD Primary Care Provider [phone] Fco SULTANA MD, Robby Camden Unavailable [phone] Allergies No known active allergies Medications levothyroxine [...] (10/26/2020): Added automatically from request for surgery [id number] Chronic ethmoidal sinusitis 10/26/2020 Overview (10/26/2020): Added automatically from request for surgery [id number] Chronic maxillary sinusitis 10/26/2020 Overview (10/26/2020): Added automatically from request for surgery [id number] Chronic sphenoidal sinusitis 10/26/2020 Overview (10/26/2020): Added automatically from request for surgery [id number] Chronic pansinusitis 10/24/2020 Hypertrophy of both inferior [...] on file Legal Sex Female 4:21 AM RN PRODUCTION Gender Identity Female 10/17/2020 6:40 PM CDT Sexual Orientation Straight 10/17/2020 6: 40 PM CDT Last Filed Vital Signs Vital Sign Reading Time Taken Comments Blood Pressure 126/69 11/21/2020 3:50 PM CDT Pulse 70 11/21/2020 3:50 PM CDT Temperature 36.7 C (98 F) 11/21/2020 3:05 PM CDT Respiratory Rate 17 05/09/2021 9:18 AM RN PRODUCTION Oxygen Saturation 93% 11/21/2020 3:50 PM CDT Inhaled Oxygen Concentration - - Weight 69.4 kg (153 lb) 05/09/2021 9:18 AM RN PRODUCTION Height 170.2 cm (5' 7 ) 05/09/2021 9:18 AM RN PRODUCTION Body Mass Index 23.96 05/09/2021 9:18 AM RN PRODUCTION Plan of Treatment Not on file Insurance [facility] AETNA MEDICARE GOLD [employer]ET[employer] MCR ADV REF Advance Directives For more information, please contact: [phone] Documents on File Type Date Recorded Patient Boat Captain Expl anation ADVANCE DIRECTIVE 11/22/2020 10:09 AM Ruthie miryam Will ADVANCE DIRECTIVE 11/22/2020 10:09 AM Sami r of Acid Maker-Medical * Full Code (Latest Code Status on File) Date Activated Date Inactivated Comments 11/21/2020 1:25 PM 11/21/2020 8:02 PM Care Teams Strategy Analyst Relationship Specialty Start Date End Date Rao Ontiveros MD [address] [place] [address] PCP - General 03/21/16 Robby Eagle II, MD [address] [place] [address] Consulting Physician Otolaryngology 11/21/20
--- OUTSIDE RECORDS SUMMARY | 2024-07-04 00:46 | XMS_ITS | Encounter Summary ---
Author Organization [facility] Address [facility] [place] [address] Care Team Providers Care Food Service Driver Name Role Phone Rao Ontiveros MD Primary Care Provider [phone] Reason for Visit * Reason Onset Date Comments Question 10/20/2022 Encounter Details Date Type Department Care Team (Late st Contact Info) Description 10/20/2022 [employer] Message Enc [facility] Pul[facility] [address] [address] Son Alarcon DO [address] [facility] [address] [place] [address] issue Social History Tobacco Use [...] on filedocumented in this encounter Care Teams Food Service Driver Relationship Specialty Start Date End Date Rao Ontiveros MD [address] [place] [address] PCP - General FAMILY PRACTICE 04/23/22 documented as of this encounter
--- OUTSIDE RECORDS SUMMARY | 2024-07-04 00:46 | XMS_ITS | Clinical Summary ---
Author Organization [facility] Marcello Sorto Address [address] [place] [address] Care Team Providers Care Pile Driver Name Role Phone Unavailable Primary Care Provider [...] Department Care Team Description 05/10/2024 Orders Only [facility] - [place]kit [address] [place] [address] Enrique Portillo MD 04/26/2024 2:45 PM PM TECHNICIAN Office Visit [facility] [address] [place] [address] [address] [place] [address] Enrique Portillo MD Chronic anemia [...] Comments Blood Pressure 120/74 04/26/2024 3:03 PM PM TECHNICIAN Pulse 84 04/26/2024 3:03 PM PM TECHNICIAN Temperature 36.9 C (98.4 F) 04/26/2024 3:03 PM PM TECHNICIAN Respiratory Rate 15 04/26/2024 3:03 PM PM TECHNICIAN Oxygen Saturation 96% 04/26/2024 3:03 PM PM TECHNICIAN Inhaled Oxygen Concentration - - Weight 68.9 kg (151 lb 12.8 oz) 04/26/2024 3:03 PM PM TECHNICIAN Height 170.2 cm (5' 7 ) 12/08/2023 3:04 PM CDT Body Mass Index 23.78 12/08/2023 3:04 PM CDT Plan of Treatment Upcoming Encounters Date Type Department Care Team (Late st Contact Info) Description 10/24/2024 11:30 AM CDT Office Visit [facility] Hematology [address] [place] [id number] Enrique Portillo MD [address] [place] [address] [address] [place] [address] Health Maintenance Due Date Last [...] CBC WITH DIFFERENTIAL Routine 04/26/2024 4:02 PM PM TECHNICIAN VITAMIN B12 AND FOLATE Routine 04/06/2024 8:35 AM PM TECHNICIAN Chronic anemia IRON, TIBC, AND PERCENT SATURATION Routine 04/06/2024 8:35 AM PM TECHNICIAN Chronic anemia FERRITIN Routine 04/06/2024 8:35 AM PM TECHNICIAN Chronic anemia from Last 3 Months Results * CBC WITH DIFFERENTIAL (04/26/2024 4:02 PM PM TECHNICIAN) Blood us Enrique Portillo MD HEMATOLOGY ORDERABLES Final Res ult * VITAMIN B12 AND FOLATE (04/06/2024 8:35 AM PM TECHNICIAN) VITAMIN B12 965 200 - 1100 pg/mL [facility] FOLATE, SERUM 10.9 ng/mL [facility] Comment: Reference Range Low: <3.4 Borderline: 3.4-5.4 Normal: >5.4 FASTING:NO FASTING: NO Test Performed at: [facility] [address] [address] [address] James Gutierrez MD Blood 04/06/2024 8:35 AM PM TECHNICIAN 04/06/2024 8:37 AM PM TECHNICIAN us Enrique Portillo MD CHEMISTRY ORDERABLES Final Resu lt Performing Organization Address [facility] Co de Phone Number [facility] [phone] [facility] [address] [place] [address] * IRON, TIBC, AND PERCENT SATURATION (04/06/2024 8:35 AM PM TECHNICIAN) IRON 84 45 - 160 mcg/dL [facility] TIBC 264 250 - 450 mcg/dL (calc) [facility] IRON % SATURATION 32 16 - 45 % (calc) [facility] Comment: FASTING:NO FASTING: NO Test Performed at: [facility] [address] [address] [facility] [place] [address] James Gutierrez MD Blood 04/06/2024 8:35 AM PM TECHNICIAN 04/06/2024 8:37 AM PM TECHNICIAN us Enrique Portillo MD CHEMISTRY ORDERABLES Final Resu lt Performing Organization Address [facility] Co de Phone Number [facility] [phone] [facility] [address] [facility] [place] [address] * FERRITIN (04/06/2024 8:35 AM PM TECHNICIAN) FERRITIN 120 16 - 288 ng/mL [facility] Comment: Test Performed at: [facility] [address] [facility] [place] [address] James Gutierrez MD Blood 04/06/2024 8:35 AM PM TECHNICIAN 04/06/2024 8:37 AM PM TECHNICIAN us Enrique Portillo MD CHEMISTRY ORDERABLES Final Resu lt Performing Organization Address [facility] Co de Phone Number [facility] [phone] [facility] [address] [place] [address] from Last 3 Months Insurance AETNA O MCR
--- OUTSIDE RECORDS SUMMARY | 2024-07-04 00:46 | XMS_ITS | Encounter Summary ---
Author Organization [facility] Address [facility] [place] [address] Care Team Providers Care Hydro Excavation Operator Name Role Phone Rao Ontiveros MD Primary Care Provider [phone] Encounter Details Date Type Department Care Team (Latest Contact Info) Description 01/07/2023 Viewsy Message Enc [facility] - [facility] [address] [place] [address] Son Alarcon DO [address] [place] [address] PRESCRIPTION SAVINGS PROGRAM ENROLLMENT Social History Tobacco [...] on filedocumented in this encounter Care Teams Hydro Excavation Operator Relationship Specialty Start Date End Date Rao Ontiveros MD [address] [place] [address] PCP - General FAMILY PRACTICE 04/23/22 documented as of this encounter
--- OUTSIDE RECORDS SUMMARY | 2024-07-04 00:47 | XMS_ITS | Encounter Summary ---
Author Organization [facility] Address [address] [place] [address] Care Team Providers Care Thimble Press Operator Name Role Phone Rao Ontiveros MD Primary Care Provider [phone] Fco SULTANA MD, Robby Hannah Unavailable [phone] Encounter Details Date Type Department Care Team (Late st Contact Info) Description 03/12/2016 Orders Only [facility] ProviderQuan MD [address] [place] [address] Social History Tobacco Use Types Packs/Day Years Used Date Smoking Tobacco: Never Assessed Comments Unknown Sex and Gender Information Value Date Recorded Sex Assigned at Not on file Legal Sex Female 4:21 AM INTERNAL CARVER Gender Identity Female 10/17/2020 6:40 PM CDT [...] on filedocumented in this encounter Care Teams Thimble Press Operator Relationship Specialty Start Date End Date Rao Ontiveros MD [address] [place] [address] PCP - General 03/21/16 Robby Eagle II, MD [address] [place] [address] STEVEN THURMAN [address] Consulting Physician Otolaryngology 11/21/20 documented as of this encounter
--- OUTSIDE RECORDS SUMMARY | 2024-07-04 00:47 | XMS_ITS | Patient Health Record ---
Author Organization [facility] ([address]) Address [address] [place] [address] Care Team Providers Care Correspondence School Teacher Name Role Phone Weston MONTALVO, Rao Primary Care Provider Unavailab Kassy Zuñiga Unavailable [phone] [employer], Provider Unavailable Unavailab le Allergies No Known Allergies Reason For Referral No Information Medications Medication SIG (Take, Route, Frequency, Duration) Notes Start Date End Date Status BREO ELLIPTA 200 mcg-25 mcg/inh 1 puff(s) inhaled once a day for 90 days Active Breo Ellipta 200 MCG-25 MCG/INH 1 PUFF(S) INHALED ONCE A DAY for 90 DAYS *Please review and pick correct strength-formula tion from [employer] options. If intended option is not shown, discontinue and re-order from Quick Search* Active NASAL WASHES N/A DIRECTED INTRANASALLY NEEDED for 30 *Please review for potential replacement for e-prescription and drug interaction check* Active EPINEPHRINE AUTO-INJECTOR 0.3 MG 0.3 MG INTRAMUSCULARLY ONCE for 1 DOSE(S) *Please review for potential replacement for e-prescription and drug interaction check* Active PREDNISONE 20 mg 40 mg x3 day, 30 mg x3 day, 20 mg x3 days, 10 mg x3 days orally once a day for 12 day(s) 11/20/2021 Not-Taking PREDNISONE 10 mg 1 tab(s) 40 mg x3 days, 30 mg x3 days, 20 mg x3 days, 10 mg x3 days once a day for 12 day(s) 11/20/2021 Not-Taking Breo Ellipta 200 MCG-25 MCG/INH 1 PUFF(S) INHALED ONCE A DAY for 30 DAY(S) *Please review and pick correct strength-formula tion from [employer] options. If intended option is not shown, discontinue and re-order from Quick Search* Active ATORVASTATIN 20 mg 1 tab(s) orally once a day for 30 day(s) Active predniSONE 10 MG 1 tab(s) 40 mg x3 days, 30 mg x3 days, 20 mg x3 days, 10 mg x3 days once a day for 12 day(s) 11/20/2021 Not-Taking AEROCHAMBER MDI SPACER N/A USER WITH MDI INHALERS BY MOUTH Q4-6 HOURS PRN for 30 DAY(S) *Please review for potential replacement for e-prescription and drug interaction check* Active INDAPAMIDE 1.25 mg 1 tab(s) orally once a day (in the morning) for 30 day(s) Active predniSONE 20 MG 40 mg x3 [...] review and pick correct strength-formula tion from [employer] options. If intended option is not shown, discontinue and re-order from Quick Search* 05/09/2021 Active ZyrTEC Allergy 10 MG 1 tablet PO QD Active Levothyroxine Sodium 100 MCG 1 tab(s) orally once a day for 30 day(s) Active Ipratropium [place] 0.02 % 2.5 mL by nebulizer 4 times a day for 30 day(s) Active Indapamide 1.25 MG 1 tab(s) orally once a day (in the morning) for 30 day(s) Active Atorvastatin Calcium 20 MG 1 tab(s) orally once a day for 30 day(s) Active BREO ELLIPTA 200 mcg-25 mcg/inh 1 puff(s) inhaled once a day for 30 day(s) Active IPRATROPIUM 500 mcg/2.5 mL 2.5 mL by nebulizer 4 times a day for 30 day(s) Active LEVOTHYROXINE 100 mcg (0.1 mg) 1 tab(s) orally once a day for 30 day(s) Active DUPIXENT 300 mg/2 mL as directed subcutaneously every 2 weeks 05/09/2021 Active ZYRTEC 10mg 1 tablet PO QD Act aki SINGULAIR 10 mg 1 tab(s) orally once a day for 90 days Active Immunizations Vaccine Route Administration Date Status Comme nts NOC Influenza-Fluzone Unknown 03/08/2019 Administered Influenza Unknown 11/30/2017 Administered Influenza Unknown 03/17/2018 Others Fluzone Quadrivalent Unknown 12/01/2018 Others Fluzone High Dose Unknown 12/19/2020 Administered Covid 19 (Pfizer) Unknown 12/25/2020 Administered Social History Tobacco Use: Social History Observation Description Date Details (start date - stop date) Never Smoker NA - NA Smoking Smart Form: Question Answer Notes Are you a: never smoker Problems Problem Type SNOMED Code ICD Code Onset Dates Problem Status W/U Status Risk Notes Problem Chronic allergic conjunctivitis (65780935) Other chronic allergic conjunctivitis (H10.45) Active confirmed Problem Allergic rhinitis caused by pollen (disorder) (20251639) Allergic rhinitis due to pollen (J30.1) Active confirmed Problem Allergic rhinitis caused by animal hair and dander (773441229028724) Allergic rhinitis due to animal (cat) (dog) hair and dander (J30.81) Active confirmed Problem Allergic rhinitis (10340684) Other allergic rhinitis (J30.89) Active confirmed Problem Uncomplicated severe persistent asthma (816856186) Severe persistent asthma, uncomplicated (J45.50) Active confirmed Problem Allergic rhinitis caused by pollen (disorder) (86140414) Allergic rhinitis due to pollen (J30.1) Active confirmed Problem Allergic rhinitis caused by animal hair and dander (484655916663040) Allergic rhinitis due to animal (cat) (dog) hair and dander (J30.81) Active confirmed Problem Allergic rhinitis (64205632) Other allergic rhinitis (J30.89) Active confirmed Problem Chronic allergic conjunctivitis (84780868) Other chronic allergic conjunctivitis (H10.45) Active confirmed Problem Acute upper respiratory infection (83496806) Acute upper respiratory infection, unspecified (J06.9) Active confirmed Encounters Encounter Location Date Provider Diagnosis [address] [address] 08/15/2023 Provider Jesus Severe persistent asthma, uncomplicated [...] dander (ICD-10 - J30.81) Plan Of Treatment No Information Insurance Providers Payer Name Payer Address Payer Phone Subscriber Number Group Number Insured Name Patient Relationship to Insured Coverage Start Date Coverage End Date A[employer] Medicare [address] [place] [address] [id number] Carmel Sampson Self - patient is the insured 0 Medical (General) History Medical History History ICD Code Hypothyroidism, unspecified Severe persistent asthma, uncomplicated J45.50 Allergic rhinitis due to pollen J30.1 Allergic rhinitis due to animal (cat) (d og) hair and dander J30.81 Other allergic rhinitis J30.89 Surgical History Surgery Date(Month/Year) Sinus surgery 2020
--- OUTSIDE RECORDS SUMMARY | 2024-07-04 00:47 | XMS_ITS | Clinical Summary ---
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 ([facility]) Take 3 mLs (2.5 mg total) by [...] Type Department Care Team Description 05/31/2024 Telephone [facility] [address] [address] Son Alarcon DO Question from [...] 2006 Dexa Scan (General) 2006 Pneumococcal Vaccine: 50+ Years (2 of 2 - PPSV23) 03/04/2016 01/08/2016 RSV Immunization or 60+ Years (1 - 1-dose 75+ series) 2016 COVID-19 Vaccine ( - season) 2023 11/15/2021, 08/08/2021, 12/25/2020, Additional history exists PHQ-2 (Physician [place]) 03/02/2024 04/21/2023 Zoster Vaccines Completed 04/18/2021, 02/15/2021 Meningococcal B Vaccine Aged Out No l onger eligible based on patient's age to complete this topic Meningococcal Vaccine Aged Out No chris edmar eligible based on patient's age to complete this topic RSV Immunizations Under 20 Months Aged Out No longer eligible based on patient's age to complete [place] [address] [employer] Care Teams Province Archivist Relationship Specialty Start Date End Date Rao Ontiveros MD [address] [place] [address] PCP - General FAMILY PRACTICE 04/23/22
--- OUTSIDE RECORDS SUMMARY | 2024-07-04 00:47 | XMS_ITS | Encounter Summary ---
Author Organization [facility] Address [address] [facility] [place] [address] Care Team Providers Care Motion Designer Name Role Phone Rao Ontiveros MD Primary Care Provider [phone] Fco SULTANA MD, Robby Hannah Unavailable [phone] Encounter Details Date Type Department Care Team (Late st Contact Info) Description 03/21/2016 Orders Only [facility] ProviderQuan MD [address] [place] [address] Social History Tobacco Use Types Packs/Day Years Used Date Smoking Tobacco: Never Alcohol Use Standard Drinks/Week Comments Yes 0 (1 standard drink = 0.6 oz pur e alcohol) Comments Unknown Sex and Gender Information Value Date Recorded Sex Assigned at Not on file 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
[2024-07-04 10:20] VITALS: BP 138/71; PULSE 81; RESP 18; TEMP 36.1; O2SAT 98
[2024-07-04] MEDS: LACTATED RINGERS 1,000 ML 150 ML IV CONT (10:30)
--- NOTE | 2024-07-04 10:33 | WPDANESEPPF ---
Anes - Initial Pre Proc Eval Procedure: Operation Date: 07/04/24 11:00 Proposed Procedures p Colonoscopy - Brady Dash MD Date/Time: 07/04/24 10:33 Surgeon: Brady Dash MD Pre Op Diagnosis: Other fecal abnormalities Patient Data Age: 84 Gender: F Height: 1.68 m Weight: 68.5 kg Last Vital Signs Temp 97 F L 07/04/24 10:20 Pulse 81 07/04/24 10:20 Resp 18 07/04/24 10:20 BP 138/71 07/04/24 10:20 Pulse Ox 98 07/04/24 10:20 O2 Del Method Room Air 07/04/24 10:20 Allergies Allergy/AdvReac Type Severity Reaction Status Date / Time fluticasone Allergy Unknown Other Verified 07/04/24 10:19 salmeterol Allergy Unknown Other Verified 07/04/24 10:19 Home Medications ?Medication ?Instructions ?Recorded ?Confirmed ?Type magnesium oxide 500 mg capsule 500 mg PO DAILY 05/12/23 06/29/24 History calcium carbonate (Tums Ultra) 1,000 mg PO DAILY 06/30/23 06/29/24 History furosemide 20 mg tablet 20 mg PO QAM #30 tabs 02/02/24 06/29/24 Rx mecobalamin (vitamin B12) 500 mcg 500 mcg PO DAILY 02/02/24 06/29/24 History chewable tablet omeprazole 40 mg capsule,delayed 40 mg PO DAILY #90 caps 02/02/24 06/29/24 Rx release atorvastatin 20 mg tablet 20 mg PO DAILY #90 tabs 02/22/24 06/29/24 Rx famotidine 20 mg tablet 20 mg PO BID PRN acid reflux 02/22/24 06/29/24 History prednisone 1 mg tablet 4 mg (4 x 1 mg) PO DAILY #200 tabs 02/22/24 06/29/24 Rx prednisone 10 mg tablet 5 mg (1/2 x 10 mg) PO DAILY Kidney 02/22/24 06/29/24 Rx failure #100 tabs levothyroxine 100 mcg tablet 100 mcg PO DAILY #90 tabs 03/28/24 07/04/24 Rx lisinopril 10 mg tablet 10 mg PO DAILY #30 tabs 04/11/24 06/29/24 Rx mycophenolate mofetil 500 mg tablet See Rx Instructions .Route 04/13/24 06/29/24 Rx .COMPLEX #180 tabs Breo Ellipta 200 mcg-25 mcg/dose 1 inh inhalation DAILY #60 ea 04/27/24 07/04/24 Rx powder for inhalation (fluticasone furoate-vilanterol) metoclopramide HCl 5 mg tablet 5 mg PO TIDWMEAL #90 tabs 04/27/24 06/29/24 Rx albuterol sulfate 2.5 mg/3 mL 2.5 mg (3 mL) inhalation Q6H PRN 05/15/24 06/29/24 Rx (0.083 %) solution for nebulization shortness of breath or wheezing #180 mL montelukast 10 mg tablet 10 mg PO DAILY #100 tabs 06/23/24 06/29/24 Rx Patient hx anesthesia problems: none Family hx anesthesia problems: none Results Review: All pre-operative results and documents have been reviewed as part of the pre-operative evaluation. 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 Surgical History Surgical History History of cardiac catheterization (2016) Normal coronary arteries. History of excision of epidermal inclusion cyst (06/23/02) Right chest wall. History of sinus surgery (10/2020) History of tubal ligation (1975) History of laparoscopic cholecystectomy (05/03/07) Family History Family History Mother Family history of chronic obstructive pulmonary disease Diabetes mellitus Father Social History Social History Social History: Surrogate decision maker: Douglas Sampson, . Code status: Full code. Smoking status: Never smoker Alcohol intake: current Drinks per week: 0 Alcohol use details: 1 per month Substance use: never Substance use type: does not use Do You Feel Safe in your Home?: Yes Lack of Transportation: No Lack of Food: Never True Current Housing: I Have Housing Concerned About Future Housing: No Difficulty Paying Gas/Electric Bills: No Difficulty Paying for Meds: No Currently Unemployed: No Education: High School Diploma/GED Difficulty w/ Childcare or Family Care: No Living arrangements: with family Additional living arrangements comments: The patient lives in [place] with her . Occupation/Education: retired Spiritual care concerns: No Anes - Eval Final PreProcedure Day of Procedure 07/04/24 10:33 Patient weight: normal Lungs: normal air movement Airway: Mallampati scale class II and special considerations (Missing L lower tooth. ) Neurological: alert and oriented Last oral intake: >/= 8 hours ASA classification: III Emergent: no Anesthetic plan: proceed Anesthesia type and monitoring: general GIVS and standard monitoring Results Review: All pre-operative results and documents have been reviewed as part of the pre-operative evaluation. HTN, hyperlipidemia, hypothryoidism, mild pulmon HTN by ECHO, carotid US 2020 less than 50% stenosis. Pt can walk short distances w no cp, mild dypsnea w 1 fos. Now for reeval of prev colonoscopy for large polyp. Informed Consent: The patient's anesthetic plan and its attendant risks and benefits were discussed with the patient/family/POA. Questions were solicited and answers provided to the satisfaction of the patient/family/POA.
--- NOTE | 2024-07-04 10:52 | PM.HPGS ---
History of Present Illness History of Present Illness Consent: Risks, benefits, and alternatives have been discussed and questions answered. Patient agrees to proceed with procedure. 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 Surgical History Surgical History History of cardiac catheterization (2016) Normal coronary arteries. History of excision of epidermal inclusion cyst (06/23/02) Right chest wall. History of sinus surgery (10/2020) History of tubal ligation (1975) History of laparoscopic cholecystectomy (05/03/07) Family History Family History Mother Family history of chronic obstructive pulmonary disease Diabetes mellitus Father Social History Social History Social History: Surrogate decision maker: Douglas Sampson, . Code status: Full code. Smoking status: Never smoker Alcohol intake: current Drinks per week: 0 Alcohol use details: 1 per month Substance use: never Substance use type: does not use Do You Feel Safe in your Home?: Yes Lack of Transportation: No Lack of Food: Never True Current Housing: I Have Housing Concerned About Future Housing: No Difficulty Paying Gas/Electric Bills: No Difficulty Paying for Meds: No Currently Unemployed: No Education: High School Diploma/GED Difficulty w/ Childcare or Family Care: No Living arrangements: with family Additional living arrangements comments: The patient lives in [place] with her . Occupation/Education: retired Spiritual care concerns: No Meds Home Medications and Allergies Home Medications ?Medication ?Instructions ?Recorded ?Confirmed ?Type magnesium oxide 500 mg capsule 500 mg PO DAILY 05/12/23 06/29/24 History calcium carbonate (Tums Ultra) 1,000 mg PO DAILY 06/30/23 06/29/24 History furosemide 20 mg tablet 20 mg PO QAM #30 tabs 02/02/24 06/29/24 Rx mecobalamin (vitamin B12) 500 mcg 500 mcg PO DAILY 02/02/24 06/29/24 History chewable tablet omeprazole 40 mg capsule,delayed 40 mg PO DAILY #90 caps 02/02/24 06/29/24 Rx release atorvastatin 20 mg tablet 20 mg PO DAILY #90 tabs 02/22/24 06/29/24 Rx famotidine 20 mg tablet 20 mg PO BID PRN acid reflux 02/22/24 06/29/24 History prednisone 1 mg tablet 4 mg (4 x 1 mg) PO DAILY #200 tabs 02/22/24 06/29/24 Rx prednisone 10 mg tablet 5 mg (1/2 x 10 mg) PO DAILY Kidney 02/22/24 06/29/24 Rx failure #100 tabs levothyroxine 100 mcg tablet 100 mcg PO DAILY #90 tabs 03/28/24 07/04/24 Rx lisinopril 10 mg tablet 10 mg PO DAILY #30 tabs 04/11/24 06/29/24 Rx mycophenolate mofetil 500 mg tablet See Rx Instructions .Route 04/13/24 06/29/24 Rx .COMPLEX #180 tabs Breo Ellipta 200 mcg-25 mcg/dose 1 inh inhalation DAILY #60 ea 04/27/24 07/04/24 Rx powder for inhalation (fluticasone furoate-vilanterol) metoclopramide HCl 5 mg tablet 5 mg PO TIDWMEAL #90 tabs 04/27/24 06/29/24 Rx albuterol sulfate 2.5 mg/3 mL 2.5 mg (3 mL) inhalation Q6H PRN 05/15/24 06/29/24 Rx (0.083 %) solution for nebulization shortness of breath or wheezing #180 mL montelukast 10 mg tablet 10 mg PO DAILY #100 tabs 06/23/24 06/29/24 Rx Allergies Allergy/AdvReac Type Severity Reaction Status Date / Time fluticasone Allergy Unknown Other Verified 07/04/24 10:19 salmeterol Allergy Unknown Other Verified 07/04/24 10:19 Vital Signs Vital Signs - 24 hr 07/04/24 10:20 Temperature 97 F L Pulse Rate 81 Respiratory Rate 18 Blood Pressure 138/71 Pulse Oximetry 98 Oxygen Delivery Room Air Exam Const: General: comfortable and no acute distress HENMT: Face/Nose/Sinus: Normal nares present Eyes: General: appearance normal, both eyes and all related structures Neck: Neck: no JVD Resp: Auscultation: clear to auscultation bilaterally Cardio: Rate: regular rate Rhythm: regular rhythm GI: Inspection: non-distended GI Palp: Yes Soft to palpation Skin: General skin exam: normal color Neuro: Speech: normal speech Extrem: General: normal to inspection Psych: Mental Status: mental status grossly normal Assessment and Plan Assessment and plan (1) Adenomatous colon polyp: Code(s): D12.6 - Benign neoplasm of colon, unspecified Status: Acute Assessment and Plan: colonoscopy
[2024-07-04 11:17] VITALS: BP 125/66; PULSE 78; RESP 22; O2SAT 99
[2024-07-04 11:27] VITALS: BP 122/66; PULSE 72; RESP 22; O2SAT 100
[2024-07-04 11:37] VITALS: BP 120/65; PULSE 69; RESP 28; O2SAT 100
== END 2024-07-04 11:45 | disposition home or self-care (01) ==
PROVIDERS: PCP Family Medicine; Referring Provider Internal Medicine Gastroenterology; Visit Provider Internal Medicine Gastroenterology
PROC: 0DJD8ZZ Inspection of Lower Intestinal Tract, Via Natural or Artificial Opening Endoscopic (ICD-10-PCS; CPT 45378; principal; 2024-07-04 11:00)
DX: R19.5 Other fecal abnormalities (principal); D12.5 Benign neoplasm of sigmoid colon; K57.30 Diverticulosis of large intestine without perforation or abscess without bleeding; K64.8 Other hemorrhoids
CPT/HCPCS: 45385; 88305; J2704; J7120

== ENCOUNTER 2024-12-20 07:19 | Emergency (ER) | payer MEDICARE, SELFPAY ==
--- OUTSIDE RECORDS SUMMARY | 2023-08-15 16:30 | XMS_ITS ---
Author Organization [facility] ([address]) Address [address] [place] [address] Care Team Providers Care Food Equipment Service Technician Name Role Phone Weston MONTALVO, Rao Primary Care Provider Unavailab le Kassy Pete Unavailable [phone] [facility], Provider Unavailable Unavailab le REASON FOR VISIT Multum To Medispan Conversion Encounter Medications Medication SIG (Take, Route, Frequency, Duration) Notes Start Date End Date Status Breo Ellipta 200 MCG-25 MCG/INH 1 PUFF(S) INHALED ONCE A DAY; Duration: 30 DAY(S) *Please review and pick correct strength-formula tion from Tocagen options. If intended option is not shown, discontinue and re-order from Quick Search* Active predniSONE 10 MG 1 tab(s) 40 mg x3 days, 30 mg x3 days, 20 mg x3 days, 10 mg x3 days once a day; Duration: 12 day(s) 11/20/2021 Not-Taking AEROCHAMBER MDI SPACER N/A USER WITH MDI INHALERS BY MOUTH Q4-6 HOURS PRN; Duration: 30 DAY(S) *Please review for potential replacement for e-prescription and drug interaction check* Active predniSONE 20 MG 40 mg x3 day, 30 mg x3 day, 20 mg x3 days, 10 mg x3 days orally once a day; Duration: 12 day(s) 11/20/2021 Not-Taking PROAIR HFA 90 MCG/INH 2 PUFF(S) INHALED Q4-6 HOURS, PRN AND PER THE ASTHMA ACTION PLAN; Duration: 30 DAY(S) *Please review for potential replacement for e-prescription and drug interaction check* Active SIT (TRADITIONAL) VARIABLE PER SCHEDULE SC PER SCHEDULE; Duration: TO BE DETERMINED *Please review for potential replacement for e-prescription and drug interaction check* Active Singulair 10 MG 1 tab(s) orally once a day; Duration: 90 days Active Dupixent 300 MG/2 ML DIRECTED SUBCUTANEOUSLY EVERY 2 WEEKS *Please review and pick correct strength-formula tion from Tocagen options. If intended option is not shown, discontinue and re-order from Quick Search* 05/09/2021 Active ZyrTEC Allergy 10 MG 1 tablet PO QD Active NASAL WASHES N/A DIRECTED INTRANASALLY NEEDED; Duration: 30 *Please review for potential replacement for e-prescription and drug interaction check* Active Levothyroxine Sodium 100 MCG 1 tab(s) orally once a day; Duration: 30 day(s) Active Ipratropium [place] 0.02 % 2.5 mL by nebulizer 4 times a day; Duration: 30 day(s) Active EPINEPHRINE AUTO-INJECTOR 0.3 MG 0.3 MG INTRAMUSCULARLY ONCE; Duration: 1 DOSE(S) *Please review for potential replacement for e-prescription and drug interaction check* Active Indapamide 1.25 MG 1 tab(s) orally once a day (in the morning); Duration: 30 day(s) Active Atorvastatin Calcium 20 MG 1 tab(s) orally once a day; Duration: 30 day(s) Active Breo Ellipta 200 MCG-25 MCG/INH 1 PUFF(S) INHALED ONCE A DAY; Duration: 90 DAYS *Please review and pick correct strength-formula tion from Tocagen options. If intended option is not shown, discontinue and re-order from Quick Search* Active Encounters Encounter Location Date Provider Diagnosis [address] [address] 08/15/2023 Provider [facility]Migration Severe persistent asthma, uncomplicated J45.50 ; Allergic rhinitis due to pollen J30.1 and Allergic rhinitis due to animal (cat) (dog) hair and dander J30.81 Assessments Encounter Date Diagnosis (ICD Code) Assessment Notes Treatment Notes Treatment Clinical Notes Section Notes 08/15/2023 Severe persistent asthma, uncomplicated (ICD-10 - J45.50) 08/15/2023 Allergic rhinitis due to pollen (ICD-10 - J30.1) 08/15/2023 Allergic rhinitis due to animal (cat) (dog) hair and dander (ICD-10 - J30.81) Plan Of Treatment Medication Medication Name Sig Start Date Stop Date Notes Breo Ellipta 200 MCG-25 MCG/INH 1 PUFF(S) INHALED ONCE A DAY; Duration: 30 DAY(S) *Please review and pick correct strength-formulation from Medispan options. If intended option is not shown, discontinue and re-order from Quick Search* AEROCHAMBER MDI SPACER N/A USER WITH MDI INHALERS BY MOUTH Q4-6 HOURS PRN; Duration: 30 DAY(S) *Please review for potential replacement for e-prescription and drug interaction check* PROAIR HFA 90 MCG/INH 2 PUFF(S) INHALED Q4-6 HOURS, PRN AND PER THE ASTHMA ACTION PLAN; Duration: 30 DAY(S) *Please review for potential replacement for e-prescription and drug interaction check* Singulair 10 MG 1 tab(s) orally once a day; Duration: 90 days ZyrTEC Allergy 10 MG 1 tablet PO QD NASAL WASHES N/A DIRECTED INTRANAS ALLY NEEDED; Duration: 30 *Please review f or potential replacement for e-prescription and drug interaction check* EPINEPHRINE AUTO-INJECTOR 0.3 MG 0.3 MG INTRAMUSCULARLY ONCE; Duration: 1 DOSE(S) *Please review for potential replacement for e-prescription and drug interaction check* Progress Notes * Carmel HELLERDOB: 2 (84 yo F)Acc No.[id number]:08/15/2023 Patient: Malissa WILBERTADELAIsaacRosagy Provider: Carisa Pederson :1940 A ge:83 Y S ex:Female Date:08/15/2023 Address:[facility] [address] [place], [id number] Pcp:Rao Ontiveros MD Subjective: * Chief Complaints: * 1 . Multum To Medispan Conversion Encounter. * Medical History: * Medications: T aking Breo Ellipta 200 MCG-25 MCG/INH POWDER 1 PUFF(S) INHALED ONCE A DAY , Notes to Pharmacist: *Please review and pick correct strength-formulation from Medispan options. If intended option is not shown, discontinue and re-order from Quick Search*, Taking Atorvastatin Calcium 20 MG Tablet 1 tab(s) orally once a day , Taking Indapamide 1.25 MG Tablet 1 tab(s) orally once a day (in the morning) , Taking Ipratropium [place] 0.02 % Solution 2.5 mL by nebulizer 4 times a day , Taking Levothyroxine Sodium 100 MCG Tablet 1 tab(s) orally once a day , Taking Dupixent 300 MG/2 ML SOLUTION DIRECTED SUBCUTANEOUSLY EVERY 2 WEEKS , Notes to Pharmacist: *Please review and pick correct strength-formulation from Tocagen options. If intended option is not shown, discontinue and re-order from Quick Search*, Taking SIT (TRADITIONAL) VARIABLE SEE RECORD PER SCHEDULE SC PER SCHEDULE , Notes to Pharmacist: *Please review for potential replacement for e-prescription and drug interaction check*, Not-Taking/PRN predniSONE 20 MG Tablet 40 mg x3 day, 30 mg x3 day, 20 mg x3 days, 10 mg x3 days orally once a day , Not-Taking/PRN predniSONE 10 MG Tablet 1 tab(s) 40 mg x3 days, 30 mg x3 days, 20 mg x3 days, 10 mg x3 days once a day Objective: * Vitals: Assessment: * Assessment: 1. S evere persistent asthma, uncomplicated - J45.50 (Primary) 2 . A llergic rhinitis due to pollen - J30.1 3 . A llergic rhinitis due to animal (cat) (dog) hair and dander - J30.81 Plan: * Treatment: 2. A llergic rhinitis due to pollen Continue EPINEPHRINE AUTO-INJECTOR KIT, 0.3 MG, 0.3 MG, INTRAMUSCULARLY, ONCE, 1 DOSE(S), 1, Refills 0, Notes to Pharmacist: *Please review for potential replacement for e-prescription and drug interaction check*. 3. A llergic rhinitis due to animal (cat) (dog) hair and dander Continue NASAL WASHES 1 QUART OF STERILIZED TAP WATER OR DISTILLED WATER, 1 TSP NACL, 1 PINCH OF BAKING SODA, N/A, DIRECTED, INTRANASALLY, NEEDED, 30, QS, Refills PRN, Notes to Pharmacist: *Please review for potential replacement for e-prescription and drug interaction check*; C ontinue ZyrTEC Allergy Tablet, 10 MG, 1 tablet, PO, QD. * Billing Information: * Visit Code: * Procedure Codes: * Electronic signature of Prov ider [facility]-Migration on 12/20/2024 at 07:21 AM CDT Sign off status: Pending * Provider: Carisa bhandari Migration Date: 0 08/15/2023 Generated for Jose M witt/Paradise/Aime on: 1 07:21 AM CDT
[2024-12-20] VITALS (34 sets, daily range): BP systolic 109–152; BP diastolic 60–80; PULSE 70–98; RESP 13–28; O2SAT 92–100
--- NOTE | ~2024-12-20 | CT_ITS ---
CTA CHEST CLINICAL HISTORY: R/O PE . COMPARISON: Chest x-ray today TECHNIQUE: Helical CTA performed from thoracic inlet to upper abdomen IV contrast information not listed in PACS Coronal, sagittal reformats. Multiplanar MIPS CT images acquired with automatic exposure control for dose reduction DLP: 250 mGy-cm FINDINGS: Pulmonary arteries: No PE. Thoracic Aorta: No dissection or aneurysm. Heart/pericardium: Mild cardiomegaly. RV/LV ratio: Normal. Lungs/Pleura: Hyperinflation. Biapical scarring. Posterior right lower lobe bronchiolitis. Tracheobronchial tree: Patent. Nodes: No enlarged nodes. Bones: No acute bony abnormality. Soft tissues: Unremarkable. Visualized upper abdomen: Colonic diverticula. IMPRESSION: 1. No PE or other acute cardiopulmonary findings. Reviewed, dictated and finalized at location R.
--- NOTE | ~2024-12-20 | XR_ITS ---
EXAMINATION: XR chest 2V DATE: 12/20/2024 07:57 INDICATION: Chest pain and shortness of breath TECHNIQUE: PA and lateral views of the chest were obtained. COMPARISON: Chest radiograph dated 06/09/2024 FINDINGS: Hyperexpansion lungs with increased lucency and architectural distortion the upper lung zones, flattening of the diaphragm and increased retrosternal clear space suggestive but not diagnostic of COPD. Unchanged mild biapical pleural- parenchymal scarring. No new airspace opacities, pulmonary edema, pleural effusion or pneumothorax. The cardiomediastinal silhouette is normal. Moderate thoracic spondylosis with mild kyphosis and chronic mild anterior wedging of a couple mid thoracic vertebral bodies. IMPRESSION: 1. Appearance suggestive but not diagnostic of COPD with chronic mild biapical pleural-parenchymal scarring. No acute cardiopulmonary disease. Reviewed, dictated and finalized at location A.
--- OUTSIDE RECORDS SUMMARY | 2024-12-20 07:22 | XMS_ITS | Encounter Summary ---
Author Organization [facility] Address [address] [place] [address] Care Team Providers Care Finished Carpet Inspector Name Role Phone Rao Ontiveros MD Primary Care Provider [phone] Fco SULTANA MD, Robby Hannah Unavailable Encounter Details Date Type Department Care Team (Late st Contact Info) Description 03/21/2016 Orders Only [facility] ProviderQuan MD [address] [place] [address] Social History Tobacco Use Types Packs/Day Years Used Date Smoking Tobacco: Never Alcohol Use Standard Drinks/Week Comments Yes 0 (1 standard drink = 0.6 oz pur e alcohol) Comments Unknown Sex and Gender Information Value Date Recorded Sex Assigned at Not on file 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
--- OUTSIDE RECORDS SUMMARY | 2024-12-20 07:22 | XMS_ITS | Clinical Summary ---
Author Organization [facility] Marcello Sorto Address [address] [place] [address] Care Team Providers Care Glass Deposition Tender Name Role Phone Unavailable Primary Care Provider [...] Encounters Date Type Department Care Team Description 11/01/2024 External Device Data STL ABSTRACTION Provider, Abstract 10/24/2024 11:30 AM CDT Office Visit [facility] Oncology and Hematology - [place] [address] [place] [address] Enrique Portillo MD Chronic anemia (Primary Dx) 10/20/2024 Orders Only Initial Department [address]: [place] [address] Provider, Historical 10/18/2024 External Device Data STL ABSTRACTION Provider, Abstract 10/05/2024 External Device Data STL ABSTRACTION Provider, Abstract [...] Tobacco: Never Alcohol Use Standard Drinks/Week Comments Never 0 (1 standard drink = 0.6 oz pur e alcohol) Comments Unknown Sex and Gender Information Value Date Recorded Sex Assigned at Not on file Legal Sex Female 7:24 AM CDT Gender Identity Not on file Sexual Orientation Not on file Last Filed Vital Signs Vital Sign Reading Time Taken Comments Blood Pressure 163/85 10/24/2024 11:18 AM CDT Pulse 78 10/24/2024 11:16 AM CDT Temperature 36.2 C (97.1 F) 10/24/2024 11:16 AM CDT Respiratory Rate 16 10/24/2024 11:16 AM CDT Oxygen Saturation 93% 10/24/2024 11:16 AM CDT Inhaled Oxygen Concentration - - Weight 69.9 kg (154 lb) 10/24/2024 11:16 AM CDT Height 170.2 cm (5' 7) 12/08/2023 3:04 PM CDT Body Mass Index 24.12 12/08/2023 3:04 PM CDT Plan of Treatment Upcoming Encounters Date Type Department Care Team (Late st Contact Info) Description 04/26/2025 11:30 AM PLANT ENGINEER Office Visit [facility] Oncology and Hematology - [place] [address] [place] [id number] Enrique Portillo MD [address] [place] [address] Health Maintenance Due Date Last Done Comments DTAP/TDAP/TD VACCINES (1 - Tdap) 1960 OSTEOPOROSIS SCREENING 2006 PNEUMOCOCCAL VACCINE 50+ YEA RS (2 of 2 - PPSV23, PCV20, or PCV21) 03/04/2016 01/08/2016 RSV VACCINE (60+ or ) (1 - 1-dose 75+ series) 2016 INFLUENZA VACCINE (#1) 2024 4, 12/24/2022, 12/24/2022, Additional history exists ZOSTER VACCINE Completed 04/18/2021, 02/15/2021 Procedures Procedure Name Priority Date/Time Associated Diagnosis Comments BASIC METABOLIC PANEL Routine 10/20/2024 2:53 PM CDT CBC WITHOUT DIFFERENTIAL Routine 10/20/2024 8:06 AM CDT BASIC METABOLIC PANEL Routine 10/20/2024 8:06 AM CDT VITAMIN B12 AND FOLATE Routine 10/20/2024 8:04 AM CDT Chronic anemia IRON, TIBC, AND PERCENT SATURATION Routine 10/20/2024 8:04 AM CDT Chronic anemia FERRITIN Routine 10/20/2024 8:04 AM CDT Chronic anemia from Last 3 Months Results * BASIC METABOLIC PANEL (10/20/2024 2:53 PM CDT) Only the most recent of2 resultswithin the time period is included. Blood us Enrique Portillo MD CHEMISTRY ORDERABLES Final Resu lt * (ABNORMAL) CBC WITHOUT DIFFERENTIAL (10/20/2024 8:06 AM CDT) WBC 6.0 3.8 - 10.8 Thousand/ uL [facility] RBC 3.85 3.80 - 5.10 Million/u L [facility] HEMOGLOBIN 11.3(L) 11.7 - 15.5 g/dL [facility] HEMATOCRIT 36.8 35.0 - 45.0 % [facility] MCV 95.6 80.0 - 100.0 fL [facility] MCH 29.4 27.0 - 33.0 pg [facility] MCHC 30.7(L) 32.0 - 36.0 g/dL [facility] Comment: For adults, a slight decrease in the calculated MCHC value (in the range of 30 to 32 g/dL) is most likely not clinically significant; however, it should be interpreted with caution in correlation with other red cell parameters and the patient's clinical condition. RDW 12.5 11.0 - 15.0 % [facility] PLATELETS 164 140 - 400 Thousand/ uL [facility] MPV 10.4 7.5 - 12.5 fL [facility] Comment: Test Performed at: [facility] [address] [place] [address] James Gutierrez 10/20/2024 8:06 AM CDT 10/20/2024 11:13 AM CDT Enrique Portillo MD HEMATOLOGY ORDERABLES Final Res ult [facility] [phone] [place] [address] [place] [address] * (ABNORMAL) VITAMIN B12 AND FOLATE (10/20/2024 8:04 AM CDT) VITAMIN B12 1277(H) 200 - 1100 pg/mL [facility] FOLATE, SERUM >24.0 ng/mL [facility] Comment: Reference Range Low: <3.4 Borderline: 3.4-5.4 Normal: >5.4 Test Performed at: [facility] [address] [place] [address] James Gutierrez MD Blood 10/20/2024 8:04 AM CDT 10/20/2024 8:05 AM CDT Enrique Portillo MD CHEMISTRY ORDERABLES Final Resu lt Performing Organization Address City/[facility] [address]/ZIP Co de Phone Number [facility] [phone] [facility] [address] [place] [address] * IRON, TIBC, AND PERCENT SATURATION (10/20/2024 8:04 AM CDT) IRON 64 45 - 160 mcg/dL [facility] TIBC 257 250 - 450 mcg/dL (calc) [facility] IRON % SATURATION 25 16 - 45 % (calc) [facility] Comment: Test Performed at: [facility] [address] [place] [address] James Gutierrez MD Blood 10/20/2024 8:04 AM CDT 10/20/2024 8:05 AM CDT us Enrique Portillo MD CHEMISTRY ORDERABLES Final Resu lt Performing Organization Address [facility] [address]/[facility] Co de Phone Number [facility] [phone] [facility] [address] [place] [address] * FERRITIN (10/20/2024 8:04 AM CDT) FERRITIN 70 16 - 288 ng/mL [facility] Comment: Test Performed at: [facility] [address] [place] [address] James Gutierrez MD Blood 10/20/2024 8:04 AM CDT 10/20/2024 8:05 AM CDT Enrique Portillo MD CHEMISTRY ORDERABLES Final Resu lt [facility] [phone] [facility] [address] [place] [address], [place] [address] from Last 3 Months Insurance AENA O MCR [facility] Address: [facility] [id number] [place] [address]
--- OUTSIDE RECORDS SUMMARY | 2024-12-20 07:22 | XMS_ITS | Clinical Summary ---
Author Organization [facility] Address [address] [place] [address] Care Team Providers Care Mortgage Funder Name Role Phone Rao Ontiveros MD Primary Care Provider [phone] Iesha SULTANA MD, Robby Cam[place] Unavailable [phone] Allergies No known active allergies Medications levothyroxine [...] (10/26/2020): Added automatically from request for surgery [id number] Chronic ethmoidal sinusitis 10/26/2020 Overview (10/26/2020): Added automatically from request for surgery [id number] Chronic maxillary sinusitis 10/26/2020 Overview (10/26/2020): Added automatically from request for surgery [id number] Chronic sphenoidal sinusitis 10/26/2020 Overview (10/26/2020): Added automatically from request for surgery [id number] Chronic pansinusitis 10/24/2020 Hypertrophy of both inferior [...] on file Legal Sex Female 4:21 AM PUTTY MIXER AND APPLIER Gender Identity Female 10/17/2020 6:40 PM CDT Sexual Orientation Straight 10/17/2020 6: 40 PM CDT Obstetrics History Last Filed Vital Signs Vital Sign Reading Time Taken Comments Blood Pressure 126/69 11/21/2020 3:50 PM CDT Pulse 70 11/21/2020 3:50 PM CDT Temperature 36.7 C (98 F) 11/21/2020 3:05 PM CDT Respiratory Rate 17 05/09/2021 9:18 AM PUTTY MIXER AND APPLIER Oxygen Saturation 93% 11/21/2020 3:50 PM CDT Inhaled Oxygen Concentration - - Weight 69.4 kg (153 lb) 05/09/2021 9:18 AM PUTTY MIXER AND APPLIER Height 170.2 cm (5' 7) 05/09/2021 9:18 AM PUTTY MIXER AND APPLIER Body Mass Index 23.96 05/09/2021 9:18 AM PUTTY MIXER AND APPLIER Plan of Treatment Not on file Insurance [facility] REF AETNA MEDICARE GOLD [facility] REF Advance Directives For more information, please contact: [phone] Documents on File Type Date Recorded Patient Microstrategy Bi Developer Expl anation ADVANCE DIRECTIVE 11/22/2020 10:09 AM Ruthie witt Will ADVANCE DIRECTIVE 11/22/2020 10:09 AM Sami r of Assistant Branch Manager-Medical * Full Code (Latest Code Status on File) Date Activated Date Inactivated Comments 11/21/2020 1:25 PM 11/21/2020 8:02 PM Care Teams Mortgage Funder Relationship Specialty Start Date End Date Rao Ontiveros MD [address] [place] [address] PCP - General 03/21/16 Robby Eagle II, MD [address] [place] [address] Consulting Physician Otolaryngology 11/21/20
--- OUTSIDE RECORDS SUMMARY | 2024-12-20 07:22 | XMS_ITS | Encounter Summary ---
Author Organization [facility] Address [address] [place] [address] Care Team Providers Care Power Marketer Name Role Phone Rao Ontiveros MD Primary Care Provider [phone] Fco SULTANA MD, Robby Hannah Unavailable [phone] Encounter Details Date Type Department Care Team (Late st Contact Info) Description 03/12/2016 Orders Only [facility] ProviderQuan MD [address] [place] [address] Social History Tobacco Use Types Packs/Day Years Used Date Smoking Tobacco: Never Assessed Comments Unknown Sex and Gender Information Value Date Recorded Sex Assigned at Not on file Legal Sex Female 4:21 AM POWDER PRESS OPERATOR Gender Identity Female 10/17/2020 6:40 PM [...] on filedocumented in this encounter Care Teams Power Marketer Relationship Specialty Start Date End Date Rao Ontiveros MD [address] [place] [address] PCP - General 03/21/16 Robby Eagle II, MD [address] [place] [address] [place]EV[place] THURMAN [address] Consulting Physician Otolaryngology 11/21/20 documented as of this encounter
--- OUTSIDE RECORDS SUMMARY | 2024-12-20 07:22 | XMS_ITS | Patient Health Record ---
Author Organization [facility] [place] ([address]) Address [address] [place] [address] Care Team Providers Care Special Needs Tutor Name Role Phone Rao Ontiveros MD Primary Care Provider Kassy Palmer Unavailable [phone] Allergies No Known Allergies Reason For Referral No Information Medications Medication SIG (Take, Route, Frequency, Duration) Notes Start Date End Date Status BREO ELLIPTA 200 mcg-25 mcg/inh 1 puff(s) inhaled once a day; Duration: 90 days Active Breo Ellipta 200 MCG-25 MCG/INH 1 PUFF(S) INHALED ONCE A DAY; Duration: 90 DAYS *Please review and pick correct strength-formula tion from Zuffle options. If intended option is not shown, discontinue and re-order from Quick Search* Active NASAL WASHES N/A DIRECTED INTRANASALLY NEEDED; [...] a day; Duration: 12 day(s) 11/20/2021 Not-Taking PREDNISONE 10 mg 1 tab(s) 40 mg x3 days, 30 mg x3 days, 20 mg x3 days, 10 mg x3 days once a day; Duration: 12 day(s) 11/20/2021 Not-Taking Breo Ellipta 200 MCG-25 MCG/INH 1 PUFF(S) INHALED ONCE A DAY; Duration: 30 DAY(S) *Please review and pick correct strength-formula tion from Zuffle options. If intended option is not shown, discontinue and re-order from Quick Search* Active ATORVASTATIN 20 mg 1 tab(s) orally once a day; Duration: 30 day(s) Active predniSONE 10 MG 1 [...] (in the morning); Duration: 30 day(s) Active predniSONE 20 MG 40 [...] review and pick correct strength-formula tion from Zuffle options. If intended option is not shown, discontinue and re-order from Quick Search* 05/09/2021 Active ZyrTEC Allergy 10 MG 1 tablet PO QD Active Levothyroxine Sodium 100 MCG 1 tab(s) orally once a day; Duration: 30 day(s) Active Ipratropium [place] 0.02 % 2.5 mL by nebulizer 4 times a day; Duration: 30 day(s) Active Indapamide 1.25 MG 1 tab(s) orally once a day (in the morning); Duration: 30 day(s) Active Atorvastatin Calcium 20 MG 1 tab(s) orally once a day; Duration: 30 day(s) Active BREO ELLIPTA 200 mcg-25 mcg/inh 1 puff(s) inhaled once a day; Duration: 30 day(s) Active IPRATROPIUM 500 mcg/2.5 mL 2.5 mL by nebulizer 4 times a day; Duration: 30 day(s) Active LEVOTHYROXINE 100 mcg (0.1 mg) 1 tab(s) orally once a day; Duration: 30 day(s) Active DUPIXENT 300 mg/2 mL as directed subcutaneously every 2 weeks 05/09/2021 Active ZYRTEC 10mg 1 tablet PO QD Act aki SINGULAIR 10 mg 1 tab(s) orally once a day; Duration: 90 days Active Immunizations Vaccine Route Administration Date Status Comme nts NOC Influenza-Fluzone Unknown 03/08/2019 Administered Influenza Unknown 11/30/2017 Administered Influenza Unknown 03/17/2018 Others Fluzone Quadrivalent Unknown 12/01/2018 Others Covid 19 (Pfizer) Unknown 12/25/2020 Administered Fluzone High Dose Unknown 12/19/2020 Administered Social History Tobacco Use: Social History Observation Description Date Details (start date - stop date) Never Smoker NA - NA Smoking Smart Form: Question Answer Notes Are you a: never smoker Problems Problem Type SNOMED Code ICD Code Onset Dates Problem Status W/U Status Risk Notes Problem Chronic allergic conjunctivitis (57915303) Other chronic allergic conjunctivitis (H10.45) Active confirmed Problem Allergic rhinitis caused by pollen (disorder) (08826813) Allergic rhinitis due to pollen (J30.1) Active confirmed Problem Allergic rhinitis caused by animal hair and dander (138978167905279) Allergic rhinitis due to animal (cat) (dog) hair and dander (J30.81) Active confirmed Problem Allergic rhinitis (35972188) Other allergic rhinitis (J30.89) Active confirmed Problem Uncomplicated severe persistent asthma (493343545) Severe persistent asthma, uncomplicated (J45.50) Active confirmed Problem Allergic rhinitis caused by pollen (disorder) (80141358) Allergic rhinitis due to pollen (J30.1) Active confirmed Problem Allergic rhinitis caused by animal hair and dander (792229006100233) Allergic rhinitis due to animal (cat) (dog) hair and dander (J30.81) Active confirmed Problem Allergic rhinitis (64969426) Other allergic rhinitis (J30.89) Active confirmed Problem Chronic allergic conjunctivitis (43167741) Other chronic allergic conjunctivitis (H10.45) Active confirmed Problem Acute upper respiratory infection (16295908) Acute upper respiratory infection, unspecified (J06.9) Active confirmed Plan Of Treatment No Information Insurance Providers Payer Name Payer Address Payer Phone Subscriber Number Group Number Insured Name Patient Relationship to Insured Coverage Start Date Coverage End Date [employer] Medicare [address] [place] [address] [id number] Carmel Sampson Self - patient is the insured 0 Medical (General) History Medical History History ICD Code Hypothyroidism, unspecified Severe persistent asthma, uncomplicated J45.50 Allergic rhinitis due to pollen J30.1 Allergic rhinitis due to animal (cat) (d og) hair and dander J30.81 Other allergic rhinitis J30.89 Surgical History Surgery Date(Month/Year) Sinus surgery 2020
--- NOTE | 2024-12-20 07:31 | ECG_ITS ---
Test Date: 2024-12-20 07:33:34 Measurements Intervals Arnold Rate: 69 P: 47 [place]: 166 QRS: -7 QRSD: 92 T: 16 QT: 378 QTc: 408 Interpretive Statements SINUS RHYTHM INCOMPLETE RIGHT BUNDLE BRANCH BLOCK BORDERLINE T WAVE ABNORMALITY- INFERIOR LEADS BASELINE ARTIFACT- V3 BORDERLINE ECG Compared to ECG 03/14/2024 09:14:22 No significant changes Electronically Signed On 12-20-2024 08:27:10 CDT by Jim Padilla D.O.
[2024-12-20 07:44] LABS: Hematocrit 39.3 % (37.0-47.0); Hemoglobin 12.2 g/dL (12.0-15.0); Immature Granulocyte Percent A 0.5 % (0-0.5); Lymphocytes Absolute Auto 1.37 K/mm3 (0.9-3.2); Mean Corpuscular HGB Conc 31.0 g/dl (32-36); Mean Corpuscular Hemoglobin 28.8 pg (26-34); Mean Corpuscular Volume 92.7 fl (80-100); Nucleated Red Blood Cells Absolute Auto 0.000 K/mm3 (0.0-0.012); Nucleated Red Blood Cells Perc 0.0 % (0.0-0.2); Platelet Count Result 170 k/mm3 (150-375); Red Blood Count 4.24 M/mm3 (4.2-5.4); White Blood Count 6.1 K/mm3 (4.5-10.0)
--- NOTE | 2024-12-20 07:49 | ED_ITS ---
HPI - General Adult General Chief complaint: Shortness of Breath/Dyspnea Stated complaint: SOB exacerbation; sent by Dr. Stinson Seen by Provider: 12/20/24 07:28 History of Present Illness HPI narrative: 84f w/ pmh including hypertension, hypercholesterolemia, goiter, hypothyroidism, GERD, asthma, Pauciimmune GN and personal history of pulmonary embolus which was initially diagnosed on December 03, 2020 presenting for worsening dyspnea on exertion. patient has chronic dyspnea which from review of the emr nephrology/ pulmonology notes thought to be an autoimmune vasculitide presenting for worsening shortness of breath. 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 for further evaluation and treatment and the patient declines stating she has been through [facility] much to drive into the city and see another specialist. patient's dyspnea has worsened over the last 3 days and she became severely winded on ambulation. Her primary care is concerned she may have a another pulmonary embolism. She does not have any swelling of her lower extremities. She is not on anticoagulation. She has some tightness across her chest but no pleuritic pain. She does not have a productive cough fevers chills body aches or sick contacts at home. Related Data Home Medications ?Medication ?Instructions ?Recorded ?Confirmed ?Last Taken ?Type magnesium oxide 500 mg capsule 500 mg PO DAILY 10/17/24 11/12/23 History calcium carbonate (Tums Ultra) 1,000 mg PO DAILY 06/2910/17/24 11/12/23 History mecobalamin (vitamin B12) 500 mcg 500 mcg PO DAILY 05/2310/17/24 Unknown History chewable tablet cholecalciferol (vitamin D3) 125 125 mcg PO DAILY 08/0110/17/24 Unknown History mcg (5,000 unit) capsule mycophenolate mofetil 500 mg tablet 500 mg PO Q12H 10/17/24 Unknown History Allergies Allergy/AdvReac Type Severity Reaction Status Date / Time fluticasone Allergy Unknown Other Verified 12/20/24 07:30 salmeterol Allergy Unknown Other Verified 12/20/24 07:30 [facility] Past Medical History Medical History Adenomatous colon polyp Gastroparesis Bloating Gastritis Occult blood in stools Acute on chronic anemia 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 Surgical History Surgical History History of cardiac catheterization (2016) Normal coronary arteries. History of excision of epidermal inclusion cyst (06/23/02) Right chest wall. History of sinus surgery (10/2020) History of tubal ligation (1975) History of laparoscopic cholecystectomy (05/03/07) Family History Family History Mother Family history of chronic obstructive pulmonary disease Diabetes mellitus Father Social History Social History Social History: Surrogate decision maker: Douglas Acostan, . Code status: Full code. Smoking status: Never smoker Alcohol intake: current Drinks per week: 0 Alcohol use details: 1 per month Substance use: never Substance use type: does not use Do You Feel Safe in your Home?: Yes Lack of Transportation: No Lack of Food: Never True Current Housing: I Have Housing Concerned About Future Housing: No Difficulty Paying Gas/Electric Bills: No Difficulty Paying for Meds: No Currently Unemployed: No Education: High School Diploma/GED Difficulty w/ Childcare or Family Care: No Living arrangements: with family Additional living arrangements comments: The patient lives in [place] with her . Occupation/Education: retired Spiritual care concerns: No Exam 2 Narrative: APPEARANCE: No apparent distress. Head: atraumatic. EYES: EOMI, NOSE: Atraumatic NECK: Trachea midline RESPIRATORY: 3-4 word dyspnea, normal oxygen saturation, clear lung sounds CARDIOVASCULAR: RRR, no peripheral edema ABDOMINAL: Non-distended soft nontender MUSCULOSKELETAl: No obvious deformities NEURO: Alert. Moving 4/4 extremities SKIN:: Warm, dry. Normal color PSYCHIATRIC: Normal affect Course Vital Signs Vital signs: Vital Signs Pulse Rate 74 12/20/24 07:23 Respiratory Rate 20 12/20/24 07:23 Blood Pressure 138/77 12/20/24 07:23 Pulse Oximetry 99 12/20/24 07:23 Oxygen Delivery Room Air 12/20/24 07:23 Pulse Rate 91 12/20/24 10:45 Respiratory Rate 19 12/20/24 10:45 Blood Pressure 122/60 12/20/24 10:01 Pulse Oximetry 97 12/20/24 10:45 Oxygen Delivery Room Air 12/20/24 07:29 Medical Decision Making MDM Narrative Medical decision making narrative: -Course: This 84-year-old female with history of chronic dyspnea presenting for increased dyspnea over the last several days. Patient is clearly short of breath although review nephrology, primary care and pulmonology notes shows this is a chronic condition going back many months. The concern today is a possible pulmonary embolism. Patient has history of chronic kidney disease with a decreased GFR. They requested that I speak to their biosolids management technician on regards to the safety of IV contrast. Case was discussed with Dr. Iqbal and the risks benefits IV contrast given the possible life-threatening condition were discussed. This conversation was related to the patient in the have agreed to go forward with a CTA to evaluate for PE. CT a was negative for pulmonary embolism any other acute cardiopulmonary process. The rest of her workup was unremarkable including chest pain workup and viral swabs. Results were discussed with the patient and she is comfortable going home as she has been dealing with this for quite some time. She does not appear to be in any acute respiratory failure. Patient discharged with return precautions. -DDX includes but is not limited to: Autoimmune vasculitides, COPD/asthma, pneumonia, PE, viral syndrome Independent EKG interpretation: Rhythm [sinus], Rate [69], [place] -[normal], DE -[normal], QRS [narrow], QTC [normal], T waves -[negative for concerning inversions], ST Segments - [Negative for concerning elevations] Final interpretations: [Normal Sinus Rhythm] Vital Signs Vital Signs: Vital Signs Pulse Rate 74 12/20/24 07:23 Respiratory Rate 20 12/20/24 07:23 Blood Pressure 138/77 12/20/24 07:23 Pulse Oximetry 99 12/20/24 07:23 Oxygen Delivery Room Air 12/20/24 07:23 Pulse Rate 91 12/20/24 10:45 Respiratory Rate 19 12/20/24 10:45 Blood Pressure 122/60 12/20/24 10:01 Pulse Oximetry 97 12/20/24 10:45 Oxygen Delivery Room Air 12/20/24 07:29 Lab Data 12/20/24 07:34 12/20/24 07:34 Labs: Lab Results 12/20/24 12/20/24 12/20/24 Range/Units 07:34 08:06 10:15 WBC 6.1 (4.5-10.0) K/mm3 RBC 4.24 (4.2-5.4) M/mm3 Hgb 12.2 (12.0-15.0) g/dL Hct 39.3 (37.0-47.0) % MCV 92.7 (80-100) fl MCH 28.8 (26-34) pg MCHC 31.0 L (32-36) g/dl RDW 13.6 (11.5-14.5) % Plt Count 170 (150-375) k/mm3 MPV 9.8 (7.4-10.4) fl Immature Gran % (Auto) 0.5 (0-0.5) % Neut % (Auto) 67.2 (45.5-73.1) % Lymph % (Auto) 22.3 (18.3-44.2) % [place] % (Auto) 7.3 (2.6-8.5) % Eos % (Auto) 2.4 (0-4.4) % Baso % (Auto) 0.3 (0.2-1.2) % Lymph # (Auto) 1.37 (0.9-3.2) K/mm3 [place] # (Auto) 0.5 (0.1-0.6) K/mm3 Eos # (Auto) 0.2 (0-0.3) K/mm3 Baso # (Auto) 0.0 (0.0-0.1) K/mm3 Abs Immat Gran (auto) 0.03 (0.00-0.031) K/mm3 Absolute Neuts (auto) 4.1 (1.3-6.7) K/mm3 Absolute Nucleated RBC 0.000 (0.0-0.012) K/mm3 Nucleated RBC % 0.0 (0.0-0.2) % PT 12.9 (11.1-14.7) Seconds INR 1.0 APTT 23.9 (22.3-36.8) Seconds Sodium 135 L (137-145) mmol/L Potassium 4.1 (3.4-5.0) mmol/L Chloride 103 (98-107) mmol/L Carbon Dioxide 22 (22-30) mmol/L Anion Gap 10 (4-12) mmol/L BUN 53 H (7-17) mg/dL Creatinine 1.67 H (0.7-1.0) mg/dL Estim Creat Clear Calc 22 ml/min Estimated GFR 29 L (59 - ) Glucose 105 (65-110) mg/dL Calcium 9.7 (8.4-10.2) mg/dL Total Bilirubin 0.7 (0.2-1.3) mg/dL AST 32 (14-36) U/L ALT 22 (6-35) U/L Alkaline Phosphatase 50 (38-126) U/L Troponin I < 0.012 < 0.012 (0.000-0.034) ng/mL NT-Pro-B Natriuret Pep 708 H (19.9-100) pg/mL Total Protein 6.7 (6.3-8.2) g/dL Albumin 4.1 (3.5-5.1) g/dL Lipase 96 (23-300) U/L Influenza A (RT-PCR) Negative (Negative) Influenza B (RT-PCR) Negative (Negative) RSV (RT-PCR) Negative (Negative) SARS-CoV-2 RNA (RT-PCR) Negative (Negative) ABG Data ABG results: 12/20/24 08:03 VBG pH 7.422 H* VBG pCO2 35.6 L VBG pO2 28.4 L VBG HCO3 22.7 L O2 Delivery Device Room air O2 Liters/Min Not Reportable FiO2 21 Discharge Plan Discharge Clinical Impression: Dyspnea Patient Disposition: Home Condition: Stable Instructions: Antibiotic Form, Dyspnea (ED) Additional Instructions: You were seen in the emergency department for dyspnea. CTA of her chest was negative for pulmonary embolism or pneumonia. Please follow-up with your primary care physician and biosolids management technician for further management. If you feel your breathing continues to get worse he develop any new symptoms he can return to the ED for re-evaluation. Patient Language: Mohawk Prescriptions: No Action calcium carbonate [Tums Ultra] 400 mg calcium (1,000 mg) tablet,chewable 1,000 mg PO DAILY mecobalamin (vitamin B12) 500 mcg tablet,chewable 500 mcg PO DAILY cholecalciferol (vitamin D3) 125 mcg (5,000 unit) capsule 125 mcg PO DAILY losartan 25 mg tablet 25 mg PO DAILY Qty: 90 3RF mycophenolate mofetil 500 mg tablet 500 mg PO Q12H magnesium oxide 500 mg capsule 500 mg PO DAILY montelukast 10 mg tablet 10 mg PO DAILY Qty: 100 1RF omeprazole 40 mg capsule,delayed release(DR/EC) 40 mg PO DAILY Qty: 90 1RF furosemide 20 mg tablet See Rx Instructions .ROUTE .COMPLEX Qty: 90 3RF Dose Instruction: TAKE 1 TABLET BY MOUTH IN THE MORNING Rx Instructions: TAKE 1 TABLET BY MOUTH IN THE MORNING atorvastatin 20 mg tablet 20 mg PO DAILY Qty: 90 1RF levothyroxine 100 mcg tablet 100 mcg PO DAILY Qty: 90 1RF fluticasone furoate-vilanterol [Breo Ellipta] 200-25 mcg/dose blister with device 1 inh inhalation DAILY Qty: 60 1RF albuterol sulfate 2.5 mg /3 mL (0.083 %) solution for nebulization 2.5 mg inhalation Q6H PRN (Reason: shortness of breath or wheezing) Qty: 180 0RF prednisone 10 mg tablet 10 mg PO DAILY Qty: 100 1RF Follow-up/Referrals: Rao Ontiveros MD [Primary Care Provider, Family Practice] - 3 Days Referral Note: Dyspnea
--- NOTE | 2024-12-20 07:54 | PCRCNOTE ---
VBG delayed pt in XRAY
[2024-12-20 07:57] LABS: Alanine Aminotransferase 22 U/L (6-35); Albumin Level 4.1 g/dL (3.5-5.1); Alkaline Phosphatase 50 U/L (38-126); Aspartate Amino Transferase 32 U/L (14-36); Bilirubin,Total 0.7 mg/dL (0.2-1.3); Blood Urea Nitrogen 53 mg/dL (7-17); Chloride 103 mmol/L (98-107); Estimated CRCL calculation 22 ml/min; Estimated Glomerular Filt Rate 29; Lipase 96 U/L (23-300); Total Protein 6.7 g/dL (6.3-8.2)
[2024-12-20 08:07] LABS: INR 1.0; Prothrombin Time 12.9 Seconds (11.1-14.7); Troponin I < 0.012 ng/mL (0.000-0.034)
[2024-12-20 08:08] LABS: Fractional Inspired Oxygen 21 %; HCO3 VBG 22.7 mEq/l (24.0-30.0); PCO2 VBG 35.6 mmHg (42.0-48.0); PO2 VBG 28.4 mmHg (35.0-45.0)
[2024-12-20 08:09] LABS: Partial Thromboplastin Time 23.9 Seconds (22.3-36.8)
[2024-12-20 08:10] LABS: pH VBG 7.422 (7.300-7.400)
--- OUTSIDE RECORDS SUMMARY | 2024-12-20 08:16 | XMS_ITS | Clinical Summary ---
Author Organization [facility] [employer] Address [address] [place] [address] Care Team Providers Care Slaughterer Religious Ritual Name Role Phone Rao Ontiveros MD Primary Care Provider [phone] Iesha SULTANA MD, Robby Camden Unavailable [phone] Allergies No known active allergies Medications levothyroxine [...] (10/26/2020): Added automatically from request for surgery [id number] Chronic ethmoidal sinusitis 10/26/2020 Overview (10/26/2020): Added automatically from request for surgery [id number] Chronic maxillary sinusitis 10/26/2020 Overview (10/26/2020): Added automatically from request for surgery [id number] Chronic sphenoidal sinusitis 10/26/2020 Overview (10/26/2020): Added automatically from request for surgery [id number] Chronic pansinusitis 10/24/2020 Hypertrophy of both inferior [...] on file Legal Sex Female 4:21 AM PATIENT REGISTRATION REPRESENTATIVE Gender Identity Female 10/17/2020 6:40 PM CDT Sexual Orientation Straight 10/17/2020 6: 40 PM CDT Obstetrics History Last Filed Vital Signs Vital Sign Reading Time Taken Comments Blood Pressure 126/69 11/21/2020 3:50 PM CDT Pulse 70 11/21/2020 3:50 PM CDT Temperature 36.7 C (98 F) 11/21/2020 3:05 PM CDT Respiratory Rate 17 05/09/2021 9:18 AM PATIENT REGISTRATION REPRESENTATIVE Oxygen Saturation 93% 11/21/2020 3:50 PM CDT Inhaled Oxygen Concentration - - Weight 69.4 kg (153 lb) 05/09/2021 9:18 AM PATIENT REGISTRATION REPRESENTATIVE Height 170.2 cm (5' 7) 05/09/2021 9:18 AM PATIENT REGISTRATION REPRESENTATIVE Body Mass Index 23.96 05/09/2021 9:18 AM PATIENT REGISTRATION REPRESENTATIVE Plan of Treatment Not on file Insurance [facility] REF [employer] MEDICARE [facility] Advance Directives For more information, please contact: [phone] Documents on File Type Date Recorded Patient Police Guard Expl anation ADVANCE DIRECTIVE 11/22/2020 10:09 AM Ruthie witt Will ADVANCE DIRECTIVE 11/22/2020 10:09 AM Sami r of Mental Health Assistant-Medical * Full Code (Latest Code Status on File) Date Activated Date Inactivated Comments 11/21/2020 1:25 PM 11/21/2020 8:02 PM Care Teams Slaughterer Religious Ritual Relationship Specialty Start Date End Date Rao Ontiveros MD [address] [place] [address] PCP - General 03/21/16 Robby Eagle II, MD [address] [place] [address] Consulting Physician Otolaryngology 11/21/20
--- OUTSIDE RECORDS SUMMARY | 2024-12-20 08:17 | XMS_ITS | Encounter Summary ---
Author Organization [facility] [place] Address Formerly [facility] [place] [address] Care Team Providers Care Society Reporter Name Role Phone Rao Ontiveros MD Primary Care Provider [phone] Reason for Visit * Reason Onset Date Comments Question 10/20/2022 Encounter Details Date Type Department Care Team (Late st Contact Info) Description 10/20/2022 [employer] Message Enc [facility] Pul[facility] [address] [address] Son Alarcon DO [address] [facility] [address] [place] [address] issue Social History Tobacco Use [...] on filedocumented in this encounter Care Teams Society Reporter Relationship Specialty Start Date End Date Rao Ontiveros MD [address] [place] [address] PCP - General FAMILY PRACTICE 04/23/22 documented as of this encounter
--- OUTSIDE RECORDS SUMMARY | 2024-12-20 08:21 | XMS_ITS | Clinical Summary ---
Author Organization [facility] [employer] Address [address] [place] [address] Care Team Providers Care Paid Search Analyst Name Role Phone Unavailable Primary Care Provider [...] Abstract 10/24/2024 11:30 AM CDT Office Visit [facility] Oncology and Hematology - [place] [address] [place] [address] Enrique Portillo MD Chronic anemia (Primary Dx) 10/20/2024 Orders Only Initial Department [address] [address]: [place] [address] Provider, Historical 10/18/2024 External Device Data STL [...] st Contact Info) Description 04/26/2025 11:30 AM CLEANING TECHNICIAN Office Visit [facility] - [place] [address] [place] [id number] Enrique Portillo MD [address] [facility] [address] [place] [address] Health Maintenance Due Date Last [...] PLATELETS 164 140 - 400 Thousand/ uL Meche PedroDonaldo De Anda MPV 10.4 7.5 - 12.5 fL Meche PedroDonaldo De Anda Comment: Test Performed at: [facility] [address] [place] [address] James Gutierrez 10/20/2024 8:06 AM CDT 10/20/2024 11:13 AM CDT Enrique Portillo MD HEMATOLOGY ORDERABLES Final Res ult [facility] [phone] [place] [address] [place] [address] * (ABNORMAL) VITAMIN B12 AND FOLATE (10/20/2024 8:04 AM CDT) VITAMIN B12 1277(H) 200 - 1100 pg/mL [facility] FOLATE, SERUM >24.0 ng/mL [email or web address] Comment: Reference Range Low: <3.4 Borderline: 3.4-5.4 Normal: >5.4 Test Performed at: [facility] [address] [place] [address] James Gutierrez MD Blood 10/20/2024 8:04 AM CDT 10/20/2024 8:05 AM CDT Enrique Portillo MD CHEMISTRY ORDERABLES Final Resu lt Performing Organization Address City/[facility]/ZIP Co de Phone Number [facility] [phone] [email or web address] [address] [place] [address] * IRON, TIBC, AND PERCENT SATURATION (10/20/2024 8:04 AM CDT) IRON 64 45 - 160 mcg/dL [facility] TIBC 257 250 - 450 mcg/dL (calc) [facility] IRON % SATURATION 25 16 - 45 % (calc) [facility] Comment: Test Performed at: [facility] [address] [place] [address] James Gutierrez MD Blood 10/20/2024 8:04 AM CDT 10/20/2024 8:05 AM CDT us Enrique Portillo MD CHEMISTRY ORDERABLES Final Resu lt Performing Organization Address [facility] Co de Phone Number [facility] [phone] [facility] [address] [place] [address] * FERRITIN (10/20/2024 8:04 AM CDT) FERRITIN 70 16 - 288 ng/mL [facility] Comment: Test Performed at: [facility] [address] [place] [address] James Gutierrez MD Blood 10/20/2024 8:04 AM CDT 10/20/2024 8:05 AM CDT Enrique Portillo MD CHEMISTRY ORDERABLES Final Resu lt [facility] [phone] [email or web address] [id number] [place] [address], [place] [address] from Last 3 Months Insurance AENA O MCR
--- OUTSIDE RECORDS SUMMARY | 2024-12-20 08:22 | XMS_ITS | Encounter Summary ---
Author Organization [facility] Address [address] [facility] [address] [place] [address] Care Team Providers Care Cat Breeder Name Role Phone Rao Ontiveros MD Primary Care Provider Fco SULTANA MD, Robby Hannah Unavailable [phone] Encounter Details Date Type Department Care Team (Late st Contact Info) Description 03/12/2016 Orders Only [facility] ProviderQuan MD [address] [place] [address] Social History Tobacco Use Types Packs/Day Years Used Date Smoking Tobacco: Never Assessed Comments Unknown Sex and Gender Information Value Date Recorded Sex Assigned at Not on file Legal Sex Female 4:21 AM ADMISSIONS NURSE Gender Identity Female 10/17/2020 6:40 PM CDT [...] on filedocumented in this encounter Care Teams Cat Breeder Relationship Specialty Start Date End Date Rao Ontiveros MD [address] [place] [address] PCP - General 03/21/16 Robby Eagle II, MD [address] [place] [address] STEVEN THURMAN [address] Consulting Physician Otolaryngology 11/21/20 documented as of this encounter
--- OUTSIDE RECORDS SUMMARY | 2024-12-20 08:22 | XMS_ITS | Encounter Summary ---
Author Organization [facility] Address [address] [facility] [address] [place] [address] Care Team Providers Care Political Anthropologist Name Role Phone Rao Ontiveros MD Primary Care Provider [phone] Fco SULTANA MD, Robby Hannah Unavailable [phone] Encounter Details Date Type Department Care Team (Late st Contact Info) Description 03/21/2016 Orders Only [facility] ProviderQuan MD [address] [place] [address] Social History Tobacco Use Types Packs/Day Years Used Date Smoking Tobacco: Never Alcohol Use Standard Drinks/Week Comments Yes 0 (1 standard drink = 0.6 oz pur e alcohol) Comments Unknown Sex and Gender Information Value Date Recorded Sex Assigned at Not on file Legal Sex Female 4:21 AM DESKTOP ANALYST Gender Identity Female 10/17/2020 6:40 PM CDT [...] on filedocumented in this encounter Care Teams Political Anthropologist Relationship Specialty Start Date End Date Rao Ontiveros MD [address] [facility] [place] [address] PCP - General 03/21/16 Robby Eagle II, MD [address] [facility] [address] Consulting Physician Otolaryngology 11/21/20 documented as of this encounter
[2024-12-20] MEDS: IPRATROPIUM 0.5 MG/ALBUTEROL SULFATE 2.5 MG (BASE) AMPUL.NEB 3 ML 6 ML INHALATION (08:34)
[2024-12-20 08:49] LABS: Influenza A QL RT-PCR Negative (Negative); Influenza B QL RT-PCR Negative (Negative); RSV RNA, RT-PCR Negative (Negative); SARS-CoV-2 RNA PCR Negative (Negative)
[2024-12-20 09:11] LABS: Anion Gap 10 mmol/L (4-12); Calcium 9.7 mg/dL (8.4-10.2); Carbon Dioxide 22 mmol/L (22-30); Glucose 105 mg/dL (65-110); Potassium 4.1 mmol/L (3.4-5.0); Sodium 135 mmol/L (137-145)
--- NOTE | 2024-12-20 09:17 | PC.NURSE ---
pt states sob is getting better. Dr hinkle in talking with pt
[2024-12-20 09:31] LABS: NT Pro B Type Natriuretic Pept 708 pg/mL (19.9-100)
--- NOTE | 2024-12-20 10:18 | ECG_ITS ---
Test Date: 2024-12-20 10:21:09 Measurements Intervals [place] Rate: 93 P: -11 MS: 119 QRS: -6 QRSD: 86 T: 26 QT: 358 QTc: 446 Interpretive Statements SINUS RHYTHM HIGH LATERAL INFARCT, AGE INDETERMINATE BORDERLINE ST-T WAVE ABNORMALITY- INFERIOR LEADS BASELINE ARTIFACT- I, III, AVR, AVL, V1 ABNORMAL ECG Compared to ECG 12/20/2024 07:33:34 NO SIGNIFICANT CHANGE Electronically Signed On 12-20-2024 11:25:47 CDT by Jim Padilla D.O.
[2024-12-20 10:50] LABS: Troponin I < 0.012 ng/mL (0.000-0.034)
== END 2024-12-20 11:23 | disposition home or self-care (01) ==
PROVIDERS: Emergency Provider Emergency Medicine; PCP Family Medicine
DX: R06.00 Dyspnea, unspecified (principal); J45.909 Unspecified asthma, uncomplicated; I12.9 Hypertensive chronic kidney disease with stage 1 through stage 4 chronic kidney disease, or unspecified chronic kidney disease; N18.9 Chronic kidney disease, unspecified; D63.1 Anemia in chronic kidney disease; I27.20 Pulmonary hypertension, unspecified; I70.0 Atherosclerosis of aorta; E03.9 Hypothyroidism, unspecified; E78.00 Pure hypercholesterolemia, unspecified; K21.9 Gastro-esophageal reflux disease without esophagitis; G47.33 Obstructive sleep apnea (adult) (pediatric); Z86.711 Personal history of pulmonary embolism; Z86.0101 Personal history of adenomatous and serrated colon polyps; Z86.718 Personal history of other venous thrombosis and embolism; Z90.49 Acquired absence of other specified parts of digestive tract; Z79.899 Other long term (current) drug therapy; R94.31 Abnormal electrocardiogram [ECG] [EKG]; I45.10 Unspecified right bundle-branch block
CPT/HCPCS: 36415; 71046; 71275; 80053; 82803; 83690; 83880; 84484; 85025; 85610; 85730; 87637; 93005; 94640; 99284; Q9967

== ENCOUNTER 2025-01-24 07:59 | Outpatient (CLI) | payer MEDICARE, SELFPAY ==
--- NOTE | ~2025-01-24 | DEXA_ITS ---
Bone Density Report Name: MICHEAL HELLER Age: 84 Sex: Female Ethnicity: White Date of : 1940 Indication: postmenopausal; screening for osteoporosis; height loss; history of glucocorticoids; Referring Provider: MAGGIE SAN Study: Bone densitometry was performed. Exam Date: January 24, 2025 Accession number: [id number] Bone Density: Region BMD T-score Z-score Classification AP Spine(L1-L4) 0.927 -1.1 1.7 Osteopenia Femoral Neck (Left) 0.614 -2.1 0.4 Osteopenia Total Hip (Left) 0.684 -2.1 0.2 Osteopenia Femoral Neck (Right) 0.588 -2.4 0.1 Osteopenia Total Hip (Right) 0.606 -2.8 -0.5 Osteoporosis Total Hip Mean 0.645 -2.5 -0.2 Osteopenia World Health Organization criteria for BMD impression classify patients as: Normal (T-score at or above -1.0), Osteopenia (T-score between -1.0 and -2.5), or Osteoporosis (T-score at or below -2.5). 10-year Fracture Risk: FRAX not reported because: Some T-score for Spine Total or Hip Total or Femoral Neck at or below -2.5 Treated for osteoporosis Clinical Information Provided by Patient: Has taken Glucocorticoids Is being treated for osteoporosis Has used the following medications: HRT (i.e. estrogen/hormone therapy), Vitamin D Patient maximum height was 67 Menopause Age: 51 No regular weight bearing exercise Drinks caffeinated beverages Onset of menses at age 15 Number of children 4 Impression: The patient has osteoporosis, based on the Right Total Hip T-score. The patient has risk factors, including: history of glucocorticoid therapy. Discussion: It is important to ask patients whether they are taking their medications and to encourage continued and appropriate compliance with their osteoporosis therapies to reduce fracture risk. It is also important to review their risk factors and encourage appropriate calcium and vitamin D intakes, exercise, fall prevention and other lifestyle measures. Follow-Up: Consider a repeat BMD and Vertebral Fracture Assessment (VFA) exam in 2 years or sooner if medically necessary, to reassess this patient's status. Reported by: REBEKAH on 01/24/2025 8:44:00 AM. Reviewed, dictated and finalized at location A.
--- OUTSIDE RECORDS SUMMARY | 2025-01-24 08:02 | XMS_ITS | Encounter Summary ---
Author Organization [facility] Address [address] [place] [address] Care Team Providers Care Livestock Farmers Name Role Phone Rao Ontiveros MD Primary Care Provider [phone] Fco SULTANA MD, Robby Kelleyley Unavailable [phone] Encounter Details Date Type Department Care Team (Late st Contact Info) Description 03/21/2016 Orders Only [facility] ProviderQuan MD [address] [place], [place] [id number] Social History Tobacco Use Types Packs/Day Years Used Date Smoking Tobacco: Never Alcohol Use Standard Drinks/Week Comments Yes 0 (1 standard drink = 0.6 oz pur e alcohol) Comments Unknown Sex and Gender Information Value Date Recorded Sex Assigned at Not on file Legal Sex Female 4:21 AM SHUTTLE THREADER Gender Identity Female 10/17/2020 6:40 PM CDT Sexual Orientation Straight 10/17/2020 6: 40 PM CDT documented as of this encounter Functional Status documented as of this encounter Plan of [...] on filedocumented in this encounter Care Teams Livestock Farmers Relationship Specialty Start Date End Date Rao Ontiveros MD [address] [place] [address] PCP - General 03/21/16 Robby Eagle II, MD [address] [place] [address] Consulting Physician Otolaryngology 11/21/20 documented as of this encounter
--- OUTSIDE RECORDS SUMMARY | 2025-01-24 08:02 | XMS_ITS | Clinical Summary ---
Author Organization [facility] Backlift Address [address] [place] [address] Care Team Providers Care Microfiche Duplicator Name Role Phone Rao Ontiveros MD Primary Care Provider [phone] Fco SULTANA MD, Robby Camden Unavailable [phone] Allergies No known active allergies Medications levothyroxine [...] (10/26/2020): Added automatically from request for surgery [id number] Chronic ethmoidal sinusitis 10/26/2020 Overview (10/26/2020): Added automatically from request for surgery [id number] Chronic maxillary sinusitis 10/26/2020 Overview (10/26/2020): Added automatically from request for surgery [id number] Chronic sphenoidal sinusitis 10/26/2020 Overview (10/26/2020): Added automatically from request for surgery [id number] Chronic pansinusitis 10/24/2020 Hypertrophy of both inferior [...] on file Legal Sex Female 4:21 AM GANG WORKER Gender Identity Female 10/17/2020 6:40 PM CDT Sexual Orientation Straight 10/17/2020 6: 40 PM CDT Last Filed Vital Signs Vital Sign Reading Time Taken Comments Blood Pressure 126/69 11/21/2020 3:50 PM CDT Pulse 70 11/21/2020 3:50 PM CDT Temperature 36.7 C (98 F) 11/21/2020 3:05 PM CDT Respiratory Rate 17 05/09/2021 9:18 AM GANG WORKER Oxygen Saturation 93% 11/21/2020 3:50 PM CDT Inhaled Oxygen Concentration - - Weight 69.4 kg (153 lb) 05/09/2021 9:18 AM GANG WORKER Height 170.2 cm (5' 7) 05/09/2021 9:18 AM GANG WORKER Body Mass Index 23.96 05/09/2021 9:18 AM GANG WORKER Plan of Treatment Not on file Insurance [employer] REF [employer] MEDICARE GOLD [facility] ADV REF Advance Directives For more information, please contact: [phone] Documents on File Type Date Recorded Patient Seo Professional Expl anation ADVANCE DIRECTIVE 11/22/2020 10:09 AM Ruthie witt Will ADVANCE DIRECTIVE 11/22/2020 10:09 AM Sami r of [facility] * Full Code (Latest Code Status on File) Date Activated Date Inactivated Comments 11/21/2020 1:25 PM 11/21/2020 8:02 PM Care Teams Microfiche Duplicator Relationship Specialty Start Date End Date Lopatin, Rao D., MD [address] [place] [address] PCP - General 03/21/16 Robby Eagle II, MD [address] [place] [address] Consulting Physician Otolaryngology 11/21/20
--- OUTSIDE RECORDS SUMMARY | 2025-01-24 08:02 | XMS_ITS | Clinical Summary ---
Author Organization [facility] Marcello Sorto Address [address] [place] [address] Care Team Providers Care Financial Coach Name Role Phone Unavailable Primary Care Provider [...] Encounters Date Type Department Care Team Description 12/27/2024 External Device Data [facility] ABSTRACTION Provider, Abstract 12/20/2024 External Device Data [facility] ABSTRACTION Provider, Abstract 11/01/2024 External Device Data [facility] ABSTRACTION Provider, Abstract 10/24/2024 11:30 AM CDT Office Visit [facility] Oncology and Hematology [facility] [address] [place] [address] Enrique Portillo MD Chronic anemia (Primary Dx) from Last 3 Months Family History Medical [...] st Contact Info) Description 04/26/2025 11:30 AM REPOSSESSOR Office Visit [facility] Oncology and Hematology [facility] [address] [place] [address] Enrique Portillo MD [address] [place] [address] Health Maintenance Due Date Last Done Comments DTAP/TDAP/TD VACCINES (1 - Tdap) 1959 OSTEOPOROSIS SCREENING 2006 PNEUMOCOCCAL VACCINE 50+ YEA RS (2 of 2 - PPSV23, PCV20, or PCV21) 03/04/2016 01/08/2016 RSV VACCINE (60+ or ) (1 - 1-dose 75+ series) 2016 INFLUENZA VACCINE (#1) 2024 , 12/24/2022, 12/24/2022, Additional history exists ZOSTER VACCINE Completed 04/18/2021, 02/15/2021 [facility]
--- OUTSIDE RECORDS SUMMARY | 2025-01-24 08:02 | XMS_ITS | Encounter Summary ---
Author Organization [facility] Address [facility] [place] [address] Care Team Providers Care Sleeve Ironer Name Role Phone Rao Ontiveros MD Primary Care Provider [phone] Reason for Visit * Reason Onset Date Comments Question 10/20/2022 Encounter Details Date Type Department Care Team (Late st Contact Info) Description 10/20/2022 [employer] Message Enc [facility] [address] [address] Son Alarcon DO [address] [place] [address] issue Social History Tobacco Use [...] on filedocumented in this encounter Care Teams Sleeve Ironer Relationship Specialty Start Date End Date Rao Ontiveros MD [address] [place] [address] PCP - General FAMILY PRACTICE 04/23/22 documented as of this encounter
--- OUTSIDE RECORDS SUMMARY | 2025-01-24 08:02 | XMS_ITS | Encounter Summary ---
Author Organization [facility] Address [address] [place] [address] Care Team Providers Care Medical Office Coordinator Name Role Phone Rao Ontiveros MD Primary Care Provider Fco SULTANA MD, Robby Hannah Unavailable Encounter Details Date Type Department Care Team (Late st Contact Info) Description 03/12/2016 Orders Only [facility] ProviderQuan MD [address] [place] [address] Social History Tobacco Use Types Packs/Day Years Used Date Smoking Tobacco: Never Assessed Comments Unknown Sex and Gender Information Value Date Recorded Sex Assigned at Not on file Legal Sex Female 4:21 AM SHIP'S MASTER Gender Identity Female 10/17/2020 6:40 PM CDT [...] on filedocumented in this encounter Care Teams Medical Office Coordinator Relationship Specialty Start Date End Date Rao Ontiveros MD [address] [place] [address] PCP - General 03/21/16 Robby Eagle II, MD [address] [place] [address] STEVEN THURMAN [address] Consulting Physician Otolaryngology 11/21/20 documented as of this encounter
--- OUTSIDE RECORDS SUMMARY | 2025-01-24 08:02 | XMS_ITS | Clinical Summary ---
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 ([facility]) Take 3 mLs (2.5 mg total) by [...] 11:26 AM CDT Height 170.2 cm (5' 7) 08/25/2023 11:26 AM CDT Body Mass Index 23.34 08/25/2023 11:26 AM CDT Plan of Treatment Health Maintenance Due Date Last Done Comments DTaP, Tdap and Td Vaccines (1 - Tdap) 1959 Annual Medicare Wellness Visit 2006 Dexa Scan (General) 2006 RSV Immunization or 60+ Years (1 - 1-dose 75+ series) 2016 Pneumococcal Vaccine: 50+ Years (2 of 2 - PCV20 or PCV21) 01/07/2017 01/08/2016 PHQ-2 (Physician [place]) 03/02/2024 04/21/2023 COVID-19 Vaccine ( season) 2024 11/15/2021, 08/08/2021, 12/25/2020, Additional history exists Influenza Adult (#1) 2024 12/13/2021, 12/19/2020, 11/21/2019, Additional history exists Zoster Vaccines Completed 04/18/2021, 02/15/2021 Hepatitis A Vaccines Aged Out No long er eligible based on patient's age to complete this topic Meningococcal B Vaccine Aged Out No l onger eligible based on patient's age to complete this topic Meningococcal Vaccine Aged Out No chris edmar eligible based on patient's age to complete this topic RSV Immunizations Under 20 Months Aged Out No longer eligible based on patient's age to complete this topic [place] [address] [employer] MEDICARE Care Teams Medical Laboratory Scientist Relationship Specialty Start Date End Date Rao Ontiveros MD [facility] [place] [address] PCP - General FAMILY PRACTICE 04/23/22
--- OUTSIDE RECORDS SUMMARY | 2025-01-24 08:02 | XMS_ITS | Encounter Summary ---
Author Organization [facility] Address [facility] [place] [address] Care Team Providers Care Accountant Manager Name Role Phone Rao Ontiveros MD Primary Care Provider [phone] Encounter Details Date Type Department Care Team (Late st Contact Info) Description 08/27/2022 MyChart Message Enc [facility] - [facility] [address] [place], [place] [address] [employer], [facility] Provider Air Quality Message Social History [...] on filedocumented in this encounter Care Teams Accountant Manager Relationship Specialty Start Date End Date Rao Ontiveros MD [address] [place] [address] PCP - General FAMILY PRACTICE 04/23/22 documented as of this encounter
--- OUTSIDE RECORDS SUMMARY | 2025-01-24 08:02 | XMS_ITS | Encounter Summary ---
Author Organization [facility] Address [facility] [place] [address] Care Team Providers Care Hydropulper Name Role Phone Rao Ontiveros MD Primary Care Provider [phone] Encounter Details Date Type Department Care Team (Latest Contact Info) Description 01/07/2023 [employer] Message Enc [facility] Medical [facility] Multispecialty Care - [facility] [address] [place] [address] Son Alarcon DO [address] [place] [address] [employer] PROGRAM ENROLLMENT Social History Tobacco [...] on filedocumented in this encounter Care Teams Hydropulper Relationship Specialty Start Date End Date Rao Ontiveros MD [address] [place] [address] PCP - General FAMILY PRACTICE 04/23/22 documented as of this encounter
== END 2025-01-24 08:00 | disposition home or self-care (01) ==
LOC: ANHFOHIMG 08:00
PROVIDERS: PCP Family Medicine; Visit Provider Family Medicine
DX: M18.0 Bilateral primary osteoarthritis of first carpometacarpal joints (principal); M85.89 Other specified disorders of bone density and structure, multiple sites; Z78.0 Asymptomatic menopausal state
CPT/HCPCS: 77080